=== PATIENT | male | born 1940 | race Caucasian/White ===

== ENCOUNTER → 2023-10-28 14:28 | Outpatient (REF) | payer MEDICARE, BC, SELFPAY | LOC: RAD 14:28 | PROVIDERS: ATTENDING PHYSICIAN Physician Assistant; FAMILY PHYSICIAN Internal Medicine | DX: M79.661 Pain in right lower leg (principal); M79.662 Pain in left lower leg; Z85.46 Personal history of malignant neoplasm of prostate | CPT/HCPCS: 93970 ==

== ENCOUNTER → 2023-12-31 14:40 | Outpatient (REF) | payer MEDICARE, BC, SELFPAY | LOC: RAD 14:40 | PROVIDERS: ATTENDING PHYSICIAN Internal Medicine | DX: I73.9 Peripheral vascular disease, unspecified (principal); I10 Essential (primary) hypertension; M17.0 Bilateral primary osteoarthritis of knee; M71.20 Synovial cyst of popliteal space [Baker], unspecified knee | CPT/HCPCS: 93925 ==

== ENCOUNTER → 2024-02-17 06:26 | Day surgery (SDC) | payer MEDICARE, BC, SELFPAY | LOC: GI 06:26 | PROVIDERS: ATTENDING PHYSICIAN Internal Medicine Gastroenterology; FAMILY PHYSICIAN Internal Medicine | DX: K63.89 Other specified diseases of intestine (principal); K64.0 First degree hemorrhoids; D12.3 Benign neoplasm of transverse colon; D12.0 Benign neoplasm of cecum; K63.5 Polyp of colon | CPT/HCPCS: 45380; 88305; 88313; 88342 ==

== ENCOUNTER → 2024-03-04 13:37 | Outpatient (REF) | payer MEDICARE, BC, SELFPAY | LOC: RCS 13:37 | PROVIDERS: ATTENDING PHYSICIAN Internal Medicine | DX: I10 Essential (primary) hypertension (principal); R01.1 Cardiac murmur, unspecified | CPT/HCPCS: 93306 ==

== ENCOUNTER → 2024-05-28 09:55 | Outpatient (REF) | payer MEDICARE, BC, SELFPAY ==
[2024-05-28 11:07] LABS: % Basophils 0.8 % (0-2); % Eosinophils 3.4 % (0-6); % Immature Granulocytes 0.5 % (0-0.5); % Lymphocytes 25.3 % (20.5-51.1); % Monocytes 12.9 % (1.7-9.3); % Neutrophils 57.1 % (42.2-75.2); Absolute Basophils 0.1 10^3/uL (0-0.2); Absolute Eosinophils 0.2 10^3/uL (0-0.7); Absolute Lymphocytes 1.7 10^3/uL (1.2-3.4); Absolute Monocytes 0.8 10^3/uL (0.1-0.6); Absolute Neutrophils 3.7 10^3/uL (1.4-6.5); Hematocrit 39.5 % (39.0-52.0); Mean Corp Hgb Conc. 32.9 g/dL (33.0-37.0); Mean Corpuscular Hgb 31.3 pg (27.0-31.0); Mean Platelet Volume 11.2 fL (7.4-10.4); Nucleated Red Blood Cells % 0 % (-); Platelet Count 189 10^3/uL (130-400); Red Blood Cell Count 4.16 10^6/uL (4.70-6.10); Red Cell Dist. Width 15.6 % (11.5-14.5); White Blood Cell Count 6.5 10^3/uL (4.8-10.8)
[2024-05-28 11:44] LABS: Blood Urea Nitrogen 27 mg/dl (9-20); Calcium 9.2 mg/dl (8.4-10.2); Carbon Dioxide 29 mmol/L (22-30); Chloride 102 mmol/L (98-107); Glucose 102 mg/dl (70-99); Potassium 4.5 mmol/L (3.5-5.1); Sodium 140 mmol/L (135-145); eGFR > 60.00
== END ==
LOC: RCS 09:55
PROVIDERS: ATTENDING PHYSICIAN Orthopaedic Surgery; FAMILY PHYSICIAN Internal Medicine
DX: Z01.818 Encounter for other preprocedural examination (principal)
CPT/HCPCS: 36415; 80048; 85025; 93005

== ENCOUNTER 2024-06-23 17:00 | Inpatient (IN) | payer MEDICARE, BC, SELFPAY ==
[2024-06-22] VITALS (7 sets, daily range): BP systolic 104–124; BP diastolic 64–92; BMI 27.8
[2024-06-22 18:54] LABS: % Basophils 0.2 % (0-2); % Immature Granulocytes 0.5 % (0-0.5); % Lymphocytes 3.7 % (20.5-51.1); % Monocytes 2.8 % (1.7-9.3); % Neutrophils 92.8 % (42.2-75.2); Absolute Immature Granulocytes 0.1 10^3/uL (0-0.05); Absolute Lymphocytes 0.5 10^3/uL (1.2-3.4); Absolute Monocytes 0.4 10^3/uL (0.1-0.6); Absolute Neutrophils 12.4 10^3/uL (1.4-6.5); Hematocrit 30.6 % (39.0-52.0); Hemoglobin 10.1 g/dL (13.0-18.0); Mean Corpuscular Hgb 30.8 pg (27.0-31.0); Mean Corpuscular Volume 93.3 fL (80.0-94.0); Mean Platelet Volume 11.1 fL (7.4-10.4); Nucleated Red Blood Cells % 0 % (-); Platelet Count 185 10^3/uL (130-400); Red Blood Cell Count 3.28 10^6/uL (4.70-6.10); Red Cell Dist. Width 15.3 % (11.5-14.5); White Blood Cell Count 13.3 10^3/uL (4.8-10.8)
[2024-06-22 19:02] LABS: INR 1.18; PT 14.8 Sec (11.4-14.6)
[2024-06-22 19:03] LABS: APTT 29.8 Sec (23.4-35.0)
[2024-06-22 19:10] LABS: ALT (SGPT) 19 U/L (0-50); AST (SGOT) 25 U/L (17-59); Alkaline Phosphatase 32 U/L (38-126); Blood Urea Nitrogen 17 mg/dl (9-20); Calcium 7.1 mg/dl (8.4-10.2); Carbon Dioxide 17 mmol/L (22-30); Chloride 107 mmol/L (98-107); Estimated Creatinine Clearance 71 ml/min; Glucose 253 mg/dl (70-99); Potassium 3.4 mmol/L (3.5-5.1); Sodium 138 mmol/L (135-145); Total Bilirubin 0.3 mg/dl (0.2-1.3); Total Protein 4.9 g/dl (6.3-8.2); eGFR > 60.00
[2024-06-22 19:20] LABS: Troponin I < 0.012 ng/ml
--- NOTE | 2024-06-22 22:12 | ED.GENMED ---
History of Present Illness
General
Chief Complaint: Fainting/Passed Out
Source: patient, spouse and family
Time Seen by Provider: 06/22/24 21:55
History of Present Illness
History of Present Illness:
84-year-old male brought to the emergency room by ambulance after becoming dizzy, hypoxic at home. Patient had a right knee replacement performed at an outpatient surgical center today by [facility]. Postoperatively the patient
states he had some issues with hypoxia and low blood pressure in the immediate postoperative phase. Evidently his vital signs became more normal and he was discharged to home. Upon returning home a visiting nurse and physical therapist were there
to help him get settled. During their evaluation they noted he was again hypoxic and hypotensive. He was feeling dizzy and they felt he looked pale. The orthopedic group recommended he be brought to the emergency room. Patient became quite
lightheaded and weak while going up to the car to be brought in and had to be lowered to the ground. Ambulance was called to bring him in. While laying in bed and with supplemental oxygen the patient feels better. Patient denies any history of
COPD but he did have COVID in 2020 with a extended hospitalization. He does have regular follow-ups with pulmonology for this
Past History
Past History
ED Past Medical History: Cancer (Prostate), HTN and Hypercholesterolemia
ED Past Surgical History: Other (Hernia repair)
Social History
Tobacco: Non-smoker
Phy Exam
Physical Exam
Physical Exam:
General: Awake, Alert, Oriented X3. No acute distress, pale
Vitals: Hypoxic on room air
Head: Atraumatic
Eyes: Pupils equal, EOMI
Throat: Airway intact, no exudates
Neck: Trachea midline
Lungs: Crackles bilateral bases right greater than left
Heart: Regular rate, no murmurs
Abd: Soft, Nontender, No pulsatile mass
Neuro: Nonfocal
Skin: Warm, dry, no rash
Extremities: pulses equal b/l, no edema. Right knee dressing in place
Course
Orders/Labs/Results
Orders:
Orders
06/22/24 18:45
Electrocardiogram (*1) Urgent
Reason for Study: Syncope
EKG- Treatment ONCE
06/22/24 18:47
CMP [Comprehensive Metabolic Panel] Urgent
Complete Blood Count/With Diff Urgent
PT/INR [Prothrombin Time] Urgent
PTT Urgent
Troponin I Urgent
06/22/24 22:05
CR Chest - 2 Views Urgent
Comment:
Reason For Exam: shortness of breath
06/22/24 23:01
Furosemide [Lasix] 20 mg IV NOW STA
Incentive Spirometry [Rx Incentive Spirometry] [RESP] Urgent
Frequency: q1h while awake
06/22/24 23:02
Potassium Chloride 10% Elixir [KCl Elixir] 40 meq PO NOW STA
06/22/24 23:48
Admit/Transfer Patient As Directed
Co-Sign Provider:
Level of Care: Observation services
Assign to:: Telemetry
Physician / Group: Renato
Diagnosis: Hypoxia
Reason for Telemetry: Other
Other Reason for Telemetry: continuous pulse ox
Date to Stop Telemetry: 06/24/24
Time to Stop Telemetry: 11:00
06/22/24 23:50
Code Status As Directed
Resuscitation Status: Full Code
06/24/24 11:00
DC Protocol for Telemetry ONCE
Abnormal Lab Results
06/22/24
18:47
WBC 13.3 H 10^3/uL
(4.8-10.8)
RBC 3.28 L 10^6/uL
(4.70-6.10)
Hgb 10.1 L g/dL
(13.0-18.0)
Hct 30.6 L %
(39.0-52.0)
RDW 15.3 H %
(11.5-14.5)
MPV 11.1 H fL
(7.4-10.4)
Abs Immat Gran (auto) 0.1 H 10^3/uL
(0-0.05)
Absolute Neuts (auto) 12.4 H 10^3/uL
(1.4-6.5)
Absolute Lymphs (auto) 0.5 L 10^3/uL
(1.2-3.4)
Neutrophils % 92.8 H %
(42.2-75.2)
Lymphocytes % 3.7 L %
(20.5-51.1)
PT 14.8 H Sec
(11.4-14.6)
Potassium 3.4 L mmol/L
(3.5-5.1)
Carbon Dioxide 17 L mmol/L
(22-30)
Glucose 253 H mg/dl
(70-99)
Calcium 7.1 L mg/dl
(8.4-10.2)
Alkaline Phosphatase 32 L U/L
(38-126)
Total Protein 4.9 L g/dl
(6.3-8.2)
Albumin 3.0 L g/dl
(3.5-5.0)
06/22/24 18:47
06/22/24 18:47
Vital Signs
Initial and Last Documented VS:
Initial Vital Signs
Temp Pulse Resp BP Pulse Ox
97.6 F 85 18 111/73 96
06/22/24 18:32 06/22/24 18:32 06/22/24 18:32 06/22/24 18:32 06/22/24 18:32
Last Documented Vital Signs
Temp Pulse Resp BP Pulse Ox
97.6 F 82 16 124/78 97
06/22/24 18:32 06/22/24 23:40 06/22/24 22:30 06/22/24 23:40 06/22/24 22:00
MDM/Problems Addressed
Differential Diagnosis Includes:
Fluid overload, atelectasis, postoperative anemia, anesthetic side effect
MDM/Problems Addressed:
Patient sent to the emergency room from home after discharge from surgery center where he had a knee replacement performed. Patient's labs show a decrease in hemoglobin from preoperative levels but not at a level requiring transfusion. Chemistry
show mild hypokalemia. Chest x-ray shows atelectasis perhaps some cephalization though it is poor respiratory effort. Suspect the patient is having hypoxia from a combination of atelectasis and IV fluid. Will encourage use of incentive
spirometer, give a small dose of Lasix IV.
*Radiology
Radiology exam reviewed: preliminary read by ED provider (Poor inspiratory effort, atelectasis, questionable cephalization)
*Pulse Oximetry
Patient hypoxic: yes
*EKG
Interpreted by ED Provider?: Yes
Heart Rate: 77
Rate: normal
Rhythm: sinus
[place]: left axis deviation
Interval: normal interval
Ischemia: no ischemia
*[employer]ail [employer] Specialist Interpretation
Rate: normal
Interpretation: normal
Rhythm: sinus
*Critical Care Note
Total Time (30-74mins, 75-104mins- exclusive of procedures): Not Applicable
Data Reviewed
Review of Other/Old Records Reveals: Labs
Patient Management
Social determinants of health affecting care: Strong social support
Discussion with other providers: Hospitalist
ED Attending Note
-
Portions of this chart may have been created with voice recognition software.� Occasional wrong word or��sound alike� substitutions may have occurred due to the inherent limitations of voice recognition software.
Discharge Plan
Departure
Patient Disposition: Admit
Date of Disposition: 06/22/24
Time of Disposition: 23:08
Admit to: Med/Surg
Presentation/result/management discussed w/ accepting MD/DO: Hospitalist
Condition: Fair
Discharge Problem:
Postoperative hypoxia, Atelectasis
Interventions
Interventions:
*Risk Screen - Suicide Last Done: 06/22/24 18:32
*General Assessment Last Done: 06/22/24 18:32
*Neglect/Abuse Screening Last Done: 06/22/24 18:32
ED- Fall Risk Assessment Last Done: 06/22/24 19:32
*ED COVID-19 Vaccine History Last Done: 06/22/24 19:00
ED- Cardiac Assessment Last Done: 06/22/24 19:31
ED- Neurological Assessment Last Done: 06/22/24 19:31
[2024-06-22] MEDS: KCL ELIXIR 40 MEQ PO (23:40)
[2024-06-22] MEDS: LASIX 20 MG IV (23:40)
--- NOTE | 2024-06-22 23:53 | HPS.HSE ---
Addendum entered and electronically signed by Chai Gross DO 06/23/24 00:30:
Patient seen and examined independently. Agree with findings and plan as set forth by Arely Tate PA-C.
Patient is an 84y M with PMH significant for hypertension and dyslipidemia who presents to ED for evaluation of lightheadedness, hypotension and hypoxemia. Patient underwent R TKA today at outpatient surgical center. He initially did well with
PT / mobility after the procedure; however, he then developed hypotension, hypoxemia (into the 70s reportedly) and lightheadedness. Patient was brought to the ED via EMS. He is currently resting comfortably while supine. He continues to complain
of dizziness / lightheadedness with sitting upright or standing. He has no chest pain. He has no R knee pain.
Ass:
Hypotension
Hypoxemia
Orthostatic Hypotension / Dizziness
Post-Op Blood Los Anemia
s/p R TKA (06/22/24)
Benign Hypertension
Dyslipidemia
Impaired Glucose Tolerance
Lymphocytic Colitis
Plan:
Observe overnight for further evaluation and treatment.
Continue supplemental O2 as needed.
Hold further diuretic therapy given hypotension / near syncope.
Holding parameters for home BP medications.
Incentive spirometry.
Follow overnight for any new / worsening symptoms.
PT eval in the AM.
Ortho consulted given recent surgery.
Original Note:
Family Physician
-
Family Physician: Tima Olvera
Chief Complaint
-
Dizzy and Hypoxia
History of Present Illness
Patient is an 84 y/o male past medical history of hypertension, hyperlipidemia, lymphocytic colitis who presents with dizziness and hypoxia. Patient underwent right total knee replacement at the outpatient surgical center today. Family notes that
his oxygen level and BP were running low while he was in recovery but it seemed to improve and he was discharged home. While at home the therapist and visiting nurse again found his to be hypoxic. Patient was also complaining of dizziness and his
BP was noted to be low. Family was attempting to bring him to the emergency department but had to EMS due to worsening dizziness. Family reports he appears quite pale. Patient denies chest pains, palpitations or shortness of breath.
I did attempt to wean patient off oxygen during my evaluation, and patient did drop to 86% on RA, but quickly recovered to 95% on 1L.
Medical History
Past Medical History
Past Medical History: Reports Other
Additional Past Medical History:
Essential Hypertension
Hyperlipidemia
Prediabetes
Lymphocytic Colitis
Prostate Cancer s/p Prostatectomy
Gout
Past Surgical History: Reports Other
Additional Past Surgical History:
Hernia Repair
Prostatectomy
Humerus Fracture Repair
Right Total Knee Replacement
Social History
Tobacco: Former Smoker (Quit in 1969)
Alcohol: Occasional
Family History
Family History: Not pertinent
Allergies / Home Medications
Allergies reflects when Allergies were last updated in [facility].
Home Medications with original date entered in [facility]
Allergy/Medication List:
Allergies
Allergy/AdvReac Type Severity Reaction Status Date / Time
levofloxacin Allergy red spots Verified 06/22/24 18:43
over
entire body
lisinopril [From Zestril] Allergy cough Verified 06/22/24 18:43
Home Medications
allopurinol 100 mg tablet 100 mg PO BID Gout 12/15/19
simvastatin 20 mg tablet 20 mg PO HS High cholesterol 12/15/19
acetaminophen 500 mg tablet (Tylenol Extra Strength) 1,000 mg PO Q6H 06/22/24
amlodipine 5 mg tablet 5 mg PO DAILY 06/22/24
aspirin 325 mg tablet 325 mg PO QPM 06/22/24
atenolol 25 mg tablet 25 mg PO DAILY 06/22/24
calcium 500 mg (as carbonate)-vitamin D3 10 mcg (400 unit) tablet (Calcium 500 + D) 1 tab PO TID 06/22/24
celecoxib 100 mg capsule 100 mg PO BID 06/22/24
colestipol 1 gram tablet 2 g PO DAILY 06/22/24
denosumab 60 mg/mL subcutaneous syringe (Prolia) 60 mg SC [id number] 06/22/24
dexamethasone 4 mg tablet 4 mg PO Q12H 06/22/24
leuprolide acetate (6 month) 45 mg intramuscular syringe kit (Lupron Depot) 45 mg IM [id number] 06/22/24
mupirocin 2 % topical ointment 1 applic topical BID nose 06/22/24
ondansetron HCl 4 mg tablet 4 mg PO Q6HPRN PRN nausea 06/22/24
oxycodone 5 mg tablet 5 mg PO Q6HPRN PRN breakthrough pain 06/22/24
psyllium husk 3.4 gram/5.4 gram oral powder (Metamucil) 2 tbsp PO DAILY 06/22/24
Review of Systems
-
A 12 point ROS was completed and negative except as noted: Yes
Constitutional: Denies Fever or Chills
Respiratory: Denies Cough or Trouble Breathing
Cardiac: Denies Chest Pain or Palpitations
Physical Exam
Vital Signs
Vital Signs
Temp Pulse Resp BP Pulse Ox
97.6 F 82 16 124/78 97
06/22/24 18:32 06/22/24 23:40 06/22/24 22:30 06/22/24 23:40 06/22/24 22:00
Physical Exam
General: Comfortable, Conversant and Other (Appears pale)
HEENT: NormoCephalic, Moist mucous membranes and Oxygen (Nasal Cannula)
Respiratory: Clear and Non Labored Respirations
Cardiac: S1/S2 and Regular Rhythm
GI: Soft and Non Tender
Rectal: Deferred by Provider
Musculoskeletal: No Clubbing, No Cyanosis and Other (RLE wrapped in NAI following Right Total Knee Replacement)
Skin: Warm and Dry
Neuro: Awake, Alert, Oriented and Nonfocal/grossly intact
Psych: Calm
Laboratory Results
-
06/22/24 18:47
06/22/24 18:47
Laboratory Results
PT 14.8 Sec (11.4-14.6) H 06/22/24 18:47
INR 1.18 06/22/24 18:47
APTT 29.8 Sec (23.4-35.0) 06/22/24 18:47
Total Bilirubin 0.3 mg/dl (0.2-1.3) 06/22/24 18:47
AST 25 U/L (17-59) 06/22/24 18:47
ALT 19 U/L (0-50) 06/22/24 18:47
Alkaline Phosphatase 32 U/L (38-126) L 06/22/24 18:47
Troponin I < 0.012 ng/ml 06/22/24 18:47
Data Reviewed
-
Lab Data: Labs Reviewed by me
Impression/Plan
-
Acute Hypoxic Respiratory Insufficiency, suspect related to anesthesia
-Continue supplemental oxygen
-Wean as tolerated
-Encourage use of incentive spirometer
-Avoid sedating medications
Dizziness with reports of low BP
-Check orthostatic VS
-Hold blood pressure medications
Post-Op Acute Blood Loss Anemia
-Recheck Hgb in AM
Right Total Knee Replacement in June 22
-Continue full strength aspirin for DVT prophylaxis as per Ortho
-Continue Celebrex and Tylenol for pain
-Consult PT/OT
Hyperglycemia
-Outpatient records indicate prediabetes
-Monitor sugars while on steroids
Lymphocytic Colitis
-Continue Colestid
Hx Prostate CA s/p Prostatectomy
DVT proph: Foot Pumps
Code Status: Full Code
[2024-06-23] VITALS (7 sets, daily range): BP systolic 108–139; BP diastolic 66–86; BMI 27.1
[2024-06-23] MEDS: DECADRON 4 MG PO ×2 (03:36→14:42)
--- NOTE | 2024-06-23 05:20 | PTCARENOTE ---
patient admitted to 430, arrived via stretcher, oriented to room and call ronquillo. O2 at 2L NC, pt AAOX3, inst on not getting OOB and to utilize call ronquillo for assistance. pt placed on tele #[phone], admission assessment completed
--- NOTE | 2024-06-23 07:43 | CON.ORTHO ---
Consultation
-
Date/Time Consultation Requested: 06/22/24
Date/Time Consultation Performed: 06/23/24 @7:15am
Requesting Provider: Arely Ball
Performing Provider: Elisa Castillo PA-C, Emily Guillory MD
Reason for Consultation: s/p right TKA
Consultation - Orthopedics
History
HPI: 84yo male admitted to [facility] last evening for low oxygen saturation and low blood pressure. He underwent right TKA at outpatient surgical center on 06/22/[address] Graves. He reports that he did well in the recovery room
following surgery and was sent home. The home nurse and PT arrived and performed his vital signs where is oxygen saturation was dropping to the 70s. He also was lightheaded and his blood pressure was low. He states that his contacted the office
and was advised to bring him to the ER. He was placed on 2L nasal cannula. He states that overnight, he was weaned to 1L and his oxygen saturation dropped again. He denies shortness of breath, chest pain. He has little pain in the right knee.
PAST MEDICAL HISTORY: prostate cancer, HTN, hyperlipidemia, COVID in 2020 with extended hospitalization, lymphocytic colitis, gout
PAST SURGICAL HISTORY: hernia repair, prostatectomy, humerus fracture repair
SOCIAL HISTORY: Denies tobacco, alcohol. Lives at home with
FAMILY HISTORY: Noncontributory
REVIEW OF SYSTEMS: 12 point review of systems obtained and negative except those mentioned in the HPI
Allergies / Home Medications
Allergy/AdvReac Type Severity Reaction Status Date / Time
levofloxacin Allergy red spots Verified 06/22/24 18:43
over
entire body
lisinopril [From Zestril] Allergy cough Verified 06/22/24 18:43
�Medication �Instructions �Recorded
allopurinol 100 mg tablet 100 mg PO BID Gout 12/15/19
simvastatin 20 mg tablet 20 mg PO HS High cholesterol 12/15/19
acetaminophen 500 mg tablet 1,000 mg PO Q6H 06/22/24
(Tylenol Extra Strength)
amlodipine 5 mg tablet 5 mg PO DAILY 06/22/24
aspirin 325 mg tablet 325 mg PO QPM 06/22/24
atenolol 25 mg tablet 25 mg PO DAILY 06/22/24
calcium 500 mg (as 1 tab PO TID 06/22/24
carbonate)-vitamin D3 10 mcg (400
unit) tablet (Calcium 500 + D)
celecoxib 100 mg capsule 100 mg PO BID 06/22/24
colestipol 1 gram tablet 2 g PO DAILY 06/22/24
denosumab 60 mg/mL subcutaneous 60 mg SC [id number] 06/22/24
syringe (Prolia)
dexamethasone 4 mg tablet 4 mg PO Q12H 06/22/24
leuprolide acetate (6 month) 45 mg 45 mg IM [id number] 06/22/24
intramuscular syringe kit (Lupron
Depot)
mupirocin 2 % topical ointment 1 applic topical BID nose 06/22/24
ondansetron HCl 4 mg tablet 4 mg PO Q6HPRN PRN nausea 06/22/24
oxycodone 5 mg tablet 5 mg PO Q6HPRN PRN breakthrough 06/22/24
pain
psyllium husk 3.4 gram/5.4 gram 2 tbsp PO DAILY 06/22/24
oral powder (Metamucil)
Vital Signs / Lab Results
Temp Pulse Resp BP Pulse Ox
98.0 F 85 18 139/86 92
06/23/24 02:11 06/23/24 02:11 06/23/24 02:11 06/23/24 02:11 06/23/24 02:11
PHYSICAL EXAM:
General: no acute distress
HEENT: NCAT, sclera anicteric, normal hearing
Heart: No JVD
Lungs: normal work of breathing on 2L O2 nasal cannula
MSK: Directed exam of right knee reveals NAI wrap and Aquacel dressing in place. Bandage is clean, dry, and intact. Mild expected edema. Decreased range of motion due to pain. Calf soft and nontender. NVI distally
Assessment / Plan
ASSESSMENT: 84yo male with hypoxia and hypotension s/p right TKA on 06/22/24
PLAN: Mr. Buckley underwent right TKA as an outpatient yesterday with Dr. Graves. Unfortunately, he became hypoxic and hypotensive when he got home. Appreciate the recommendations of medical team. Will try to wean O2 today. Encouraged him to use
incentive spirometer that is at his bedside. Monitor blood pressure. Hemoglobin last night was 10.1. Labs drawn this morning are still pending. He may be weight bearing as tolerated with a walker on the right leg. Dressings to remain in place.
Continue with pain medications as needed. He will be on aspirin 325mg daily for DVT prophylaxis for 4 weeks postop. PT/OT evaluation today. Will continue to follow along.
[2024-06-23 07:56] LABS: Hemoglobin 9.9 g/dL (13.0-18.0); Mean Corp Hgb Conc. 34.1 g/dL (33.0-37.0); Mean Corpuscular Hgb 30.9 pg (27.0-31.0); Mean Corpuscular Volume 90.6 fL (80.0-94.0); Mean Platelet Volume 11.3 fL (7.4-10.4); Platelet Count 189 10^3/uL (130-400); White Blood Cell Count 13.8 10^3/uL (4.8-10.8)
[2024-06-23] MEDS: ZYLOPRIM 100 MG PO ×2 (08:12→19:54)
[2024-06-23] MEDS: CELEBREX 100 MG PO ×2 (08:13→19:55)
[2024-06-23] MEDS: TYLENOL 1000 MG PO ×4 (08:13→21:11)
[2024-06-23 08:17] LABS: Glucose - Point of Care 182 mg/dl (70-99)
[2024-06-23 08:21] LABS: Blood Urea Nitrogen 15 mg/dl (9-20); Calcium 7.3 mg/dl (8.4-10.2); Carbon Dioxide 21 mmol/L (22-30); Chloride 105 mmol/L (98-107); Estimated Creatinine Clearance 71 ml/min; Glucose 170 mg/dl (70-99); Magnesium 1.7 mg/dl (1.6-2.3); Potassium 4.2 mmol/L (3.5-5.1); Sodium 138 mmol/L (135-145); eGFR > 60.00
[2024-06-23] MEDS: MAGNESIUM OXIDE 500 MG PO (10:05)
[2024-06-23] MEDS: NOVOLOG FLEXPEN-LOW RESISTANCE 1 UNITS SC (10:05)
[2024-06-23 10:32] LABS: Glycohemoglobin (HgbA1c) 5.4 % (4.0-5.6)
[2024-06-23 11:35] LABS: Glucose - Point of Care 206 mg/dl (70-99)
[2024-06-23 11:41] LABS: Vitamin D, 25-OH*** 29.4 ng/mL (30-80)
[2024-06-23] MEDS: NOVOLOG FLEXPEN-LOW RESISTANCE 2 UNITS SC (12:29)
--- NOTE | 2024-06-23 12:39 | CM ---
corporate logistics manager reviewed patient's chart and met with patient and patient was admitted under OBS, MYERS letter reviewed, signed and placed on chart. Patient lives in a 1st floor apartment, one step in and 7 steps to main level, patient reports that he
is independent with adl's and ambulation, no dme, patient drives.
PCP: Dr. King
Pharmacy [facility]
Plan; Home when stable, no needs.
--- NOTE | 2024-06-23 14:11 | W.PN.HOSP.TC ---
Addendum entered and electronically signed by Zuri Peterson MD 06/23/24 14:13:
Leukocytosis secondary to steroids
Original Note:
Today's Communication/Plan
-
IS
CT
Assessment / Plan
Assessment / Plan
84-year-old male presented with dizziness and hypoxia. Patient underwent right total knee replacement at surgical center day prior to arrival. Family noted that oxygen and blood pressure were running low. He was also feeling really weak.
Echo 03/04/2024-normal size LV and EF 65 to 70%. Mild concentric LVH. Normal RV. Mild MR. Mild . Mild AI. Trace TR. Pulmonary artery pressure 30 to 35 mmHg.
CVS: S1-S2 normal
Chest: CTA B/L
Abdomen: Soft, NT / Bowel sounds present
Extremities: mild RLE edema , R Knee bandaged., normal pulses
GUARD CHIEF: Non focal exam
# Acute hypoxic respiratory insufficiency
Continue supplemental oxygen
Incentive spirometry
Elevated D Dimer- Check PE study
IS
# Dizziness
Check orthostatic vital signs
Hold Norvasc
# Acute blood loss anemia secondary to surgery
Follow hemoglobin
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
PT OT
Pain control with Celebrex and Tylenol
Also on Decadron 4 mg twice daily total of 6 doses probably completing on the evening of 06/25/2024 per discussion with Ortho
Aspirin for DVT prophylaxis
# Hyperglycemia- due to steroids
Outpatient records indicate prediabetes
# Hypokalemia-resolved
# Hypertension-hold Norvasc, atenolol
# Hyperlipidemia-continue statin
# Gout-continue allopurinol
# Lymphocytic colitis-continue Colestid
# COVID19 infection in 2019 with prolonged hospitalization
# History of prostate cancer status post prostatectomy-on Lupron
# Hearing impairment
# DVT prophylaxis-aspirin
# Full code
Discussed with Ortho
Discussed with nursing at bedside
Discussed with patient's family at bedside
Part of this note was created using voice recognition system. Occasional wrong word or��sound alike� substitutions may have inadvertently occurred due to the inherent limitations of voice recognition software. If noted kindly bring it to my
attention for correction.
time 52 min
Anticipated Discharge: Within 24 hours
Subjective/Interval History
-
Date of Service: June 23, 2024
Objective Data
-
Labs:
Laboratory Results
06/23/24
07:19
WBC 13.8 H
Hgb 9.9 L
Hct 29.0 L
Plt Count 189
Sodium 138
Potassium 4.2
Chloride 105
Carbon Dioxide 21 L
BUN 15
Creatinine 0.7
Glucose 170 H
Calcium 7.3 L
Vital Signs:
Vital Signs
Temp Pulse Resp BP Pulse Ox
98.3 F 75 20 125/72 98
06/23/24 11:47 06/23/24 11:47 06/23/24 11:47 06/23/24 11:47 06/23/24 11:47
I&O
06/22/24 06/23/24 06/24/24
06:59 06:59 06:59
Output Total 750 / 750
Balance -750 / -750
[2024-06-23 16:30] LABS: Glucose - Point of Care 149 mg/dl (70-99)
[2024-06-23] MEDS: NOVOLOG FLEXPEN-LOW RESISTANCE SC (16:33)
--- NOTE | 2024-06-23 16:50 | CON.PUL ---
Consultation
Consultation Request
Date/Time Consultation Requested: 06/23
Date/Time Consultation Performed: 06/23
Reason for Consultation: Acute PE
Medical History
-
History of Present Illness:
History obtained from the patient, multiple family members at the bedside, reviewing inpatient and outpatient records. Patient is a pleasant 84-year-old male with history of interstitial disease, hypertension, severe almost 2020Covid, with
improvement in overall pulmonary process over the past few years. Patient recently underwent right knee replacement at surgical center 06/22. Patient went home that day. Apparently during physical therapy at home, with visiting nurse, patient was
noted to be hypoxic and hypotensive. Systolic pressure in the 90s. According to family at bedside, saturation on pulse oximeter was 70%. Patient was brought to [facility] where upon arrival, afebrile, pulse 85, breathing at 18, blood
pressure 111/73, 96%. Chest x-ray suggested mild atelectasis. Patient was given IV fluids and 1 dose of Lasix. Of note initial EKG without any obvious acute findings. ED records suggest that hypoxia on room air. Further workup included elevated
D-dimer ordered by primary service this morning. CT chest obtained due to persistent dizziness, presyncopal symptoms. Left lower lobe artery clot was noted. We are asked to comment on pulmonary process.
Throughout this, patient denies chest pain, chest tightness, palpitations, cough, hemoptysis. He admits to dizziness/lightheadedness. On further questioning, he admits to right calf pain few weeks prior to admission. This was confirmed with his
family at the bedside. He had similar pain back in October 2023 at which time he had a bilateral Doppler study which was negative for DVT.
.
PMH: Interstitial disease with groundglass changes in 2019, resolved. History of severe COVID infection 2019 requiring ICU stay and oxygen therapy. History of peripheral eosinophilia. Mild restriction with moderate gas exchange defect, DLCO 54%,
mild clubbing with mild basilar crackles chronic, history of asbestos exposure, prostate cancer, osteoporosis, hypertension/hyperlipidemia
Past Medical History
Past Medical History: None (See above)
Past Surgical History: None (See above)
Social History
Tobacco: Former Smoker (Quit many years ago)
Alcohol: None
Drug: None
Personal:
Living: With Family
Employment: Retired (Worked in [employer])
Family History
Family History: Other (Brother from alcoholism age 49, mother age 88. Father from heart attack age 69)
Allergies / Home Medications
Allergies
Allergy/AdvReac Type Severity Reaction Status Date / Time
levofloxacin Allergy red spots Verified 06/22/24 18:43
over
entire body
lisinopril [From Zestril] Allergy cough Verified 06/22/24 18:43
Home Medications
�Medication �Instructions �Recorded �Confirmed �Last Taken �Type
allopurinol 100 mg tablet 100 mg PO BID Gout 12/15/19 06/22/24 12/15/19 History
simvastatin 20 mg tablet 20 mg PO HS High cholesterol 12/15/19 06/22/24 12/14/19 History
acetaminophen 500 mg tablet 1,000 mg PO Q6H Pain 06/22/24 06/22/24 Unknown History
(Tylenol Extra Strength)
amlodipine 5 mg tablet 5 mg PO DAILY Blood Pressure 06/22/24 06/22/24 Unknown History
aspirin 325 mg tablet 325 mg PO QPM Blood Clot 06/22/24 06/22/24 Unknown History
Prevention/Tx
atenolol 25 mg tablet 25 mg PO DAILY Blood Pressure 06/22/24 06/22/24 Unknown History
calcium 500 mg (as 1 tab PO TID Supplement 06/22/24 06/22/24 Unknown History
carbonate)-vitamin D3 10 mcg (400
unit) tablet (Calcium 500 + D)
celecoxib 100 mg capsule 100 mg PO BID Anti-Inflammatory 06/22/24 06/22/24 Unknown History
colestipol 1 gram tablet 2 g PO DAILY High Cholesterol 06/22/24 06/22/24 Unknown History
denosumab 60 mg/mL subcutaneous 60 mg SC [id number] Osteoporosis 06/22/24 06/22/24 Unknown History
syringe (Prolia)
dexamethasone 4 mg tablet 4 mg PO Q12H 06/22/24 06/22/24 Unknown History
leuprolide acetate (6 month) 45 mg 45 mg IM [id number] Cancer 06/22/24 06/22/24 Unknown History
intramuscular syringe kit (Lupron
Depot)
mupirocin 2 % topical ointment 1 applic topical BID nose 06/22/24 06/22/24 Unknown History
ondansetron HCl 4 mg tablet 4 mg PO Q6HPRN PRN nausea 06/22/24 06/22/24 Unknown History
oxycodone 5 mg tablet 5 mg PO Q6HPRN PRN breakthrough 06/22/24 06/22/24 Unknown History
pain
psyllium husk 3.4 gram/5.4 gram 2 tbsp PO DAILY Constipation 06/22/24 06/22/24 Unknown History
oral powder (Metamucil)
Review of Systems
-
All other systems: Negative unless noted
Vitals / Labs / Diagnostic Testing
Vital Signs
Temp Pulse Resp BP Pulse Ox
98.8 F 94 18 133/76 93
06/23/24 15:52 06/23/24 15:52 06/23/24 15:52 06/23/24 15:52 06/23/24 15:52
Lab Data
06/23/24 07:19
06/23/24 07:19
Laboratory Results
06/22/24
18:47
PT 14.8 H
INR 1.18
APTT 29.8
Diagnostic Testing:
Physical Exam
-
HEENT: Normocephalic and Anicteric
Cardiovascular: S1/S2, Regular Rhythm, Murmur (2/6 systolic murmur), Rub (n) and Peripheral Edema (Trace right lower extremity edema. Knee dressing intact right side)
Respiratory: Wheeze (n), Rales (Mild at base), Rhonchi (n) and Non-Labored Respirations
GI: Soft, Non Distended and Non Tender
Neurology: Awake, Alert and No Motor Deficits
Skin: Other (Mild clubbing)
General: Comfortable
Assessment
-
84-year-old male with history of severe COVID infection 2019 complicated by interstitial disease subsequently resolved with chronic crackles, moderate restriction with mild gas exchange defect, presents with presyncopal symptoms, hypoxia. According
to family at bedside, saturation was in the 70s at home, with systolic pressure in the 90s. Patient was admitted, CT chest obtained which confirmed left lower lobe blood clot. There is no evidence of RV strain. We are asked to comment on
pulmonary process
Acute PE, left-sided
No RV strain
Presyncopal symptoms less than 24 hours
Acute hypoxic respiratory insufficiency
Saturation in the 70s preadmission (3 pulse oximeters per pt)
Status post right TKA 06/22
[facility] orthopedics ([facility])
Right calf pain, 3 weeks preadmission
Anemia, hemoglobin 9.9
preadmission 13.0
Conditions present prior to admission
Hypertension/hyperlipidemia
History of severe COVID 2019
Required oxygen therapy, improved
Bilateral basilar interstitial disease, stable
Crackles on exam, chronic
History of prostate cancer
Mild restrictive, moderate gas exchange defect
TLC 4.78/74%, DLCO 11.69/54% (2021)
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
Plan/recommendations
At this time, patient appears to be comfortable
However, he is complaining of intermittent lightheadedness with activity, presented with presyncopal symptoms with physical therapy, visiting nurse
According to multiple family members at bedside, patient was pallorous, dizzy
Saturation at home in the 70s
Per ED records, patient hypoxic on room air, but no confirmation
Reviewed CT chest. Left lung PE noted
There is a filling defect in the second-generation left lower lobe pulmonary artery
Too soon to be attributed to postsurgical risk
On further questioning, patient describes right calf pain few weeks preprocedure
Moving forward
Given documented hypoxemia, presyncopal symptoms, would recommend anticoagulation
Prefer enoxaparin over heparin drip given risk for supratherapeutic levels on heparin drip and recent right knee surgery
Check lower extremity Dopplers
Given presyncopal symptoms, would check echocardiogram
Would prefer Lovenox dosing 1 mg/kg to minimize chance of for supratherapeutic levels, especially given recent right knee replacement
Await discussion with orthopedic surgery
Unfortunately, no definitive correlation with clot burden and clinical presentation given transient nature of embolic disease and lack of correlation with clot burden and RV dysfunction. Also unclear whether there is residual clot subdiaphragmatic
and in the leg that may also still be in transit.
Would recommend full anticoagulation
Hold off on venous foot pumps for now
Once fully anticoagulated and Doppler studies confirmed can resume as able
Based on pt sxs, I suspect clot was present before surgery.
Reviewed at length with the patient, family and primary service. Awaiting confirmation of plan with orthopedic surgery
--- NOTE | 2024-06-23 17:36 | W.PN.UPDATE ---
Update Note
Progress Note Update
CT PE study-with PE noted.
Patient likely had PE prior to surgery as timing is too soon for postop course.
Also has some pulmonary edema-likely noncardiogenic 20 mg of Lasix.
I have reached out to Dr. Graves who recommends half dose of anticoagulation
Consulted pulmonary also
I discussed with patient's and grandson who is a nurse at bedside regarding PE
Patient does not have any symptoms at present.
D/W RN
--- NOTE | 2024-06-23 17:42 | W.PN.UPDATE ---
Update Note
Progress Note Update
Reviewed plan with orthopedic surgery.
Orthopedic surgery was not aware of saturation in the 70s in the field.
They are concerned about bleeding postoperatively in the knee
We will give 1 dose of Lovenox 1 mg/kg
We will reassess the right knee in the morning. If remains stable, continue with 1 mg/kg every 12
Doppler studies have been ordered for today
Echocardiogram has been ordered for tomorrow
If there are any bleeding complications or concerns regarding the knee, we will plan for IVC filter option in the short-term understanding that this will not treat his acute PE but will at least protect against additional showering of emboli
Will follow closely
[2024-06-23] MEDS: ASPIRIN 325 MG PO (17:47)
[2024-06-23] MEDS: LIPITOR 10 MG PO (17:47)
[2024-06-23] MEDS: LASIX 20 MG PO (17:47)
[2024-06-23] MEDS: LOVENOX 70 MG SC (17:56)
[2024-06-23 21:25] LABS: Glucose - Point of Care 188 mg/dl (70-99)
[2024-06-24] MEDS: DECADRON 4 MG PO ×3 (02:57→19:52)
[2024-06-24 03:34] VITALS: BP 153/79
--- NOTE | 2024-06-24 07:12 | W.PN.UPDATE ---
Update Note
Progress Note Update
Mr. Buckley is resting comfortably in bed this morning. He is breathing comfortably at present. He denies any significant pain in his knee at present.
Directed exam of the right lower extremity reveals surgical dressing clean, dry and intact. Expected post-operative effusion about the right knee, and edema about the right lower extremity. Knee is soft and compressible. No significant ecchymosis
throughout the RLE. Calf soft and nontender. Neurovascularly intact distally.
84 yo M POD2 right TKA; pulmonary embolism noted on CT
--Patient's knee appears to be healing as expected on exam today. I do not appreciate any signs concerning for significant bleeding from the wound or hematoma formation. Aquacel dressing to remain in place. Continue treatment per
primary/pulmonology.
--WBAT to RLE with walker. Patient may perform gentle ROM of the knee. May benefit from PT while inpatient once stable per medicine/pulm. Otherwise will attend physical therapy outpatient upon dc.
--Pain control prn. Ice and elevation for pain and edema control.
--- NOTE | 2024-06-24 07:32 | W.PN.UPDATE ---
Update Note
Progress Note Update
No issues overnight. Orthopedic response, wound looks good
Doppler study negative for DVT
Per nursing, patient feels better this morning
Moving forward
Continue Lovenox. 70 mg again this morning, ordered
Continue Lovenox every 12hr, await echocardiogram
Aspirin has been discontinued
Eventual transition to oral agent
Reviewed with nursing
[2024-06-24 07:35] VITALS: BP 154/82
[2024-06-24] MEDS: TYLENOL 1000 MG PO ×4 (07:48→21:55)
[2024-06-24] MEDS: MAGNESIUM OXIDE 500 MG PO (07:48)
[2024-06-24] MEDS: ZYLOPRIM 100 MG PO ×2 (07:48→19:52)
[2024-06-24] MEDS: LOVENOX 70 MG SC (07:48)
[2024-06-24] MEDS: CELEBREX 100 MG PO ×2 (07:48→19:55)
[2024-06-24 07:54] LABS: Glucose - Point of Care 156 mg/dl (70-99)
--- NOTE | 2024-06-24 08:31 | W.PN.PUL3 ---
Today's Communication / Plan
-
Await echocardiogram. Elevated cardiac biomarkers noted
EKG today
Continue Lovenox 70 mg every 12 hours
Consider transition to oral agent 06/25
Continue PT/OT
Okay to use venous foot pumps. Dopplers negative
Assessment
-
84-year-old male with history of severe COVID infection 2019 complicated by interstitial disease subsequently resolved with chronic crackles, moderate restriction with mild gas exchange defect, presents with presyncopal symptoms, hypoxia. According
to family at bedside, saturation was in the 70s at home, with systolic pressure in the 90s. Patient was admitted, CT chest obtained which confirmed left lower lobe blood clot. There is no evidence of RV strain. We are asked to comment on
pulmonary process
Acute PE, left-sided
No RV strain
Presyncopal symptoms less than 24 hours
Acute hypoxic respiratory insufficiency
Saturation in the 70s preadmission (3 pulse oximeters per pt)
Status post right TKA 06/22
[facility] orthopedics ([facility])
Right calf pain, 3 weeks preadmission
Anemia, hemoglobin 9.9
preadmission 13.0
Conditions present prior to admission
Hypertension/hyperlipidemia
History of severe COVID 2019
Required oxygen therapy, improved
Bilateral basilar interstitial disease, stable
Crackles on exam, chronic
History of prostate cancer
Mild restrictive, moderate gas exchange defect
TLC 4.78/74%, DLCO 11.69/54% (2021)
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
Plan/recommendations
At this time, patient appears to be comfortable
Presyncopal symptoms appear to be improved
Saturation at home in the 70s, initial BP systolic pressure 90s
Per ED records, patient hypoxic on room air, but no confirmation
Elevated troponin, proBNP noted
Reviewed CT chest. Left lung PE noted
There is a filling defect in the second-generation left lower lobe pulmonary artery
Too soon to be attributed to postsurgical risk
On further questioning, patient describes right calf pain few weeks preprocedure
Doppler negative for bilateral DVT
Saturation on room air 99%
Moving forward
Continue full dose anticoagulation
Tolerating Lovenox, this will continue every 12 hours 70 mg
Eventual transition to oral agent, prefer starting Eliquis or Xarelto 06/25 in a.m.
Await echocardiogram
Unfortunately, no definitive correlation with clot burden and clinical presentation given transient nature of embolic disease and lack of correlation with clot burden and RV dysfunction.
Also unclear whether there is residual clot subdiaphragmatic and in the leg that may also still be in transit.
Would recommend full anticoagulation for 3 to 6 months
Okay to use venous foot pumps
Ongoing PT/OT per orthopedic protocol
Possible disposition in the next 24 hours
Subjective Data
-
Date of Service:
Date of Service: June 24, 2024
Subjective:
Patient is feeling better today. He denies any further lightheadedness, dizziness. Was up ambulating to the bathroom and going from the chair to the bed without difficulty. Denies chest pain, shortness of breath. Denies cough, hemoptysis. Knee
pain is controlled
Objective Data
Data Reviewed
Vital Signs / I&O / Oxygen:
Vital Signs
Temp Pulse Resp BP Pulse Ox
98.0 F 79 18 154/82 98
06/24/24 07:35 06/24/24 07:35 06/24/24 07:35 06/24/24 07:35 06/24/24 07:35
Intake and Output
06/23/24 06/24/24 06/25/24
06:59 06:59 06:59
Intake Total 1320 / 1320
Output Total 750 / 750 600 / 600
Balance -750 / -750 720 / 720
SaO2 98
Nasal Cannula flow liters per 4
minute
Physical Exam
General: Comfortable
HEENT: Normocephalic and Anicteric
Cardiovascular: S1-S2, Regular Rhythm, Murmur (n), Rub (n) and Peripheral Edema (Trace right leg, knee incision/dressing intact)
Respiratory: Wheeze (n), Crackles (Few bibasilar), Rhonchi (n) and Non-Labored Respirations
GI: Soft, Non Distended and Non Tender
Neurology: Awake, Alert and No Motor Deficits
Skin: Cyanosis, Jaundice (n) and Rash (n)
[2024-06-24] MEDS: NOVOLOG FLEXPEN-LOW RESISTANCE 1 UNITS SC ×3 (08:55→17:00)
[2024-06-24 10:06] LABS: Hematocrit 28.6 % (39.0-52.0); Hemoglobin 9.6 g/dL (13.0-18.0); Mean Corp Hgb Conc. 33.6 g/dL (33.0-37.0); Mean Corpuscular Hgb 30.9 pg (27.0-31.0); Mean Platelet Volume 11.5 fL (7.4-10.4); Platelet Count 195 10^3/uL (130-400); Red Blood Cell Count 3.11 10^6/uL (4.70-6.10); Red Cell Dist. Width 15.6 % (11.5-14.5); White Blood Cell Count 18.6 10^3/uL (4.8-10.8)
[2024-06-24 10:13] LABS: NT-proBNP 2830 pg/ml; Troponin I 0.632 ng/ml
[2024-06-24 11:18] VITALS: BP 119/62
[2024-06-24 11:33] LABS: Blood Urea Nitrogen 25 mg/dl (9-20); Calcium 7.8 mg/dl (8.4-10.2); Carbon Dioxide 20 mmol/L (22-30); Chloride 104 mmol/L (98-107); Estimated Creatinine Clearance 62 ml/min; Glucose 152 mg/dl (70-99); Potassium 4.4 mmol/L (3.5-5.1); Sodium 139 mmol/L (135-145); eGFR > 60.00
[2024-06-24 11:41] LABS: Glucose - Point of Care 169 mg/dl (70-99)
--- NOTE | 2024-06-24 11:52 | CM ---
underwriting support manager continues to follow with patient progress notes and patient has switched to inpatient patient made aware and IMM signed. Plan is to home when stable.
Plan; Home when stable.
[2024-06-24 13:34] LABS: Troponin I 0.571 ng/ml
[2024-06-24 15:21] VITALS: BP 136/66
[2024-06-24 16:42] LABS: Glucose - Point of Care 170 mg/dl (70-99)
--- NOTE | 2024-06-24 16:46 | W.PN.HOSP.TC ---
Today's Communication/Plan
-
Continue to monitor on telemetry
Lovenox weight-based ordered
Assessment / Plan
Assessment / Plan
84-year-old male presented with dizziness and hypoxia. Patient underwent right total knee replacement at surgical center day prior to arrival. Family noted that oxygen and blood pressure were running low. He was also feeling really weak.
Echo 03/04/2024-normal size LV and EF 65 to 70%. Mild concentric LVH. Normal RV. Mild MR. Mild . Mild AI. Trace TR. Pulmonary artery pressure 30 to 35 mmHg.
CVS: S1-S2 normal
Chest: CTA B/L
Abdomen: Soft, NT / Bowel sounds present
Extremities: mild RLE edema , R Knee bandaged., normal pulses
EGG CANDLER: Non focal exam
Seen earlier today. Patient denied any chest pain or shortness of breath at that time. Patient's grandson who is a nurse was at bedside. Late documentation.
# Acute hypoxic respiratory insufficiency
PE
Also had some noncardiogenic pulmonary edema
Continue [id number]
Patient likely had PE prior to surgery
Echo with more pulmonary hypertension than from March
Given 2 doses of Lasix also
Eventually transition to Eliquis. Patient has it covered and family prefers.
# Dizziness-likely from PE
Hold Norvasc
# Elevated troponin-likely secondary to PE. Trending down
With LV. Nonspecific T wave abnormality
No wall motion abnormality on echo
# Leukocytosis secondary to steroids
# Acute blood loss anemia secondary to surgery
Follow hemoglobin
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
PT OT
Pain control with Celebrex and Tylenol
Also on Decadron 4 mg twice daily total of 6 doses probably completing on the evening of 06/25/2024 per discussion with Ortho
Aspirin for DVT prophylaxis
Pain control with tramadol
# Hyperglycemia- due to steroids
Outpatient records indicate prediabetes
# Hypokalemia-resolved
# Hypertension-hold Norvasc, restart atenolol
# Hyperlipidemia-continue statin
# Gout-continue allopurinol
# Lymphocytic colitis-continue Colestid
# COVID19 infection in 2020 with prolonged hospitalization
# History of prostate cancer status post prostatectomy-on Lupron
# Hearing impairment
# DVT prophylaxis-aspirin
# Full code
Discussed with pulmonary
Discussed with nursing
Discussed with grandson at bedside
Part of this note was created using voice recognition system. Occasional wrong word or��sound alike� substitutions may have inadvertently occurred due to the inherent limitations of voice recognition software. If noted kindly bring it to my
attention for correction.
Anticipated Discharge: 24 - 48 hours
Subjective/Interval History
-
Date of Service: June 24, 2024
Objective Data
-
Labs:
Laboratory Results
06/24/24
09:23
WBC 18.6 H
Hgb 9.6 L
Hct 28.6 L
Plt Count 195
Sodium 139
Potassium 4.4
Chloride 104
Carbon Dioxide 20 L
BUN 25 H
Creatinine 0.8
Glucose 152 H
Calcium 7.8 L
Vital Signs:
Vital Signs
Temp Pulse Resp BP Pulse Ox
99.2 F 80 18 136/66 92
06/24/24 15:21 06/24/24 15:21 06/24/24 15:21 06/24/24 15:21 06/24/24 15:21
I&O
06/23/24 06/24/24 06/25/24
06:59 06:59 06:59
Intake Total 1320 / 1320
Output Total 750 / 750 600 / 600
Balance -750 / -750 720 / 720
[2024-06-24] MEDS: LASIX 20 MG PO (16:57)
[2024-06-24] MEDS: ULTRAM 50 MG PO (16:57)
[2024-06-24] MEDS: LIPITOR 10 MG PO (16:57)
[2024-06-24 17:21] LABS: Iron 25 ug/dl (49-181)
[2024-06-24 17:30] LABS: Percent Saturation 10 % (20-50); Total Iron Binding Capacity 234 ug/dl (261-462)
[2024-06-24 18:07] LABS: Ferritin 60.8 ng/ml (17.9-464.0)
[2024-06-24 18:22] LABS: Vitamin B12 315 pg/ml (239-931)
[2024-06-24 19:00] VITALS: BP 155/79
[2024-06-24] MEDS: LOVENOX 75 MG SC (19:53)
[2024-06-24 21:18] LABS: Glucose - Point of Care 177 mg/dl (70-99)
[2024-06-24 22:58] VITALS: BP 146/78
[2024-06-25] VITALS (8 sets, daily range): BP systolic 82–159; BP diastolic 49–90; PULSE 81–137; O2SAT 94–99
[2024-06-25] MEDS: ULTRAM 50 MG PO ×3 (04:46→20:39)
--- NOTE | 2024-06-25 06:57 | W.PN.ORTHO ---
Today's Communication / Plan
-
PT/OT
Weightbearing as tolerated with walker
Ice with elevation to control swelling and pain
Leave Aquacel dressing in place until next Saturday then remove and leave incision open to air if no drainage
Lovenox with transition to Eliquis
Hopefully home today and follow-up with orthopedics 2 weeks postop
Appreciate medical team's efforts
Assessment
.
Distal Motor Intact: Yes
Dressing:
Clean, dry and intact.
Plan
.
Surgery / Date: R TKA 06/22 [facility]
DVT Prophylaxis: Lovenox
Activity:
Out of bed.
PT/OT
Discharge Plan: Home
Subjective
.
.:
Patient resting comfortably.
Vital Signs and Labs
.
Vital Signs and Labs:
Temp Pulse Resp BP Pulse Ox
97.9 F 81 20 150/73 100
06/25/24 03:00 06/25/24 03:00 06/25/24 03:00 06/25/24 03:00 06/25/24 03:00
PT 14.8 Sec (11.4-14.6) H 06/22/24 18:47
INR 1.18 06/22/24 18:47
Bilateral ultrasound lower extremity negative for DVT while CT scan showed small PE
[2024-06-25 07:03] LABS: Hematocrit 25.4 % (39.0-52.0); Hemoglobin 8.7 g/dL (13.0-18.0); Mean Corp Hgb Conc. 34.3 g/dL (33.0-37.0); Mean Corpuscular Hgb 30.6 pg (27.0-31.0); Mean Corpuscular Volume 89.4 fL (80.0-94.0); Mean Platelet Volume 11.7 fL (7.4-10.4); Platelet Count 201 10^3/uL (130-400); Red Blood Cell Count 2.84 10^6/uL (4.70-6.10); Red Cell Dist. Width 15.6 % (11.5-14.5); White Blood Cell Count 17.3 10^3/uL (4.8-10.8)
[2024-06-25 07:34] LABS: Blood Urea Nitrogen 35 mg/dl (9-20); Calcium 7.5 mg/dl (8.4-10.2); Carbon Dioxide 23 mmol/L (22-30); Chloride 107 mmol/L (98-107); Estimated Creatinine Clearance 55 ml/min; Glucose 153 mg/dl (70-99); Potassium 4.6 mmol/L (3.5-5.1); Sodium 138 mmol/L (135-145); eGFR > 60.00
[2024-06-25 07:52] LABS: Glucose - Point of Care 164 mg/dl (70-99)
--- NOTE | 2024-06-25 07:57 | W.PN.UPDATE ---
Update Note
Progress Note Update
pt seen and examined, agree w. note by chuyita today
[2024-06-25] MEDS: TYLENOL 1000 MG PO ×3 (08:07→21:24)
[2024-06-25] MEDS: NOVOLOG FLEXPEN-LOW RESISTANCE 1 UNITS SC ×2 (08:07→16:49)
[2024-06-25] MEDS: CELEBREX 100 MG PO (08:08)
[2024-06-25] MEDS: MAGNESIUM OXIDE 500 MG PO (08:08)
[2024-06-25] MEDS: ZYLOPRIM 100 MG PO ×2 (08:08→21:24)
[2024-06-25] MEDS: TYLENOL PO (08:08)
[2024-06-25] MEDS: DECADRON 4 MG PO ×2 (08:08→21:23)
[2024-06-25] MEDS: OSCAL 500 + D 500 MG PO ×2 (09:14→21:24)
[2024-06-25] MEDS: VITAMIN B-12 1000 MCG PO (09:14)
[2024-06-25] MEDS: FEOSOL 325 MG PO ×2 (09:14→21:24)
[2024-06-25] MEDS: LOVENOX 75 MG SC (09:14)
--- NOTE | 2024-06-25 09:36 | CM ---
Addendum entered by Beth Ortiz 06/25/24 09:41:
Cost of Eliquis is $140.46 per month, patient is aware of cost and patient has the coupon for the first month free.
Original Note:
Patient is for discharge to home no needs when stable.
Plan; Home no needs.
--- NOTE | 2024-06-25 09:58 | PN.CDI ---
Addendum entered and electronically signed by Zuri Peterson MD 06/26/24 17:16:
Did I not make it clear the reason for the troponin in my note?
Original Note:
CDI
- -
CDI:
Physician Documentation Request
Admit Date: 06/23/24 17:00
Dear Doctor Nicholas,
Please review the following and provide your response in the progress notes.
Clinical Indicators:
PN, 06/24
# Elevated troponin-likely secondary to PE. Trending down
#With LV. Nonspecific T wave abnormality
Laboratory Tests
06/22/24 06/24/24 06/24/24
18:47 09:23 12:37
Troponin I < 0.012 0.632 H* 0.571 H*
Based on the above and your clinical assessment, please clarify in the progress notes, the appropriate diagnosis, if significant, that supports the above abnormalities and additional evaluation, monitoring and/or treatment rendered:
Non-ischemic myocardial injury
Abnormal lab value, clinically insignificant
Other(please specify)
Use of terms such as suspected, likely, concern for, or probable (associated with a specific diagnosis that is being evaluated, monitored, or treated as if it exists) are acceptable and can be coded in the inpatient setting, when documented at the
time of discharge.
Thank you,
Elisabeth Alcantar RN BSN CCDS
CDI Specialist
please contact via tiger text
Please use your independent medical judgment in providing your response.
--- NOTE | 2024-06-25 10:02 | PN.CDI ---
CDI
- -
CDI:
Physician Documentation Request
Admit Date: 06/23/24 17:00
Dear Doctor Nicholas,
Please review the following and provide your response in the progress notes.
Clinical Indicators:
PN, 06/24
#Also had some noncardiogenic pulmonary edema
#...Continue [id number]
#Patient likely had PE prior to surgery
#Echo with more pulmonary hypertension than from March
#Given 2 doses of Lasix also
Medications
#Furosemide (Furosemide 20 Mg Tablet) 20 mg PO NOW STA
Stop: 06/24/24 16:46
Last Admin: 06/24/24 16:57 Dose: 20 mg
#Furosemide (Furosemide 20 Mg (10 Mg/Ml) 2 Ml Vial) 20 mg IV NOW STA
Stop: 06/22/24 23:02
Last Admin: 06/22/24 23:40 Dose: 20 mg
#Furosemide (Furosemide 20 Mg Tablet) 20 mg PO NOW STA
Stop: 06/23/24 16:41
Last Admin: 06/23/24 17:47 Dose: 20 mg
Please clarify which of the following accurately represents the acuity and etiology of the noncardiogenic pulmonary edema:
Acute noncardiogenic pulmonary edema due to fluid overload
Acute noncardiogenic pulmonary edema due to other cause(please specify)
Other (please specify)
Use of terms such as suspected, likely, concern for, or probable (associated with a specific diagnosis that is being evaluated, monitored, or treated as if it exists) are acceptable and can be coded in the inpatient setting, when documented at the
time of discharge.
Thank you,
Elisabeth Alcantar RN BSN CCDS
CDI Specialist
please contact via tiger text
Please use your independent medical judgment in providing your response.
[2024-06-25 11:19] LABS: Glucose - Point of Care 208 mg/dl (70-99)
[2024-06-25] MEDS: NOVOLOG FLEXPEN-LOW RESISTANCE 2 UNITS SC (11:20)
[2024-06-25 13:49] LABS: Hematocrit 24.6 % (39.0-52.0); Hemoglobin 8.3 g/dL (13.0-18.0)
--- NOTE | 2024-06-25 13:59 | W.PN.HOSP.TC ---
Today's Communication/Plan
-
Await rpt Hb
Teds
change to eliquis
Assessment / Plan
Assessment / Plan
84-year-old male presented with dizziness and hypoxia. Patient underwent right total knee replacement at surgical center day prior to arrival. Family noted that oxygen and blood pressure were running low. He was also feeling really weak.
Echo 03/04/2024-normal size LV and EF 65 to 70%. Mild concentric LVH. Normal RV. Mild MR. Mild . Mild AI. Trace TR. Pulmonary artery pressure 30 to 35 mmHg.
CVS: S1-S2 normal
Chest: CTA B/L
Abdomen: Soft, NT / Bowel sounds present
Extremities: mild RLE edema , normal pulses
RESIDENT PHYSICIAN: Non focal exam
Seen earlier today. Patient denied any chest pain or shortness of breath at that time. Patient's grandson who is a nurse was at bedside. Late documentation.
# Acute hypoxic respiratory insufficiency
PE
Also had some noncardiogenic pulmonary edema
Zbfeqnp-wihmso-ijhol changed to Eliquis
Patient likely had PE prior to surgery
Echo with more pulmonary hypertension than from March
Given 2 doses of Lasix also
# Dizziness-likely from PE
# Elevated troponin-likely secondary to PE. Trending down
With LV. Nonspecific T wave abnormality
No wall motion abnormality on echo
# Leukocytosis secondary to steroids
# Acute blood loss anemia secondary to surgery
Follow hemoglobin
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
PT OT
Pain control with Celebrex and Tylenol
Also on Decadron 4 mg twice daily total of 6 doses probably completing on the evening of 06/25/2024 per discussion with Ortho
Aspirin for DVT prophylaxis
Pain control with tramadol
# Hyperglycemia- due to steroids
Outpatient records indicate prediabetes
A1C 5.4
SSI for now
# Hypokalemia-resolved
# Hypertension-restart Norvasc and continue atenolol
# Hyperlipidemia-continue statin
# Gout-continue allopurinol
# Lymphocytic colitis-continue Colestid
# COVID19 infection in 2020 with prolonged hospitalization
# History of prostate cancer status post prostatectomy-on Lupron
# Hearing impairment
# DVT prophylaxis-AC
# Full code
Discussed with nursing
Part of this note was created using voice recognition system. Occasional wrong word or��sound alike� substitutions may have inadvertently occurred due to the inherent limitations of voice recognition software. If noted kindly bring it to my
attention for correction.
Anticipated Discharge: Within 24 hours
Subjective/Interval History
-
Date of Service: June 25, 2024
Objective Data
-
Labs:
Laboratory Results
06/25/24 06/25/24
06:32 13:00
WBC 17.3 H
Hgb 8.7 L 8.3 L
Hct 25.4 L 24.6 L
Plt Count 201
Sodium 138
Potassium 4.6
Chloride 107
Carbon Dioxide 23
BUN 35 H
Creatinine 0.9
Glucose 153 H
Calcium 7.5 L
Vital Signs:
Vital Signs
Temp Pulse Resp BP Pulse Ox
98.4 F 88 17 151/85 94
06/25/24 08:11 06/25/24 08:11 06/25/24 08:11 06/25/24 08:11 06/25/24 08:11
I&O
06/24/24 06/25/24 06/26/24
06:59 06:59 06:59
Intake Total 1320 / 1320 1380 / 1380
Output Total 600 / 600
Balance 720 / 720 1380 / 1380
--- NOTE | 2024-06-25 15:05 | W.PN.PUL3 ---
Today's Communication / Plan
-
Continue oral anticoagulation
Follow hemoglobin
Outpatient pulmonary follow-up
Sign off
Assessment
-
84-year-old male with history of severe COVID infection 2019 complicated by interstitial disease subsequently resolved with chronic crackles, moderate restriction with mild gas exchange defect, presents with presyncopal symptoms, hypoxia. According
to family at bedside, saturation was in the 70s at home, with systolic pressure in the 90s. Patient was admitted, CT chest obtained which confirmed left lower lobe blood clot. There is no evidence of RV strain. We are asked to comment on
pulmonary process
Acute PE, left-sided
No RV strain
Presyncopal symptoms less than 24 hours
Acute hypoxic respiratory insufficiency
Saturation in the 70s preadmission (3 pulse oximeters per pt)
Status post right TKA 06/22
[facility] orthopedics ([facility])
Right calf pain, 3 weeks preadmission
Anemia, hemoglobin 9.9
preadmission 13.0
Conditions present prior to admission
Hypertension/hyperlipidemia
History of severe COVID 2019
Required oxygen therapy, improved
Bilateral basilar interstitial disease, stable
Crackles on exam, chronic
History of prostate cancer
Mild restrictive, moderate gas exchange defect
TLC 4.78/74%, DLCO 11.69/54% (2021)
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
Plan/recommendations
Mostly asymptomatic from the pulmonary and cardiac perspective
Hemodynamically stable
No significantly tachycardic
No significant oxygen requirement
-
Continue anticoagulation for left pulmonary embolism. On further questioning, patient describes right calf pain few weeks preprocedure, Suspect predating surgery based on symptoms.
There is a filling defect in the second-generation left lower lobe pulmonary artery
Lower extremity Dopplers without DVT.
Elevated troponin, proBNP noted
CT scan also showed some degree of interstitial pulmonary edema. May have contributed to symptoms. Status post diuretics.
Oxygen supplementation has been discontinued.
Transitioned to oral anticoagulation
Echocardiogram noted:
Normal left ventricular size, wall thickness and systolic function. No regional
wall motion abnormalities are seen. LV ejection fraction is 55-60%.
Mild mitral regurgitation.
Mild aortic stenosis. The peak/mean gradients across the valve are 20/11 mmHg,
JAI is 1.7 cm sq.
Mild to moderate aortic regurgitation.
Mild tricuspid regurgitation. Moderate pulmonary hypertension. Estimated
pulmonary artery pressure of 56 mmHg .
Compared to the previous echo from March 2024, PASP were 30-35 mmHg, no other
significant change.
-
Suggest repeating in the next 2 to 3 months.
-
Unfortunately, no definitive correlation with clot burden and clinical presentation given transient nature of embolic disease and lack of correlation with clot burden and RV dysfunction.
Can be addressed in the outpatient setting depending on follow-up echocardiogram.
Would recommend full anticoagulation for 3 to 6 months
Increase activity as able.
Ongoing PT/OT per orthopedic protocol
-
No additional recommendation from the pulmonary perspective.
Sign off
Subjective Data
-
Date of Service:
Date of Service: June 25, 2024
Chief Complaint: Pulmonary Follow Up (Pulmonary embolism-subsegmental)
Subjective:
Clinically improved
Tolerating anticoagulation
Review of Systems
Cardiopulmonary: Dyspnea (none at rest)
GI: Abdominal Pain (n) and Nausea (n)
Neuro: Headache (n)
Objective Data
Data Reviewed
Vital Signs / I&O / Oxygen:
Vital Signs
Temp Pulse Resp BP Pulse Ox
98.4 F 88 17 151/85 94
06/25/24 08:11 06/25/24 08:11 06/25/24 08:11 06/25/24 08:11 06/25/24 08:11
Intake and Output
06/24/24 06/25/24 06/26/24
06:59 06:59 06:59
Intake Total 1320 / 1320 1380 / 1380
Output Total 600 / 600
Balance 720 / 720 1380 / 1380
SaO2 94
Nasal Cannula flow liters per 2
minute
Physical Exam
General: Comfortable
HEENT: Normocephalic and Anicteric
Cardiovascular: S1-S2, Regular Rhythm, Murmur (n), Rub (n) and Peripheral Edema (Trace right leg, knee incision/dressing intact)
Respiratory: Wheeze (n), Crackles (Few bibasilar), Rhonchi (n) and Non-Labored Respirations
GI: Soft, Non Distended and Non Tender
Neurology: Awake, Alert and No Motor Deficits
Skin: Cyanosis, Jaundice (n) and Rash (n)
Labs/Micro/Reports
Lab Data
06/25/24 13:00
06/25/24 06:32
[2024-06-25 16:45] LABS: Glucose - Point of Care 168 mg/dl (70-99)
[2024-06-25] MEDS: LIPITOR 10 MG PO (16:50)
[2024-06-25] MEDS: ELIQUIS 10 MG PO (21:24)
[2024-06-25 21:52] LABS: Glucose - Point of Care 163 mg/dl (70-99)
[2024-06-26 07:25] LABS: Glucose - Point of Care 158 mg/dl (70-99)
[2024-06-26] MEDS: ELIQUIS 10 MG PO ×2 (07:53→19:57)
[2024-06-26] MEDS: DECADRON 4 MG PO (07:53)
[2024-06-26] MEDS: MAGNESIUM OXIDE 500 MG PO (07:53)
[2024-06-26] MEDS: OSCAL 500 + D 500 MG PO ×2 (07:53→19:57)
[2024-06-26] MEDS: TYLENOL 1000 MG PO ×4 (07:53→22:06)
[2024-06-26] MEDS: ZYLOPRIM 100 MG PO ×2 (07:54→19:56)
[2024-06-26] MEDS: VITAMIN B-12 1000 MCG PO (07:54)
[2024-06-26] MEDS: FEOSOL 325 MG PO ×2 (07:54→19:57)
[2024-06-26] MEDS: NOVOLOG FLEXPEN-LOW RESISTANCE 1 UNITS SC ×3 (07:54→17:11)
[2024-06-26 08:00] VITALS: BP 165/81
[2024-06-26 08:03] LABS: Hemoglobin 7.8 g/dL (13.0-18.0); Mean Corp Hgb Conc. 33.9 g/dL (33.0-37.0); Mean Corpuscular Hgb 30.5 pg (27.0-31.0); Mean Corpuscular Volume 89.8 fL (80.0-94.0); Mean Platelet Volume 11.6 fL (7.4-10.4); Platelet Count 193 10^3/uL (130-400); Red Blood Cell Count 2.56 10^6/uL (4.70-6.10); Red Cell Dist. Width 15.6 % (11.5-14.5); White Blood Cell Count 15.1 10^3/uL (4.8-10.8)
[2024-06-26 09:03] LABS: Blood Urea Nitrogen 45 mg/dl (9-20); Carbon Dioxide 25 mmol/L (22-30); Chloride 105 mmol/L (98-107); Estimated Creatinine Clearance 50 ml/min; Glucose 140 mg/dl (70-99); Potassium 5.1 mmol/L (3.5-5.1); Sodium 137 mmol/L (135-145); eGFR > 60.00
[2024-06-26 11:25] VITALS: BP 145/76; PULSE 95; O2SAT 95
[2024-06-26 11:51] LABS: Glucose - Point of Care 193 mg/dl (70-99)
--- NOTE | 2024-06-26 12:29 | CM ---
Chart reviewed and plan is to home when stable.
Plan; Home no needs.
--- NOTE | 2024-06-26 13:56 | W.PN.HOSP.TC ---
Addendum entered and electronically signed by Zuri Peterson MD 06/26/24 17:16:
clarification for CDI - Acute non cardiogenic pulm edema
Original Note:
Today's Communication/Plan
-
IV iron
Watch HB
Discharge when Hb not dropping any more.
Teds for legs
Ice right knee - encouraged.
Assessment / Plan
Assessment / Plan
84-year-old male presented with dizziness and hypoxia. Patient underwent right total knee replacement at surgical center day prior to arrival. Family noted that oxygen and blood pressure were running low. He was also feeling really weak.
Echo 03/04/2024-normal size LV and EF 65 to 70%. Mild concentric LVH. Normal RV. Mild MR. Mild . Mild AI. Trace TR. Pulmonary artery pressure 30 to 35 mmHg.
CVS: S1-S2 normal
Chest: CTA B/L
Abdomen: Soft, NT / Bowel sounds present
Extremities: RLE edema , normal pulses
WEIGHT GUESSER: Non focal exam
# Acute hypoxic respiratory insufficiency
PE
Also had some noncardiogenic pulmonary edema
Gnqorbc-kniffi-wurvq changed to Eliquis
Patient likely had PE prior to surgery
Echo with more pulmonary hypertension than from March
Given 2 doses of Lasix also
# Dizziness-likely from PE-Resolved
# Elevated troponin-likely secondary to PE. Trending down
With LV. Nonspecific T wave abnormality
No wall motion abnormality on echo
I reached out to [facility] to get him an OP appt. They will see him on 07/20/24.
# Leukocytosis secondary to steroids
# Acute blood loss anemia secondary to surgery and now due to AC
Follow hemoglobin
IV iron
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
PT OT
Pain control with Celebrex and Tylenol
Also on Decadron 4 mg twice daily total of 6 doses probably completing on the evening of 06/25/2024 per discussion with Ortho (Stopped)
Aspirin for DVT prophylaxis
Pain control with tramadol
# Hyperglycemia- due to steroids
Outpatient records indicate prediabetes
A1C 5.4
SSI for now
Stopped steroids
# Hypokalemia-resolved
# Hypertension-restarted Norvasc and continue atenolol
# Hyperlipidemia-continue statin
# Gout-continue allopurinol
# Lymphocytic colitis-continue Colestid
# COVID19 infection in 2020 with prolonged hospitalization
# History of prostate cancer status post prostatectomy-on Lupron
# Hearing impairment
# DVT prophylaxis-Eliquis
# Full code
Discussed with nursing at bed side
Part of this note was created using voice recognition system. Occasional wrong word or��sound alike� substitutions may have inadvertently occurred due to the inherent limitations of voice recognition software. If noted kindly bring it to my
attention for correction.
Anticipated Discharge: Within 24 hours
Subjective/Interval History
-
Date of Service: June 26, 2024
Objective Data
-
Labs:
Laboratory Results
06/26/24
07:20
WBC 15.1 H
Hgb 7.8 L
Hct 23.0 L
Plt Count 193
Sodium 137
Potassium 5.1
Chloride 105
Carbon Dioxide 25
BUN 45 H
Creatinine 1.0
Glucose 140 H
Calcium 8.0 L
Vital Signs:
Vital Signs
Temp Pulse Resp BP Pulse Ox
98.3 F 90 18 165/81 94
06/26/24 08:00 06/26/24 08:00 06/26/24 08:00 06/26/24 08:00 06/26/24 13:30
I&O
06/25/24 06/26/24 06/27/24
06:59 06:59 06:59
Intake Total 1380 / 1380 840 / 840
Output Total 100 / 100
Balance 1380 / 1380 740 / 740
[2024-06-26 14:04] VITALS: BP 125/64
[2024-06-26] MEDS: TENORMIN 25 MG PO (14:30)
[2024-06-26] MEDS: NORVASC 5 MG PO (14:30)
[2024-06-26] MEDS: FERRLECIT 110 MG IV (14:31)
[2024-06-26 15:00] VITALS: BP 105/63; BP 114/62; BP 136/77; PULSE 119; PULSE 71; PULSE 83
[2024-06-26 16:11] LABS: Glucose - Point of Care 160 mg/dl (70-99)
--- NOTE | 2024-06-26 16:30 | W.PN.ORTHO ---
Today's Communication / Plan
-
PT/OT
Weightbearing as tolerated with walker
Ice with elevation to control swelling and pain
Leave Aquacel dressing in place until next Saturday then remove and leave incision open to air if no drainage
Lovenox with transition to Eliquis
Hopefully home today and follow-up with orthopedics 2 weeks postop
Appreciate medical team's efforts
Assessment
.
Distal Motor Intact: Yes
Dressing:
Clean, dry and intact.
Plan
.
Surgery / Date: R TKA 06/22 [facility]
Activity:
Out of bed.
PT/OT
Subjective
.
.:
Patient resting comfortably.
Vital Signs and Labs
.
Vital Signs and Labs:
Lab Results
06/26/24 07:20
06/26/24 07:20
Temp Pulse Resp BP Pulse Ox
97.9 F 71 18 136/77 95
06/26/24 15:00 06/26/24 15:00 06/26/24 15:00 06/26/24 15:00 06/26/24 15:00
PT 14.8 Sec (11.4-14.6) H 06/22/24 18:47
INR 1.18 06/22/24 18:47
[2024-06-26] MEDS: LIPITOR 10 MG PO (17:11)
[2024-06-26] MEDS: ULTRAM 50 MG PO (18:16)
[2024-06-26 20:22] VITALS: BP 110/52; BP 115/53; BP 158/69; PULSE 61; PULSE 70; PULSE 76
[2024-06-26 20:44] LABS: Glucose - Point of Care 151 mg/dl (70-99)
[2024-06-26 23:20] VITALS: BP 135/61
--- NOTE | 2024-06-27 06:26 | W.PN.HOSP.TC ---
Today's Communication/Plan
-
bowel regimen
IV iron infusion
monitor H&H
Assessment / Plan
Assessment / Plan
Physical Exam
General: No acute distress appears comfortable a this time
CVS: S1-S2 normal
Chest: CTA B/L
Abdomen: Soft, NT / Bowel sounds present
Extremities: RLE edema , normal pulses
DIRECTOR DRUG SAFETY: AOx3
84-year-old male presented with dizziness and hypoxia. Patient underwent right total knee replacement at surgical center day prior to arrival. Family noted that oxygen and blood pressure were running low. He was also feeling really weak.
Echo 03/04/2024-normal size LV and EF 65 to 70%. Mild concentric LVH. Normal RV. Mild MR. Mild . Mild AI. Trace TR. Pulmonary artery pressure 30 to 35 mmHg.
# Acute hypoxic respiratory insufficiency
#PE
Also had some noncardiogenic pulmonary edema
Knomzsx-hoyzmr-vlksw changed to Eliquis, cont
Patient likely had PE prior to surgery
Echo with more pulmonary hypertension than from March
Given 2 doses of Lasix also
# Dizziness-likely from PE-Resolved
# Elevated troponin-likely secondary to PE. Trending down
With LV. Nonspecific T wave abnormality
No wall motion abnormality on echo
outpt appt w/ [facility] arranged 07/20/24.
# Leukocytosis secondary to steroids
# Acute blood loss anemia secondary to surgery
#Iron studies appreciated anemia of chronic disease and iron deficiency anemia
Follow hemoglobin
IV iron supplementation
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
PT OT appreciated outpt therapy recommended
Pain control with Celebrex and Tylenol
Also on Decadron 4 mg twice daily total of 6 doses probably completing on the evening of 06/25/2024 per discussion with Ortho (Stopped)
Aspirin for DVT prophylaxis
Pain control with tramadol
# Hyperglycemia- due to steroids
Outpatient records indicate prediabetes
A1C 5.4
SSI for now
Stopped steroids
#Constipation
reports no bowel movement in 5 days
started bowel regimen
# Hypokalemia-resolved
# Hypertension- cont Norvasc and atenolol
# Hyperlipidemia-continue statin
# Gout-continue allopurinol
# Lymphocytic colitis-continue Colestid
# COVID19 infection in 2019 with prolonged hospitalization
# History of prostate cancer status post prostatectomy-on Lupron
# Hearing impairment
# DVT prophylaxis-Eliquis
# Full code
I spent a total of 50 minutes with the patient or on the floor. More than 50% of this time involved counseling and coordination of care.
Anticipated Discharge: 24 - 48 hours
Subjective/Interval History
-
Date of Service: June 27, 2024
no acute distress. reports constipation past 5 days. Denies abd pain nausea. tolerating diet though endorses poor appetite due to constipation. radha Koehler present during evaluation.
Objective Data
-
Labs:
Laboratory Results
06/27/24
06:00
WBC Pending
Hgb Pending
Hct Pending
Plt Count Pending
Sodium Pending
Potassium Pending
Chloride Pending
Carbon Dioxide Pending
BUN Pending
Creatinine Pending
Glucose Pending
Calcium Pending
Vital Signs:
Vital Signs
Temp Pulse Resp BP Pulse Ox
98.5 F 62 18 135/61 90
06/26/24 23:20 06/26/24 23:20 06/26/24 23:20 06/26/24 23:20 06/26/24 23:20
I&O
06/25/24 06/26/24 06/27/24
06:59 06:59 06:59
Intake Total 1380 / 1380 840 / 840
Output Total 100 / 100
Balance 1380 / 1380 740 / 740
[2024-06-27 07:00] VITALS: BP 157/127; BP 179/64; PULSE 59; PULSE 61
[2024-06-27 07:18] LABS: Glucose - Point of Care 140 mg/dl (70-99)
[2024-06-27 07:35] LABS: Hematocrit 23.7 % (39.0-52.0); Mean Corp Hgb Conc. 33.8 g/dL (33.0-37.0); Mean Corpuscular Hgb 32.1 pg (27.0-31.0); Mean Corpuscular Volume 95.2 fL (80.0-94.0); Mean Platelet Volume 11.9 fL (7.4-10.4); Platelet Count 219 10^3/uL (130-400); Red Blood Cell Count 2.49 10^6/uL (4.70-6.10); Red Cell Dist. Width 15.7 % (11.5-14.5); White Blood Cell Count 16.3 10^3/uL (4.8-10.8)
[2024-06-27 07:48] LABS: Blood Urea Nitrogen 65 mg/dl (9-20); Calcium 8.4 mg/dl (8.4-10.2); Carbon Dioxide 28 mmol/L (22-30); Chloride 102 mmol/L (98-107); Estimated Creatinine Clearance 38 ml/min; Glucose 125 mg/dl (70-99); Potassium 5.6 mmol/L (3.5-5.1); Sodium 136 mmol/L (135-145); eGFR 54.17
[2024-06-27] MEDS: MAGNESIUM OXIDE 500 MG PO (08:55)
[2024-06-27] MEDS: ZYLOPRIM 100 MG PO ×2 (08:55→19:33)
[2024-06-27] MEDS: ELIQUIS 10 MG PO ×2 (08:55→19:33)
[2024-06-27] MEDS: TYLENOL 1000 MG PO ×3 (08:55→22:08)
[2024-06-27] MEDS: FEOSOL 325 MG PO (08:55)
[2024-06-27] MEDS: NORVASC 5 MG PO (08:55)
[2024-06-27] MEDS: VITAMIN B-12 1000 MCG PO (08:55)
[2024-06-27] MEDS: TENORMIN 25 MG PO (08:55)
[2024-06-27] MEDS: OSCAL 500 + D 500 MG PO ×2 (08:55→19:34)
[2024-06-27] MEDS: NOVOLOG FLEXPEN-LOW RESISTANCE SC ×2 (08:58→17:18)
[2024-06-27] MEDS: TYLENOL PO (09:01)
--- NOTE | 2024-06-27 10:52 | W.PN.UPDATE ---
Update Note
Progress Note Update
Mr. Buckley is resting comfortably in bed this morning. He reports expected post-operative pain in the knee. He reports increased pain with ambulating.
Directed exam of the right knee reveals slight strikethrough of blood on Aquacel dressing. Expected post-operative edema and ecchymosis throughout the right lower extremity. ROm limited secondary to patient discomfort. Calf soft and nontender.
Neurovascularly intact distally.
Hgb 8.0 this AM.
PT/OT
Weightbearing as tolerated with walker
Ice with elevation to control swelling and pain
Leave Aquacel dressing in place until next Saturday then remove and leave incision open to air if no drainage
Lovenox with transition to Eliquis
Hopefully home today and follow-up with orthopedics 2 weeks postop
Appreciate medical team's efforts
[2024-06-27 11:46] LABS: Glucose - Point of Care 158 mg/dl (70-99)
[2024-06-27] MEDS: NOVOLOG FLEXPEN-LOW RESISTANCE 1 UNITS SC (12:05)
[2024-06-27] MEDS: FERRLECIT 110 MG IV (14:25)
[2024-06-27] MEDS: MIRALAX 17 GRAMS PO (14:44)
[2024-06-27 15:00] VITALS: BP 172/68
--- NOTE | 2024-06-27 15:31 | CM ---
Addendum entered by Hillary Allen 06/27/24 15:36:
Referral previously placed for [facility], plan home with [facility].
Original Note:
CM reviewed chart, met with patient and several family members bedside. CM discussed PT recommendations of outpatient PT. reports they have outpatient therapy already set up. Family inquiring about patient coverage from when patient was
switched from obs to inpatient, TT sent to CM. CM will continue to follow for all discharge planning needs.
Plan; home with family.
[2024-06-27 15:58] VITALS: O2SAT 95
[2024-06-27 16:54] LABS: Glucose - Point of Care 126 mg/dl (70-99)
[2024-06-27] MEDS: LIPITOR 10 MG PO (17:20)
[2024-06-27] MEDS: ULTRAM 50 MG PO (19:31)
[2024-06-27] MEDS: SENOKOT-S 1 TABLET PO (19:33)
[2024-06-27 21:27] LABS: Glucose - Point of Care 140 mg/dl (70-99)
[2024-06-27 23:05] VITALS: BP 111/57; BP 149/67; PULSE 64; PULSE 71
--- NOTE | 2024-06-28 07:13 | W.PN.HOSP.TC ---
Today's Communication/Plan
-
cont bowel regimen, once suppository
1 PRBC transfusion
monitor CBC
Ice elevation right LE when at rest
PT/OT
Ok to discontinue routine Fingersticks
Assessment / Plan
Assessment / Plan
Physical Exam
General: No acute distress appears comfortable a this time
CVS: S1-S2 normal
Chest: CTA B/L
Abdomen: Soft, NT / Bowel sounds present
Extremities: RLE edema , normal pulses
INSTALLATION MANAGER: AOx3
84-year-old male presented with dizziness and hypoxia. Patient underwent right total knee replacement at surgical center day prior to arrival. Family noted that oxygen and blood pressure were running low. He was also feeling really weak.
Echo 03/04/2024-normal size LV and EF 65 to 70%. Mild concentric LVH. Normal RV. Mild MR. Mild . Mild AI. Trace TR. Pulmonary artery pressure 30 to 35 mmHg.
# Acute hypoxic respiratory insufficiency
#PE
Also had some noncardiogenic pulmonary edema
Oxszjec-vuuobp-qcbvc changed to Eliquis, cont
suspected PE prior to surgery
Echo with more pulmonary hypertension than from March
Given 2 doses of Lasix also
Stable respiratory status on room air
# Dizziness-likely from PE-Resolved
# Elevated troponin-likely secondary to PE. Trending down
With LV. Nonspecific T wave abnormality
No wall motion abnormality on echo
outpt appt w/ [facility] arranged 07/20/24.
# Leukocytosis unclear etiology
no obvious source of infection
urinalysis neg for UTI
previously on steroids since discontinued
WBC cont to trend up however
cont monitoring
# Acute blood loss anemia secondary to surgery
#Iron studies appreciated anemia of chronic disease and iron deficiency anemia
Follow hemoglobin
IV iron supplementation
06/28/24 1PRBC transfusion for Hgb 7.1, no obvious source of bleeding, follow up post-transfusion CBC w/ AM labs
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
PT OT appreciated outpt therapy recommended
Pain control with Celebrex and Tylenol
Also on Decadron 4 mg twice daily total of 6 doses probably completed on the evening of 06/25/2024 per discussion with Ortho (Stopped)
Pain control with tramadol
# Hyperglycemia- due to steroids
Outpatient records indicate prediabetes
A1C 5.4 wnl
Stopped steroids as above
sugars consistently at goal with minimal insulin correction required
Ok to discontinue routine fingersticks
#Constipation
reports no bowel movement in 5 days
started bowel regimen
once bisacodyl suppository 06/28
# Hypokalemia-resolved
# Hypertension- cont Norvasc and atenolol
# Hyperlipidemia-continue statin
# Gout-continue allopurinol
# Lymphocytic colitis-continue Colestid
# COVID19 infection in 2019 with prolonged hospitalization
# History of prostate cancer status post prostatectomy-on Lupron
# Hearing impairment
# DVT prophylaxis-Eliquis
# Full code
Discussed with patient and patient's grandson Rodo
I spent a total of 50 minutes with the patient or on the floor. More than 50% of this time involved counseling and coordination of care.
Anticipated Discharge: 24 - 48 hours
Subjective/Interval History
-
Date of Service: June 28, 2024
Constipation persists. Denies abd pain nausea. tolerating diet but poor appetite due to constipation.
Objective Data
-
Labs:
Laboratory Results
06/28/24
06:30
WBC Pending
Hgb Pending
Hct Pending
Plt Count Pending
Sodium Pending
Potassium Pending
Chloride Pending
Carbon Dioxide Pending
BUN Pending
Creatinine Pending
Glucose Pending
Calcium Pending
Vital Signs:
Vital Signs
Temp Pulse Resp BP Pulse Ox
98.0 F 64 18 149/67 95
06/27/24 23:05 06/27/24 23:05 06/27/24 23:05 06/27/24 23:05 06/27/24 23:05
I&O
06/27/24 06/28/24 06/29/24
06:59 06:59 06:59
Intake Total 2340 / 2340
Output Total 1874 / 187
Balance 465 / 465
[2024-06-28 07:21] LABS: Hematocrit 21.2 % (39.0-52.0); Hemoglobin 7.2 g/dL (13.0-18.0); Mean Corpuscular Hgb 32.1 pg (27.0-31.0); Mean Corpuscular Volume 94.6 fL (80.0-94.0); Mean Platelet Volume 11.9 fL (7.4-10.4); Platelet Count 203 10^3/uL (130-400); Red Blood Cell Count 2.24 10^6/uL (4.70-6.10); Red Cell Dist. Width 15.6 % (11.5-14.5); White Blood Cell Count 20.5 10^3/uL (4.8-10.8)
[2024-06-28 07:30] VITALS: BP 158/59
[2024-06-28 07:43] LABS: Blood Urea Nitrogen 63 mg/dl (9-20); Carbon Dioxide 27 mmol/L (22-30); Chloride 100 mmol/L (98-107); Estimated Creatinine Clearance 41 ml/min; Glucose 95 mg/dl (70-99); Phosphorus 3.5 mg/dl (2.5-4.5); Potassium 4.9 mmol/L (3.5-5.1); Sodium 133 mmol/L (135-145); eGFR 59.63
[2024-06-28 07:47] LABS: Glucose - Point of Care 110 mg/dl (70-99)
--- NOTE | 2024-06-28 07:59 | W.PN.UPDATE ---
Update Note
Progress Note Update
Mr. Buckley is resting comfortably in bed this morning. He reports his symptoms have improved since yesterday. He was able to work with PT yesterday, and states it was less painful than the day before.
Directed exam of the right knee reveals slight strikethrough of blood on Aquacel dressing. Expected post-operative edema and ecchymosis throughout the right lower extremity. ROm limited secondary to patient discomfort. Calf soft and nontender.
Neurovascularly intact distally.
Hgb 7.2 this AM.
PT/OT. Encouraged patient to continue working on ROM of his knee while admitted.
Weightbearing as tolerated with walker
Ice with elevation to control swelling and pain
Leave Aquacel dressing in place until next Saturday then remove and leave incision open to air if no drainage
Lovenox with transition to Eliquis
Discharge once medically stable. Follow up outpatient in 2 weeks for repeat evaluation.
Appreciate medical team's efforts
[2024-06-28] MEDS: MAGNESIUM OXIDE 500 MG PO (08:15)
[2024-06-28] MEDS: NORVASC 5 MG PO (08:15)
[2024-06-28] MEDS: SENOKOT-S 1 TABLET PO (08:15)
[2024-06-28] MEDS: OSCAL 500 + D 500 MG PO ×2 (08:15→20:03)
[2024-06-28] MEDS: ELIQUIS 10 MG PO ×2 (08:15→20:02)
[2024-06-28] MEDS: ZYLOPRIM 100 MG PO ×2 (08:15→20:02)
[2024-06-28] MEDS: VITAMIN B-12 1000 MCG PO (08:15)
[2024-06-28] MEDS: TENORMIN 25 MG PO (08:15)
[2024-06-28] MEDS: TYLENOL 1000 MG PO ×4 (08:15→21:44)
--- NOTE | 2024-06-28 08:15 | PTCARENOTE ---
06/28- RLE is increasingly more swollen with now +2 pitting edema down length of limb. Ecchymosis around knee is increased from yesterday. +pedal pulses BL; +sensation BL. Limited flexion of knee but full weight bearing. Physician notified.
[2024-06-28] MEDS: NOVOLOG FLEXPEN-LOW RESISTANCE SC ×3 (08:16→17:04)
[2024-06-28] MEDS: MIRALAX 17 GRAMS PO (08:19)
[2024-06-28 08:59] LABS: Hematocrit 21.1 % (39.0-52.0); Hemoglobin 7.1 g/dL (13.0-18.0)
[2024-06-28 11:53] VITALS: BP 133/63
--- NOTE | 2024-06-28 12:00 | PTCARENOTE ---
Patient's RLE elevated on pillow, ice packs applied per physician order.
[2024-06-28] MEDS: FERRLECIT IV (12:04)
[2024-06-28 12:11] VITALS: BP 135/77
[2024-06-28 12:34] LABS: Glucose - Point of Care 111 mg/dl (70-99)
[2024-06-28 14:55] VITALS: BP 142/64
[2024-06-28 15:30] VITALS: BP 151/63
[2024-06-28] MEDS: LIPITOR 10 MG PO (17:03)
[2024-06-28 17:04] LABS: Glucose - Point of Care 107 mg/dl (70-99)
[2024-06-28] MEDS: DULCOLAX 10 MG RECTAL (17:04)
[2024-06-28 17:29] LABS: Urine Albumin Negative (Neg - Trace); Urine Bilirubin Negative (Negative); Urine Character Clear (Clear); Urine Color Yellow; Urine Glucose Negative (Negative); Urine Ketone Negative (Negative); Urine Leukocyte Negative (Negative); Urine Nitrite Negative (Negative); Urine Occult Blood Negative (Negative); Urine Urobilinogen Negative (Neg - 1+)
[2024-06-28] MEDS: SENOKOT-S PO (19:55)
[2024-06-28 23:59] VITALS: BP 148/74
--- NOTE | 2024-06-29 06:29 | W.PN.HOSP.TC ---
Today's Communication/Plan
-
IVF bolus 250 cc once
repeat H&H
-if Hgb dropping significantly will transfuse 2 PRBC, hold Eliquis, and request GI eval
-if Hgb stable/improving, will continue Eliquis and give additional IVF bolus 250 cc.
start IV protonix 40 mg BID
Assessment / Plan
Assessment / Plan
Physical Exam
General: No acute distress appears comfortable a this time
CVS: S1-S2 normal
Chest: CTA B/L
Abdomen: Soft, NT / Bowel sounds present
Extremities: RLE edema , normal pulses
RESIDENTIAL MORTGAGE MANAGER: AOx3
84-year-old male presented with dizziness and hypoxia. Patient underwent right total knee replacement at surgical center day prior to arrival. Family noted that oxygen and blood pressure were running low. He was also feeling really weak.
Echo 03/04/2024-normal size LV and EF 65 to 70%. Mild concentric LVH. Normal RV. Mild MR. Mild . Mild AI. Trace TR. Pulmonary artery pressure 30 to 35 mmHg.
# Acute hypoxic respiratory insufficiency
#PE
Also had some noncardiogenic pulmonary edema
Upnwpvu-dcikng-jpuhr changed to Eliquis, cont
suspected PE prior to surgery
Echo with more pulmonary hypertension than from March
Given 2 doses of Lasix also
Stable respiratory status on room air
# Elevated troponin-likely secondary to PE. Trending down
With LV. Nonspecific T wave abnormality
No wall motion abnormality on echo
outpt appt w/ [facility] arranged 07/20/24.
# Leukocytosis unclear etiology
no obvious source of infection
urinalysis neg for UTI
previously on steroids since discontinued
WBC cont to trend up however
cont monitoring
# Acute blood loss anemia secondary to surgery
#Iron studies appreciated anemia of chronic disease and iron deficiency anemia
Follow hemoglobin
IV iron supplementation
06/28/24 1PRBC transfusion for Hgb 7.1 with appropriate response noted Hgb 8.5 following AM
#Constipation
reported no bowel movement in 5 days
cont bowel regimen
resolved with once bisacodyl suppository 06/28
Dark stools were noted, though patient was recently on oral iron supplements prior to resolution constipation
06/29/24 Episode Severe Symptomatic Orthostatic Hypotension
systolic dropped from 120s to 80s supine to sitting up, symptomatic lightheadedness, resolved when placed back to supine as per PT
Possible symptomatic hypovolemia with resolution constipation and poor oral intake prior to resolution of constipation
Once IVF NS 250 cc bolus
Checking repeat H&H in case possible GI bleed etiology
-if Hgb dropping significantly will transfuse 2 PRBC, hold Eliquis, and request GI eval
-if Hgb stable/improving, will continue Eliquis and give additional IVF bolus 250 cc.
start Protonix IV 40 mg BID 06/29
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
PT OT appreciated outpt therapy recommended
Pain control with Celebrex and Tylenol
Also on Decadron 4 mg twice daily total of 6 doses probably completed on the evening of 06/25/2024 per discussion with Ortho (Stopped)
Pain control with tramadol
# Hyperglycemia- due to steroids
Outpatient records indicate prediabetes
A1C 5.4 wnl
Stopped steroids as above
sugars consistently at goal with minimal insulin correction required
Ok to discontinue routine fingersticks
# Hypokalemia-resolved
# Hypertension- cont Norvasc and atenolol
# Hyperlipidemia-continue statin
# Gout-continue allopurinol
# Lymphocytic colitis-continue Colestid
# COVID19 infection in 2019 with prolonged hospitalization
# History of prostate cancer status post prostatectomy-on Lupron
# Hearing impairment
# DVT prophylaxis-Eliquis
# Full code
Discussed with patient, patient's grandson Rodo, and RN
I spent a total of 50 minutes with the patient or on the floor. More than 50% of this time involved counseling and coordination of care.
Anticipated Discharge: 24 - 48 hours
Subjective/Interval History
-
Date of Service: June 29, 2024
no acute distress sitting up comfortably in bed. Reports resolution of constipation. Also endorses black stools. Notably patient was recently on oral iron prior to transition to IV before constipation resolved. reports pain well controlled at
rest. Day's event notable for significant orthostatic hypotension symptomatic systolic dropping from 120s to 80s supine to sitting up, as noted by PT, resolved when placed back to supine.
Objective Data
-
Labs:
Laboratory Results
06/29/24
06:00
WBC Pending
Hgb Pending
Hct Pending
Plt Count Pending
Sodium Pending
Potassium Pending
Chloride Pending
Carbon Dioxide Pending
BUN Pending
Creatinine Pending
Glucose Pending
Calcium Pending
Vital Signs:
Vital Signs
Temp Pulse Resp BP Pulse Ox
98.4 F 62 18 148/74 96
06/28/24 23:59 06/28/24 23:59 06/28/24 23:59 06/28/24 23:59 06/28/24 23:59
I&O
06/27/24 06/28/24 06/29/24
06:59 06:59 06:59
Intake Total 2340 / 2340 1210 / 1210
Output Total 1875 / 1875 1850 / 1850
Balance 465 / 465 -640 / -640
[2024-06-29 07:00] VITALS: BP 137/60
[2024-06-29] MEDS: TYLENOL 1000 MG PO ×3 (07:23→22:24)
[2024-06-29] MEDS: TYLENOL PO (07:23)
[2024-06-29] MEDS: OSCAL 500 + D 500 MG PO ×2 (07:24→19:29)
[2024-06-29] MEDS: ZYLOPRIM 100 MG PO ×2 (07:24→19:29)
[2024-06-29] MEDS: SENOKOT-S 1 TABLET PO ×2 (07:24→19:29)
[2024-06-29] MEDS: TENORMIN 25 MG PO (07:24)
[2024-06-29] MEDS: VITAMIN B-12 1000 MCG PO (07:24)
[2024-06-29] MEDS: MIRALAX 17 GRAMS PO (07:25)
[2024-06-29] MEDS: ELIQUIS 10 MG PO ×2 (07:25→19:28)
[2024-06-29] MEDS: NORVASC 5 MG PO (07:25)
[2024-06-29 07:44] LABS: Hematocrit 24.9 % (39.0-52.0); Hemoglobin 8.5 g/dL (13.0-18.0); Mean Corp Hgb Conc. 34.1 g/dL (33.0-37.0); Mean Corpuscular Hgb 31.8 pg (27.0-31.0); Mean Corpuscular Volume 93.3 fL (80.0-94.0); Mean Platelet Volume 11.1 fL (7.4-10.4); Platelet Count 188 10^3/uL (130-400); Red Blood Cell Count 2.67 10^6/uL (4.70-6.10); White Blood Cell Count 18.7 10^3/uL (4.8-10.8)
[2024-06-29 08:38] LABS: Blood Urea Nitrogen 48 mg/dl (9-20); Calcium 9.1 mg/dl (8.4-10.2); Carbon Dioxide 26 mmol/L (22-30); Chloride 97 mmol/L (98-107); Estimated Creatinine Clearance 45 ml/min; Glucose 95 mg/dl (70-99); Magnesium 2.3 mg/dl (1.6-2.3); Phosphorus 4.8 mg/dl (2.5-4.5); Potassium 4.5 mmol/L (3.5-5.1); Sodium 132 mmol/L (135-145); eGFR > 60.00
--- NOTE | 2024-06-29 12:13 | CM ---
Chart reviewed and plan is to home with [facility].
Plan; Home with [facility] when stable.
--- NOTE | 2024-06-29 12:30 | VNURNOTE ---
VN liaison met with patient and his grandson at bedside. Patient had received [facility] and home PT briefly as [facility] joint protocol same day after knee surgery. He would like to continue to [facility] nursing and PT once he is DC home. Referral accepted in
[facility]. Patient stated his outpt PT appt for tomorrow has been cancelled. CLARK Campos updated.
--- NOTE | 2024-06-29 12:33 | W.PN.UPDATE ---
Update Note
Progress Note Update
Patient resting comfortably in bed. No significant pain about the right knee. Aquacel dressing in place and should remain. Continue treatment per the primary team- with bridging to Eliquis for PE. Hgb 8.5 this AM- subjectively not reporting any
symptoms. PT/OT could be beneficial for his right knee if deemed safe by the medical team. Orthopedics to follow peripherally for now with scheduled outpatient follow-up upon D/c
[2024-06-29] MEDS: ULTRAM 50 MG PO (12:43)
[2024-06-29 12:50] VITALS: BP 131/57; PULSE 58; O2SAT 97
[2024-06-29 14:31] VITALS: BP 123/58; BP 129/55; BP 86/50
[2024-06-29] MEDS: FERRLECIT 110 MG IV (14:42)
[2024-06-29 15:00] VITALS: BP 144/60
[2024-06-29] MEDS: LIPITOR 10 MG PO (16:57)
[2024-06-29] MEDS: NSS 250 IV ×2 (16:57→17:57)
[2024-06-29 17:12] LABS: Hematocrit 25.6 % (39.0-52.0); Hemoglobin 8.8 g/dL (13.0-18.0)
[2024-06-29] MEDS: PROTONIX IV 40 MG IV ×2 (17:58→19:29)
[2024-06-29] MEDS: NSS (PRESERVATIVE FREE) 10 ML IV ×2 (17:58→19:29)
[2024-06-29 20:47] VITALS: BP 114/59; BP 117/55; BP 91/50; PULSE 60; PULSE 65; PULSE 82
[2024-06-29 23:00] VITALS: BP 147/61
[2024-06-30 07:21] LABS: Hematocrit 23.2 % (39.0-52.0); Hemoglobin 7.9 g/dL (13.0-18.0); Mean Corp Hgb Conc. 34.1 g/dL (33.0-37.0); Mean Corpuscular Hgb 32.4 pg (27.0-31.0); Mean Corpuscular Volume 95.1 fL (80.0-94.0); Mean Platelet Volume 11.1 fL (7.4-10.4); Platelet Count 162 10^3/uL (130-400); Red Blood Cell Count 2.44 10^6/uL (4.70-6.10); Red Cell Dist. Width 17.7 % (11.5-14.5); White Blood Cell Count 13.6 10^3/uL (4.8-10.8)
[2024-06-30 07:23] VITALS: BP 134/66
[2024-06-30 07:38] LABS: Glucose - Point of Care 125 mg/dl (70-99)
--- NOTE | 2024-06-30 07:45 | W.PN.UPDATE ---
Update Note
Progress Note Update
Patient resting comfortably in bed. No significant pain about the right knee. Aquacel dressing in place and should remain. Continue treatment per the primary team- with bridging to Eliquis for PE. Hgb 7.9 this AM- subjectively not reporting any
symptoms. PT/OT could be beneficial for his right knee if deemed safe by the medical team. Orthopedics to follow peripherally for now with scheduled outpatient follow-up upon D/c
--- NOTE | 2024-06-30 07:46 | W.PN.HOSP.TC ---
Today's Communication/Plan
-
Eliquis switched to Lovenox in preparation EGD
NPO after midnight, hold morning Lovenox for anticipated EGD
monitor H&H
PT/OT
cont protonix
Assessment / Plan
Assessment / Plan
Physical Exam
General: No acute distress appears comfortable a this time
CVS: S1-S2 normal
Chest: CTA B/L
Abdomen: Soft, NT / Bowel sounds present
Extremities: RLE edema , normal pulses
TRIGONOMETRY TUTOR: AOx3
84-year-old male presented with dizziness and hypoxia. Patient underwent right total knee replacement at surgical center day prior to arrival. Family noted that oxygen and blood pressure were running low. He was also feeling really weak.
Echo 03/04/2024-normal size LV and EF 65 to 70%. Mild concentric LVH. Normal RV. Mild MR. Mild . Mild AI. Trace TR. Pulmonary artery pressure 30 to 35 mmHg.
# Acute hypoxic respiratory insufficiency
#PE
Also had some noncardiogenic pulmonary edema received 2 doses Lasix
Otxqyvi-umnaqs-scqst changed to Eliquis converted back to Lovenox d/t possible GIB planned for EGD as below
suspected PE prior to surgery
Echo with more pulmonary hypertension than from March
Stable respiratory status on room air
# Elevated troponin-likely secondary to PE. Trending down
With LV. Nonspecific T wave abnormality
No wall motion abnormality on echo
outpt appt w/ [facility] arranged 07/20/24.
# Leukocytosis unclear etiology
no obvious source of infection
urinalysis neg for UTI
previously on steroids since discontinued
WBC trending down
cont monitoring
# Acute blood loss anemia secondary to surgery
#Iron studies appreciated anemia of chronic disease and iron deficiency anemia
Follow hemoglobin
IV iron supplementation
06/28/24 1PRBC transfusion for Hgb 7.1 with appropriate response noted Hgb 8.5 following AM
#Constipation
reported no bowel movement in 5 days
cont bowel regimen
resolved with once bisacodyl suppository 06/28
Dark stools were noted, though patient was recently on oral iron supplements prior to resolution constipation
06/29/24 Episode Severe Symptomatic Orthostatic Hypotension
systolic dropped from 120s to 80s supine to sitting up, symptomatic lightheadedness, resolved when placed back to supine as per PT
Possible symptomatic hypovolemia with resolution constipation and poor oral intake prior to resolution of constipation
Resolved/Improved following total 500 cc IVF bolus
#Dark stools possible UGIB vs discoloration d/t previous oral iron supplement use
Hgb trending down again 8.8 to 7.9 possibly dilution IVF bolus as above
GI eval requested
Eliquis switched to Lovenox in preparation EGD as per GI, last dose of Eliquis 06/29/24 evening, hold Lovenox morning of procedure 07/01
Transfuse goal Hgb >7.5
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
PT OT appreciated outpt therapy recommended
Pain control with Celebrex and Tylenol
Also on Decadron 4 mg twice daily total of 6 doses probably completed on the evening of 06/25/2024 per discussion with Ortho (Stopped)
Pain control with tramadol
# Hyperglycemia- due to steroids
Outpatient records indicate prediabetes
A1C 5.4 wnl
Stopped steroids as above
sugars consistently at goal with minimal insulin correction required
Ok to discontinue routine fingersticks
# Hypokalemia-resolved
# Hypertension- cont Norvasc and atenolol
# Hyperlipidemia-continue statin
# Gout-continue allopurinol
# Lymphocytic colitis-continue Colestid
# COVID19 infection in 2019 with prolonged hospitalization
# History of prostate cancer status post prostatectomy-on Lupron
# Hearing impairment
# DVT prophylaxis- Lovenox
# Full code
Discussed with patient and patient's grandson Rodo
I spent a total of 50 minutes with the patient or on the floor. More than 50% of this time involved counseling and coordination of care.
Anticipated Discharge: 24 - 48 hours
Subjective/Interval History
-
Date of Service: June 30, 2024
no acute distress resting comfortably in bed. Overall reports feeling well. Improvement in lightheadedness. Pain tolerable with current pain regimen
Objective Data
-
Labs:
Laboratory Results
06/30/24
06:32
WBC 13.6 H
Hgb 7.9 L
Hct 23.2 L
Plt Count 162
Sodium Pending
Potassium Pending
Chloride Pending
Carbon Dioxide Pending
BUN Pending
Creatinine Pending
Glucose Pending
Calcium Pending
Vital Signs:
Vital Signs
Temp Pulse Resp BP Pulse Ox
98.7 F 64 17 134/66 98
06/30/24 07:23 06/30/24 07:23 06/30/24 07:23 06/30/24 07:23 06/30/24 07:23
I&O
06/29/24 06/30/24 07/01/24
06:59 06:59 06:59
Intake Total 1210 / 1450 2640 / 2640
Output Total 1850 / 2650 1900 / 1900
Balance -640 / -1200 740 / 740
[2024-06-30 07:53] LABS: Blood Urea Nitrogen 36 mg/dl (9-20); Calcium 8.6 mg/dl (8.4-10.2); Carbon Dioxide 25 mmol/L (22-30); Chloride 99 mmol/L (98-107); Estimated Creatinine Clearance 45 ml/min; Glucose 103 mg/dl (70-99); Magnesium 2.2 mg/dl (1.6-2.3); Phosphorus 5.1 mg/dl (2.5-4.5); Potassium 4.3 mmol/L (3.5-5.1); Sodium 133 mmol/L (135-145); eGFR > 60.00
[2024-06-30 08:14] VITALS: BP 101/55; BP 134/66; BP 53/46; PULSE 105; PULSE 64; PULSE 92
[2024-06-30] MEDS: TENORMIN 25 MG PO (08:47)
[2024-06-30] MEDS: MIRALAX 17 GRAMS PO (08:47)
[2024-06-30] MEDS: TYLENOL 1000 MG PO ×4 (08:47→22:09)
[2024-06-30] MEDS: OSCAL 500 + D 500 MG PO ×2 (08:48→20:26)
[2024-06-30] MEDS: NORVASC 5 MG PO (08:48)
[2024-06-30] MEDS: VITAMIN B-12 1000 MCG PO (08:48)
[2024-06-30] MEDS: ZYLOPRIM 100 MG PO ×2 (08:48→20:26)
[2024-06-30] MEDS: SENOKOT-S 1 TABLET PO (08:48)
[2024-06-30] MEDS: PROTONIX IV 40 MG IV (08:49)
[2024-06-30] MEDS: NSS (PRESERVATIVE FREE) 10 ML IV (08:50)
--- NOTE | 2024-06-30 10:07 | CON.GI ---
Addendum entered and electronically signed by Carlton Alanis MD 06/30/24 19:05:
I saw and examined the patient.
The NEGOTIATOR's note was reviewed and I agree with the note.
Pt is a 84y with hx prostate CA with prostatectomy, HTN, hyperlipidemia, gout, lymphocytic colitis with TKR on 06/22 as outpatient. Pt was noted with post-op hypotension and hypoxia with concern for PE on admission now on Eliquis. Pt noted with
drop in hbg since admission. Pt initially noted with hbg 06/22 with drop to 7.1 transfused and further drop ot 7.9 today. Pt note with rise in BUN from 17 on admission to 65 on 06/27 then 36 on 06/30 and dark stool. e. hx colon 02/2024 with nodular
ileal mucosa 4 polyps and IH- bx TA- in transverse, inflammatory polyp cecum, , HF HP polyp, other bx with lymphocytic colitis. No prior EGD. Pt denies NSAID prior to surgery but was on ASA, Celebrex and steroids post-op but did not take many meds
as came to hospital day of return home from surgery.
Dark stool -concern for upper GI bleeding. No prior EGD
plan
Last Eliquis . Will wait for washout and plan EGD on 07/01
Continue monitor H&H
Continue PPI
Okay with heparin bridging if indicated medically with recent PE with careful monitoring of Hb /bleeding
Original Note:
Consultation
-
Date/Time Consultation Requested: 06/30/24 0845
Date/Time Consultation Performed: 06/30/24 1000
Requesting Provider: Khalif Rutledge MD
Performing Provider: DANDRE Peraza, Carlton Alanis MD
Reason for Consultation: dark stool, anemia
Medical History
Chief Complaint / HPI
Chief Complaint: dark stool
History of Present Illness:
Pt is a 84y with hx prostate CA with prostatectomy, HTN, hyperlipidemia, gout, lymphocytic colitis with TKR on 06/22 as outpatient. Pt was noted with post-op hypotension and hypoxia with concern for PE on admission now on Eliquis. Pt noted with
drop in hbg since admission. Pt initially noted with hbg 06/22 with drop to 7.1 transfused and further drop ot 7.9 today. Pt note with rise in BUN from 17 on admission to 65 on 06/27 then 36 on 06/30 and dark stool. e. hx colon 02/2024 with nodular
ileal mucosa 4 polyps and IH- bx TA- in transverse, inflammatory polyp cecum, , HF HP polyp, other bx with lymphocytic colitis. No prior EGD. Pt denies NSAID prior to surgery but was on ASA, Celebrex and steroids post-op but did not take many meds
as came to hospital day of return home from surgery.
Pt admits to dizziness and constipation but denies dysphagia, GERD, nausea, vomiting, abdominal pain, diarrhea, or red blood in stool.
Past Medical History
Past Medical History: Cancer (prostate CA with prior prostatectomy), HTN, Hypercholesterolemia and Other (pre DM, lymphocytic colitis, gout)
Past Surgical History: Orthopedic (TKR, humural fx repair), Urological (prostatectomy) and Other (hernia repair)
Social History
Tobacco: Former Smoker
Alcohol: None
Drug: None
Personal:
Living: With Family
Employment: Retired
Family History
Family History: Other (no family hx GI problems, colon CA)
Allergies / Home Medications
Allergy/AdvReac Type Severity Reaction Status Date / Time
levofloxacin Allergy red spots Verified 06/22/24 18:43
over
entire body
lisinopril [From Zestril] Allergy cough Verified 06/22/24 18:43
�Medication �Instructions �Recorded
allopurinol 100 mg tablet 100 mg PO BID Gout 12/15/19
simvastatin 20 mg tablet 20 mg PO HS High cholesterol 12/15/19
acetaminophen 500 mg tablet 1,000 mg PO Q6H Pain 06/22/24
(Tylenol Extra Strength)
amlodipine 5 mg tablet 5 mg PO DAILY Blood Pressure 06/22/24
aspirin 325 mg tablet 325 mg PO QPM Blood Clot 06/22/24
Prevention/Tx
atenolol 25 mg tablet 25 mg PO DAILY Blood Pressure 06/22/24
calcium 500 mg (as 1 tab PO TID Supplement 06/22/24
carbonate)-vitamin D3 10 mcg (400
unit) tablet (Calcium 500 + D)
celecoxib 100 mg capsule 100 mg PO BID Anti-Inflammatory 06/22/24
colestipol 1 gram tablet 2 g PO DAILY High Cholesterol 06/22/24
denosumab 60 mg/mL subcutaneous 60 mg SC [id number] Osteoporosis 06/22/24
syringe (Prolia)
dexamethasone 4 mg tablet 4 mg PO Q12H 06/22/24
leuprolide acetate (6 month) 45 mg 45 mg IM [id number] Cancer 06/22/24
intramuscular syringe kit (Lupron
Depot)
mupirocin 2 % topical ointment 1 applic topical BID nose 06/22/24
ondansetron HCl 4 mg tablet 4 mg PO Q6HPRN PRN nausea 06/22/24
oxycodone 5 mg tablet 5 mg PO Q6HPRN PRN breakthrough 06/22/24
pain
psyllium husk 3.4 gram/5.4 gram 2 tbsp PO DAILY Constipation 06/22/24
oral powder (Metamucil)
Review of Systems
-
History Source: Patient
Constitutional: Reports No Symptoms
EENT: Reports No Symptoms
Respiratory: Reports No Symptoms
Abdomen/GI: Reports Other (dark stool)
: Reports No Symptoms
Musculoskeletal: Reports Other (s/p right TKR with bruising in back on leg )
Neurological: Reports Dizzy and Weakness
Endocrine: Reports No Symptoms
Hematologic/Lymphatic: Reports Bleeding
Vital Signs
Temp Pulse Resp BP Pulse Ox
98.7 F 64 17 134/66 98
06/30/24 07:23 06/30/24 07:23 06/30/24 07:23 06/30/24 07:23 06/30/24 07:23
Physical Exam
Exam
General: Well Developed, Well Nourished and No Apparent Distress
HEENT: Normocephalic and Anicteric
Respiratory: Clear
Cardiac: Regular Rhythm
GI: Soft and Non Distended
Rectal: Other (black green heme + stool)
Musculoskeletal: No Clubbing, No Cyanosis and Other (large bruised area back of leg on right s/p TKR)
Skin: Warm and Dry
Neuro: Awake, Alert and AO x 3
Psych: Calm
Results
WBC 13.6 10^3/uL (4.8-10.8) H 06/30/24 06:32
Hgb 7.9 g/dL (13.0-18.0) L 06/30/24 06:32
Hct 23.2 % (39.0-52.0) L 06/30/24 06:32
MCV 95.1 fL (80.0-94.0) H 06/30/24 06:32
Plt Count 162 10^3/uL (130-400) 06/30/24 06:32
Absolute Neuts (auto) 12.4 10^3/uL (1.4-6.5) H 06/22/24 18:47
PT 14.8 Sec (11.4-14.6) H 06/22/24 18:47
INR 1.18 06/22/24 18:47
APTT 29.8 Sec (23.4-35.0) 06/22/24 18:47
Sodium 133 mmol/L (135-145) L 06/30/24 06:32
Potassium 4.3 mmol/L (3.5-5.1) 06/30/24 06:32
Chloride 99 mmol/L (98-107) 06/30/24 06:32
Carbon Dioxide 25 mmol/L (22-30) 06/30/24 06:32
BUN 36 mg/dl (9-20) H 06/30/24 06:32
Creatinine 1.1 mg/dL (0.7-1.3) 06/30/24 06:32
Calcium 8.6 mg/dl (8.4-10.2) 06/30/24 06:32
Total Bilirubin 0.3 mg/dl (0.2-1.3) 06/22/24 18:47
AST 25 U/L (17-59) 06/22/24 18:47
ALT 19 U/L (0-50) 06/22/24 18:47
Alkaline Phosphatase 32 U/L (38-126) L 06/22/24 18:47
Diagnostic Image Results:
06/23/24 CT chest
1. Pulmonary emboli within the anterior right upper lobe segmental branch and left lower lobar artery as above, overall relatively small burden of thrombus. No CT findings suggestive of right heart strain.
2. Low lung volumes. Interstitial edema superimposed upon emphysematous changes. Moderate bilateral dependent atelectasis.
06/23 doppler US
No evidence of deep venous thrombosis bilaterally.
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
Mild lower extremity subcutaneous edema bilaterally.
Prior GI Procedures:
EGD: none
02/2024- colonoscopy protano - Nodular ileal mucosa. Biopsied.
- Nodular mucosa in the descending colon, in the
transverse colon, in the ascending colon and in the
cecum. Biopsied.
- Four 1 to 3 mm polyps in the transverse colon, at
the hepatic flexure and in the cecum, removed with a
cold biopsy forceps. Resected and retrieved.
- Internal hemorrhoids.
bx TA- in transverse, inflammatory polyp cecum, , HF HP polyp, other bx with lymphocytic colitis.
Assessment / Plan
-
Pt is a 84y with hx prostate CA with prostatectomy, HTN, hyperlipidemia, gout, lymphocytic colitis with TKR on 06/22 as outpatient. Pt was noted with post-op hypotension and hypoxia with concern for PE on admission now on Eliquis. Pt noted with
drop in hbg since admission. Pt initially noted with hbg 06/22 with drop to 7.1 transfused and further drop ot 7.9 today. Pt note with rise in BUN from 17 on admission to 65 on 06/27 then 36 on 06/30 and dark stool. e. hx colon 02/2024 with nodular
ileal mucosa 4 polyps and IH- bx TA- in transverse, inflammatory polyp cecum, , HF HP polyp, other bx with lymphocytic colitis. No prior EGD. Pt denies NSAID prior to surgery but was on ASA, Celebrex and steroids post-op but did not take many meds
as came to hospital day of return home from surgery.
-s/p TKR 06/22 with bruising
-admit with hypotension/hypoxia with + PE (suspected prior to surgery)- with Eliquis use
-anemia with drop in hbg requiring transfusion
-black heme + stool on exam
-elevated BUN
-constipation
-orthostasis
-elevated troponin with PE
-leukocytosis
other med problems:
-prostatectomy
-HTN
-hyperlipidemia
-gout
-lymphocytic colitis
PLAN:
Etiology of dark stool with drop hbg may be multifactorial with bruising s/p TKR, recent oral iron but cannot exclude UGI bleeding with significant rise in BUN (PUD, ectasia vs other) vs other source
pt recently completed colonoscopy in January
may be exacerbated with addition of Eliquis with PE
pt denies NSAID use prior to surgery
cont PPI daily
will review for EGD with Dr. Alanis and timing
last Eliquis 06/29 PM -- review with Dr. Sen for Lovenox bridge if needed with close follow of hbg as recent + PE
ok to continue diet for now as not gross bleeding and actually noted with hard stool on rectal exam
add dulcolax now -- enema in needed
change regiment to Miralax BID and senna at [facility]
NSAID avoidance
-
-
-
Thank you for consultation and allowing me to participate in the patient's care. Please call the swine extension field specialist GI physician during the after hours with any questions or concerns.
[2024-06-30] MEDS: DULCOLAX 10 MG RECTAL (11:07)
--- NOTE | 2024-06-30 11:26 | CM ---
wind field service manager spoke with physical therapy yesterday and plan is to follow with patient progress for rehab stay v's home, patient has been at [facility] in the past and depending on how patient progresses will physical therapy recommendations.
Plan To follow with patient progress with physical therapy.
[2024-06-30 12:12] LABS: Hematocrit 23.9 % (39.0-52.0); Hemoglobin 8.1 g/dL (13.0-18.0)
[2024-06-30] MEDS: LOVENOX 80 MG SC ×2 (12:37→22:08)
[2024-06-30] MEDS: FERRLECIT 110 MG IV (12:38)
[2024-06-30 14:47] VITALS: BP 112/71; BP 94/51; BP 94/67; PULSE 63; PULSE 70; O2SAT 97
[2024-06-30 14:57] VITALS: BP 112/71; BP 94/51; BP 94/67; PULSE 70
[2024-06-30 15:19] VITALS: BP 94/67
[2024-06-30] MEDS: LIPITOR 10 MG PO (17:24)
[2024-06-30] MEDS: MIRALAX PO (20:26)
[2024-06-30] MEDS: ULTRAM 50 MG PO (22:07)
[2024-06-30] MEDS: SENOKOT PO (22:14)
[2024-06-30 23:00] VITALS: BP 100/50; BP 145/63; BP 71/43; PULSE 63; PULSE 96
[2024-07-01 07:00] VITALS: BP 144/70
[2024-07-01 08:11] LABS: Hematocrit 23.6 % (39.0-52.0); Hemoglobin 7.9 g/dL (13.0-18.0); Mean Corp Hgb Conc. 33.5 g/dL (33.0-37.0); Mean Corpuscular Hgb 32.1 pg (27.0-31.0); Mean Corpuscular Volume 95.9 fL (80.0-94.0); Mean Platelet Volume 11.5 fL (7.4-10.4); Platelet Count 198 10^3/uL (130-400); Red Blood Cell Count 2.46 10^6/uL (4.70-6.10); Red Cell Dist. Width 18.3 % (11.5-14.5); White Blood Cell Count 16.9 10^3/uL (4.8-10.8)
[2024-07-01 08:29] LABS: Blood Urea Nitrogen 30 mg/dl (9-20); Calcium 8.4 mg/dl (8.4-10.2); Carbon Dioxide 25 mmol/L (22-30); Chloride 97 mmol/L (98-107); Estimated Creatinine Clearance 45 ml/min; Glucose 109 mg/dl (70-99); Magnesium 2.2 mg/dl (1.6-2.3); Potassium 4.3 mmol/L (3.5-5.1); Sodium 130 mmol/L (135-145); eGFR > 60.00
[2024-07-01] MEDS: NSS 1000 IV ×2 (08:39→18:00)
[2024-07-01] MEDS: OSCAL 500 + D 500 MG PO ×2 (08:49→20:53)
[2024-07-01] MEDS: MIRALAX PO ×2 (08:49→20:53)
[2024-07-01] MEDS: FEOSOL 325 MG PO ×2 (08:50→21:07)
[2024-07-01] MEDS: TYLENOL 1000 MG PO ×2 (08:50→16:35)
[2024-07-01] MEDS: NORVASC 5 MG PO (08:51)
[2024-07-01] MEDS: ZYLOPRIM 100 MG PO ×2 (08:51→20:54)
[2024-07-01] MEDS: VITAMIN B-12 1000 MCG PO (08:51)
[2024-07-01] MEDS: PROTONIX IV 40 MG IV (08:52)
[2024-07-01] MEDS: NSS (PRESERVATIVE FREE) 10 ML IV (08:52)
[2024-07-01] MEDS: TENORMIN 25 MG PO (08:52)
--- NOTE | 2024-07-01 09:20 | W.PN.HOSP.TC ---
Today's Communication/Plan
-
NPO after midnight for EGD, hold Lovenox in Morning
start empiric abx Ceftriaxone Doxycycline
check Chext x-ray
PMR eval requested
pain control
IVF support
monitor H&H
cont protonix
Assessment / Plan
Assessment / Plan
Physical Exam
General: No acute distress appears comfortable a this time
CVS: S1-S2 normal
Chest: CTA B/L
Abdomen: Soft, NT / Bowel sounds present
Extremities: RLE edema , normal pulses
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
84-year-old male presented with dizziness and hypoxia. Patient underwent right total knee replacement at surgical center day prior to arrival. Family noted that oxygen and blood pressure were running low. He was also feeling really weak.
Echo 03/04/2024-normal size LV and EF 65 to 70%. Mild concentric LVH. Normal RV. Mild MR. Mild . Mild AI. Trace TR. Pulmonary artery pressure 30 to 35 mmHg.
# Acute hypoxic respiratory insufficiency
#PE
Also had some noncardiogenic pulmonary edema received 2 doses Lasix
Mrcjmtm-oqaico-iyapc changed to Eliquis converted back to Lovenox d/t possible GIB planned for EGD as below
suspected PE prior to surgery
Echo with more pulmonary hypertension than from March
07/01/24 patient noted with chills low grade fever and desaturating to low 90s on room air as per nurse
-check CR chest
-empiric ceftriaxone doxycycline started for possible pna
# Leukocytosis unclear etiology
no obvious source of infection
urinalysis neg for UTI
previously on steroids since discontinued
Leukocytosis however persisted
abx started as above
# Elevated troponin-likely secondary to PE. Trending down
With LV. Nonspecific T wave abnormality
No wall motion abnormality on echo
outpt appt w/ [facility] arranged 07/20/24.
# Acute blood loss anemia secondary to surgery
#Iron studies appreciated anemia of chronic disease and iron deficiency anemia
Follow hemoglobin
IV iron supplementation
06/28/24 1PRBC transfusion for Hgb 7.1 with appropriate response noted Hgb 8.5 following AM
#Constipation
reported no bowel movement in 5 days
resolved with once bisacodyl suppository 06/28
Dark stools were noted, though patient was recently on oral iron supplements prior to resolution constipation
cont bowel regimen as per GI
Episodic Severe Symptomatic Orthostatic Hypotension
Intermittent severe orthostatic hypotension noted starting 06/29/24
treated with IVF
monitor
#Dark stools possible UGIB vs discoloration d/t previous oral iron supplement use
Hgb trending down again 8.8 to 7.9 possibly dilution IVF bolus as above
GI eval appreciated
Eliquis switched to Lovenox in preparation EGD as per GI, last dose of Eliquis 06/29/24 evening, hold Lovenox morning of procedure
Transfuse goal Hgb >7.5
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
PT OT appreciated outpt therapy recommended
Pain control with Celebrex and Tylenol
Also on Decadron 4 mg twice daily total of 6 doses probably completed on the evening of 06/25/2024 per discussion with Ortho (Stopped)
Pain control with tramadol
# Hyperglycemia- due to steroids
Outpatient records indicate prediabetes
A1C 5.4 wnl
Stopped steroids as above
sugars consistently at goal with minimal insulin correction required
Ok to discontinue routine fingersticks
#Some delirium confusion
likely sleep deprivation hospital associated delirium
07/01 bedtime low dose seroquel started
# Hypokalemia-resolved
# Hypertension- cont Norvasc and atenolol
# Hyperlipidemia-continue statin
# Gout-continue allopurinol
# Lymphocytic colitis-continue Colestid
# COVID19 infection in 2019 with prolonged hospitalization
# History of prostate cancer status post prostatectomy-on Lupron
# Hearing impairment
# DVT prophylaxis- Lovenox
# Full code
PT/OT appreciated Acute Rehab
PMR eval requested
Discussed with patient and patient's grandson Rodo
I spent a total of 50 minutes with the patient or on the floor. More than 50% of this time involved counseling and coordination of care.
Anticipated Discharge: 24 - 48 hours
Subjective/Interval History
-
Date of Service: July 01, 2024
No acute distress resting comfortably in bed. Reports right knee pain. Significant orthostatic hypotension noted in morning. Patient NPO awaiting EGD.
Objective Data
-
Labs:
Laboratory Results
07/01/24
07:23
WBC 16.9 H
Hgb 7.9 L
Hct 23.6 L
Plt Count 198 D
Sodium 130 L
Potassium 4.3
Chloride 97 L
Carbon Dioxide 25
BUN 30 H
Creatinine 1.1
Glucose 109 H
Calcium 8.4
Vital Signs:
Vital Signs
Temp Pulse Resp BP Pulse Ox
98.6 F 71 18 144/70 99
07/01/24 07:00 07/01/24 07:00 07/01/24 07:00 07/01/24 07:00 07/01/24 07:00
I&O
06/30/24 07/01/24 07/02/24
06:59 06:59 06:59
Intake Total 2640 / 2640 450 / 450
Output Total 1900 / 1900 725 / 725
Balance 740 / 740 -275 / -275
[2024-07-01 10:00] VITALS: BP 154/62; BP 69/45; BP 99/58; PULSE 62; PULSE 78; PULSE 84
[2024-07-01] MEDS: NSS 500 IV (11:25)
[2024-07-01] MEDS: MORPHINE SULFATE 1 MG IV (12:23)
[2024-07-01] MEDS: TYLENOL PO ×2 (13:30→22:52)
[2024-07-01 15:00] VITALS: BP 166/74
--- NOTE | 2024-07-01 16:15 | CM ---
Chart reviewed and physical therapy are recommending acute rehab, referral sent to [place] acute rehab at [facility], waiting on physiatry evaluation and recommendation.
Plan; Referral sent to [place] acute rehab at [facility], waiting on a determination.
--- NOTE | 2024-07-01 16:45 | PTCARENOTE ---
Running low grade temp 99.3 with c/o chills- I gave him tylenol . Pulse ox 94 room air- put o2 on 2 LPM for comfort.
--- NOTE | 2024-07-01 17:16 | CON.MD ---
Consultation - Medical
-
Referring Provider:�Dr. Rigoberto Rutledge
Chief Complaint:�Right knee replacement with Pulmonary embolism
�
History of Present Illness:�84-year-old right-handed male with PMH (as below) presented to [facility] on 06/22/2024 with lightheadedness, hypotension, and hypoxia. Had an outpatient right total knee arthroplasty at an outpatient surgical
center by Dr. Graves earlier in the day before symptoms started. Noted to have O2 saturation in the 70s. CT of the chest for PE protocol noting a left lower lobe pulmonary embolism with no RV strain. Developed anemia and required 1 unit of
packed red blood cell transfusion. Had further drop in hemoglobin and required 2 units of PRBCs. Eliquis held and evaluated. Started on Protonix 40 mg IV twice daily.
Past Medical History: prostate cancer, hypertension, hyperlipidemia, gout, COVID-2019, lymphocytic colitis, orthostasis, asbestos exposure
Procedure History: Hernia repair �3, right wrist plates and screws, right humerus lucia, 06/22/2024 right TKA
Family History: Father with coronary artery disease and diabetes. Mother with coronary artery disease and leukemia. Brother of alcoholism at age 49
�
�
Social History:�
Functional Level Premorbidly:�Independent with all activities�
Functional Level Currently:�Min assist for bed mobility, transfers, ambulating 20 feet x 1 with rolling walker. Min assist of 2 for basic ADLs. Given prolonged hospitalization, current functional level, medical concerns, therapy suggests acute
inpatient rehabilitation
�
Tobacco:�Former, quit many years ago
Alcohol:�Denies�
Drug use:�Denies�
�
Lives with: Apartment with spouse
24-hour assistance available: Yes
Number of floors: 1
# steps to enter: 1+4 and 3 sets of 7
Driving: Yes
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
�
�
Allergies:�
Allergy/AdvReac Type Severity Reaction Status Date / Time
levofloxacin Allergy red spots Verified 06/22/24 18:43
over
entire body
lisinopril [From Zestril] Allergy cough Verified 06/22/24 18:43
�
Review of Systems:�
Constitutional: (x) abNormal _fatigue
Eye: (x) Normal _
Ear/Nose/Throat: (x) Normal _
Respiratory: (x) abNormal _chronic pulmonary issues with acute pulmonary embolism and dizziness
Cardiovascular: (x) Normal _
Gastrointestinal: (x) abNormal _bleeding requiring transfusions, endoscopy planned
Genitourinary: (x) Normal _
Musculoskeletal: (x) Normal _
Integumentary: (x) Normal _
Neurologic: (x) Normal _
Psychiatric: (x) Normal _
Endocrine: (x) Normal _
Hematologic/Lymphatic: (x) Normal _
Allergic/Immunologic: (x) Normal _
�
Medications:�
Active Current Visit Medication List
Category Date Time Status
0.9% Sodium Chloride [Nss (Preservative Free)] Med 06/30/24 08:00 Active
10 ml IV DAILY
Acetaminophen [Tylenol] Med 06/23/24 08:00 Active
1,000 mg PO QID
Allopurinol [Zyloprim] Med 06/23/24 08:00 Active
100 mg PO BID
Amlodipine [Norvasc] Med 06/26/24 14:00 Active
5 mg PO DAILY
Apixaban [Eliquis] Med 06/25/24 20:00 Hold
10 mg PO BID
Atenolol [Tenormin] Med 06/26/24 14:00 Active
25 mg PO DAILY
Atorvastatin [Lipitor] Med 06/23/24 18:00 Active
10 mg PO QPM
Calcium Carbonate/Vitamin D3 [Oscal 500 + D] Med 06/25/24 09:00 Active
500 mg PO BID
Cyanocobalamin [Vitamin B-12] Med 06/25/24 09:00 Active
1,000 mcg PO DAILY
Dextrose 50%-Water [Dextrose 50% Syringe] Med 06/23/24 02:06 Active
12.5 grams IV [id number] PRN
Enoxaparin Sodium [Lovenox] Med 06/30/24 11:00 Hold
80 mg SC Q12H
Ferrous Sulfate [Feosol] Med 06/25/24 09:00 Active
325 mg PO BID
Flush (0.9% Sodium Chloride) [Flush (Nss)] Med 06/25/24 10:00 Active
See Dose Instructions IV PER PROTOCOL
Glucagon [GlucaGen] Med 06/23/24 02:06 Active
1 mg IM PRN PRN
Magnesium Oxide Med 06/23/24 10:00 Hold
500 mg PO DAILY
Mineral Oil Enema [Fleet Mineral Oil Enema] Med 06/30/24 10:37 Active
133 ml RECTAL DAILYPRN PRN
Pantoprazole [Protonix IV] Med 06/30/24 08:00 Active
40 mg IV DAILY
Polyethylene Glycol Powder [Miralax] Med 06/30/24 20:00 Active
17 grams PO BID
Sennosides [Senokot] Med 06/30/24 22:00 Active
17.2 mg PO HS
Tramadol HCl [Ultram] Med 06/24/24 16:45 Active
50 mg PO Q6HPRN PRN
colestipol Med 06/23/24 08:00 Pending
2 grams PO DAILY
�
Vitals:�
Temp Pulse Resp BP Pulse Ox
97.9 F 63 18 166/74 98
07/01/24 15:00 07/01/24 15:00 07/01/24 15:00 07/01/24 15:00 07/01/24 15:00
Height 5 ft 6 in
Actual Weight 76.005 kg
Body Mass Index (BMI) 27.1
�
Physical Exam:�
General Appearance/Observation: Well-developed, well-nourished male in no apparent distress.�
Pain/Comfort Assessment: Moderate to severe right knee pain
Mood/Affect: Appropriate�
�
Integumentary/Operative Site:�Right knee Aquacel with scant drainage
�
Eyes: Conjunctiva/Lids: normal���� Pupils: pupils equal round and reactive to light and Accommodation�
Ears/Nose/Throat: oral mucosa moist,� throat clear.������������ Lips/Teeth/Gums: normal�
Neck: No muscle spasm or tenderness�
Cardiovascular: Heart: regular, no murmur�
Pulses: dorsalis pedis 2+ bilaterally�
Respiratory: Respiratory Effort/Chest Expansion: normal������� Auscultation: Clear to auscultation bilaterally�
Gastrointestinal: abdomen not tender, no distension, normal abdominal bowel sounds
Genitourinary: No Burk�
Rectal Exam: Deferred�
Extremities:�Edema: None�Cyanosis: None�Trophic�changes: None
�
Neurology Exam:
Orientation: Alert, Oriented to self, Time, Place�
Memory: Impaired, does not know the holiday upcoming. Has some hearing issue but also a little confused at times.
Repetition: Intact
Comprehension: Intact
Two step command: Intact
Cranial Nerves:
�� CNII:�Pupillary light reflex: Intact����
�� CN III, IV, : Extraocular muscles: Intact�
�� CN VII:�Facial movement: Symmetric
�� CN VIII:�Hearing: Normal
�� CN IX/X:�Speech & swallow: Normal,�Position of Uvula: Midline
�� CN XI:�Shoulder shrug: Symmetric
�� CN XII:�Tongue protrusion: Midline
Sensory:
�� Light touch: Intact in bilateral upper and lower extremities
Reflexes:
�� Biceps: 2+ bilaterally
�� Brachioradialis: 2+ bilaterally
�� Triceps: 2+ bilaterally
�� Patellar: 2+ Left, right NT
�� Achilles: 2+ bilaterally
�� Babinski: Down going bilaterally
�� Clonus: None
�� Edvin: Negative bilaterally�
Cerebellar: Dysmetria/Ataxia: None�
Musculoskeletal: Motor: (Manual muscle scale 0-5)�
Muscle SA EF WE EE FF FA HF KE DF EHL PF
Right� 5 5 5 5 5 5 2 2 5 5 5
Left 5 5 5 5 5 5 4 5 5 5 5
�
Tone: Normal in all extremities�
Range of Motion: Passively within normal limits in all extremities�
�
Lab Results
Laboratory Data
07/01/24 07:23
07/01/24 07:23
PT 14.8 Sec (11.4-14.6) H 06/22/24 18:47
INR 1.18 06/22/24 18:47
APTT 29.8 Sec (23.4-35.0) 06/22/24 18:47
Total Bilirubin 0.3 mg/dl (0.2-1.3) 06/22/24 18:47
AST 25 U/L (17-59) 06/22/24 18:47
ALT 19 U/L (0-50) 06/22/24 18:47
Alkaline Phosphatase 32 U/L (38-126) L 06/22/24 18:47
Total Protein 4.9 g/dl (6.3-8.2) L 06/22/24 18:47
Albumin 3.0 g/dl (3.5-5.0) L 06/22/24 18:47
�
Diagnostic Results:�as per HPI�
�
Assessment
84-year-old M [facility] (prostate cancer, hypertension, hyperlipidemia, gout, COVID-2019, lymphocytic colitis, orthostasis, asbestos exposure) status post right total knee replacement complicated by pulmonary embolism started on anticoagulation with
anemia requiring transfusion and concern for upper GI bleed pending endoscopy with fatigue and ADL/ambulatory dysfunction.
Plan�
PM&R�PT/OT to increase independence with ADLs, improve balance, coordination, endurance, strength, mobility, community reintegration, decreased burden of care on others and family education.�
�
Pulmonary embolism: Anticoagulation held with concern for GI bleeding requiring multiple transfusions. Resume anticoagulation as able currently pending endoscopy.
Right total knee arthroplasty by Dr. Graves 06/22/2024: Weightbearing as tolerated, ice as necessary, monitor incision.
HTN: Amlodipine 5 mg, atenolol 25 mg daily, monitor closely�
HLD: Statin�
Gout: allopurinol
Anemia: postoperative with concern for upper GI bleed. Pending endoscopy.� On iron. Continue to monitor.�
ID: on ceftriaxone and doxycycline
�
Psych: Psychology consult.� Monitor mood, adjust Seroquel 25 mg HS as needed.�
Skin: monitor for pressure sores/rashes/lesions.�
Pain: acetaminophen or tramadol as needed.�
Bowel: Colace and Senna, PRN bisacodyl.�
Bladder: Time void, PVRs, PRN straight cath.�
GI Bleed concern: Pantoprazole, endoscopy planned.
DVT Prophylaxis: Mechanical, chemoprophylaxis held with GI bleeding concern.
Pulmonary: Incentive spirometry��
Safety: Continue to reinforce assistance with all transfers.�
Code Status:� Full code
Dispo�(date/plan/equipment needs): Home with family care.� Social history reviewed.�
Functional and Medical Goals:�Modified Independent with ADL�s, ambulation, transfers�
Discharge Destination:��Acute inpatient rehab with PE, GI bleed and anemia concerns requiring close medical monitoring and management.
�
Summary of recommendations:
-�Discharge Destination:�Acute inpatient rehab with PE, GI bleed and anemia concerns requiring close medical monitoring and management.
Pulmonary embolism: Anticoagulation held with concern for GI bleeding requiring multiple transfusions. Resume anticoagulation as able currently pending endoscopy.
Right total knee arthroplasty by Dr. Graves 06/22/2024: Weightbearing as tolerated, ice as necessary, monitor incision.
HTN: Amlodipine 5 mg, atenolol 25 mg daily, monitor closely�
Anemia: postoperative with concern for upper GI bleed. Pending endoscopy.� On iron. Continue to monitor.�
ID: on ceftriaxone and doxycycline
�
Thank you for allowing me to care for your patient. Please contact me with any questions or concerns.
[2024-07-01] MEDS: LIPITOR PO (17:23)
[2024-07-01] MEDS: ROCEPHIN 1000 MG IV ×2 (18:00→18:01)
[2024-07-01] MEDS: STERILE WATER FOR INJECTION 10 ML IV (18:01)
--- NOTE | 2024-07-01 20:29 | W.PN.GI.CBS2 ---
Today's Communication / Plan
-
EGD tomorrow
Assessment / Plan
-
Pt is a 84y with hx prostate CA with prostatectomy, HTN, hyperlipidemia, gout, lymphocytic colitis with TKR on 06/22 as outpatient. Pt was noted with post-op hypotension and hypoxia with concern for PE on admission now on Eliquis. Pt noted with
drop in hbg since admission. Pt initially noted with hbg 06/22 with drop to 7.1 transfused and further drop ot 7.9 today. Pt note with rise in BUN from 17 on admission to 65 on 06/27 then 36 on 06/30 and dark stool. e. hx colon 02/2024 with nodular
ileal mucosa 4 polyps and IH- bx TA- in transverse, inflammatory polyp cecum, , HF HP polyp, other bx with lymphocytic colitis. No prior EGD. Pt denies NSAID prior to surgery but was on ASA, Celebrex and steroids post-op but did not take many meds
as came to hospital day of return home from surgery.
-s/p TKR 06/22 with bruising
-admit with hypotension/hypoxia with + PE (suspected prior to surgery)- with Eliquis use
-anemia with drop in hbg requiring transfusion
-black heme + stool on exam
-elevated BUN
-constipation
-orthostasis
-elevated troponin with PE
-leukocytosis
other med problems:
-prostatectomy
-HTN
-hyperlipidemia
-gout
-lymphocytic colitis
PLAN:
no further bleeding. Hb relatively stable .
EGD 07/03
NPO after MN
Hold am lovenox
-
Total Time Spent with Patient (in minutes): 35
Subjective
Subjective
Date of Service: July 01, 2024
no further bleeding. stool heme negative
Objective
Data Reviewed
Laboratory Data:
Laboratory Results
07/01/24 07:23
07/01/24 07:23
Laboratory Results
PT 14.8 Sec (11.4-14.6) H 06/22/24 18:47
INR 1.18 06/22/24 18:47
APTT 29.8 Sec (23.4-35.0) 06/22/24 18:47
Phosphorus 4.0 mg/dl (2.5-4.5) 07/01/24 07:23
Magnesium 2.2 mg/dl (1.6-2.3) 07/01/24 07:23
Total Bilirubin 0.3 mg/dl (0.2-1.3) 06/22/24 18:47
AST 25 U/L (17-59) 06/22/24 18:47
ALT 19 U/L (0-50) 06/22/24 18:47
Alkaline Phosphatase 32 U/L (38-126) L 06/22/24 18:47
Vital Signs and I&O:
Vital Signs
Temp Pulse Resp BP Pulse Ox
99.3 F 63 18 166/74 98
07/01/24 17:00 07/01/24 15:00 07/01/24 15:00 07/01/24 15:00 07/01/24 15:00
I&O
06/30/24 07/01/24 07/02/24
06:59 06:59 06:59
Intake Total 2640 / 2640 450 / 450 1440 / 1440
Output Total 1900 / 1900 725 / 725
Balance 740 / 740 -275 / -275 1440 / 1440
Physical Exam
Physical Exam
GI: Soft, Non Distended and Non Tender
[2024-07-01] MEDS: VIBRAMYCIN 100 MG PO (20:53)
[2024-07-01] MEDS: SENOKOT PO (21:00)
[2024-07-01] MEDS: SEROQUEL PO (22:52)
[2024-07-01] MEDS: LOVENOX 80 MG SC (22:53)
[2024-07-01 23:07] VITALS: BP 124/63
[2024-07-02] VITALS (13 sets, daily range): BP systolic 92–146; BP diastolic 48–81
--- NOTE | 2024-07-02 07:24 | W.PN.HOSP.TC ---
Today's Communication/Plan
-
checking lactic acid and procalcitonin
possible Fever may be related to PE instead of infection
Checking BNP
empiric IV lasix 40 mg once
anemia also worsening will transfuse 1PRBC
requesting ID eval
transfer to IMU for closer monitoring
repeat COVID
Assessment / Plan
Assessment / Plan
Physical Exam
General: No acute distress appears comfortable a this time
CVS: S1-S2 normal
Chest: Bibasilar crackles noted
Abdomen: Soft, NT / Bowel sounds present
Extremities: RLE edema , normal pulses
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
84-year-old male presented with dizziness and hypoxia. Patient underwent right total knee replacement at surgical center day prior to arrival. Family noted that oxygen and blood pressure were running low. He was also feeling really weak.
Echo 03/04/2024-normal size LV and EF 65 to 70%. Mild concentric LVH. Normal RV. Mild MR. Mild . Mild AI. Trace TR. Pulmonary artery pressure 30 to 35 mmHg.
# Acute hypoxic respiratory insufficiency
#PE
Also had some noncardiogenic pulmonary edema received 2 doses Lasix
Fpdxoqe-mnjtyq-fcvdb changed to Eliquis converted back to Lovenox d/t possible GIB planned for EGD as below
suspected PE prior to surgery
Echo with more pulmonary hypertension than from March otherwise no significant change noted
07/01/24 patient noted with chills low grade fever and desaturating to low 90s on room air as per nurse
07/02/24 fever spike 102.3 with associate white count concerning for possible sepsis. Crackles also noted on auscultation concerning for Fluid overload
-CR chest no acute abn's noted 07/01/24
-empiric ceftriaxone doxycycline started for possible pna
-checking lactic acid and procalcitonin
-possible Fever may be related to PE instead of infection
-Checking BNP
-empiric IV lasix 40 mg once
-anemia also worsening will transfuse 1PRBC
-requesting ID eval
-transfer to IMU for closer monitoring
-repeat COVID
# Leukocytosis unclear etiology
no obvious source of infection
urinalysis neg for UTI
previously on steroids since discontinued
Leukocytosis however persisted
abx started as above
# Elevated troponin-likely secondary to PE. Trended down
With LV. Nonspecific T wave abnormality
No wall motion abnormality on echo
outpt appt w/ [facility] arranged 07/20/24.
# Acute blood loss anemia secondary to surgery
#Iron studies appreciated anemia of chronic disease and iron deficiency anemia
Follow hemoglobin
IV iron supplementation
06/28/24 1PRBC transfusion for Hgb 7.1 with appropriate response noted Hgb 8.5 following AM
#Constipation
reported no bowel movement in 5 days
resolved with once bisacodyl suppository 06/28
Dark stools were noted, though patient was recently on oral iron supplements prior to resolution constipation
cont bowel regimen as per GI
Episodic Severe Symptomatic Orthostatic Hypotension
Intermittent severe orthostatic hypotension noted starting 06/29/24
treated with IVF
monitor
Amlodipine placed on hold
#Dark stools possible UGIB vs discoloration d/t previous oral iron supplement use
Hgb trending down again 8.8 to 7.9 possibly dilution IVF bolus as above
GI eval appreciated
Eliquis switched to Lovenox in preparation EGD as per GI, last dose of Eliquis 06/29/24 evening, held Lovenox morning for procedure resumed d/t cancelation 2/2 high fever as above
Transfusion goal Hgb >7.5
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
PT OT appreciated outpt therapy recommended
Pain control with Celebrex and Tylenol
Also on Decadron 4 mg twice daily total of 6 doses probably completed on the evening of 06/25/2024 per discussion with Ortho (Stopped)
Pain control with tramadol
# Hyperglycemia- due to steroids
Outpatient records indicate prediabetes
A1C 5.4 wnl
Stopped steroids as above
sugars consistently at goal with minimal insulin correction required
Ok to discontinue routine fingersticks
#Some delirium confusion
likely sleep deprivation hospital associated delirium
07/01 bedtime low dose seroquel started
# Hypokalemia-monitor and replete as necessary
# Hypertension- cont atenolol, Norvasc placed a on hold
# Hyperlipidemia-continue statin
# Gout-continue allopurinol
# Lymphocytic colitis-continue Colestid patient's own med
# COVID19 infection in 2019 with prolonged hospitalization
# History of prostate cancer status post prostatectomy-on Lupron
# Hearing impairment
# DVT prophylaxis- Lovenox
# Full code
PT/OT appreciated Acute Rehab
PMR eval requested
Discussed with patient and patient's grandson Rodo
I spent a total of 55 minutes with the patient or on the floor. More than 50% of this time involved counseling and coordination of care.
Anticipated Discharge: > 48 hours
Subjective/Interval History
-
Date of Service: July 02, 2024
fever in morning 102.3 patient also appears dyspneic though saturating well on 2L. Crackles on auscultation. Otherwise no acute distress.
Objective Data
-
Labs:
Laboratory Results
07/02/24
06:00
WBC Pending
Hgb Pending
Hct Pending
Plt Count Pending
Sodium Pending
Potassium Pending
Chloride Pending
Carbon Dioxide Pending
BUN Pending
Creatinine Pending
Glucose Pending
Calcium Pending
Vital Signs:
Vital Signs
Temp Pulse Resp BP Pulse Ox
99.0 F 80 18 124/63 98
07/02/24 05:01 07/01/24 23:07 07/01/24 23:07 07/01/24 23:07 07/01/24 23:07
I&O
07/01/24 07/02/24 07/03/24
06:59 06:59 06:59
Intake Total 450 / 450 1440 / 1440
Output Total 725 / 725
Balance -275 / -275 1440 / 1440
[2024-07-02 08:10] LABS: Hematocrit 21.4 % (39.0-52.0); Hemoglobin 7.2 g/dL (13.0-18.0); Mean Corp Hgb Conc. 33.6 g/dL (33.0-37.0); Mean Corpuscular Hgb 32.6 pg (27.0-31.0); Mean Corpuscular Volume 96.8 fL (80.0-94.0); Mean Platelet Volume 10.9 fL (7.4-10.4); Platelet Count 197 10^3/uL (130-400); Red Blood Cell Count 2.21 10^6/uL (4.70-6.10)
[2024-07-02] MEDS: TYLENOL 1000 MG PO ×4 (08:45→22:58)
[2024-07-02 08:47] LABS: Blood Urea Nitrogen 26 mg/dl (9-20); Carbon Dioxide 22 mmol/L (22-30); Chloride 100 mmol/L (98-107); Estimated Creatinine Clearance 50 ml/min; Glucose 93 mg/dl (70-99); Phosphorus 3.3 mg/dl (2.5-4.5); Sodium 131 mmol/L (135-145); eGFR > 60.00
[2024-07-02 09:02] LABS: Calcium 7.8 mg/dl (8.4-10.2); Magnesium 2.1 mg/dl (1.6-2.3); Potassium 3.8 mmol/L (3.5-5.1)
[2024-07-02] MEDS: NORVASC PO (09:07)
[2024-07-02] MEDS: VIBRAMYCIN 100 MG PO (09:12)
[2024-07-02] MEDS: MIRALAX PO (09:58)
[2024-07-02 10:00] LABS: COVID-19 Antigen Negative (Negative)
[2024-07-02] MEDS: PROTONIX IV 40 MG IV (10:04)
[2024-07-02] MEDS: NSS (PRESERVATIVE FREE) 10 ML IV (10:04)
[2024-07-02] MEDS: VITAMIN B-12 1000 MCG PO (10:04)
[2024-07-02] MEDS: TENORMIN 25 MG PO (10:04)
[2024-07-02] MEDS: NSS IV (10:05)
[2024-07-02] MEDS: LASIX 40 MG IV (10:05)
[2024-07-02] MEDS: FEOSOL 325 MG PO ×2 (10:05→20:05)
--- NOTE | 2024-07-02 10:31 | CM ---
insurance agency sales manager reviewed patient's chart and per notes patient to transfer to Intermediate care Unit today.
Plan; Patient to transfer to IMU today, plan remains for [facility] when stable.
[2024-07-02 10:46] LABS: Lactic Acid 1.2 mmol/L (0.7-2.0)
[2024-07-02 10:51] LABS: NT-proBNP 1500 pg/ml
[2024-07-02 11:15] LABS: Procalcitonin 1.56 ng/ml (0.0-0.25)
[2024-07-02] MEDS: ZYLOPRIM 100 MG PO ×2 (11:53→20:05)
[2024-07-02] MEDS: QUESTRAN 4 GRAM PO (11:53)
[2024-07-02] MEDS: OSCAL 500 + D 500 MG PO ×2 (11:54→20:04)
[2024-07-02] MEDS: LOVENOX 80 MG SC ×2 (11:55→22:50)
--- NOTE | 2024-07-02 12:30 | PTCARENOTE ---
0845 Pt alert and awake, pt temp 102.3, 1000 mg tylenol po (standing order) given as orderd. Noted at rest pt short of breath, pt denies discomfort. On room air pulse ox 96%. Place pt on O2 2 L via n/c (pulse ox 99%) HGB 7.2. DR. Rutledge notified and
here to see pt at bedside.
10:30 am pt to be transfer to IMU (pt aware) awaiting bed available. Pt brother here to see pt and aware. Place on telemetry (normal Sinus Rhythm)
1200 Pt transfer via bed to room 3353. Report given to IMU nurse. Notified pt's grandson (robbie) by phone, pt transfer to IMU.
--- NOTE | 2024-07-02 13:18 | PTCARENOTE ---
Rec'd pt from [facility]. BP soft, 1 unit PRBC ordered, request for blood sent. educated pt and family. oriented to unit. call ronquillo in reach.
--- NOTE | 2024-07-02 15:58 | W.PN.UPDATE ---
Update Note
Progress Note Update
Patient is scheduled to have EGD today. Had a fever spike 102 this a.m. with shortness of breath. Transferred to IMU.
EGD was canceled. continue with anticoagulation for PE with monitoring of hemoglobin/signs of bleeding
EGD timing will be determined next week.
--- NOTE | 2024-07-02 16:22 | CON.ID ---
Consultation
-
Date/Time Consultation Requested: 07/02/24 9:33
Date/Time Consultation Performed: 07/02/24 16:23
Requesting Provider: Dr Rutledge
Performing Provider: Dr Vazquez
Reason for Consultation: Fever Leukocytosis Sepsis anemia PE fluid overload
Chief Complaint / Past History
Chief Complaint
lightheadedness, hypotension and hypoxemia
History of Present Illness
Mr Buckley is an 84 year old male with history of lymphocytic colitis, prostate cancer s/p prostatectomy on lupron, gout who underwent elective TKA 06/22 then developed lightheadedness, hypotension and hypoxemia and was brought to the ER via EMS.
Complaining of dizziness with standing on arrival - no dizziness while supine. He was son decadron 4 mg BID perioperatively. Since arrival he has been found to have elevated D-dimer to 6.4 and PE on CTA inthe left lower lobe, on further
questioning patient reported R calf pain a few weeks before the procedure, he was started on AC. Course also notable for constipation and likely UGI bleeding with hgb declining to 7.1 and BUN increasing from 17 to 65 and dark stool. Was initially
planned for EGD today however developed a fever to 102.3 overnight - single episode, also shaking chills reported by RN. Today reporting no headaches, sinus tenderness, sore throat, cough, nausea, vomiting, diarrhea, constipation, dysuria, new
rashes or new joint pains. 'I dont know what the fever was about.' No gout flares x20 years. Has had bleeding at the site of a skin tear. Denies coughing/choaking with eating. WBC since arrive in the high teens to 20s, hgb initially 7.8 today
7.2 plt 197, differential has not been repeated, na 131, k 3.8, cr 1.0, lactic acid 1.2, a1c 5.4. LFTs have not been checked since arrival. On arrival over a week ago t bili 0.3, ast 25, alt 19, alk phos 32, ua 06/28 no pyuria, covid pcr today
negative, 07/01 (yesterday) CXR: no acute CP process, blood cultures x2 sent today, procal 1.5 today. Medicals notable for ongoing allopurinol. Patient was stared on ceftriaxone and doxycycline. ID is consulted for assistance with management.
Past History
Additional Past Medical History:
Essential Hypertension
Hyperlipidemia
Prediabetes
Lymphocytic Colitis
Prostate Cancer s/p Prostatectomy
Gout
Additional Past Surgical History:
Hernia Repair
Prostatectomy
Humerus Fracture Repair
Right Total Knee Replacement
Allergy History:
levofloxacin Allergy (Verified 06/22/24 18:43)
red spots over entire body
lisinopril [From Zestril] Allergy (Verified 06/22/24 18:43)
cough
Medications Reviewed: Yes
Social History
Tobacco: Former Smoker
Alcohol: Occasional
Drug: None
Family History
Family History: Not Pertinent
Review of Systems
Review of Systems
General: Fever and Chills
All systems: All other systems were reviewed and were negative
Vital Signs
Temp Pulse Resp BP Pulse Ox
98.5 F 57 16 97/51 100
07/02/24 15:14 07/02/24 14:00 07/02/24 14:00 07/02/24 14:00 07/02/24 14:00
Physical Exam
Physical Exam
Constitutional: No Acute Distress
Cardiovascular: Regular Rate and S1/S2; Negative Murmur or Rub
Pulmonary: Clear and Symmetric; Negative Wheezes, Rales or Rhonchi
Gastrointestinal: Soft, Non Tender, Non Distended and Normal Bowel Sounds
Musculoskeletal: Negative Joint Swelling
Skin: Warm and Dry; Negative Rash or Jaundice
Wound: Other (surgical site with minimal strikethrough, mild bruising around the knee; no tender PIVs)
Lab / Diagnostic Study Results
07/02/24 07:42
07/02/24 07:42
Abs Immat Gran (auto) 0.1 10^3/uL (0-0.05) H 06/22/24 18:47
Absolute Neuts (auto) 12.4 10^3/uL (1.4-6.5) H 06/22/24 18:47
Absolute Lymphs (auto) 0.5 10^3/uL (1.2-3.4) L 06/22/24 18:47
Absolute Monos (auto) 0.4 10^3/uL (0.1-0.6) 06/22/24 18:47
Absolute Basos (auto) 0.0 10^3/uL (0-0.2) 06/22/24 18:47
Immature Gran % 0.5 % (0-0.5) 06/22/24 18:47
Neutrophils % 92.8 % (42.2-75.2) H 06/22/24 18:47
Lymphocytes % 3.7 % (20.5-51.1) L 06/22/24 18:47
Monocytes % 2.8 % (1.7-9.3) 06/22/24 18:47
Eosinophils % 0.0 % (0-6) 06/22/24 18:47
Basophils % 0.2 % (0-2) 06/22/24 18:47
PT 14.8 Sec (11.4-14.6) H 06/22/24 18:47
INR 1.18 06/22/24 18:47
Lactic Acid 1.2 mmol/L (0.7-2.0) 07/02/24 10:20
Procalcitonin 1.56 ng/ml (0.0-0.25) H 07/02/24 10:20
Microbiology Results
Micro:
07/02/24 10:20 Blood Culture - Pending
Blood/Venous
07/02/24 09:34 Blood Culture - Pending
Blood/Venous
Assessment / Plan
Fever
Possible Aspiration pneumonitis/pneumonia vs Hospital acquired pneumonia
H/o gout
- cbc with diff in am
- lfts in the am
- recheck CXR in the AM - if an infiltrate check sputum
- blood cultures x2 in progress
- covid pcr negative
- influenza ag
- ua recently negative
- note elevated procal
- denies any joint pains to suggest a gout flare, reports its been 20 years since his last episode
- continue ceftriaxone for now, stop doxycycline
- follow clinically
[2024-07-02] MEDS: STERILE WATER FOR INJECTION IV (16:49)
[2024-07-02] MEDS: LIPITOR 10 MG PO (18:34)
--- NOTE | 2024-07-02 20:00 | PTCARENOTE ---
Pt received from previous RN. Pt AAOx3. tired. NSR on monitor. sat 98% on 2L. Foot pumps in use. inc of urine at times. Assessment as documented. call light in reach.
[2024-07-02] MEDS: MIRALAX 17 GRAMS PO (20:05)
[2024-07-02] MEDS: ROCEPHIN 1000 MG IV (20:06)
[2024-07-02] MEDS: STERILE WATER FOR INJECTION 10 ML IV (20:06)
--- NOTE | 2024-07-02 21:39 | PTCARENOTE ---
V/S saved from 1600-now, cannot verify the accuracy of the v/s taken from before 18:45.
[2024-07-02] MEDS: SEROQUEL 25 MG PO (22:50)
[2024-07-02] MEDS: SENOKOT 17.2 MG PO (22:50)
[2024-07-03] VITALS (30 sets, daily range): BP systolic 87–133; BP diastolic 40–98; PULSE 72–75; O2SAT 94–95; BMI 25.7
[2024-07-03 04:43] LABS: % Basophils 0.1 % (0-2); % Eosinophils 0.8 % (0-6); % Immature Granulocytes 1.7 % (0-0.5); % Lymphocytes 4.8 % (20.5-51.1); % Monocytes 1.7 % (1.7-9.3); % Neutrophils 90.9 % (42.2-75.2); Absolute Eosinophils 0.1 10^3/uL (0-0.7); Absolute Immature Granulocytes 0.3 10^3/uL (0-0.05); Absolute Lymphocytes 0.7 10^3/uL (1.2-3.4); Absolute Monocytes 0.3 10^3/uL (0.1-0.6); Absolute Neutrophils 13.8 10^3/uL (1.4-6.5); Hematocrit 22.2 % (39.0-52.0); Hemoglobin 7.6 g/dL (13.0-18.0); Mean Corp Hgb Conc. 34.2 g/dL (33.0-37.0); Mean Corpuscular Volume 90.6 fL (80.0-94.0); Mean Platelet Volume 10.5 fL (7.4-10.4); Nucleated Red Blood Cells % 0 % (-); Platelet Count 182 10^3/uL (130-400); Red Blood Cell Count 2.45 10^6/uL (4.70-6.10); Red Cell Dist. Width 18.9 % (11.5-14.5); White Blood Cell Count 15.2 10^3/uL (4.8-10.8)
[2024-07-03 05:16] LABS: ALT (SGPT) 15 U/L (0-50); AST (SGOT) 29 U/L (17-59); Albumin 2.2 g/dl (3.5-5.0); Alkaline Phosphatase 62 U/L (38-126); Blood Urea Nitrogen 34 mg/dl (9-20); Calcium 7.4 mg/dl (8.4-10.2); Carbon Dioxide 21 mmol/L (22-30); Chloride 104 mmol/L (98-107); Direct Bilirubin 0.3 mg/dl (0.0-0.4); Estimated Creatinine Clearance 45 ml/min; Glucose 118 mg/dl (70-99); Magnesium 2.2 mg/dl (1.6-2.3); Phosphorus 3.4 mg/dl (2.5-4.5); Potassium 3.9 mmol/L (3.5-5.1); Sodium 135 mmol/L (135-145); Total Bilirubin 0.8 mg/dl (0.2-1.3); Total Protein 4.2 g/dl (6.3-8.2); eGFR > 60.00
--- NOTE | 2024-07-03 07:22 | W.PN.HOSP.TC ---
Today's Communication/Plan
-
albumin bolus
1PRBC w/ Lasix 20 mg IV
Monitor respiratory status, weaned off to room air
PT/OT
cont therapeutic Lovenox
cont abx as per ID
Assessment / Plan
Assessment / Plan
Physical Exam
General: No acute distress appears comfortable a this time
CVS: S1-S2 normal
Chest: Bibasilar crackles noted improved from yesterday but not resolved
Abdomen: Soft, NT / Bowel sounds present
Extremities: RLE edema , normal pulses
INSPECTOR PLATING: AOx3
84-year-old male presented with dizziness and hypoxia. Patient underwent right total knee replacement at surgical center day prior to arrival. Family noted that oxygen and blood pressure were running low. He was also feeling really weak.
Echo 03/04/2024-normal size LV and EF 65 to 70%. Mild concentric LVH. Normal RV. Mild MR. Mild . Mild AI. Trace TR. Pulmonary artery pressure 30 to 35 mmHg.
# Acute hypoxic respiratory insufficiency
#PE
Also had some noncardiogenic pulmonary edema received 2 doses Lasix
Kzxxepb-bbmcuj-sldyz changed to Eliquis converted back to Lovenox d/t possible GIB planned for EGD as below
suspected PE prior to surgery
Echo with more pulmonary hypertension than from March otherwise no significant change noted
07/01/24 patient noted with chills low grade fever and desaturating to low 90s on room air as per nurse
07/02/24 fever spike 102.3 with associate white count concerning for possible sepsis. Crackles also noted on auscultation concerning for Fluid overload
-CR chest no acute abn's noted 07/01/24
-lactic acid wnl, procalcitonin elevated
-possible Fever may be related to PE instead of infection
-BNP 1500 noted improved from prior value 2830 approx 1 wk ago
-empiric IV lasix 40 mg once 07/02
-Receiving 3rd transfusion for anemia goal hgb >7.5 (once Lasix 20 mg IV in conjunction w/ 3rd transfusion)
-ID eval appreciated, empiric doxycycline discontinued, continuing Ceftriaxone
-transferred to IMU for closer monitoring
-COVID neg
# Leukocytosis unclear etiology
no obvious source of infection
urinalysis neg for UTI
previously on steroids since discontinued
Leukocytosis however persisted
abx started as above
# Elevated troponin-likely secondary to PE. Trended down
With LV. Nonspecific T wave abnormality
No wall motion abnormality on echo
outpt appt w/ [facility] arranged 07/20/24.
# Acute blood loss anemia secondary to surgery
#Iron studies appreciated anemia of chronic disease and iron deficiency anemia
Follow hemoglobin
IV iron supplementation
received 3 PRBC so far intermittently this hospitalization for goal hgb >7.5
#Constipation
reported no bowel movement in 5 days
resolved with once bisacodyl suppository 06/28
Dark stools were noted, though patient was recently on oral iron supplements prior to resolution constipation
cont bowel regimen as per GI
Episodic Severe Symptomatic Orthostatic Hypotension
Intermittent severe orthostatic hypotension noted starting 06/29/24
treated with IVF
monitor
Amlodipine placed on hold
albumin bolus given 07/03
#Dark stools possible UGIB vs discoloration d/t previous oral iron supplement use
Hgb trending down again 8.8 to 7.9 possibly dilution IVF bolus as above
GI eval appreciated
Eliquis switched to Lovenox in preparation EGD as per GI, last dose of Eliquis 06/29/24 evening, held Lovenox morning for procedure resumed d/t cancelation 2/2 high fever as above
Transfusion goal Hgb >7.5
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
PT OT appreciated outpt therapy recommended
Pain control with Celebrex and Tylenol
Also on Decadron 4 mg twice daily total of 6 doses probably completed on the evening of 06/25/2024 per discussion with Ortho (Stopped)
Pain control with tramadol
# Hyperglycemia- due to steroids
Outpatient records indicate prediabetes
A1C 5.4 wnl
Stopped steroids as above
sugars consistently at goal with minimal insulin correction required
Ok to discontinue routine fingersticks
#Some delirium confusion
likely sleep deprivation hospital associated delirium
bedtime low dose seroquel started switched to prn with improvement mental status noted
# Hypokalemia-monitor and replete as necessary
# Hypertension- cont atenolol, Norvasc placed a on hold
# Hyperlipidemia-continue statin
# Gout-continue allopurinol
# Lymphocytic colitis-continue Colestid patient's own med
# COVID19 infection in 2019 with prolonged hospitalization
# History of prostate cancer status post prostatectomy-on Lupron
# Hearing impairment
# DVT prophylaxis- Lovenox
# Full code
PT/OT appreciated Acute Rehab
PMR eval requested
Discussed with patient and patient's grandson Rodo
I spent a total of 50 minutes with the patient or on the floor. More than 50% of this time involved counseling and coordination of care.
Anticipated Discharge: > 48 hours
Subjective/Interval History
-
Date of Service: July 03, 2024
No acute distress. Sitting up comfortably in bed. Respiration improved, no longer appears dyspneic compared to yesterday morning.
Objective Data
-
Labs:
Laboratory Results
07/03/24
04:26
WBC 15.2 H
Hgb 7.6 L
Hct 22.2 L
Plt Count 182
Sodium 135
Potassium 3.9
Chloride 104
Carbon Dioxide 21 L
BUN 34 H
Creatinine 1.1
Glucose 118 H
Calcium 7.4 L
Total Bilirubin 0.8
AST 29
ALT 15
Alkaline Phosphatase 62
Vital Signs:
Vital Signs
Temp Pulse Resp BP Pulse Ox
98.2 F 53 12 97/51 99
07/03/24 03:16 07/03/24 06:00 07/03/24 06:00 07/03/24 06:00 07/03/24 06:00
I&O
07/02/24 07/03/24 07/04/24
06:59 06:59 06:59
Intake Total 1440 / 1440 400 / 400
Output Total 950 / 950
Balance 1440 / 1440 -550 / -550
--- NOTE | 2024-07-03 07:53 | W.PN.UPDATE ---
Update Note
Progress Note Update
Patient resting comfortably in bed. No significant pain about the right knee. Aquacel dressing in place and should remain. Continue treatment per primary team. Was planned for EGD yesterday which was canceled due to fever of 102. Plan for EGD
next week. Workup for fever in process. Hgb 7.6 this AM- subjectively not reporting any symptoms. PT/OT could be beneficial for his right knee if deemed safe by the medical team. Orthopedics to follow peripherally for now with scheduled outpatient
follow-up upon D/c
[2024-07-03] MEDS: MIRALAX 17 GRAMS PO ×2 (08:58→20:40)
[2024-07-03] MEDS: TENORMIN 25 MG PO (08:59)
[2024-07-03] MEDS: TYLENOL 1000 MG PO ×3 (08:59→23:09)
[2024-07-03] MEDS: ZYLOPRIM 100 MG PO ×2 (08:59→20:40)
[2024-07-03] MEDS: VITAMIN B-12 1000 MCG PO (08:59)
[2024-07-03] MEDS: FEOSOL 325 MG PO ×2 (08:59→20:40)
[2024-07-03] MEDS: OSCAL 500 + D 500 MG PO ×2 (08:59→20:40)
[2024-07-03] MEDS: PROTONIX IV 40 MG IV (09:00)
[2024-07-03] MEDS: NSS (PRESERVATIVE FREE) 10 ML IV (09:00)
--- NOTE | 2024-07-03 09:51 | W.PN.ID1 ---
Date of Service
Date of Service: July 03, 2024
Today's Communication
await cxr
continue ctx for today may consider broadening if symptoms persist
Assessment / Plan
Fever
Possible Aspiration pneumonitis/pneumonia vs Hospital acquired pneumonia
Recent PE
R TKR 06/22
H/o gout
- cbc with diff - L shift noted
- lfts normal
- await CXR in the AM
- sputum culture if able to obtain
- blood cultures x2 in progress
- covid pcr negative
- influenza ag neg
- ua recently negative 06/28, repeat
- note elevated procal
- denies any joint pains to suggest a gout flare, reports its been 20 years since his last episode
- continue ceftriaxone for today - we're just over 24 hours of rx, if ongoing fevers may consider broadening for HAP
- follow clinically
Chief Complaint
-: Fever and Leukocytosis
Subjective / Review of Systems
continued fever to 102.4
bp intermittent mild hypotension
remains without complaints, no cough
Vital Signs / Physical Exam
Vital Signs
Vital Signs
Temp Pulse Resp BP Pulse Ox
98.1 F 53 12 97/51 99
07/03/24 07:44 07/03/24 06:00 07/03/24 06:00 07/03/24 06:00 07/03/24 06:00
Physical Exam
Constitutional: No Acute Distress
Cardiovascular: Regular Rate and S1/S2; Negative Murmur or Rub
Pulmonary: Clear and Symmetric; Negative Wheezes or Rales
Gastrointestinal: Soft, Non Tender, Non Distended and Normal Bowel Sounds
Skin: Warm and Dry; Negative Rash or Jaundice
Objective Data
Lab Data
Lab Results
07/03/24 04:26
07/03/24 04:26
PT 14.8 Sec (11.4-14.6) H 06/22/24 18:47
INR 1.18 06/22/24 18:47
APTT 29.8 Sec (23.4-35.0) 06/22/24 18:47
Estimated Creat Clear 45 ml/min 07/03/24 04:26
Lactic Acid 1.2 mmol/L (0.7-2.0) 07/02/24 10:20
Total Bilirubin 0.8 mg/dl (0.2-1.3) 07/03/24 04:26
AST 29 U/L (17-59) 07/03/24 04:26
ALT 15 U/L (0-50) 07/03/24 04:26
Alkaline Phosphatase 62 U/L (38-126) 07/03/24 04:26
Most recent labs reviewed.
Micro Results:
07/02/24 09:34 Blood Culture - Preliminary
Blood/Venous No Growth in 24 hours- Final report to follow
07/02/24 16:54 Influenza Types A & B ([facility]) - Final
Nasal Swab Negative for Influenza A & B, NAAT
Negative results must be combined with clinical observations
and patient history.
Nucleic Acid Amplification test (NAAT)performed on the
[employer] platform.
07/02/24 10:20 Blood Culture - Pending
Blood/Venous
[2024-07-03] MEDS: FLEXBUMIN 100 IV (11:37)
[2024-07-03] MEDS: QUESTRAN 4 GRAM PO (11:40)
--- NOTE | 2024-07-03 11:40 | W.PN.UPDATE ---
Update Note
Progress Note Update
Came to see pt at 8a but he was sound asleep and I let him sleep. I did inspect his knee and the aquacell was looking good. I can be removed at any time. I rec physical therapy for the knee if possible medically.
[2024-07-03] MEDS: TYLENOL PO (12:38)
[2024-07-03] MEDS: LOVENOX 80 MG SC ×2 (13:13→23:09)
[2024-07-03] MEDS: LASIX 20 MG IV (15:08)
--- NOTE | 2024-07-03 15:21 | W.PN.GI.CBS2 ---
Today's Communication / Plan
-
No further signs of overt GI bleeding. EGD still deferred given fevers and concern for PNA. Trend Hgb closely while continuing IV PPI. Treatment of PNA as per ID. Rest of care as below.
Assessment / Plan
-
Pt is a 84y with hx prostate CA with prostatectomy, HTN, hyperlipidemia, gout, lymphocytic colitis with TKR on 06/22 as outpatient. Pt was noted with post-op hypotension and hypoxia with concern for PE on admission now on Eliquis. Pt noted with
drop in hbg since admission. Pt initially noted with hbg 06/22 with drop to 7.1 transfused and further drop ot 7.9 today. Pt note with rise in BUN from 17 on admission to 65 on 06/27 then 36 on 06/30 and dark stool. e. hx colon 02/2024 with nodular
ileal mucosa 4 polyps and IH- bx TA- in transverse, inflammatory polyp cecum, , HF HP polyp, other bx with lymphocytic colitis. No prior EGD. Pt denies NSAID prior to surgery but was on ASA, Celebrex and steroids post-op but did not take many meds
as came to hospital day of return home from surgery.
-s/p TKR 06/22 with bruising
-admit with hypotension/hypoxia with + PE (suspected prior to surgery)- with Eliquis use
-anemia with drop in hbg requiring transfusion
-black heme + stool on exam
-elevated BUN
-constipation
-orthostasis
-elevated troponin with PE
-leukocytosis
other med problems:
-prostatectomy
-HTN
-hyperlipidemia
-gout
-lymphocytic colitis
Course complicated by aspiration versus HAP with fever and SOB, transferred to IMU on 07/02. Otherwise, no further signs of recurrent GI bleeding.
Plan:
- Diet as tolerated
- Continue IV abx as per ID
- EGD deferred given concern for respiratory status and fevers
- Continue to trend Hgb with serial CBC
- If a/c needs to be restarted given recent PE, would consider IV heparin gtt rather than long-acting DOAC
- Timing of EGD to be determined, likely early next week once patient has been optimized and without any further fevers
- Notify GI if any further recurrent bleeding over weekend
- Rest of care per primary team
GI team will continue to follow.
-
Subjective
Subjective
Date of Service: July 03, 2024
- Febrile to 102 with leukocytosis and hypoxia, concerning for aspiration PNA versus HAP
- EGD cancelled given these new findings, Hgb remains stable
Resting comfortable in bed. Denies any abdominal pain or nausea/vomiting. Denies any further dark black stools or overtly blood stools. Last BM two days ago.
Objective
Data Reviewed
Laboratory Data:
Laboratory Results
07/03/24 04:26
07/03/24 04:26
Laboratory Results
PT 14.8 Sec (11.4-14.6) H 06/22/24 18:47
INR 1.18 06/22/24 18:47
APTT 29.8 Sec (23.4-35.0) 06/22/24 18:47
Phosphorus 3.4 mg/dl (2.5-4.5) 07/03/24 04:26
Magnesium 2.2 mg/dl (1.6-2.3) 07/03/24 04:26
Total Bilirubin 0.8 mg/dl (0.2-1.3) 07/03/24 04:26
AST 29 U/L (17-59) 07/03/24 04:26
ALT 15 U/L (0-50) 07/03/24 04:26
Alkaline Phosphatase 62 U/L (38-126) 07/03/24 04:26
Vital Signs and I&O:
Vital Signs
Temp Pulse Resp BP Pulse Ox
99.5 F 73 22 121/54 99
07/03/24 15:13 07/03/24 15:13 07/03/24 15:13 07/03/24 15:13 07/03/24 06:00
I&O
07/02/24 07/03/24 07/04/24
06:59 06:59 06:59
Intake Total 1440 / 1440 400 / 400 0 / 0
Output Total 950 / 950
Balance 1440 / 1440 -550 / -550 0 / 0
Physical Exam
Physical Exam
HEENT: Anicteric and Moist mucous membranes
Cardiology: Normal Sinus Rhythm
Pulmonary: Other (Normal WOB )
GI: Soft, Non Distended and Non Tender
Extremities: No Edema
Neuro: Non Focal
--- NOTE | 2024-07-03 16:37 | CM ---
Patient with recent right TKA with Dx Possible pneumonia, anemia, possible UGI bleed. Room air. Receiving iV Abx. PT/OT recommend [facility]. Physiatry recommends acute rehab.
CM continuing to follow.
Plan follow up with [facility] for acceptance when closer to d/c.
[2024-07-03] MEDS: LIPITOR 10 MG PO (17:52)
[2024-07-03] MEDS: STERILE WATER FOR INJECTION 10 ML IV ×2 (20:42)
[2024-07-03] MEDS: ROCEPHIN 1000 MG IV (20:42)
[2024-07-03 20:57] LABS: Urine Albumin Negative (Neg - Trace); Urine Bilirubin Negative (Negative); Urine Character Clear (Clear); Urine Color Yellow; Urine Glucose Negative (Negative); Urine Ketone Negative (Negative); Urine Leukocyte Negative (Negative); Urine Nitrite Negative (Negative); Urine Occult Blood Negative (Negative); Urine Specific Gravity 1.015 (<1.030); Urine Urobilinogen Negative (Neg - 1+)
--- NOTE | 2024-07-03 22:00 | PTCARENOTE ---
Pt received from previous RN. Pt TIA, fidel, agreeable to care. pt NSR on monitor. sat 95% on RA. took pills whole with water. using urinal. UA sent. Assessment as documented. Call light in reach.
[2024-07-03] MEDS: SENOKOT 17.2 MG PO (23:09)
[2024-07-04] VITALS (16 sets, daily range): BP systolic 106–158; BP diastolic 56–129; PULSE 74; O2SAT 96
[2024-07-04 03:52] LABS: % Basophils 0.1 % (0-2); % Eosinophils 2.1 % (0-6); % Immature Granulocytes 0.7 % (0-0.5); % Lymphocytes 5.7 % (20.5-51.1); % Monocytes 1.2 % (1.7-9.3); % Neutrophils 90.2 % (42.2-75.2); Absolute Eosinophils 0.3 10^3/uL (0-0.7); Absolute Immature Granulocytes 0.1 10^3/uL (0-0.05); Absolute Lymphocytes 0.7 10^3/uL (1.2-3.4); Absolute Monocytes 0.2 10^3/uL (0.1-0.6); Hematocrit 26.9 % (39.0-52.0); Mean Corp Hgb Conc. 33.5 g/dL (33.0-37.0); Mean Corpuscular Hgb 30.4 pg (27.0-31.0); Mean Corpuscular Volume 90.9 fL (80.0-94.0); Mean Platelet Volume 10.4 fL (7.4-10.4); Nucleated Red Blood Cells % 0 % (-); Platelet Count 182 10^3/uL (130-400); Red Blood Cell Count 2.96 10^6/uL (4.70-6.10); Red Cell Dist. Width 20.3 % (11.5-14.5); White Blood Cell Count 12.2 10^3/uL (4.8-10.8)
[2024-07-04 05:10] LABS: Blood Urea Nitrogen 38 mg/dl (9-20); Calcium 7.6 mg/dl (8.4-10.2); Carbon Dioxide 24 mmol/L (22-30); Chloride 104 mmol/L (98-107); Estimated Creatinine Clearance 50 ml/min; Glucose 104 mg/dl (70-99); Magnesium 2.4 mg/dl (1.6-2.3); Phosphorus 2.6 mg/dl (2.5-4.5); Potassium 3.9 mmol/L (3.5-5.1); Sodium 136 mmol/L (135-145); eGFR > 60.00
--- NOTE | 2024-07-04 07:41 | W.PN.HOSP.TC ---
Today's Communication/Plan
-
Monitor H&H
wound care
PT/OT
pain control
dc abx as per ID
once suppository
hold Lovenox for EGD tomorrow Saturday
npo after midnight
Assessment / Plan
Assessment / Plan
Physical Exam
General: No acute distress appears comfortable a this time
CVS: S1-S2 normal
Chest: Bibasilar crackles improving
Abdomen: Soft, NT / Bowel sounds present
Extremities: RLE edema , normal pulses
BLOGS MANAGER: AOx3
84-year-old male presented with dizziness and hypoxia. Patient underwent right total knee replacement at surgical center day prior to arrival. Family noted that oxygen and blood pressure were running low. He was also feeling really weak.
Echo 03/04/2024-normal size LV and EF 65 to 70%. Mild concentric LVH. Normal RV. Mild MR. Mild . Mild AI. Trace TR. Pulmonary artery pressure 30 to 35 mmHg.
# Acute hypoxic respiratory insufficiency
#PE
Also had some noncardiogenic pulmonary edema intermittently received lasix over the course or hospitalization
[id number] changed to Eliquis converted back to Lovenox d/t possible GIB planned for EGD as below
suspected PE prior to surgery
Echo with more pulmonary hypertension than from March otherwise no significant change noted
07/01/24 patient noted with chills low grade fever and desaturating to low 90s on room air as per nurse
07/02/24 fever spike 102.3 with associate white count concerning for possible sepsis. Crackles also noted on auscultation concerning for Fluid overload
-CR chest no acute abn's noted 07/01/24
-lactic acid wnl, procalcitonin elevated
-possible Fever may be related to PE instead of infection
-BNP 1500 noted improved from prior value 2830 approx 1 wk ago
-empiric IV lasix 40 mg once 07/02
-Receiving 3rd transfusion for anemia goal hgb >7.5 (once Lasix 20 mg IV in conjunction w/ 3rd transfusion)
-ID eval appreciated, empiric doxycycline discontinued, continued Ceftriaxone, eventually all abx discontinued as infectious work up remained largely negative.
-transferred to IMU for closer monitoring
-COVID neg
# Leukocytosis unclear etiology
no obvious source of infection
urinalysis neg for UTI
previously on steroids since discontinued
Leukocytosis however persisted
abx started and completed as above
wbc trending down
# Elevated troponin-likely secondary to PE. Trended down
With LV. Nonspecific T wave abnormality
No wall motion abnormality on echo
outpt appt w/ [facility] arranged 07/20/24.
# Acute blood loss anemia secondary to surgery
#Iron studies appreciated anemia of chronic disease and iron deficiency anemia
Follow hemoglobin
IV iron supplementation
received 3 PRBC so far intermittently this hospitalization for goal hgb >7.5
#Constipation
reported no bowel movement in 5 days
resolved with once bisacodyl suppository 06/28
Dark stools were noted, though patient was recently on oral iron supplements prior to resolution constipation
cont bowel regimen as per GI
once bisacodyl suppository 07/04
Episodic Severe Symptomatic Orthostatic Hypotension
Intermittent severe orthostatic hypotension noted starting 06/29/24
treated with IVF
monitor
Amlodipine placed on hold
albumin bolus given 07/03
Daily Ensure Supplement
#Dark stools possible UGIB vs discoloration d/t previous oral iron supplement use
Hgb trending down again 8.8 to 7.9 possibly dilution IVF bolus as above
GI eval appreciated
Eliquis switched to Lovenox in preparation EGD as per GI, last dose of Eliquis 06/29/24 evening, held Lovenox morning for procedure resumed d/t cancelation 2/2 high fever as above
Lovenox now on hold again for EGD tomorrow Saturday npo after midnight
Transfusion goal Hgb >7.5
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
PT OT appreciated outpt therapy recommended
Pain control with Celebrex and Tylenol
Also on Decadron 4 mg twice daily total of 6 doses probably completed on the evening of 06/25/2024 per discussion with Ortho (Stopped)
Pain control with tramadol
# Hyperglycemia- due to steroids
Outpatient records indicate prediabetes
A1C 5.4 wnl
Stopped steroids as above
sugars consistently at goal with minimal insulin correction required
Ok to discontinue routine fingersticks
#Some delirium confusion appears to be resolved at this time.
likely sleep deprivation hospital associated delirium
bedtime low dose seroquel started switched to prn with improvement mental status noted
# Hypokalemia-monitor and replete as necessary
# Hypertension- cont atenolol, Norvasc placed a on hold
# Hyperlipidemia-continue statin
# Gout-continue allopurinol
# Lymphocytic colitis- Colestid on hold, Questran as per GI
# COVID19 infection in 2019 with prolonged hospitalization
# History of prostate cancer status post prostatectomy-on Lupron
# Hearing impairment
# DVT prophylaxis- Lovenox
# Full code
PT/OT PMR eval appreciated Acute Rehab
Discussed with patient, patient's grandson Rodo, pt's Janeen, GI, and nurse
I spent a total of 50 minutes with the patient or on the floor. More than 50% of this time involved counseling and coordination of care.
Anticipated Discharge: > 48 hours
Subjective/Interval History
-
Date of Service: July 04, 2024
Seen and examined at bedside in no acute distress resting comfortably in bed. Reports overall feeling well. Pain well controlled at this time. Stable respiratory status on room air. Endorses constipation but denies abd pain or nausea.
Tolerating diet.
Objective Data
-
Labs:
Laboratory Results
07/04/24
03:43
WBC 12.2 H
Hgb 9.0 L
Hct 26.9 L
Plt Count 182
Sodium 136
Potassium 3.9
Chloride 104
Carbon Dioxide 24
BUN 38 H
Creatinine 1.0
Glucose 104 H
Calcium 7.6 L
Vital Signs:
Vital Signs
Temp Pulse Resp BP Pulse Ox
98.3 F 70 18 150/129 95
07/04/24 03:46 07/04/24 06:00 07/04/24 06:00 07/04/24 06:00 07/04/24 06:00
I&O
07/03/24 07/04/24 07/05/24
06:59 06:59 05:59
Intake Total 400 / 400 970 / 970
Output Total 950 / 950 900 / 900
Balance -550 / -550 70 / 70
[2024-07-04] MEDS: OSCAL 500 + D 500 MG PO ×2 (08:23→19:52)
[2024-07-04] MEDS: MIRALAX 17 GRAMS PO ×2 (08:23→19:52)
[2024-07-04] MEDS: TYLENOL 1000 MG PO ×4 (08:23→22:11)
[2024-07-04] MEDS: FEOSOL 325 MG PO ×2 (08:23→19:52)
[2024-07-04] MEDS: PROTONIX 40 MG PO (08:23)
[2024-07-04] MEDS: ZYLOPRIM 100 MG PO ×2 (08:24→19:52)
[2024-07-04] MEDS: VITAMIN B-12 1000 MCG PO (08:24)
[2024-07-04] MEDS: TENORMIN 25 MG PO (08:24)
[2024-07-04] MEDS: QUESTRAN 4 GRAM PO (08:24)
--- NOTE | 2024-07-04 09:33 | W.PN.ID1 ---
Date of Service
Date of Service: July 04, 2024
Today's Communication
DC abx and observe.
Assessment / Plan
Fever -resolved
Leukocytosis trending down
Recent PE
R TKR 06/22
H/o gout
- CXR no consolidation
- blood cultures x2 neg to date
- covid pcr negative
- influenza ag neg
- ua recently negative 06/28, repeat UA negative on 07/03
- note elevated procal - not specific test
- denies any joint pains to suggest a gout flare, reports its been 20 years since his last episode
- DC ceftriaxone as no infectious etiology identified to date.
- follow clinically
Chief Complaint
-: Fever and Leukocytosis
Subjective / Review of Systems
Feels OK. No SOB. No urinary sxs.
Vital Signs / Physical Exam
Vital Signs
Vital Signs
Temp Pulse Resp BP Pulse Ox
98.3 F 70 18 150/129 95
07/04/24 03:46 07/04/24 06:00 07/04/24 06:00 07/04/24 06:00 07/04/24 06:00
Physical Exam
Constitutional: No Acute Distress
Cardiovascular: Regular Rate and S1/S2
Pulmonary: Clear
Gastrointestinal: Soft, Non Tender and Non Distended
Genito-Urinary: Negative CVA Tenderness
Extremities: Negative Edema
Neurological: AO x 3
Objective Data
Lab Data
Lab Results
07/04/24 03:43
07/04/24 03:43
PT 14.8 Sec (11.4-14.6) H 06/22/24 18:47
INR 1.18 06/22/24 18:47
APTT 29.8 Sec (23.4-35.0) 06/22/24 18:47
Estimated Creat Clear 50 ml/min 07/04/24 03:43
Lactic Acid 1.2 mmol/L (0.7-2.0) 07/02/24 10:20
Total Bilirubin 0.8 mg/dl (0.2-1.3) 07/03/24 04:26
AST 29 U/L (17-59) 07/03/24 04:26
ALT 15 U/L (0-50) 07/03/24 04:26
Alkaline Phosphatase 62 U/L (38-126) 07/03/24 04:26
Most recent labs reviewed.
Micro Results:
07/03/24 13:09 MRSA Screen - Pending
Nose
07/02/24 10:20 Blood Culture - Preliminary
Blood/Venous No Growth in 24 hours- Final report to follow
07/02/24 09:34 Blood Culture - Preliminary
Blood/Venous No Growth in 24 hours- Final report to follow
07/02/24 16:54 Influenza Types A & B ([facility]) - Final
Nasal Swab Negative for Influenza A & B, NAAT
Negative results must be combined with clinical observations
and patient history.
Nucleic Acid Amplification test (NAAT)performed on the
[employer] platform.
07/03/24 CXR: Hypoaerated lungs without consolidation.
[2024-07-04] MEDS: DULCOLAX 10 MG RECTAL (11:07)
--- NOTE | 2024-07-04 11:42 | W.PN.GI.CBS2 ---
Today's Communication / Plan
-
Plan for EGD tomorrow, 07/05/24, for further evaluation of melena and suspected UGIB. Keep NPO at ND
Assessment / Plan
-
Pt is a 84y with hx prostate CA with prostatectomy, HTN, hyperlipidemia, gout, lymphocytic colitis with TKR on 06/22 as outpatient. Pt was noted with post-op hypotension and hypoxia with concern for PE on admission now on Eliquis. Pt noted with
drop in hbg since admission. Pt initially noted with hbg 06/22 with drop to 7.1 transfused and further drop ot 7.9 today. Pt note with rise in BUN from 17 on admission to 65 on 06/27 then 36 on 06/30 and dark stool. e. hx colon 02/2024 with nodular
ileal mucosa 4 polyps and IH- bx TA- in transverse, inflammatory polyp cecum, , HF HP polyp, other bx with lymphocytic colitis. No prior EGD. Pt denies NSAID prior to surgery but was on ASA, Celebrex and steroids post-op but did not take many meds
as came to hospital day of return home from surgery.
-s/p TKR 06/22 with bruising
-admit with hypotension/hypoxia with + PE (suspected prior to surgery)- with Eliquis use
-anemia with drop in hbg requiring transfusion
-black heme + stool on exam
-elevated BUN
-constipation
-orthostasis
-elevated troponin with PE
-leukocytosis
other med problems:
-prostatectomy
-HTN
-hyperlipidemia
-gout
-lymphocytic colitis
Course complicated by aspiration versus HAP with fever and SOB, transferred to IMU on 07/02. No improving from a respiratory standpoint and remains off oxygen. Completed short course of empiric IV abx. Hgb stable, but with rising BUN 26 -> 38 with
still concern for UGIB. S/p 3 uPRBC on 07/03 with repeat Hgb 7.5 -> 9s.
Recommendations:
- Okay for diet as tolerated, keep NPO at MN
- Continue to trend Hgb with serial CBC, transfuse for goal Hgb > 7.0
- Hold lovenox (last dose evening of 07/03- ) if able to given PE
- Plan for EGD tomorrow, 07/05/2024, for further evaluation of melena
- No plans for colonoscopy at this time as low concern for LGIB and recent colon 02/2024
- Rest of care per primary team
Discussed with primary internal medicine team this AM.
-
Subjective
Subjective
Date of Service: July 04, 2024
- Remains afebrile, with down-trending leukocytosis now off IV abx
- S/p 3 uPRBC for Hgb 7.6 -> 9.0 this AM
- Otherwise, no acute events overnight
No longer on oxygen this AM. Denies any nausea/vomiting or abdominal pain. One episode of darker stool this AM without any overt bright red blood or clots.
Objective
Data Reviewed
Laboratory Data:
Laboratory Results
07/04/24 03:43
07/04/24 03:43
Laboratory Results
PT 14.8 Sec (11.4-14.6) H 06/22/24 18:47
INR 1.18 06/22/24 18:47
APTT 29.8 Sec (23.4-35.0) 06/22/24 18:47
Phosphorus 2.6 mg/dl (2.5-4.5) 07/04/24 03:43
Magnesium 2.4 mg/dl (1.6-2.3) H 07/04/24 03:43
Total Bilirubin 0.8 mg/dl (0.2-1.3) 07/03/24 04:26
AST 29 U/L (17-59) 07/03/24 04:26
ALT 15 U/L (0-50) 07/03/24 04:26
Alkaline Phosphatase 62 U/L (38-126) 07/03/24 04:26
Vital Signs and I&O:
Vital Signs
Temp Pulse Resp BP Pulse Ox
99.2 F 73 16 142/74 95
07/04/24 07:05 07/04/24 10:00 07/04/24 10:00 07/04/24 08:00 07/04/24 10:00
I&O
07/03/24 07/04/24 07/05/24
06:59 06:59 05:59
Intake Total 400 / 400 970 / 970
Output Total 950 / 950 900 / 900 250 / 250
Balance -550 / -550 70 / 70 -250 / -250
Physical Exam
Physical Exam
HEENT: Anicteric and Moist mucous membranes
Cardiology: Normal Sinus Rhythm
Pulmonary: Clear
GI: Soft, Non Distended and Non Tender
Extremities: No Edema
Neuro: Non Focal
--- NOTE | 2024-07-04 12:24 | PTCARENOTE ---
Assumed care of patient at beginning of this shift from previous RN. Patient with skin tear to L f/a that he states was from him removing a bandaid prior to hospitalization. Mod amount of bloody drainage noted through foam dressing. Dressing
changed, area cleansed; see wound care documentation. Patient to be NPO after MN for EGD in the am; lovenox on hold.
When working with PT, patient stood at bedside and became very lightheaded, per therapist. Assisted back to bed. Per PT, bp 116/62 when sitting on the side of the bed and 132/84 when he returned to bed; unable to do standing BP. Dr Rutledge updated.
R knee dressing d&i; original from surgery. Large amount of purple ecchymosis noted to R outer thigh extending down to just below knee; area is also warm. Dr Rutledge and Dr Kay made aware via tiger text. mohit Merida PA also made aware
via tiger text, as per request of Dr Kay. Pictures also sent to him. He responded that he will forward pictures to Dr Graves.
[2024-07-04 13:28] LABS: Hematocrit 25.9 % (39.0-52.0)
[2024-07-04] MEDS: LIPITOR 10 MG PO (17:53)
[2024-07-04] MEDS: SENOKOT 17.2 MG PO (22:11)
--- NOTE | 2024-07-04 23:00 | PTCARENOTE ---
Assume care from AM RN. AAOX3, MASHPEE and forgetful at times, NSR w/ prolong QT in the monitor. Lung sounds are diminished , tachypneic at times and has a nonproductive cough. saO2 94-96% RA. pt continues to c/o constipation. Hypoactive bowel sounds.
Abd round. Pt appears comfortable in bed and call ronquillo within reach.
[2024-07-05] VITALS (19 sets, daily range): BP systolic 16–149; BP diastolic 53–88; PULSE 80–99; O2SAT 97
[2024-07-05 04:56] LABS: Hematocrit 28.1 % (39.0-52.0); Hemoglobin 9.3 g/dL (13.0-18.0); Mean Corp Hgb Conc. 33.1 g/dL (33.0-37.0); Mean Corpuscular Hgb 30.2 pg (27.0-31.0); Mean Corpuscular Volume 91.2 fL (80.0-94.0); Mean Platelet Volume 10.4 fL (7.4-10.4); Platelet Count 191 10^3/uL (130-400); Red Blood Cell Count 3.08 10^6/uL (4.70-6.10); Red Cell Dist. Width 19.5 % (11.5-14.5); White Blood Cell Count 9.5 10^3/uL (4.8-10.8)
[2024-07-05 05:15] LABS: Blood Urea Nitrogen 29 mg/dl (9-20); Calcium 7.8 mg/dl (8.4-10.2); Carbon Dioxide 23 mmol/L (22-30); Chloride 105 mmol/L (98-107); Estimated Creatinine Clearance 55 ml/min; Glucose 108 mg/dl (70-99); Magnesium 2.4 mg/dl (1.6-2.3); Phosphorus 2.3 mg/dl (2.5-4.5); Sodium 137 mmol/L (135-145); eGFR > 60.00
--- NOTE | 2024-07-05 06:41 | W.PN.HOSP.TC ---
Today's Communication/Plan
-
Eliquis to resume tomorrow Mon as per GI
cont bowel regimen
Protonix BID
albumin infusion
start midodrine low dose w/ holding parameters SBP>120
PT/OT
discharge planning Acute rehab
Assessment / Plan
Assessment / Plan
Physical Exam
General: No acute distress appears comfortable a this time
CVS: S1-S2 normal
Chest: Bibasilar crackles improving
Abdomen: Soft, NT / Bowel sounds present
Extremities: RLE edema , normal pulses, ecchymosis posterior RLE noted
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
84-year-old male presented with dizziness and hypoxia. Patient underwent right total knee replacement at surgical center day prior to arrival. Family noted that oxygen and blood pressure were running low. He was also feeling really weak.
Echo 03/04/2024-normal size LV and EF 65 to 70%. Mild concentric LVH. Normal RV. Mild MR. Mild . Mild AI. Trace TR. Pulmonary artery pressure 30 to 35 mmHg.
# Acute hypoxic respiratory insufficiency
#PE
Also had some noncardiogenic pulmonary edema intermittently received lasix over the course or hospitalization
suspected PE prior to surgery
Echo with more pulmonary hypertension than from March otherwise no significant change noted
Vfcljuh-[id number]-lpbdo changed to Eliquis converted back to Lovenox d/t possible GIB planned for EGD as below
EGD since completed patient cleared to resume therapeutic anticoagulation Friday 07/06 as per GI
resuming Eliquis at 5 mg BID Friday 07/06
07/01/24 patient noted with chills low grade fever and desaturating to low 90s on room air as per nurse
07/02/24 fever spike 102.3 with associate white count concerning for possible sepsis. Crackles also noted on auscultation concerning for Fluid overload
-CR chest no acute abn's noted 07/01/24
-lactic acid wnl, procalcitonin elevated
-possible Fever may be related to PE instead of infection
-BNP 1500 noted improved from prior value 2830 approx 1 wk ago
-empiric IV lasix 40 mg once 07/02
-Receiving 3rd transfusion for anemia goal hgb >7.5 (once Lasix 20 mg IV in conjunction w/ 3rd transfusion)
-ID eval appreciated, empiric doxycycline discontinued, continued Ceftriaxone, eventually all abx discontinued as infectious work up remained largely negative.
-transferred to IMU for closer monitoring
-COVID neg
# Leukocytosis unclear etiology
no obvious source of infection
urinalysis neg for UTI
previously on steroids since discontinued
Leukocytosis however persisted
abx started and completed as above
Leukocytosis since resolved 07/05
# Elevated troponin-likely secondary to PE. Trended down
With LV. Nonspecific T wave abnormality
No wall motion abnormality on echo
outpt appt w/ [facility] arranged 07/20/24.
# Acute blood loss anemia secondary to surgery
#Iron studies appreciated anemia of chronic disease and iron deficiency anemia
Follow hemoglobin
IV iron supplementation
received 3 PRBC so far intermittently this hospitalization for goal hgb >7.5
#Constipation
reported no bowel movement in 5 days
initially resolved with once bisacodyl suppository 06/28
Dark stools were noted, though patient was recently on oral iron supplements prior to resolution constipation
cont bowel regimen as per GI
once bisacodyl suppository 07/04
Consider enema if constipation persists
#Episodic Severe Symptomatic Orthostatic Hypotension (noted repeatedly while working with PT)
Hypoalbuminemia likely contributing
treated with IVF since discontinued/restricted d/t iatrogenic fluid overload as above
Amlodipine placed on hold
albumin bolus given intermittently
Daily Ensure Supplement
midodrine 2.5 mg TID w/ holding parameters SBP>120 started 07/05
#Dark stools possible UGIB vs discoloration d/t previous oral iron supplement use
#Peptic Ulcer Disease
GI eval appreciated
Eliquis switched to Lovenox in preparation EGD as per GI, last dose of Eliquis 06/29/24 evening, held Lovenox morning for procedure resumed d/t cancelation 10/04 high fever as above
Lovenox held for EGD Saturday07/05/24 completed with results as follows:
-multiple superficial well-healed non-bleeding duodenal ulcers noted
-biopsies were obtained larger ulcer and from stomach for r/o H. pylori
-cleared to resume diet
-Protonix 40 mg BID 8 weeks then daily indefinitely
-strict NSAID avoidance recommended
-cleared to restart anticoagulation tomorrow 07/06 (restarting with Eliquis 5 mg BID as above)
-Repeat EGD 8-12 wks to follow up progress healing ulcers
-GI since signed off
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
PT OT appreciated outpt therapy recommended
Pain control with Celebrex and Tylenol
Also on Decadron 4 mg twice daily total of 6 doses probably completed on the evening of 06/25/2024 per discussion with Ortho (Stopped)
Pain control with tramadol
# Hyperglycemia- due to steroids
Outpatient records indicate prediabetes
A1C 5.4 wnl
Stopped steroids as above
sugars consistently at goal with minimal insulin correction required
Ok to discontinue routine fingersticks
#Some delirium confusion appears to be resolved at this time.
likely sleep deprivation hospital associated delirium
bedtime low dose seroquel started switched to prn with improvement mental status noted
# Hypokalemia-monitor and replete as necessary
# Hypertension- cont atenolol, Norvasc placed on hold as above
# Hyperlipidemia-continue statin
# Gout-continue allopurinol
# Lymphocytic colitis- Colestid on hold, Questran as per GI
# COVID19 infection in 2019 with prolonged hospitalization
# History of prostate cancer status post prostatectomy-on Lupron
# Hearing impairment
# DVT prophylaxis- Eliquis to resume tomorrow Mon 07/06 as per GI
# Full code
PT/OT PMR cherri appreciated Acute Rehab
Discussed with patient and patient's grandson Rodo also RN
I spent a total of 50 minutes with the patient or on the floor. More than 50% of this time involved counseling and coordination of care.
Anticipated Discharge: 24 - 48 hours
Subjective/Interval History
-
Date of Service: July 05, 2024
Seen and examined at bedside in no acute distress resting comfortably in bed. Overall reports feeling well. Saturating well on room air stable respiratory status. Denies significant pain at rest.
Objective Data
-
Labs:
Laboratory Results
07/05/24
04:42
WBC 9.5
Hgb 9.3 L
Hct 28.1 L
Plt Count 191
Sodium 137
Potassium 4.0
Chloride 105
Carbon Dioxide 23
BUN 29 H
Creatinine 0.9
Glucose 108 H
Calcium 7.8 L
Vital Signs:
Vital Signs
Temp Pulse Resp BP Pulse Ox
98.3 F 68 20 134/64 93
07/05/24 03:38 07/05/24 02:00 07/05/24 02:00 07/05/24 02:00 07/05/24 02:00
I&O
07/03/24 07/04/24 07/05/24
06:59 06:59 05:59
Intake Total 400 / 400 970 / 970 840 / 840
Output Total 950 / 950 900 / 900 600 / 600
Balance -550 / -550 70 / 70 240 / 240
--- NOTE | 2024-07-05 07:40 | W.PN.UPDATE ---
Update Note
Progress Note Update
Status post right total knee arthroplasty June 22, [address] Graves. Yesterday it was noted that he had some more bruising and swelling around the thigh and knee. Lovenox has been held in anticipation of EGD today. This morning his thigh
and knee swelling look much improved. Right thigh has moderate swelling with ecchymosis. Aquacel dressing in place with minimal bleeding noted. Range of motion 0-80 degrees with minimal discomfort and no instability. Calf is soft and nontender.
Distal neurovascular was intact. Fortunately he is afebrile this morning and WBC have normalized. His hemoglobin is 9.3 up from 9.0 yesterday. He should continue with formal physical therapy as soon as medically possible. Obviously need to keep
an eye on the right lower leg for swelling as he goes back on the anticoagulants. Orthopedics will continue to follow.
[2024-07-05] MEDS: SODIUM PHOSPHATE 255 MEQ IV (08:10)
[2024-07-05] MEDS: FEOSOL PO (09:01)
[2024-07-05] MEDS: OSCAL 500 + D PO (09:01)
[2024-07-05] MEDS: PROTONIX PO (09:01)
[2024-07-05] MEDS: TENORMIN PO (09:01)
[2024-07-05] MEDS: MIRALAX PO (09:01)
[2024-07-05] MEDS: QUESTRAN PO (09:01)
[2024-07-05] MEDS: TYLENOL PO (09:01)
[2024-07-05] MEDS: ZYLOPRIM PO (09:02)
[2024-07-05] MEDS: VITAMIN B-12 PO (09:02)
--- NOTE | 2024-07-05 09:38 | W.PN.ID1 ---
Date of Service
Date of Service: July 05, 2024
Today's Communication
Observe off abx.
Assessment / Plan
Fever -resolved
Leukocytosis resolved
Recent PE
R TKR 06/22
H/o gout
- CXR no consolidation
- blood cultures x2 neg to date
- covid pcr negative
- influenza ag neg
- ua recently negative 06/28, repeat UA negative on 07/03
- note elevated procal - not specific test
- denies any joint pains to suggest a gout flare, reports its been 20 years since his last episode
- Observe off abx.
Chief Complaint
-: Fever and Leukocytosis
Subjective / Review of Systems
No specific complaints.
Vital Signs / Physical Exam
Vital Signs
Vital Signs
Temp Pulse Resp BP Pulse Ox
99.1 F 72 17 138/76 95
07/05/24 08:35 07/05/24 08:00 07/05/24 08:00 07/05/24 08:06 07/05/24 08:00
Physical Exam
Constitutional: No Acute Distress and Comfortable
Cardiovascular: Regular Rate and S1/S2
Pulmonary: Clear
Gastrointestinal: Soft, Non Tender, Non Distended and Normal Bowel Sounds
Musculoskeletal: Other (right knee incision dressing with dried blood, + ecchymosis)
Neurological: AO x 3
Objective Data
Lab Data
Lab Results
07/05/24 04:42
07/05/24 04:42
PT 14.8 Sec (11.4-14.6) H 06/22/24 18:47
INR 1.18 06/22/24 18:47
APTT 29.8 Sec (23.4-35.0) 06/22/24 18:47
Estimated Creat Clear 55 ml/min 07/05/24 04:42
Lactic Acid 1.2 mmol/L (0.7-2.0) 07/02/24 10:20
Total Bilirubin 0.8 mg/dl (0.2-1.3) 07/03/24 04:26
AST 29 U/L (17-59) 07/03/24 04:26
ALT 15 U/L (0-50) 07/03/24 04:26
Alkaline Phosphatase 62 U/L (38-126) 07/03/24 04:26
Most recent labs reviewed.
Micro Results:
07/03/24 13:09 MRSA Screen - Final
Nose No Methicillin Resistant Staphylococcus aureus isolated.
07/02/24 10:20 Blood Culture - Preliminary
Blood/Venous No Growth in 48 hours- Final report to follow
07/02/24 09:34 Blood Culture - Preliminary
Blood/Venous No Growth in 48 hours- Final report to follow
07/02/24 16:54 Influenza Types A & B ([facility]) - Final
Nasal Swab Negative for Influenza A & B, NAAT
Negative results must be combined with clinical observations
and patient history.
Nucleic Acid Amplification test (NAAT)performed on the
[employer] platform.
07/03/24 CXR: Hypoaerated lungs without consolidation.
--- NOTE | 2024-07-05 11:04 | PTCARENOTE ---
pt being transported to GI lab for EGD. pt aaox3, on monitor with stable vitals.
[2024-07-05] MEDS: TYLENOL 1000 MG PO ×3 (13:39→21:35)
[2024-07-05] MEDS: FLEXBUMIN 100 IV (16:09)
[2024-07-05] MEDS: LIPITOR 10 MG PO (17:21)
[2024-07-05] MEDS: ProAmatine PO (17:23)
[2024-07-05] MEDS: OSCAL 500 + D 500 MG PO (19:50)
[2024-07-05] MEDS: FEOSOL 325 MG PO (19:50)
[2024-07-05] MEDS: MIRALAX 17 GRAMS PO (19:50)
[2024-07-05] MEDS: ZYLOPRIM 100 MG PO (19:51)
[2024-07-05] MEDS: PROTONIX 40 MG PO (19:51)
[2024-07-05] MEDS: SENOKOT 17.2 MG PO (21:36)
--- NOTE | 2024-07-05 22:00 | PTCARENOTE ---
Received pt resting in bed, AAOx3. Pt. without complaints. VELAZCO but weak, especially RLE. SR on tele. Vitals stable. TEDs and foot pumps maintained. Was on RA but desatting to 88% while sleeping so placed on 2L NC. Lungs with crackles bibasilar. Deep
breathing encouraged. Hypoactive bowel sounds. LBM 4-5 days ago. Voiding catherine urine in urinal. R knee dsg intact with old drainage shadowing. Ecchymosis present RLE - unchanged from prior assessment. Monitoring
[2024-07-06] VITALS (28 sets, daily range): BP systolic 90–167; BP diastolic 52–105; PULSE 68–105; O2SAT 96–97; BMI 25.5; BMI 26.0
[2024-07-06 04:52] LABS: Hematocrit 23.3 % (39.0-52.0); Mean Corp Hgb Conc. 34.3 g/dL (33.0-37.0); Mean Corpuscular Volume 87.3 fL (80.0-94.0); Mean Platelet Volume 10.7 fL (7.4-10.4); Platelet Count 200 10^3/uL (130-400); Red Blood Cell Count 2.67 10^6/uL (4.70-6.10); White Blood Cell Count 8.5 10^3/uL (4.8-10.8)
[2024-07-06 05:29] LABS: ALT (SGPT) 18 U/L (0-50); AST (SGOT) 39 U/L (17-59); Albumin 2.5 g/dl (3.5-5.0); Alkaline Phosphatase 87 U/L (38-126); Blood Urea Nitrogen 29 mg/dl (9-20); Calcium 7.6 mg/dl (8.4-10.2); Carbon Dioxide 23 mmol/L (22-30); Chloride 106 mmol/L (98-107); Direct Bilirubin 0.5 mg/dl (0.0-0.4); Estimated Creatinine Clearance 55 ml/min; Glucose 111 mg/dl (70-99); Magnesium 2.5 mg/dl (1.6-2.3); Phosphorus 2.9 mg/dl (2.5-4.5); Potassium 3.8 mmol/L (3.5-5.1); Sodium 136 mmol/L (135-145); Total Bilirubin 1.3 mg/dl (0.2-1.3); Total Protein 4.5 g/dl (6.3-8.2); eGFR > 60.00
--- NOTE | 2024-07-06 08:00 | W.PN.UPDATE ---
Update Note
Progress Note Update
Status post right total knee arthroplasty June 22, [address] Graves. He reports that his bruising and swelling have improved. He has no pain. Aquacel dressing in place with minimal bleeding noted. Range of motion 0-80 degrees with minimal
discomfort and no instability. Calf is soft and nontender. Distal neurovascular was intact. He underwent EGD yesterday. His hemoglobin is 8.0 today. He should continue with formal physical therapy as soon as medically possible. Continue to
monitor right leg swelling and bruising as anticoagulants are resumed. Orthopedics will continue to follow.
[2024-07-06] MEDS: QUESTRAN 4 GRAM PO (09:24)
[2024-07-06] MEDS: MIRALAX 17 GRAMS PO ×2 (09:24→20:30)
[2024-07-06] MEDS: PROTONIX 40 MG PO ×2 (09:24→09:28)
[2024-07-06] MEDS: OSCAL 500 + D 500 MG PO ×2 (09:25→20:29)
[2024-07-06] MEDS: ProAmatine PO ×3 (09:25→17:45)
[2024-07-06] MEDS: TYLENOL 1000 MG PO ×4 (09:25→22:38)
[2024-07-06] MEDS: FEOSOL 325 MG PO ×2 (09:25→20:29)
[2024-07-06] MEDS: VITAMIN B-12 1000 MCG PO (09:26)
[2024-07-06] MEDS: TENORMIN 25 MG PO (09:26)
[2024-07-06] MEDS: ZYLOPRIM 100 MG PO ×2 (09:26→20:29)
--- NOTE | 2024-07-06 09:36 | W.PN.ID1 ---
Date of Service
Date of Service: July 06, 2024
Today's Communication
- remains well off of antibiotics
- ID service will no longer actively follow this patient please recall for further questions
Assessment / Plan
Fever -resolved
Leukocytosis resolved
Recent PE
R TKR 06/22
H/o gout
- remains well off of antibiotics
- ID service will no longer actively follow this patient please recall for further questions
Chief Complaint
-: Fever and Leukocytosis
Subjective / Review of Systems
remains afebrile
bp stable
no events overnight
remains well off of antibiotics
no complaints
Vital Signs / Physical Exam
Vital Signs
Vital Signs
Temp Pulse Resp BP Pulse Ox
97.9 F 76 14 167/73 96
07/06/24 07:05 07/06/24 09:26 07/06/24 06:00 07/06/24 09:26 07/06/24 06:00
Physical Exam
Constitutional: No Acute Distress
Cardiovascular: Regular Rate and S1/S2; Negative Murmur or Rub
Pulmonary: Clear and Symmetric; Negative Wheezes or Rales
Gastrointestinal: Soft, Non Tender, Non Distended and Normal Bowel Sounds
Skin: Warm and Dry; Negative Rash or Jaundice
Objective Data
Lab Data
Lab Results
07/06/24 04:15
07/06/24 04:15
PT 14.8 Sec (11.4-14.6) H 06/22/24 18:47
INR 1.18 06/22/24 18:47
APTT 29.8 Sec (23.4-35.0) 06/22/24 18:47
Estimated Creat Clear 55 ml/min 07/06/24 04:15
Lactic Acid 1.2 mmol/L (0.7-2.0) 07/02/24 10:20
Total Bilirubin 1.3 mg/dl (0.2-1.3) 07/06/24 04:15
AST 39 U/L (17-59) 07/06/24 04:15
ALT 18 U/L (0-50) 07/06/24 04:15
Alkaline Phosphatase 87 U/L (38-126) 07/06/24 04:15
Most recent labs reviewed.
Micro Results:
07/02/24 10:20 Blood Culture - Preliminary
Blood/Venous No Growth in 72 hours- Final report to follow
07/02/24 09:34 Blood Culture - Preliminary
Blood/Venous No Growth in 72 hours- Final report to follow
07/03/24 13:09 MRSA Screen - Final
Nose No Methicillin Resistant Staphylococcus aureus isolated.
07/02/24 16:54 Influenza Types A & B ([facility]) - Final
Nasal Swab Negative for Influenza A & B, NAAT
Negative results must be combined with clinical observations
and patient history.
Nucleic Acid Amplification test (NAAT)performed on the
[employer] platform.
07/03/24 CXR: Hypoaerated lungs without consolidation.
[2024-07-06] MEDS: ELIQUIS 5 MG PO ×2 (09:46→20:30)
[2024-07-06] MEDS: ProAmatine 2.5 MG PO (09:47)
--- NOTE | 2024-07-06 10:55 | PTCARENOTE ---
assessments per work list. patient assisted out of bed with assist of 2 and rolling walker. see orthostatic blood pressures. patient denies dizziness or discomfort. monitor nsr, sinus tach. call ronquillo in reach
--- NOTE | 2024-07-06 15:58 | W.PN.HOSP.TC ---
Today's Communication/Plan
-
If Hb is stable will discharge to [place] tomorrow
Assessment / Plan
Assessment / Plan
CVS: S1-S2 normal, ssm at aa
Chest: CTA B/L
Abdomen: Soft, NT / Bowel sounds present
Extremities: right knee edema
TELEX OPERATOR: Non focal exam
Seen in the morning, Late documentation.
84-year-old male presented with dizziness and hypoxia. Patient underwent right total knee replacement at surgical center day prior to arrival. Family noted that oxygen and blood pressure were running low. He was also feeling really weak.
Echo 03/04/2024-normal size LV and EF 65 to 70%. Mild concentric LVH. Normal RV. Mild MR. Mild . Mild AI. Trace TR. Pulmonary artery pressure 30 to 35 mmHg.
# Acute hypoxic respiratory insufficiency
#PE
Also had some noncardiogenic pulmonary edema intermittently received lasix over the course or hospitalization
suspected PE prior to surgery
Echo with more pulmonary hypertension than from March otherwise no significant change noted
Njhmqwi-nfvfyv-hpwgv changed to Eliquis converted back to Lovenox for EGD
EGD since completed patient cleared to resume therapeutic anticoagulation Friday 07/06 as per GI
resuming Eliquis at 5 mg BID Friday 07/06
07/01/24 patient noted with chills low grade fever and desaturating to low 90s on room air as per nurse
07/02/24 fever spike 102.3 with associate white count concerning for possible sepsis. Crackles also noted on auscultation concerning for Fluid overload
-CR chest no acute abn's noted 07/01/24
-lactic acid wnl, procalcitonin elevated
-possible Fever may be related to PE instead of infection
-BNP 1500 noted improved from prior value 2830 approx 1 wk ago
-empiric IV Lasix 40 mg once 07/02
-Received 3 transfusions for anemia
-ID eval appreciated, empiric doxycycline discontinued, continued Ceftriaxone, eventually all abx discontinued as infectious work up remained largely negative.
-COVID neg
# Leukocytosis unclear etiology
no obvious source of infection
urinalysis neg for UTI
previously on steroids since discontinued
Leukocytosis however persisted
abx started and completed as above
Leukocytosis since resolved 07/05
# Elevated troponin-likely secondary to PE. Trended down
With LV. Nonspecific T wave abnormality
No wall motion abnormality on echo
outpt appt w/ [facility] arranged 07/20/24.
# Acute blood loss anemia secondary to surgery
#Iron studies appreciated anemia of chronic disease and iron deficiency anemia
Follow hemoglobin
IV iron supplementation
received 3 PRBC so far intermittently this hospitalization for goal hgb >7.5
Rpt Hb today and in am
#Constipation
Resolved with once bisacodyl suppository 06/28
Dark stools were noted, though patient was recently on oral iron supplements prior to resolution constipation
cont bowel regimen as per GI
Consider enema if constipation persists
#Episodic Severe Symptomatic Orthostatic Hypotension (noted repeatedly while working with PT)
Hypoalbuminemia likely contributing
treated with IVF since discontinued/restricted d/t iatrogenic fluid overload as above
Amlodipine placed on hold
albumin bolus given intermittently
Daily Ensure Supplement
midodrine 2.5 mg TID w/ holding parameters SBP>120 started 07/05
#Dark stools possible UGIB vs discoloration d/t previous oral iron supplement use
#Peptic Ulcer Disease
GI eval appreciated
Eliquis switched to Lovenox in preparation EGD as per GI, last dose of Eliquis 06/29/24 evening, held Lovenox morning for procedure resumed d/t cancelation 2/2 high fever as above
Lovenox held for EGD Saturday07/05/24 completed with results as follows:
-multiple superficial well-healed non-bleeding duodenal ulcers noted
-biopsies were obtained larger ulcer and from stomach for r/o H. pylori
-cleared to resume diet
-Protonix 40 mg BID 8 weeks then daily indefinitely
-strict NSAID avoidance recommended
-cleared to restart anticoagulation tomorrow 07/06 (restarting with Eliquis 5 mg BID as above)
-Repeat EGD 8-12 wks to follow up progress healing ulcers
-GI since signed off
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
PT OT appreciated outpt therapy recommended
Pain control with Tylenol
Stopped Celebrex and Decadron
Pain control with tramadol
# Hyperglycemia- due to steroids
Outpatient records indicate prediabetes
A1C 5.4 wnl
Stopped steroids as above
sugars consistently at goal with minimal insulin correction required
#Some delirium and confusion appears to be resolved at this time.
likely sleep deprivation hospital associated delirium
bedtime low dose Seroquel started stopped
# Hypokalemia-monitor and replete as necessary
# Hypertension- cont atenolol, Norvasc placed on hold as above
# Hyperlipidemia-continue statin
# Gout-continue allopurinol
# Lymphocytic colitis- Colestid on hold, Questran as per GI
# COVID19 infection in 2019 with prolonged hospitalization
# History of prostate cancer status post prostatectomy-on Lupron
# Hearing impairment
# DVT prophylaxis- Eliquis
# Full code
PT/OT PMR eval appreciated Acute Rehab
D/W PT OT at bed side
Called and updated Grandson
Anticipated Discharge: Within 24 hours
Subjective/Interval History
-
Date of Service: July 06, 2024
Objective Data
-
Labs:
Laboratory Results
07/06/24
04:15
WBC 8.5
Hgb 8.0 L
Hct 23.3 L
Plt Count 200
Sodium 136
Potassium 3.8
Chloride 106
Carbon Dioxide 23
BUN 29 H
Creatinine 0.9
Glucose 111 H
Calcium 7.6 L
Total Bilirubin 1.3
AST 39
ALT 18
Alkaline Phosphatase 87
Vital Signs:
Vital Signs
Temp Pulse Resp BP Pulse Ox
98.3 F 75 16 138/68 98
07/06/24 11:05 07/06/24 13:00 07/06/24 13:00 07/06/24 13:09 07/06/24 13:00
I&O
07/05/24 07/06/24 07/07/24
06:59 06:59 06:59
Intake Total 855 / 855 480 / 480
Output Total 625 / 625 500 / 500
Balance 230 / 230 -20 / -20
[2024-07-06 16:37] LABS: Hematocrit 25.7 % (39.0-52.0); Hemoglobin 8.6 g/dL (13.0-18.0)
[2024-07-06] MEDS: LIPITOR 10 MG PO (17:40)
--- NOTE | 2024-07-06 17:48 | PTCARENOTE ---
Addendum entered by Trina Solano RN 07/06/24 17:59:
SPD sent a rib belt for a substitution, applied around abdomen.
Original Note:
repeat Hgb 8.6. hospitalist updated. patient downgrade to Tele level of care. asymptomatic when orthostatics checked. incontinent moderate amount dark brown stool. abdominal binder ordered(size small-medium). too snug for patient comfort. central
supply contacted for larger size, they informed this scenario writer that the larger size was not in stock
--- NOTE | 2024-07-06 21:00 | PTCARENOTE ---
Pt received from [facility] to [facility]. Pt oriented to room and call ronquillo.
--- NOTE | 2024-07-06 21:11 | PTCARENOTE ---
Report given to Tim MORALES and pt transported to [facility] via w/c with belongings.
[2024-07-06] MEDS: SENOKOT 17.2 MG PO (22:38)
[2024-07-07] VITALS (10 sets, daily range): BP systolic 94–145; BP diastolic 53–67; PULSE 60–98
--- NOTE | 2024-07-07 04:48 | W.PN.UPDATE ---
Update Note
Progress Note Update
Patient with fever this am, will recheck covid, ua, chest x-ray, lactic acid, and blood culture.
[2024-07-07 05:21] LABS: COVID-19 Antigen Negative (Negative)
[2024-07-07 05:22] LABS: Hemoglobin 8.7 g/dL (13.0-18.0); Mean Corp Hgb Conc. 33.5 g/dL (33.0-37.0); Mean Corpuscular Hgb 29.5 pg (27.0-31.0); Mean Corpuscular Volume 88.1 fL (80.0-94.0); Mean Platelet Volume 10.5 fL (7.4-10.4); Platelet Count 223 10^3/uL (130-400); Red Blood Cell Count 2.95 10^6/uL (4.70-6.10); Red Cell Dist. Width 18.8 % (11.5-14.5); White Blood Cell Count 7.8 10^3/uL (4.8-10.8)
[2024-07-07 05:24] LABS: Blood Urea Nitrogen 32 mg/dl (9-20); Calcium 7.9 mg/dl (8.4-10.2); Carbon Dioxide 22 mmol/L (22-30); Chloride 106 mmol/L (98-107); Estimated Creatinine Clearance 55 ml/min; Glucose 126 mg/dl (70-99); Lactic Acid 1.6 mmol/L (0.7-2.0); Potassium 4.2 mmol/L (3.5-5.1); Sodium 138 mmol/L (135-145); eGFR > 60.00
--- NOTE | 2024-07-07 06:37 | W.PN.UPDATE ---
Update Note
Progress Note Update
Status post right total knee arthroplasty June 22, [address] Graves ([id number]). Overall, he reports that the bruising and swelling have improved. He denies any significant pain. Aquacel dressing intact with minimal bleeding noted. Range of motion
0-80 degrees with some discomfort, no instability. Calf is soft and nontender. NVI distally. His hemoglobin is 8.7 today. He does have temperature this AM of 100.6. Subjectively, he reports that he does not feel sick or feverish. Appreciate work-up
from primary team. He should continue with formal physical therapy as soon as medically possible. Continue to monitor right leg swelling and bruising as anticoagulants are resumed. Orthopedics will continue to follow.
[2024-07-07] MEDS: PROTONIX 40 MG PO ×2 (07:48→19:29)
[2024-07-07] MEDS: MIRALAX 17 GRAMS PO (07:48)
[2024-07-07] MEDS: ELIQUIS 5 MG PO ×2 (07:48→19:29)
[2024-07-07] MEDS: ZYLOPRIM 100 MG PO ×2 (07:49→19:29)
[2024-07-07] MEDS: VITAMIN B-12 1000 MCG PO (07:49)
[2024-07-07] MEDS: OSCAL 500 + D 500 MG PO ×2 (07:49→19:29)
[2024-07-07] MEDS: FEOSOL 325 MG PO ×2 (07:49→19:29)
[2024-07-07] MEDS: ProAmatine 2.5 MG PO ×3 (07:49→17:04)
[2024-07-07] MEDS: TENORMIN 25 MG PO (07:50)
[2024-07-07] MEDS: QUESTRAN 4 GRAM PO (07:50)
[2024-07-07] MEDS: TYLENOL 1000 MG PO ×4 (08:42→22:46)
[2024-07-07 09:39] LABS: Urine Albumin Trace (Neg - Trace); Urine Bilirubin 1+ (Negative); Urine Character Clear (Clear); Urine Color Yellow; Urine Glucose Negative (Negative); Urine Ketone Negative (Negative); Urine Leukocyte Trace (Negative); Urine Nitrite Negative (Negative); Urine Occult Blood Negative (Negative); Urine Specific Gravity 1.015 (<1.030); Urine Urobilinogen Negative (Neg - 1+)
[2024-07-07 10:17] LABS: Urine Bacteria Few (Negative); Urine Mucus Few; Urine Red Blood Cell 0-2 /HPF (0-2); Urine Squamous Cell 0-2 /LPF (Few); Urine White Cell 0-2 /HPF (0-5)
--- NOTE | 2024-07-07 10:44 | W.PN.HOSP.TC ---
Today's Communication/Plan
-
fever eval
Assessment / Plan
Assessment / Plan
CVS: S1-S2 normal, ssm at aa
Chest: CTA B/L
Abdomen: Soft, NT / Bowel sounds present
Extremities: right knee edema, Aquacel with mild shadowing. no redness or tenderness
EXTRUSION BENDER: Non focal exam
Had a temp last night
84-year-old male presented with dizziness and hypoxia. Patient underwent right total knee replacement at surgical center day prior to arrival. Family noted that oxygen and blood pressure were running low. He was also feeling really weak.
Echo 03/04/2024-normal size LV and EF 65 to 70%. Mild concentric LVH. Normal RV. Mild MR. Mild . Mild AI. Trace TR. Pulmonary artery pressure 30 to 35 mmHg.
# Acute hypoxic respiratory insufficiency
#PE
Also had some noncardiogenic pulmonary edema intermittently received lasix over the course or hospitalization
suspected PE prior to surgery
Echo with more pulmonary hypertension than from March otherwise no significant change noted
Avamzea-bbveir-yiqkx changed to Eliquis converted back to Lovenox for EGD
EGD since completed patient cleared to resume therapeutic anticoagulation Friday 07/06 as per GI
resuming Eliquis at 5 mg BID Friday 07/06
07/01/24 patient noted with chills low grade fever and desaturating to low 90s on room air as per nurse
07/02/24 fever spike 102.3 with associate white count concerning for possible sepsis. Crackles also noted on auscultation concerning for Fluid overload
-CR chest no acute abn's noted 07/01/24
-lactic acid wnl, procalcitonin elevated
-possible Fever may be related to PE instead of infection
-BNP 1500 noted improved from prior value 2830 approx 1 wk ago
-empiric IV Lasix 40 mg once 07/02
-Received 3 transfusions for anemia
-ID eval appreciated, empiric doxycycline discontinued, continued Ceftriaxone, eventually all abx discontinued as infectious work up remained largely negative.
-COVID neg
-Had temps last night 100.7
-Relayed to ID
# Leukocytosis unclear etiology
no obvious source of infection
urinalysis neg for UTI
previously on steroids since discontinued
Leukocytosis however persisted
abx started and completed as above
Leukocytosis since resolved 07/05
# Elevated troponin-likely secondary to PE. Trended down
With LV. Nonspecific T wave abnormality
No wall motion abnormality on echo
outpt appt w/ [facility] arranged 07/20/24.
# Acute blood loss anemia secondary to surgery
#Iron studies appreciated anemia of chronic disease and iron deficiency anemia
Follow hemoglobin
IV iron supplementation completed, now on PO
received 3 PRBC so far intermittently this hospitalization for goal hgb >7.5
#Constipation
Resolved with once bisacodyl suppository 06/28
Dark stools were noted, though patient was recently on oral iron supplements prior to resolution constipation
cont bowel regimen as per GI
Consider enema if constipation persists
#Episodic Severe Symptomatic Orthostatic Hypotension (noted repeatedly while working with PT)
Hypoalbuminemia likely contributing
treated with IVF since discontinued/restricted d/t iatrogenic fluid overload as above
Amlodipine placed on hold
albumin bolus given intermittently
Daily Ensure Supplement
midodrine 2.5 mg TID w/ holding parameters SBP>120 started 07/05
#Dark stools possible UGIB vs discoloration d/t previous oral iron supplement use
#Peptic Ulcer Disease
EGD Saturday07/05/24 completed with results as follows:
-multiple superficial well-healed non-bleeding duodenal ulcers noted
-biopsies were obtained larger ulcer and from stomach for r/o H. pylori
-Protonix 40 mg BID 8 weeks then daily indefinitely
-strict NSAID avoidance recommended
-cleared to restart anticoagulation 07/06
-Repeat EGD 8-12 wks to follow up progress healing ulcers
-GI since signed off
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
PT OT appreciated outpt therapy recommended
Pain control with Tylenol and Tramodol
Stopped Celebrex and Decadron
# Hyperglycemia- due to steroids
Outpatient records indicate prediabetes
A1C 5.4 wnl
Stopped steroids as above
sugars consistently at goal with minimal insulin correction required
#Some delirium and confusion appears to be resolved at this time.
likely sleep deprivation hospital associated delirium
bedtime low dose Seroquel started stopped
# Hypokalemia-monitor and replete as necessary
# Hypertension- cont atenolol, Norvasc placed on hold as above
# Hyperlipidemia-continue statin
# Gout-continue allopurinol
# Lymphocytic colitis- Colestid on hold, Questran as per GI
# COVID19 infection in 2019 with prolonged hospitalization
# History of prostate cancer status post prostatectomy-on Lupron
# Hearing impairment
# DVT prophylaxis- Eliquis
# Full code
PT/OT PMR eval appreciated Acute Rehab
D/W ID
07/06/24-Called and updated Grandson
Anticipated Discharge: 24 - 48 hours
Subjective/Interval History
-
Date of Service: July 07, 2024
Objective Data
-
Labs:
Laboratory Results
07/07/24
04:54
WBC 7.8
Hgb 8.7 L
Hct 26.0 L
Plt Count 223
Sodium 138
Potassium 4.2
Chloride 106
Carbon Dioxide 22
BUN 32 H
Creatinine 0.9
Glucose 126 H
Calcium 7.9 L
Vital Signs:
Vital Signs
Temp Pulse Resp BP Pulse Ox
99.3 F 84 18 100/67 95
07/07/24 07:43 07/07/24 07:43 07/07/24 07:43 07/07/24 07:49 07/07/24 07:43
I&O
07/06/24 07/07/24 07/08/24
06:59 06:59 06:59
Intake Total 855 / 855 1320 / 1320
Output Total 625 / 625 725 / 725
Balance 230 / 230 595 / 595
--- NOTE | 2024-07-07 11:32 | W.PN.ID1 ---
Date of Service
Date of Service: July 07, 2024
Today's Communication
- suspect intermittent fevers due to PEs
- would not start further antibiotics at this time
Assessment / Plan
Fever - intermittent
Leukocytosis resolved
Recent PE
R TKR 06/22
H/o gout
H/o lymphocytic colitis - now on questran
had an episdoe of incontinence for stool this afternoon - dark is on iron and has cathartics scheduled
otherwise no: headache, sinus tenderness, cough, sore throat, nausea, vomiting, dysuria, rashes, tender pivs, swollen limbs, new rashes
- UA no pyuria
- CXR bibasilar atelectasis
- rescreen for covid negative, do not feel that we need another influenza screen - transmission in [place] last week described as minimal by CDC
- two sets of blood cultures - I added second set; note that a single set is only 70% sensitive for ruling out bacteremia, two sets about 90% sensitive
- suspect intermittent fevers due to PEs
- would not start further antibiotics at this time
Chief Complaint
-: Fever
Subjective / Review of Systems
relapse of fever after 6 days - 4 days off of antibiotics
bp stable
UA today no pyuria
CXR today bibasilar atelectasis
having BMs
started on midodrine 07/05 for orthostasis while working with pt
had an episdoe of incontinence for stool this afternoon - dark is on iron and has cathartics scheduled
otherwise no: headache, sinus tenderness, cough, sore throat, nausea, vomiting, dysuria, rashes, tender pivs, swollen limbs, new rashes
Vital Signs / Physical Exam
Vital Signs
Vital Signs
Temp Pulse Resp BP Pulse Ox
98.7 F 70 17 113/59 95
07/07/24 11:26 07/07/24 11:26 07/07/24 11:26 07/07/24 11:26 07/07/24 11:26
Physical Exam
Constitutional: No Acute Distress
Cardiovascular: Regular Rate and S1/S2; Negative Murmur or Rub
Pulmonary: Clear and Symmetric; Negative Wheezes or Rales
Gastrointestinal: Soft, Non Tender, Non Distended and Normal Bowel Sounds
Skin: Warm and Dry; Negative Rash or Jaundice
Objective Data
Lab Data
Lab Results
07/07/24 04:54
07/07/24 04:54
PT 14.8 Sec (11.4-14.6) H 06/22/24 18:47
INR 1.18 06/22/24 18:47
APTT 29.8 Sec (23.4-35.0) 06/22/24 18:47
Estimated Creat Clear 55 ml/min 07/07/24 04:54
Lactic Acid 1.6 mmol/L (0.7-2.0) 07/07/24 04:54
Total Bilirubin 1.3 mg/dl (0.2-1.3) 07/06/24 04:15
AST 39 U/L (17-59) 07/06/24 04:15
ALT 18 U/L (0-50) 07/06/24 04:15
Alkaline Phosphatase 87 U/L (38-126) 07/06/24 04:15
Most recent labs reviewed.
Micro Results:
07/02/24 10:20 Blood Culture - Final
Blood/Venous No Growth - Final Report
07/02/24 09:34 Blood Culture - Final
Blood/Venous No Growth - Final Report
07/07/24 05:41 Blood Culture - Pending
Blood/Venous
07/03/24 13:09 MRSA Screen - Final
Nose No Methicillin Resistant Staphylococcus aureus isolated.
07/02/24 16:54 Influenza Types A & B ([facility]) - Final
Nasal Swab Negative for Influenza A & B, NAAT
Negative results must be combined with clinical observations
and patient history.
Nucleic Acid Amplification test (NAAT)performed on the
[employer] platform.
07/03/24 CXR: Hypoaerated lungs without consolidation.
Care Review
Plan reviewed with: Physician (Dr Peterson - fady)
--- NOTE | 2024-07-07 13:20 | CM ---
Eval for fever per hospitalist
Spoke w/ Keila/[facility] who was updated on pt having fever this morning
Hgb improved, cont. to monitor
PT/OT cont. to rec. acute rehab at d/c
[facility]
Report: [phone]

Plan: [facility] when medically stable
[2024-07-07] MEDS: LIPITOR 10 MG PO (17:03)
[2024-07-07] MEDS: MIRALAX PO (19:29)
[2024-07-07] MEDS: SENOKOT PO (19:29)
[2024-07-08] VITALS (8 sets, daily range): BP systolic 81–167; BP diastolic 43–74; PULSE 63–87
[2024-07-08 06:52] LABS: Hematocrit 26.7 % (39.0-52.0); Hemoglobin 8.7 g/dL (13.0-18.0); Mean Corp Hgb Conc. 32.6 g/dL (33.0-37.0); Mean Corpuscular Hgb 29.3 pg (27.0-31.0); Mean Corpuscular Volume 89.9 fL (80.0-94.0); Mean Platelet Volume 10.8 fL (7.4-10.4); Platelet Count 242 10^3/uL (130-400); Red Blood Cell Count 2.97 10^6/uL (4.70-6.10); Red Cell Dist. Width 18.4 % (11.5-14.5); White Blood Cell Count 6.3 10^3/uL (4.8-10.8)
[2024-07-08 07:19] LABS: Blood Urea Nitrogen 33 mg/dl (9-20); Calcium 7.9 mg/dl (8.4-10.2); Carbon Dioxide 24 mmol/L (22-30); Chloride 104 mmol/L (98-107); Estimated Creatinine Clearance 55 ml/min; Glucose 109 mg/dl (70-99); Potassium 4.8 mmol/L (3.5-5.1); Sodium 137 mmol/L (135-145); eGFR > 60.00
[2024-07-08] MEDS: MIRALAX PO (07:29)
[2024-07-08] MEDS: PROTONIX 40 MG PO ×2 (07:40→19:43)
[2024-07-08] MEDS: FEOSOL 325 MG PO ×2 (07:40→19:43)
[2024-07-08] MEDS: OSCAL 500 + D 500 MG PO ×2 (07:40→19:42)
[2024-07-08] MEDS: ELIQUIS 5 MG PO ×2 (07:40→19:43)
[2024-07-08] MEDS: TENORMIN 25 MG PO (07:41)
[2024-07-08] MEDS: ZYLOPRIM 100 MG PO ×2 (07:41→19:42)
[2024-07-08] MEDS: ProAmatine PO ×2 (07:41→16:51)
[2024-07-08] MEDS: VITAMIN B-12 1000 MCG PO (07:42)
[2024-07-08] MEDS: QUESTRAN 4 GRAM PO (07:42)
[2024-07-08] MEDS: TYLENOL 1000 MG PO ×3 (08:24→23:45)
--- NOTE | 2024-07-08 09:37 | W.PN.UPDATE ---
Update Note
Progress Note Update
Pt seen and examined, also conferred w. Dr. Peterson. Pt doing well, reports minimal to no knee pain. Looking forward to d/c to rehab today. I removed his bandage and wound was intact. Has large RLE hematoma likely due to anticoagulation.
Hopefully this will resolve w. time.
--- NOTE | 2024-07-08 09:42 | W.PN.HOSP.TC ---
Today's Communication/Plan
-
Reviewed white count,patient has soft stools 3 yesterday reviewed with him.
No further fevers.
If okay with infectious disease also we will transition him to [facility].
Assessment / Plan
Assessment / Plan
CVS: S1-S2 normal, ssm at aa
Chest: CTA B/L
Abdomen: Soft, NT / Bowel sounds present
Extremities: right knee edema, Aquacel with mild shadowing. no redness or tenderness
GOLF CART MECHANIC: Non focal exam
No temps last night
84-year-old male presented with dizziness and hypoxia. Patient underwent right total knee replacement at surgical center day prior to arrival. Family noted that oxygen and blood pressure were running low. He was also feeling really weak.
Echo 03/04/2024-normal size LV and EF 65 to 70%. Mild concentric LVH. Normal RV. Mild MR. Mild . Mild AI. Trace TR. Pulmonary artery pressure 30 to 35 mmHg.
# Fever- ID eval appreciated. Likely from PE. No source of infection
# Acute hypoxic respiratory insufficiency
#PE
Also had some noncardiogenic pulmonary edema intermittently received lasix over the course or hospitalization
suspected PE prior to surgery
Echo with more pulmonary hypertension than from March otherwise no significant change noted
Cnjxknw-[id number]-fmqrc changed to Eliquis converted back to Lovenox for EGD
EGD since completed patient cleared to resume therapeutic anticoagulation Friday 07/06 as per GI
resumed Eliquis at 5 mg BID Friday 07/06
07/01/24 patient noted with chills low grade fever and desaturating to low 90s on room air as per nurse
07/02/24 fever spike 102.3 with associate white count concerning for possible sepsis. Crackles also noted on auscultation concerning for Fluid overload
-CR chest no acute abn's noted 07/01/24
-lactic acid wnl, procalcitonin elevated
-possible Fever may be related to PE instead of infection
-BNP 1500 noted improved from prior value 2830 approx 1 wk ago
-empiric IV Lasix 40 mg once 07/02
-Received 3 transfusions for anemia
-ID eval appreciated, empiric doxycycline discontinued, continued Ceftriaxone, eventually all abx discontinued as infectious work up remained largely negative.
-COVID neg
# Leukocytosis unclear etiology
no obvious source of infection
previously on steroids since discontinued
abx started and completed as above
Leukocytosis since resolved 07/05
# Elevated troponin-likely secondary to PE. Trended down
With LV. Nonspecific T wave abnormality
No wall motion abnormality on echo
outpt appt w/ [facility] arranged 07/20/24.
# Acute blood loss anemia secondary to surgery
#Iron studies appreciated anemia of chronic disease and iron deficiency anemia
Follow hemoglobin
IV iron supplementation completed, now on PO
received 3 PRBC so far intermittently this hospitalization for goal hgb >7.5
#Constipation
Resolved with once bisacodyl suppository 06/28
Dark stools were noted, though patient was recently on oral iron supplements prior to resolution constipation
Patient has soft stools therefore we will stop Senokot and cut back MiraLAX to daily
#Episodic Severe Symptomatic Orthostatic Hypotension (noted repeatedly while working with PT)
Hypoalbuminemia likely contributing
treated with IVF since discontinued/restricted d/t iatrogenic fluid overload as above
Amlodipine placed on hold
albumin bolus given intermittently
Daily Ensure Supplement
midodrine 2.5 mg TID w/ holding parameters SBP>120 started 07/05
#Dark stools possible UGIB vs discoloration d/t previous oral iron supplement use
#Peptic Ulcer Disease
EGD Saturday07/05/24 completed with results as follows:
-multiple superficial well-healed non-bleeding duodenal ulcers noted
-biopsies were obtained larger ulcer and from stomach for r/o H. pylori
-Protonix 40 mg BID 8 weeks then daily indefinitely
-strict NSAID avoidance recommended
-cleared to restart anticoagulation 07/06
-Repeat EGD 8-12 wks to follow up progress healing ulcers
-GI since signed off
-Soft stools 3 yesterday
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
PT OT appreciated outpt therapy recommended
Pain control with Tylenol and Tramadol
Stopped Celebrex and Decadron
# Hyperglycemia- due to steroids
Outpatient records indicate prediabetes
A1C 5.4 wnl
Stopped steroids as above
sugars consistently at goal with minimal insulin correction required
#Some delirium and confusion appears to be resolved at this time.
likely sleep deprivation hospital associated delirium
bedtime low dose Seroquel started stopped
# Hypokalemia-monitor and replete as necessary
# Hypertension- cont atenolol, Norvasc placed on hold as above
# Hyperlipidemia-continue statin
# Gout-continue allopurinol
# Lymphocytic colitis- Colestid on hold, Questran as per GI
# COVID19 infection in 2020 with prolonged hospitalization
# History of prostate cancer status post prostatectomy-on Lupron
# Hearing impairment
# DVT prophylaxis- Eliquis
# Full code
PT/OT PMR eval appreciated Acute Rehab
Called grandson yesterday could not get through
D/W at bed side
Discussed with patient's grandson in detail today. Reviewed white count,patient has soft stools 3 yesterday reviewed with him.
No further fevers.
If okay with infectious disease also we will transition him to [facility]. I did review with grandson that he had a lot of medical problems which was active in the past 2 weeks.
Anticipated Discharge: Within 24 hours
Subjective/Interval History
-
Date of Service: July 08, 2024
Objective Data
-
Labs:
Laboratory Results
07/08/24
06:17
WBC 6.3
Hgb 8.7 L
Hct 26.7 L
Plt Count 242
Sodium 137
Potassium 4.8
Chloride 104
Carbon Dioxide 24
BUN 33 H
Creatinine 0.9
Glucose 109 H
Calcium 7.9 L
Vital Signs:
Vital Signs
Temp Pulse Resp BP Pulse Ox
98.5 F 78 20 144/74 96
07/08/24 07:26 07/08/24 07:26 07/08/24 07:26 07/08/24 07:41 07/08/24 07:26
I&O
07/07/24 07/08/24 07/09/24
06:59 06:59 06:59
Intake Total 1320 / 1320 720 / 720
Output Total 725 / 725 550 / 550
Balance 595 / 595 170 / 170
[2024-07-08] MEDS: ProAmatine 2.5 MG PO (12:50)
--- NOTE | 2024-07-08 14:18 | W.PN.ID1 ---
Date of Service
Date of Service: July 08, 2024
Today's Communication
- would not start further antibiotics at this time
- agree with transfer to [place]
Assessment / Plan
Fever - intermittent
Leukocytosis resolved
Recent PE
R TKR 06/22
H/o gout
H/o lymphocytic colitis - now on Questran
had an episode of incontinence for stool this afternoon - dark is on iron and has cathartics scheduled
otherwise no: headache, sinus tenderness, cough, sore throat, nausea, vomiting, dysuria, rashes, tender pivs, swollen limbs, new rashes
- UA no pyuria
- CXR bibasilar atelectasis
- rescreen for covid negative
- two sets of blood cultures no growth to date
- suspect intermittent fevers due to PEs
- would not start further antibiotics at this time
- agree with transfer to [place]
Chief Complaint
-: Fever
Subjective / Review of Systems
no further fevers
bp stable
no leukocytosis, repeat ua few bacteria and no pyuria
blood cultures x2 no growth to date
3 soft stools - no tricia diarrhea
no complaints
Vital Signs / Physical Exam
Vital Signs
Vital Signs
Temp Pulse Resp BP Pulse Ox
99.3 F 63 16 113/56 97
07/08/24 11:00 07/08/24 11:00 07/08/24 11:00 07/08/24 12:50 07/08/24 11:00
Physical Exam
Constitutional: No Acute Distress and Chronically Ill
Cardiovascular: Regular Rate and S1/S2; Negative Murmur or Rub
Pulmonary: Clear and Symmetric; Negative Wheezes or Rales
Gastrointestinal: Soft, Non Tender, Non Distended and Normal Bowel Sounds
Skin: Warm and Dry; Negative Rash or Jaundice
Objective Data
Lab Data
Lab Results
07/08/24 06:17
07/08/24 06:17
PT 14.8 Sec (11.4-14.6) H 06/22/24 18:47
INR 1.18 06/22/24 18:47
APTT 29.8 Sec (23.4-35.0) 06/22/24 18:47
Estimated Creat Clear 55 ml/min 07/08/24 06:17
Lactic Acid 1.6 mmol/L (0.7-2.0) 07/07/24 04:54
Total Bilirubin 1.3 mg/dl (0.2-1.3) 07/06/24 04:15
AST 39 U/L (17-59) 07/06/24 04:15
ALT 18 U/L (0-50) 07/06/24 04:15
Alkaline Phosphatase 87 U/L (38-126) 07/06/24 04:15
Most recent labs reviewed.
Micro Results:
07/07/24 12:00 Blood Culture - Preliminary
Blood/Venous No Growth in 24 hours- Final report to follow
07/07/24 05:41 Blood Culture - Preliminary
Blood/Venous No Growth in 24 hours- Final report to follow
07/02/24 10:20 Blood Culture - Final
Blood/Venous No Growth - Final Report
07/02/24 09:34 Blood Culture - Final
Blood/Venous No Growth - Final Report
07/03/24 13:09 MRSA Screen - Final
Nose No Methicillin Resistant Staphylococcus aureus isolated.
07/02/24 16:54 Influenza Types A & B ([facility]) - Final
Nasal Swab Negative for Influenza A & B, NAAT
Negative results must be combined with clinical observations
and patient history.
Nucleic Acid Amplification test (NAAT)performed on the
[employer] platform.
07/03/24 CXR: Hypoaerated lungs without consolidation.
Care Review
Plan reviewed with: Physician (Dr Nicholas butcher for transfer)
--- NOTE | 2024-07-08 15:36 | CM ---
Per [facility], unable to get in contact w/ Dr. Almonte or [facility] to see if pt can transfer today.
Per Keila, pt is cont. round the clock Tylenol and had previous fever. Can accept tomorrow for admission if stable
CM made hospitalist aware. Per hospitalist, will discontinue Tylenol
Plan: [facility] when medically stable
[2024-07-08] MEDS: LIPITOR 10 MG PO (17:00)
[2024-07-09 03:43] VITALS: BP 131/68
[2024-07-09 07:18] VITALS: BP 156/62
[2024-07-09] MEDS: ELIQUIS 5 MG PO (08:08)
[2024-07-09] MEDS: FEOSOL 325 MG PO (08:08)
[2024-07-09] MEDS: OSCAL 500 + D 500 MG PO (08:09)
[2024-07-09] MEDS: ZYLOPRIM 100 MG PO (08:09)
[2024-07-09] MEDS: PROTONIX 40 MG PO (08:09)
[2024-07-09] MEDS: TENORMIN PO (08:10)
[2024-07-09] MEDS: VITAMIN B-12 1000 MCG PO (08:10)
[2024-07-09] MEDS: QUESTRAN 4 GRAM PO (08:10)
[2024-07-09 08:13] LABS: Hematocrit 25.1 % (39.0-52.0); Hemoglobin 8.3 g/dL (13.0-18.0); Mean Corp Hgb Conc. 33.1 g/dL (33.0-37.0); Mean Corpuscular Volume 87.8 fL (80.0-94.0); Mean Platelet Volume 10.4 fL (7.4-10.4); Platelet Count 272 10^3/uL (130-400); Red Blood Cell Count 2.86 10^6/uL (4.70-6.10); Red Cell Dist. Width 18.1 % (11.5-14.5); White Blood Cell Count 5.4 10^3/uL (4.8-10.8)
[2024-07-09] MEDS: ProAmatine PO (08:17)
[2024-07-09 08:41] LABS: Blood Urea Nitrogen 32 mg/dl (9-20); Calcium 7.6 mg/dl (8.4-10.2); Carbon Dioxide 24 mmol/L (22-30); Chloride 101 mmol/L (98-107); Estimated Creatinine Clearance 55 ml/min; Glucose 98 mg/dl (70-99); Potassium 4.5 mmol/L (3.5-5.1); Sodium 133 mmol/L (135-145); eGFR > 60.00
[2024-07-09 10:41] VITALS: BP 143/68; BP 144/69; PULSE 69; O2SAT 98
[2024-07-09 11:16] VITALS: BP 115/63
--- NOTE | 2024-07-09 11:52 | W.PN.HOSP.TC ---
Addendum entered and electronically signed by Zuri Peterson MD 07/09/24 13:47:
[facility] can accept
More than 30 minutes spent in discharge including
Final examination of the patient
Summarizing hospital stay
Instructions for continuing care to all relevant caregivers including ID today
Preparation of discharge records, prescriptions, and referral forms
Total time spent (in minutes): 37 min
Original Note:
Today's Communication/Plan
-
Discharge planning.
Assessment / Plan
Assessment / Plan
CVS: S1-S2 normal, ssm at aa
Chest: CTA B/L
Abdomen: Soft, NT / Bowel sounds present
Extremities: right knee edema, Aquacel off, no discharge, ecchymosis stable
STATISTICAL ANALYST: Non focal exam
Feels great
84-year-old male presented with dizziness and hypoxia. Patient underwent right total knee replacement at surgical center day prior to arrival. Family noted that oxygen and blood pressure were running low. He was also feeling really weak.
Echo 03/04/2024-normal size LV and EF 65 to 70%. Mild concentric LVH. Normal RV. Mild MR. Mild . Mild AI. Trace TR. Pulmonary artery pressure 30 to 35 mmHg.
# Fever- ID eval appreciated. Likely from PE. No source of infection
# Acute hypoxic respiratory insufficiency
#PE
Also had some noncardiogenic pulmonary edema intermittently received lasix over the course or hospitalization
suspected PE prior to surgery
Echo with more pulmonary hypertension than from March otherwise no significant change noted
Rjkkvcw-[id number]-fygml changed to Eliquis converted back to Lovenox for EGD
EGD since completed patient cleared to resume therapeutic anticoagulation Friday 07/06 as per GI
resumed Eliquis at 5 mg BID Friday 07/06
07/01/24 patient noted with chills low grade fever and desaturating to low 90s on room air as per nurse
07/02/24 fever spike 102.3 with associate white count concerning for possible sepsis. Crackles also noted on auscultation concerning for Fluid overload
-CR chest no acute abn's noted 07/01/24
-lactic acid wnl, procalcitonin elevated
-possible Fever may be related to PE instead of infection
-BNP 1500 noted improved from prior value 2830 approx 1 wk ago
-empiric IV Lasix 40 mg once 07/02
-Received 3 transfusions for anemia
-ID eval appreciated, empiric doxycycline discontinued, continued Ceftriaxone, eventually all abx discontinued as infectious work up remained largely negative.
-COVID neg
# Leukocytosis unclear etiology
no obvious source of infection
previously on steroids since discontinued
abx started and completed as above
Leukocytosis since resolved 07/05
# Elevated troponin-likely secondary to PE. Trended down
With LV. Nonspecific T wave abnormality
No wall motion abnormality on echo
outpt appt w/ [facility] arranged 07/20/24.
# Acute blood loss anemia secondary to surgery
#Iron studies appreciated anemia of chronic disease and iron deficiency anemia
Follow hemoglobin
IV iron supplementation completed, now on PO
received 3 PRBC so far intermittently this hospitalization for goal hgb >7.5
#Constipation
Resolved with once bisacodyl suppository 06/28
Dark stools were noted, though patient was recently on oral iron supplements prior to resolution constipation
Patient has soft stools therefore we will stop Senokot and cut back MiraLAX to daily
#Episodic Severe Symptomatic Orthostatic Hypotension (noted repeatedly while working with PT)
Hypoalbuminemia likely contributing
treated with IVF since discontinued/restricted d/t iatrogenic fluid overload as above
Amlodipine placed on hold
albumin bolus given intermittently
Daily Ensure Supplement
midodrine 2.5 mg TID w/ holding parameters SBP>120 started 07/05
#Dark stools possible UGIB vs discoloration d/t previous oral iron supplement use
#Peptic Ulcer Disease
EGD Saturday07/05/24 completed with results as follows:
-multiple superficial well-healed non-bleeding duodenal ulcers noted
-biopsies were obtained larger ulcer and from stomach for r/o H. pylori
-Protonix 40 mg BID 8 weeks then daily indefinitely
-strict NSAID avoidance recommended
-cleared to restart anticoagulation 07/06
-Repeat EGD 8-12 wks to follow up progress healing ulcers
-GI since signed off
-Soft stools 3 yesterday
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
PT OT appreciated outpt therapy recommended
Pain control with Tylenol and Tramadol
Stopped Celebrex and Decadron
# Hyperglycemia- due to steroids
Outpatient records indicate prediabetes
A1C 5.4 wnl
Stopped steroids as above
sugars consistently at goal with minimal insulin correction required
#Some delirium and confusion appears to be resolved at this time.
likely sleep deprivation hospital associated delirium
bedtime low dose Seroquel started stopped
# Hypokalemia-monitor and replete as necessary
# Hypertension- cont atenolol, Norvasc placed on hold as above
# Hyperlipidemia-continue statin
# Gout-continue allopurinol
# Lymphocytic colitis- Colestid on hold, Questran as per GI
# COVID19 infection in 2019 with prolonged hospitalization
# History of prostate cancer status post prostatectomy-on Lupron
# Hearing impairment
# DVT prophylaxis- Eliquis
# Full code
PT/OT PMR eval appreciated Acute Rehab
D/W Grandson yesterday
D/W case management.
Awaiting Way decision re transfer.
Anticipated Discharge: Today
Subjective/Interval History
-
Date of Service: July 09, 2024
Objective Data
-
Labs:
Laboratory Results
07/09/24
07:31
WBC 5.4
Hgb 8.3 L
Hct 25.1 L
Plt Count 272
Sodium 133 L
Potassium 4.5
Chloride 101
Carbon Dioxide 24
BUN 32 H
Creatinine 0.9
Glucose 98
Calcium 7.6 L
Vital Signs:
Vital Signs
Temp Pulse Resp BP Pulse Ox
98.3 F 78 18 115/63 98
07/09/24 11:16 07/09/24 11:16 07/09/24 11:16 07/09/24 11:16 07/09/24 11:16
I&O
07/08/24 07/09/24 07/10/24
06:59 06:59 06:59
Intake Total 720 / 720 720 / 720
Output Total 550 / 550 850 / 850
Balance 170 / 170 -130 / -130
--- NOTE | 2024-07-09 11:59 | W.DS.TRANS ---
Addendum entered and electronically signed by Zuri Peterson MD 07/09/24 14:05:
Dictation- [id number]
Original Note:
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
-
Discharge Instructions:
Discharge Diagnosis/Procedures PE
Acute hypoxic respiratory insufficiency
Fever
Iron deficiency anemia
Acute blood loss anemia
Orthostatic hypotension
Constipation
Peptic ulcer disease
Right total knee replacement June 22, 2024
Delirium
Hypokalemia
Hypertension
Hyperlipidemia
Gout
History of prostate cancer status post
prostatectomy
Diet As tolerated
Driving Restrictions No driving
Blood Work CBC, BMP 3 to 4 days
Other Services PT,OT
Instructions:
Stand-Alone Forms:
Changes to Home Medications: Yes
Discharge Medications:
DC Medications w/original date entered in [employer]
allopurinol 100 mg tablet 100 mg PO BID Gout 12/15/19
simvastatin 20 mg tablet 20 mg PO HS High cholesterol 12/15/19
atenolol 25 mg tablet 25 mg PO DAILY Blood Pressure 06/22/24
denosumab 60 mg/mL subcutaneous syringe (Prolia) 60 mg SC [id number] Osteoporosis 06/22/24
leuprolide acetate (6 month) 45 mg intramuscular syringe kit (Lupron Depot) 45 mg IM [id number] Cancer 06/22/24
acetaminophen 500 mg tablet (Tylenol Extra Strength) 1,000 mg (2 x 500 mg) PO Q6H PRN Pain #0 tabs 07/09/24
apixaban 5 mg tablet (Eliquis) 5 mg PO BID Blood clot prevention/tx #0 tabs 07/09/24
calcium 500 mg (as carbonate)-vitamin D3 5 mcg (200 unit) tablet (Oyster Shell Calcium-Vitamin D3) 1 tab PO BID Supplement #0 tabs 07/09/24
cholestyramine (with sugar) 4 gram powder for susp in a packet 1 ea PO DAILY Gastrointestinal issue #0 ea 07/09/24
cyanocobalamin (vitamin B-12) 1,000 mcg tablet 1,000 mcg PO DAILY low normal #0 tabs 07/09/24
ferrous sulfate 325 mg (65 mg iron) tablet (FeroSul) 325 mg PO BID anemia #0 tabs 07/09/24
midodrine 2.5 mg tablet 2.5 mg PO TID@0800,1300,1800 Blood pressure #0 tabs 07/09/24
pantoprazole 40 mg tablet,delayed release 40 mg PO BID Gastrointestinal issue #0 tabs 07/09/24
polyethylene glycol 3350 17 gram oral powder packet (HealthyLax) 17 g PO BID Constipation #0 ea 07/09/24
tramadol 50 mg tablet 50 mg PO Q6HPRN PRN moderate pain #0 tabs 07/09/24
Home Medication Changes
Oxycodone, colestipol, Celebrex, aspirin, Decadron, Zofran stopped
Eliquis, tramadol, MiraLAX, Protonix, midodrine, iron, B12, Questran, are new
Pending Results: No
[2024-07-09] MEDS: ProAmatine 2.5 MG PO (13:27)
--- NOTE | 2024-07-09 13:42 | CM ---
Spoke w/ [facility]. [facility] able to accept pt today
Hospitalist and nurse made aware
Pt seen bedside w/ spouse, informed of transfer to [facility] today
IMM reviewed, pt given copy. Copy placed into chart
[facility]
Report: [phone]

[facility]
[2024-07-09 15:28] VITALS: BP 149/74
[2024-07-09] MEDS: ULTRAM 50 MG PO (15:32)
== END 2024-07-09 16:49 | DRG 175 ==
LOC: 4 WEST ACU 17:00
PROVIDERS: Emergency Medicine; Internal Medicine; Nurse Practitioner Family; Physician Assistant Medical; Student in an Organized Health Care Education/Training Program; ADMITTING PHYSICIAN Hospitalist; ATTENDING PHYSICIAN Hospitalist; CONSULT PHYSICIAN Internal Medicine Critical Care Medicine; CONSULT PHYSICIAN Internal Medicine Gastroenterology; CONSULT PHYSICIAN Physical Medicine & Rehabilitation; CONSULT PHYSICIAN Specialist; CONSULT PHYSICIAN Student in an Organized Health Care Education/Training Program; EMERGENCY PHYSICIAN Emergency Medicine; FAMILY PHYSICIAN Internal Medicine
PROC: 30233N1 Transfusion of Nonautologous Red Blood Cells into Peripheral Vein, Percutaneous Approach (ICD-10-PCS; 2024-06-28)
PROC: 0DB98ZX Excision of Duodenum, Via Natural or Artificial Opening Endoscopic, Diagnostic (ICD-10-PCS; 2024-07-05)
PROC: 0DB68ZX Excision of Stomach, Via Natural or Artificial Opening Endoscopic, Diagnostic (ICD-10-PCS; 2024-07-05)
DX: I26.99 Other pulmonary embolism without acute cor pulmonale (principal); A41.9 Sepsis, unspecified organism; K25.4 Chronic or unspecified gastric ulcer with hemorrhage; K26.4 Chronic or unspecified duodenal ulcer with hemorrhage; J69.0 Pneumonitis due to inhalation of food and vomit; D62 Acute posthemorrhagic anemia; J98.11 Atelectasis; R09.02 Hypoxemia; R06.89 Other abnormalities of breathing; Z96.651 Presence of right artificial knee joint; E87.6 Hypokalemia; I10 Essential (primary) hypertension; E78.00 Pure hypercholesterolemia, unspecified; M10.9 Gout, unspecified; K52.832 Lymphocytic colitis; Z86.16 Personal history of COVID-19; K31.89 Other diseases of stomach and duodenum; Z86.711 Personal history of pulmonary embolism; Z85.46 Personal history of malignant neoplasm of prostate; Z90.79 Acquired absence of other genital organ(s); K59.00 Constipation, unspecified; D50.9 Iron deficiency anemia, unspecified
CPT/HCPCS: 88305; 93308; 71045; 71046; 71275; 80048; 80053; 81003; 81015; 82248; 82306; 82607; 82728; 82962; 83036; 83540; 83550; 83605; 83735; 83880; 84100; 84145; 84484; 85014; 85018; 85025; 85027; 85379; 85610; 85730; 86850; 86900; 86901; 86920; 87040; 87070; 87502; 87811; 88342; 93005; 93321; 93325; 93970; 96374; 97110; 97116; 97163; 97167; 97530; 97535; 99285; J2916; P9016; P9047; Q9967

== ENCOUNTER 2024-07-14 01:33 | Inpatient (IN) | payer MEDICARE, BC, SELFPAY ==
[2024-07-13 23:14] VITALS: BP 142/61
[2024-07-13 23:15] VITALS: BP 142/61
[2024-07-13 23:30] VITALS: BP 127/57
[2024-07-13 23:38] LABS: Urine Albumin Negative (Neg - Trace); Urine Bilirubin 1+ (Negative); Urine Character Clear (Clear); Urine Color Yellow; Urine Glucose Negative (Negative); Urine Ketone Negative (Negative); Urine Leukocyte Trace (Negative); Urine Nitrite Negative (Negative); Urine Occult Blood Negative (Negative); Urine Urobilinogen Negative (Neg - 1+)
[2024-07-13 23:46] LABS: Urine Mucus Few
[2024-07-13 23:47] LABS: Urine Bacteria Moderate (Negative); Urine Red Blood Cell 0-2 /HPF (0-2); Urine White Cell 0-2 /HPF (0-5)
--- NOTE | 2024-07-13 23:48 | ED.GENMED ---
History of Present Illness
General
Chief Complaint: Fever
Time Seen by Provider: 07/13/24 23:28
History of Present Illness
History of Present Illness:
Patient is a 84-year-old man with history of hypertension, hyperlipidemia, prostate cancer status post prostatectomy recent admission for PE on Eliquis presenting to the emergency department with a fever. Per chart review patient was discharged on
July 09. He was admitted for PE that he was initiated on Eliquis for. He was also found to have GI bleeding and was found to have ulcers and anticoagulation was resumed. He also had a total knee replacement prior to the admission. Per chart
review he was also found to have a fever of unknown origin and did have negative cultures. Patient has been at [facility] for the past 4 days found to be febrile up to 103 today. Patient does admit to a cough. However denies any chest pain
difficulty breathing nausea vomiting diarrhea or abdominal pain. Per medics the rehab facility was stating that he was ' sluggish' otherwise he was acting per his baseline
Past History
Past History
ED Past Medical History: Cancer (Prostate), HTN and Hypercholesterolemia
ED Past Surgical History: Other (Hernia repair)
Social History
Tobacco: Non-smoker
Phy Exam
Physical Exam
Physical Exam:
GENERAL: in no acute distress
HEENT: normocephalic, extraocular movements intact, moist oral mucosa
NECK: normal inspection
RESPIRATORY: no respiratory distress, rhonchorous breath sounds at the bases
CARDIOVASCULAR: regular rate and rhythm
ABDOMEN/: soft, non-distended, non-tender to palpation, no rebound or guarding
EXTREMITIES: Right lower extremity is more swollen compared to the left and warm however no erythema
NEUROLOGIC: awake and alert but slower to respond, moves all extremities
SKIN: warm
Sepsis
Sepsis Screening
Sepsis Assessment: Sepsis Ruled Out
Sepsis Screen
Sepsis Screen: Sepsis Ruled Out
Date: 07/14/24
Time: 01:46
Course
Orders/Labs/Results
Orders:
Orders
07/13/24 23:23
Cardiac Monitoring- Treatment ONCE
IV Insert/Care/Rem.- Treatment PRN
Straight cath- Treatment ONCE
07/13/24 23:26
Complete Blood Count/With Diff Urgent
Comprehensive Metabolic Panel Urgent
Lactic Acid Q4H
Comment: ON ICE, CANCEL 2ND ORDER IF FIRST LACTIC ACID LEVEL <2
Osmolality, Random Urine Urgent
Date Specimen was Collected: 07/14/24
Time Specimen was Collected: 23:23
Comment: ADD ON
Urinalysis Reflex To Culture Urgent
Date Specimen was Collected: 07/14/24
Time Specimen was Collected: 23:23
Urine Microscopic Reflex Cult Urgent
Urine Sodium Urgent
Date Specimen was Collected: 07/14/24
Time Specimen was Collected: 23:23
Comment: ADD ON
Influenza A+B Rapid Molecular Urgent
FRED Source: Nasal Swab
Specimen Description:
Urine Culture Urgent
FRED Source: U
Specimen Description:
Date Specimen was Collected: 07/14/24
Time Specimen was Collected: 23:23
07/13/24 23:27
COVID-19 Antigen Urgent
Source: Nasal Swab
07/13/24 23:29
CR Chest - 2 Views Urgent
Comment:
Reason For Exam: fever
07/13/24 23:54
Blood Culture Q30M
FRED Source: Blood/Venous
Specimen Description:
Cefepime HCl [Maxipime] 2,000 mg IV NOW STA
07/14/24 00:04
Add On- LAB Urgent
Tests Added?: urine osm, urine na
07/14/24 00:35
Blood Culture Q30M
FRED Source: Blood/Venous
Specimen Description:
07/14/24 00:49
0.9% Sodium Chloride 250 ml [Nss] 250 ml IV BOLUS
Midodrine [ProAmatine] 5 mg PO NOW STA
Vancomycin [Vancocin] 2,000 mg 0.9% Sodium Chloride 500 ml [Nss] 500 ml IV NOW
07/14/24 00:53
0.9% Sodium Chloride 250 ml [Nss] 250 ml IV BOLUS
07/14/24 01:04
Admit/Transfer Patient As Directed
Co-Sign Provider:
Level of Care: Inpatient admission
Assign to:: Telemetry
Physician / Group: hospitalist
Diagnosis: Fever of unknown source
Reason for Telemetry: Other
Other Reason for Telemetry: sepsis
Date to Stop Telemetry: 07/16/24
Time to Stop Telemetry: 11:00
Reason for Hospitalization: sepsis
Expected length of stay greater than two midnights?: Yes
ELOS- Estimated Length of Stay in days: 2
I certify the patient meets the requirements for IP care: Yes
PRN Pain Medication Management As Directed
May give lesser potent ordered pain med per pt: Yes
preference::
Protocol:: Medication orders for pain may be administered in a
manner that supports deferring to patient preference
when the pt is:
- Requesting an ordered lesser potent pain medication.
Least to most potent pain medications are defined
as: acetaminophen < NSAID < tramadol < opioids
(morphine, oxycodone, hydromorphone).
- Requesting a lesser dose of the same medication IF
ORDERED.
- Requesting a less intrusive route of administration
if both routes are prescribed by the provider (PO <
IV).
07/14/24 01:07
Code Status As Directed
Resuscitation Status: Full Code
07/14/24 01:14
Add On- LAB Stat
Tests Added?: procalcitonin - sepsis
07/14/24 01:16
CT Chest W/o Iv Contrast Urgent
Comment:
Reason For Exam: fever of unknown source, eval consolidation
07/14/24 01:17
Procalcitonin Urgent
Comment: COLLECT.
07/16/24 11:00
DC Protocol for Telemetry ONCE
Abnormal Lab Results
07/13/24
23:26
WBC 10.9 H 10^3/uL
(4.8-10.8)
RBC 2.72 L 10^6/uL
(4.70-6.10)
Hgb 8.0 L g/dL
(13.0-18.0)
Hct 23.9 L %
(39.0-52.0)
RDW 18.3 H %
(11.5-14.5)
Plt Count 497 H 10^3/uL
(130-400)
Abs Immat Gran (auto) 0.4 H 10^3/uL
(0-0.05)
Absolute Neuts (auto) 7.5 H 10^3/uL
(1.4-6.5)
Absolute Monos (auto) 1.2 H 10^3/uL
(0.1-0.6)
Immature Gran % 3.6 H %
(0-0.5)
Lymphocytes % 13.9 L %
(20.5-51.1)
Monocytes % 11.2 H %
(1.7-9.3)
Sodium 125 L mmol/L
(135-145)
Chloride 97 L mmol/L
(98-107)
Carbon Dioxide 18 L mmol/L
(22-30)
BUN 29 H mg/dl
(9-20)
Glucose 109 H mg/dl
(70-99)
Calcium 7.8 L mg/dl
(8.4-10.2)
Total Bilirubin 1.4 H mg/dl
(0.2-1.3)
Total Protein 5.6 L g/dl
(6.3-8.2)
Albumin 2.8 L g/dl
(3.5-5.0)
Urine Bilirubin 1+ A
(Negative)
Leukocyte Esterase Rfl Trace A
(Negative)
Urine Bacteria (Reflex) Moderate A
(Negative)
07/13/24 23:26
07/13/24 23:26
Vital Signs
Initial and Last Documented VS:
Initial Vital Signs
Pulse Resp Pulse Ox
63 18 94
07/13/24 23:12 07/13/24 23:12 07/13/24 23:12
Last Documented Vital Signs
Temp Pulse Resp BP Pulse Ox
103.7 F H 56 16 141/54 96
07/13/24 23:15 07/14/24 01:30 07/14/24 01:30 07/14/24 01:30 07/14/24 01:30
MDM/Problems Addressed
Differential Diagnosis Includes:
Patient is a 84-year-old male with recent admission after a total knee replacement, PE on Eliquis, GI bleed presenting to the emergency department with a fever. Vitals here notable being febrile as well as oxygen saturation of 92 to 93%. Exam does
show rhonchorous breath sounds as well as right lower extremity that is slightly swollen compared to the left. Given the cough and fever likely pneumonia. The right lower extremity is warm compared to the left however no obvious erythema. The
swelling is likely consistent with the postoperative of his knee and he is compliant with his Eliquis so less likely to be DVT. Will obtain blood work cultures and urine chest x-ray and respiratory swab. He did receive Tylenol prior to arrival
*Critical Care Note
Total Time (30-74mins, 75-104mins- exclusive of procedures): Not Applicable
Update Note
Update Note:
Blood work is notable for leukocytosis of 10.9 with a white count of 7.9 just earlier this morning. He does have a left shift with 3.6% immature cells. Urine does have moderate bacteria but trace leukocyte Estrace and nitrate. COVID and flu are
negative. Chest x-ray per my interpretation with retrocardiac opacity. Will treat with antibiotics. Patient will need admission. I discussed with hospitalist who accepted patient to their service. CMP is pending at this time. I did review his
CMP from this morning and did show a sodium of 126. I did add on urine osm's and urine sodium.
Nursing called me as patient blood pressure is now systolic in the 100s. Will give small fluid bolus of 250 given patient's hyponatremia.
ED Attending Note
-
Portions of this chart may have been created with voice recognition software.� Occasional wrong word or��sound alike� substitutions may have occurred due to the inherent limitations of voice recognition software.
Discharge Plan
Interventions
Interventions:
*Risk Screen - Suicide Last Done: 07/13/24 23:15
*General Assessment Last Done: 07/13/24 23:15
*Neglect/Abuse Screening Last Done: 07/13/24 23:15
ED- Fall Risk Assessment Last Done: 07/13/24 23:15
*ED COVID-19 Vaccine History Last Done: 07/13/24 23:15
ED- Neurological Assessment Last Done: 07/13/24 23:15
ED-Skin Assessment Last Done: 07/13/24 23:15
[2024-07-13 23:49] LABS: COVID-19 Antigen Negative (Negative)
[2024-07-13 23:49] LABS: % Basophils 0.4 % (0-2); % Eosinophils 2.5 % (0-6); % Immature Granulocytes 3.6 % (0-0.5); % Lymphocytes 13.9 % (20.5-51.1); % Monocytes 11.2 % (1.7-9.3); % Neutrophils 68.4 % (42.2-75.2); Absolute Eosinophils 0.3 10^3/uL (0-0.7); Absolute Immature Granulocytes 0.4 10^3/uL (0-0.05); Absolute Lymphocytes 1.5 10^3/uL (1.2-3.4); Absolute Monocytes 1.2 10^3/uL (0.1-0.6); Absolute Neutrophils 7.5 10^3/uL (1.4-6.5); Hematocrit 23.9 % (39.0-52.0); Mean Corp Hgb Conc. 33.5 g/dL (33.0-37.0); Mean Corpuscular Hgb 29.4 pg (27.0-31.0); Mean Corpuscular Volume 87.9 fL (80.0-94.0); Nucleated Red Blood Cells % 0.2 % (-); Platelet Count 497 10^3/uL (130-400); Red Blood Cell Count 2.72 10^6/uL (4.70-6.10); Red Cell Dist. Width 18.3 % (11.5-14.5); White Blood Cell Count 10.9 10^3/uL (4.8-10.8)
[2024-07-14] VITALS (12 sets, daily range): BP systolic 100–180; BP diastolic 53–78; PULSE 76; O2SAT 97; BMI 26.0
[2024-07-14 00:01] LABS: Lactic Acid 1.1 mmol/L (0.7-2.0)
[2024-07-14 00:17] LABS: ALT (SGPT) 35 U/L (0-50); AST (SGOT) 47 U/L (17-59); Albumin 2.8 g/dl (3.5-5.0); Alkaline Phosphatase 65 U/L (38-126); Blood Urea Nitrogen 29 mg/dl (9-20); Calcium 7.8 mg/dl (8.4-10.2); Carbon Dioxide 18 mmol/L (22-30); Chloride 97 mmol/L (98-107); Glucose 109 mg/dl (70-99); Potassium 4.8 mmol/L (3.5-5.1); Sodium 125 mmol/L (135-145); Total Bilirubin 1.4 mg/dl (0.2-1.3); Total Protein 5.6 g/dl (6.3-8.2); eGFR > 60.00
[2024-07-14 00:27] LABS: Osmolality Urine 574 mOsm/kg (300-900)
[2024-07-14 00:34] LABS: Urine Sodium 52 mmol/L (30-90)
[2024-07-14] MEDS: MAXIPIME 2000 MG IV (00:35)
[2024-07-14] MEDS: NSS 250 IV ×2 (00:40→00:52)
--- NOTE | 2024-07-14 00:41 | HPS.HSE ---
Family Physician
-
Family Physician: INTERVIEWE UNKNOWN - PT NOT
Chief Complaint
-
Fever
History of Present Illness
Patient with history of hypertension, hyperlipidemia, gout, lymphocytic colitis with a recent right total knee arthroplasty complicated by multiple issues recurrent fevers who presents from the rehab facility where he has been for 4 days with a
fever of 103 �F.
Patient himself is unable to provide much history or given the positive symptoms. Specifically denies headache neck stiffness or neck pain. He denies cough. He denies shortness of breath. He denies any sore throat, postnasal drip sinus
congestion or dysphagia. He denies any chest pain. He denies nausea or vomiting. He denies any abdominal pain. He denies any diarrhea. Patient denies any dysuria or hematuria. He denies any worsening incontinence or needing for catheter. He
denies any new rash. He has no pain specific to his right knee. He seems more sluggish than compared to his baseline.
He was recently admitted for over the right total knee arthroplasty. Postop day 0 the patient developed shortness of breath and chest pain and was found to have PE. He was started on anticoagulation which resulted in a drop in his hemoglobin and
found to have GI bleed. Endoscopy showed nonbleeding duodenal ulcer patient was placed on PPI and had stable hemoglobin and no further bleeding since. He was restarted on the anticoagulation. Throughout his hospital course he had intermittent
fever. He had workup which did not show a source of infection. Blood cultures were negative viral panel was negative. Imaging showed atelectasis. Blood count was stable and was hemodynamically stable. Patient was on a short course of
antibiotics which was discontinued and patient was told to have fever due to the pulmonary embolus.
In ED she had a fever of 103.4. Blood pressure was initially 120s over 60 and now 100/60 with a pulse of 62. Oxygen saturation ranged from 93 to 96% on room air. Chest x-ray does not provide any clear opacity but possibly a left retrocardiac
opacity. White count is 10.9 hemoglobin is relatively stable at 8 and with a white count that is normal. He does have 3.6 bands on the differential. His sodium is 126, BUN and creatinine fairly stable at 24 at 9.1. Repeat COVID test is negative.
Influenza is negative.
Medical History
Past Medical History
Past Medical History: Reports Cancer (Prostate cancer status post prostatectomy), GERD (Duodenal ulcer status post GI bleed in setting of anticoagulation), HTN and Hypercholesterolemia
Additional Past Medical History:
Lymphocytic colitis
Pulmonary embolism (provoked post op for total knee arthroplasty)
Past Surgical History: Reports Orthopedic (Right total knee arthroplasty) and Urological (Prostatectomy)
Social History
Tobacco: Non-smoker
Alcohol: None
Drug: None
Personal:
Living: With Family
Employment: Retired
Family History
Family History: Not pertinent
Allergies / Home Medications
Allergies reflects when Allergies were last updated in [employer].
Home Medications with original date entered in [employer]
Allergy/Medication List:
Allergies
Allergy/AdvReac Type Severity Reaction Status Date / Time
levofloxacin Allergy red spots Verified 07/08/24 16:16
over
entire body
lisinopril [From Zestril] Allergy cough Verified 06/22/24 18:43
Home Medications
allopurinol 100 mg tablet 100 mg PO BID Gout 12/15/19
atenolol 25 mg tablet 25 mg PO DAILY Blood Pressure 06/22/24
denosumab 60 mg/mL subcutaneous syringe (Prolia) 60 mg SC [id number] Osteoporosis 06/22/24
leuprolide acetate (6 month) 45 mg intramuscular syringe kit (Lupron Depot) 45 mg IM [id number] Cancer 06/22/24
apixaban 5 mg tablet (Eliquis) 5 mg PO BID Blood clot prevention/tx #0 tabs 07/09/24
cyanocobalamin (vitamin B-12) 1,000 mcg tablet 1,000 mcg PO DAILY low normal #0 tabs 07/09/24
pantoprazole 40 mg tablet,delayed release 40 mg PO BID Gastrointestinal issue #0 tabs 07/09/24
tramadol 50 mg tablet 50 mg PO Q6HPRN PRN moderate pain #0 tabs 07/09/24
acetaminophen 325 mg tablet 650 mg PO Q4HPRN PRN mild pain 07/13/24
atorvastatin 10 mg tablet 10 mg PO HS 07/13/24
bisacodyl 10 mg rectal suppository (Dulcolax (bisacodyl)) 10 mg ND DAILYPRN PRN constipation 07/13/24
bisacodyl 5 mg tablet,delayed release (Dulcolax (bisacodyl)) 10 mg PO DAILYPRN PRN constipation 07/13/24
cholecalciferol (vitamin D3) 50 mcg (2,000 unit) tablet 50 mcg PO DAILY 07/13/24
cholestyramine (with sugar) 4 gram powder for susp in a packet 1 ea PO DAILY@0600 Gastrointestinal issue 07/13/24
docusate sodium 100 mg capsule 100 mg PO BID 07/13/24
ferrous sulfate 325 mg (65 mg iron) tablet (FeroSul) 325 mg PO DAILY anemia 07/13/24
midodrine 2.5 mg tablet 5 mg PO TID@0800,1300,1800 Blood pressure 07/13/24
polyethylene glycol 3350 17 gram oral powder packet (HealthyLax) 17 g PO DAILY Constipation 07/13/24
Review of Systems
-
History Source: Patient
Constitutional: Reports Fever
EENT: Reports No Symptoms
Respiratory: Reports No Symptoms
Cardiac: Reports No Symptoms
Abdomen/GI: Reports No Symptoms
: Reports No Symptoms
Musculoskeletal: Reports No Symptoms
Skin: Reports No Symptoms
Neurological: Reports No Symptoms
Endocrine: Reports No Symptoms
Hematologic/Lymphatic: Reports No Symptoms
Psych: Reports No Symptoms
Physical Exam
Vital Signs
Vital Signs
Temp Pulse Resp BP Pulse Ox
103.7 F H 58 12 100/62 96
07/13/24 23:15 07/14/24 00:22 07/14/24 00:22 07/14/24 00:20 07/14/24 00:22
Physical Exam
General: Appears in Distress, Poor Appetite and Appears Chronically Ill
HEENT: NormoCephalic, Anicteric, Moist mucous membranes, Atraumatic, PERRLA, No Ptosis and Neck Nontender
Respiratory: Clear
Cardiac: S1/S2 and Regular Rhythm
Breast: Deferred by me
GI: Soft, Non Tender, Non Distended and Normal Bowel Sounds
Rectal: Deferred by Provider
Genito-urinary: No costovertebral tender
Musculoskeletal: No Clubbing, No Cyanosis and Edema, Right Lower Extremity (1 + edema)
Skin: Warm
Neuro: Alert, Oriented (to person, place and year. ), No Motor Deficits, Cranial Nerves Intact and No Sensory Deficits
Hematologic/Lymphatic: No Lymphadenopathy
Psych: Calm
Laboratory Results
-
07/13/24 23:26
07/13/24 23:26
Laboratory Results
Lactic Acid 1.1 mmol/L (0.7-2.0) 07/13/24 23:26
Total Bilirubin 1.4 mg/dl (0.2-1.3) H 07/13/24 23:26
AST 47 U/L (17-59) 07/13/24 23:26
ALT 35 U/L (0-50) 07/13/24 23:26
Alkaline Phosphatase 65 U/L (38-126) 07/13/24 23:26
Data Reviewed
-
Diagnostic Radiology: Image Personally Visualized and interpreted
Lab Data: Labs Reviewed by me
Old Records: Reviewed
Impression/Plan
-
IMPRESSION:
84 M with fever. Recent hospitalization for R TKA complicated by new PE, GI bleed, fevers,
PLAN:
Fever of unknown source - Recurrent fevers on prior admission without obvious source. ABX provided for a short course. Now with high fevers again. Initial examination including skin and joints and lungs are non-revealing. Viral testing negative.
U/A is unremarkable. No obvious consolidation but possible retrocardiac opacity/aspiration, Patient appears quite fatigued and slightly toxic. Hemodynamics are stable. WBC with bands. Has been anticoagulated for the PE.
- admit to telemetry for sepsis w/o shock
- check procal, lactate, blood culture, urine culture
- CT chest w/o contrast to eval pneumonia
- Vancomycin/cefepime for now
- LFTs normal and no tenderness to palpation of abdomen
- R knee has some edema but does not appear acutely infected, monitor for now
- no diarrhea per patient but occult CDiff may be considered
- ID consultation
Hyponatremia - Hyponatremia appeared to have started on partially on 07/09 and progressive since. Na 125 today. Followed by nephrology. Urine Osm is high. Mary 63. Needs midodrine for bp support. Salt wasting, adrenal insufficiency versus SIADH.
No diuretics.
- will give 1000 ml NS bolus and re-evaluate
- salt tabs tid
- repeat labs iin 6 hours.
- has tsh, cortisol and stim test pending, would hold of acute steroids
- nephrology consult
PE
- continue apixaban
Prostate Ca
- lupron
PUD and TRE - h/o duodenal ulcer, non-bleeding on recent EGD
- continue ppi bid
- h/h in am with type and screen
- continue iron supplementation, may benefit from IV iron once ifnectious etiology ruled out
DVT PPx - on apixaban
Code status - full code
[2024-07-14] MEDS: VANCOCIN 540 MG IV (01:24)
[2024-07-14] MEDS: ProAmatine 5 MG PO (01:27)
[2024-07-14 02:55] LABS: Procalcitonin 0.18 ng/ml (0.0-0.25)
[2024-07-14] MEDS: SODIUM CHLORIDE 2 GRAM PO (03:46)
[2024-07-14 08:03] LABS: Hematocrit 26.2 % (39.0-52.0); Hemoglobin 8.5 g/dL (13.0-18.0); Mean Corp Hgb Conc. 32.4 g/dL (33.0-37.0); Mean Corpuscular Hgb 30.7 pg (27.0-31.0); Mean Corpuscular Volume 94.6 fL (80.0-94.0); Mean Platelet Volume 10.3 fL (7.4-10.4); Platelet Count 490 10^3/uL (130-400); Red Blood Cell Count 2.77 10^6/uL (4.70-6.10); Red Cell Dist. Width 18.3 % (11.5-14.5); White Blood Cell Count 9.8 10^3/uL (4.8-10.8)
[2024-07-14 08:32] LABS: Procalcitonin 0.18 ng/ml (0.0-0.25)
[2024-07-14] MEDS: MIRALAX 17 GRAMS PO (08:34)
[2024-07-14] MEDS: PROTONIX 40 MG PO ×2 (08:35→20:21)
[2024-07-14] MEDS: SODIUM CHLORIDE 1 GRAM PO ×2 (08:35→20:21)
[2024-07-14] MEDS: VITAMIN B-12 1000 MCG PO (08:35)
[2024-07-14] MEDS: ELIQUIS 5 MG PO ×2 (08:35→20:21)
[2024-07-14] MEDS: COLACE 100 MG PO ×2 (08:35→20:21)
[2024-07-14 08:36] LABS: Magnesium 2.3 mg/dl (1.6-2.3)
[2024-07-14] MEDS: QUESTRAN 4 GRAM PO (08:36)
[2024-07-14] MEDS: ZYLOPRIM 100 MG PO ×2 (08:36→20:21)
[2024-07-14] MEDS: FEOSOL 325 MG PO (08:36)
--- NOTE | 2024-07-14 08:47 | W.PN.HOSP.TC ---
Today's Communication/Plan
-
Hold further antibiotics
PT/OT
Orthopedics consult
Follow-up labs
Assessment / Plan
Assessment / Plan
Gen-awake, alert, confused, NAD
HEENT-NC, AT, anicteric, clear oral mm
Neck-supple
CV-reg, no M, +S1/S2
Lungs-clear B/L
Abd-soft, NT, ND
Ext-diffuse right lower extremity edema, bruising over the right knee, limited range of motion due to pain
Musculoskeletal-no cyanosis, clubbing
Skin-warm and dry
Neuro-grossly non-focal
Psych-calm, cooperative
Acute TME -wide differential diagnosis including hyponatremia, fever, etc. Suspect he may have underlying cognitive impairment and now has superimposed delirium.
FUO -has had intermittent fevers over the past few weeks without clear source. Last seen by infectious disease 1 week ago and differential diagnosis of fever included possible pulmonary embolism. Right lower extremity bruising and postoperative
hematoma can certainly contribute to fever. Cultures. Hold further antibiotics for now. Procalcitonin normal x 2.
No evidence of pneumonia on CT chest. COVID and influenza negative. Urinalysis negative.
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 Fluid restriction ordered. Admission sodium 125, labs pending for today. Nephrology consulted.
Recent right TKA -06/22/2024. Right lower extremity with significant edema and bruising about the knee, warmth. Limited range of motion. Consult orthopedics to evaluate as possible source of fever.
Recent postoperative pulmonary embolism -no deep vein thrombosis noted on last ultrasound. Continue Eliquis.
Recent GI bleed -EGD done 07/05 confirmed multiple and superficial well-healed and nonbleeding duodenal ulcers with a clean base. Continue pantoprazole twice daily.
Subacute normocytic anemia -hemoglobin 8.5 and at baseline. Monitor for now. Previous iron panel not entirely consistent with iron deficiency. Low normal vitamin B12 level, 315. Continue oral repletion. Check folic acid level
History of prostate cancer -s/p prostatectomy.
Essential hypertension -uncontrolled. On midodrine 5 mg 3 times daily for orthostatic hypotension. Check orthostatic vitals when able. Hold midodrine for now given elevated pressures. Midodrine dose reduced to 2.5 mg 3 times daily.
Hyperlipidemia -continue atorvastatin.
Gout -continue allopurinol.
Full code
PT/OT -he was transferred back to the hospital from [facility] 07/13 evening for fever.
Anticipated Discharge: 24 - 48 hours
Subjective/Interval History
-
Date of Service: July 14, 2024
Patient seen and examined. Appears confused but no complaints.
Objective Data
-
Labs:
Laboratory Results
07/13/24 07/14/24
23:26 07:50
WBC 10.9 H 9.8
Hgb 8.0 L 8.5 L
Hct 23.9 L 26.2 L
Plt Count 497 H 490 H
Sodium 125 L
Potassium 4.8
Chloride 97 L
Carbon Dioxide 18 L
BUN 29 H
Creatinine 1.1
Glucose 109 H
Calcium 7.8 L
Total Bilirubin 1.4 H
AST 47
ALT 35
Alkaline Phosphatase 65
Vital Signs:
Vital Signs
Temp Pulse Resp BP Pulse Ox
98.3 F 73 18 161/73 94
07/14/24 07:30 07/14/24 07:30 07/14/24 07:30 07/14/24 07:30 07/14/24 07:30
I&O
07/13/24 07/14/24 07/15/24
06:59 06:59 06:59
Intake Total 120 / 120
Output Total 400 / 400
Balance -280 / -280
Review of Systems
-
Unable to obtain full review of systems at this time due to: Acuity
History Source: Patient
All other systems: Reviewed and negative
[2024-07-14 09:03] LABS: Blood Urea Nitrogen 25 mg/dl (9-20); Calcium 8.1 mg/dl (8.4-10.2); Carbon Dioxide 21 mmol/L (22-30); Chloride 99 mmol/L (98-107); Estimated Creatinine Clearance 45 ml/min; Glucose 102 mg/dl (70-99); Potassium 4.5 mmol/L (3.5-5.1); Sodium 128 mmol/L (135-145); eGFR > 60.00
[2024-07-14 09:07] LABS: Cortisol, Random 26.1 ug/dl; TSH 1.41 uIU/ml (0.47-4.68)
--- NOTE | 2024-07-14 10:09 | CM ---
Patient seen at bedside, sleeping. Patient sister in law and brother at bedside. CM will call to patient grandson and reach out to [facility] to determine if patient is able to return when medically appropriate. CM will continue to follow for discharge
planning needs.
Plan; return to [place] pending pt/ot assessment
[2024-07-14] MEDS: TYLENOL 650 MG PO ×2 (10:54→20:20)
--- NOTE | 2024-07-14 10:59 | W.CON.NEPH ---
Consultation
-
Date/Time Consultation Requested: 07/14/24 0900
Date/Time Consultation Performed: 07/14/24 1000
Requesting Provider: Dr. Harry
Performing Provider: Dr Gallardo
Reason for Consultation: hyponatremia
Medical History
-
Chief Complaint: hypotension
History of Present Illness:
84-year-old right-handed male with prostate cancer treated with Lupron therapy, hypertension controlled on a multidrug regimen, hyperlipidemia controlled with statin therapy, gout with allopurinol, lymphocytic colitis presented to [facility] on 06/22/2024 with lightheadedness, hypotension, and hypoxia. Had an outpatient right total knee arthroplasty at an outpatient surgical center by Dr. Graves 06/22/2024. Later he was noted to have O2 saturation in the 70s. He came to the
emergency room. CT of the chest for PE protocol noting a left lower lobe pulmonary embolism with no RV strain. He developed anemia and required 1 unit of packed red blood cell transfusion. Had further drop in hemoglobin and required 2 units of
PRBCs. Fabiola du had an endoscopy on 07/05/2024 that showed superficial, well-healed, nonbleeding duodenal ulcers. Biopsies were taken from the large stomach ulcer. His course was also complicated by development of hypotension early on his
hospitalization. P was discontinued and midodrine was started. This has become dependent on midodrine.
He had some mild bleeding from the knee. He developed fever and was treated with a short course of antibiotics for fever of unclear etiology with no source of infection. Blood cultures x 2 - negative, U/A- no pyuria. No further course of
antibiotics was recommended
He is ultimately sent to [facility] for therapy
Here he was noted to have hyponatremia down to 126
His family is with him and reports that he likely is depressed. He had 2 siblings in the last month. He was very close to them. He also has been refusing to wear his new hearing aids and so has not been able to hear very well in rehab. He
refuses to bring them as he is worried that he will lose them. His appetite is also been poor and he has not been eating or drinking very much at all. By the grandson's report he likely drinks less than 24 ounces per day and eats less than 50% of
his meals.
Last night he developed a temperature of 103 and was sent to the emergency room and admitted. His sodium level remains low at 128
Past Medical History
prostate cancer, hypertension, hyperlipidemia, gout, COVID-2019, lymphocytic colitis, orthostasis, asbestos exposure
Hernia repair �3, right wrist plates and screws, right humerus lucia, 06/22/2024 right TKA
Social History
asbestos exposure
Tobacco: Former Smoker
Alcohol: Occasional
Family History
Family History: Not Pertinent
Allergies / Home Medications
Allergy/AdvReac Type Severity Reaction Status Date / Time
levofloxacin Allergy red spots Verified 07/08/24 16:16
over
entire body
lisinopril [From Zestril] Allergy cough Verified 06/22/24 18:43
�Medication �Instructions �Recorded �Confirmed �Type
allopurinol 100 mg tablet 100 mg PO BID Gout 12/15/19 07/13/24 History
atenolol 25 mg tablet 25 mg PO DAILY Blood Pressure 06/22/24 07/13/24 History
denosumab 60 mg/mL subcutaneous 60 mg SC [id number] Osteoporosis 06/22/24 07/13/24 History
syringe (Prolia)
leuprolide acetate (6 month) 45 mg 45 mg IM [id number] Cancer 06/22/24 07/13/24 History
intramuscular syringe kit (Lupron
Depot)
apixaban 5 mg tablet (Eliquis) 5 mg PO BID Blood clot 07/09/24 07/13/24 Rx
prevention/tx #0 tabs
cyanocobalamin (vitamin B-12) 1,000 mcg PO DAILY low normal #0 07/09/24 07/13/24 Rx
1,000 mcg tablet tabs
pantoprazole 40 mg tablet,delayed 40 mg PO BID Gastrointestinal 07/09/24 07/13/24 Rx
release issue #0 tabs
tramadol 50 mg tablet 50 mg PO Q6HPRN PRN moderate pain 07/09/24 07/13/24 Rx
#0 tabs
acetaminophen 325 mg tablet 650 mg PO Q4HPRN PRN mild pain 07/13/24 07/13/24 History
atorvastatin 10 mg tablet 10 mg PO HS 07/13/24 07/13/24 History
bisacodyl 10 mg rectal suppository 10 mg [place] DAILYPRN PRN constipation 07/13/24 07/13/24 History
(Dulcolax (bisacodyl))
bisacodyl 5 mg tablet,delayed 10 mg PO DAILYPRN PRN constipation 07/13/24 07/13/24 History
release (Dulcolax (bisacodyl))
cholecalciferol (vitamin D3) 50 50 mcg PO DAILY 07/13/24 07/13/24 History
mcg (2,000 unit) tablet
cholestyramine (with sugar) 4 gram 1 ea PO DAILY@0600 07/13/24 07/13/24 History
powder for susp in a packet Gastrointestinal issue
docusate sodium 100 mg capsule 100 mg PO BID 07/13/24 07/13/24 History
ferrous sulfate 325 mg (65 mg 325 mg PO DAILY anemia 07/13/24 07/13/24 History
iron) tablet (FeroSul)
midodrine 2.5 mg tablet 5 mg PO TID@0800,1300,1800 Blood 07/13/24 07/13/24 History
pressure
polyethylene glycol 3350 17 gram 17 g PO DAILY Constipation 07/13/24 07/13/24 History
oral powder packet (HealthyLax)
Review of Systems
-
No chest pain or shortness of breath. Remains confused
All other systems: Negative unless noted
Physical Exam
Vital Signs
Vital Signs
Temp Pulse Resp BP Pulse Ox
98.3 F 73 18 161/73 98
11/12/24 07:30 07/14/24 07:30 07/14/24 07:30 07/14/24 07:30 07/14/24 10:05
Lab Results
WBC 9.8 10^3/uL (4.8-10.8) 07/14/24 07:50
RBC 2.77 10^6/uL (4.70-6.10) L 07/14/24 07:50
Hgb 8.5 g/dL (13.0-18.0) L 07/14/24 07:50
Hct 26.2 % (39.0-52.0) L 07/14/24 07:50
Plt Count 490 10^3/uL (130-400) H 07/14/24 07:50
Sodium 128 mmol/L (135-145) L 07/14/24 07:50
Potassium 4.5 mmol/L (3.5-5.1) 07/14/24 07:50
Chloride 99 mmol/L (98-107) 07/14/24 07:50
Carbon Dioxide 21 mmol/L (22-30) L 07/14/24 07:50
BUN 25 mg/dl (9-20) H 07/14/24 07:50
Creatinine 1.1 mg/dL (0.7-1.3) 07/14/24 07:50
eGFR > 60.00 07/14/24 07:50
Glucose 102 mg/dl (70-99) H 07/14/24 07:50
Calcium 8.1 mg/dl (8.4-10.2) L 07/14/24 07:50
Albumin 2.8 g/dl (3.5-5.0) L 07/13/24 23:26
Laboratory Tests
07/13/24 07/13/24 07/14/24
07:27 23:26 07:50
Sodium 126 L 125 L
TSH 1.41
Random Cortisol 26.1
CT chest on 07/14/2024
IMPRESSION:
1. No evidence of lobar pneumonia or pleural effusion.
2. Reticular interstitial thickening, traction bronchiectasis, and early honeycombing, most pronounced at the lung bases, suggestive of mild to moderate interstitial fibrosis.
3. Severe coronary arterial calcification. Please correlate with symptoms of and risk factors for coronary artery disease, with further workup as clinically appropriate.
Physical Exam
Patient is awake alert oriented and in no distress. Mood and affect were pleasant, insight and judgment were good. Pupils are equal round and reactive to light, extraocular movements are intact, sclera were anicteric. Hearing was normal, ears and
nose are intact. Oropharynx was clear. Neck was supple with trachea midline and no thyromegaly. Heart was regular rate and rhythm without rubs. Lower extremities with 2+ right leg edema. Lungs were clear to auscultation bilaterally and with normal
excursion. Abdomen was soft, nontender, with normal active bowel sounds, and no hepatosplenomegaly. Skin was without rash and with normal turgor.
Data Reviewed
-
Radiology: Image Personally Visualized and interpreted (Chest x-ray on 07/13/2024 by my reading shows no acute disease, interstitial fibrosis)
CT Scan: Report Reviewed by me
Labs: Labs Reviewed by me
Old Records: Reviewed
Assessment/Plan
-
Assessment
Hypotension new
Hyponatremia new
Hyperlipidemia
Right knee replacement
Left lung PE
Prostate cancer
Gout
Anemia
Lymphocytic colitis
Plan
Urine studies would suggest excess ADH state
Blood pressure does appear improved and so we will hold midodrine at this time
Time 0 cortisol level was normal
Hypertonic saline today, may benefit from salt tablets later
I would offer no dietary restriction's at this point as he is not even close to overcoming them
He does not appear to enjoy Ensure Enlive and we will try Ensure clear
Atenolol held
Cultures pending, empiric antibiotics
Serial BMP
[2024-07-14 11:21] LABS: Folate 13.3 ng/ml (2.76-20)
[2024-07-14] MEDS: SODIUM CHLORIDE 3% 250 IV (11:29)
--- NOTE | 2024-07-14 11:46 | CON.ORTHO ---
Consultation
-
Date/Time Consultation Requested: Jul 26
Date/Time Consultation Performed: Jul 26
Requesting Provider: Howard
Performing Provider: Raleihg for
Reason for Consultation: Fever, r/o right knee as source (3 weeks from TKA)
Consultation - Orthopedics
History
Dictation#[id number]
Requested in consult to Mr. Buckley by Dr. Lawrence. He is known to us for Right TKA (Jun 25- ) 3 weeks ago. He carries a PMH of HTN, hyperlipis, gout, history of prostate CA s/p prostatectomy. Unfortunately his post-op course was
complicated by PE. He is currently on Eliquis. He was managed here medically and transferred to [facility] late last week. Last PM he was transferred back to with a fever of 103.7. Work-up ongoing. Currently with temp of 101. Dr. Lawrence
requested us to determine the potential for his right TKA as the source of his fever. He is currently resting comfortably and answers questions appropriately. Reports some pain the knee, but nothing significant. Does feel as though he is a bit stiff
given he has not received post-op PT as he would have given his post-op complications
Allergies / Home Medications
Allergy/AdvReac Type Severity Reaction Status Date / Time
levofloxacin Allergy red spots Verified 07/08/24 16:16
over
entire body
lisinopril [From Zestril] Allergy cough Verified 06/22/24 18:43
�Medication �Instructions �Recorded
allopurinol 100 mg tablet 100 mg PO BID Gout 12/15/19
atenolol 25 mg tablet 25 mg PO DAILY Blood Pressure 06/22/24
denosumab 60 mg/mL subcutaneous 60 mg SC [id number] Osteoporosis 06/22/24
syringe (Prolia)
leuprolide acetate (6 month) 45 mg 45 mg IM [id number] Cancer 06/22/24
intramuscular syringe kit (Lupron
Depot)
apixaban 5 mg tablet (Eliquis) 5 mg PO BID Blood clot 07/09/24
prevention/tx #0 tabs
cyanocobalamin (vitamin B-12) 1,000 mcg PO DAILY low normal #0 07/09/24
1,000 mcg tablet tabs
pantoprazole 40 mg tablet,delayed 40 mg PO BID Gastrointestinal 07/09/24
release issue #0 tabs
tramadol 50 mg tablet 50 mg PO Q6HPRN PRN moderate pain 07/09/24
#0 tabs
acetaminophen 325 mg tablet 650 mg PO Q4HPRN PRN mild pain 07/13/24
atorvastatin 10 mg tablet 10 mg PO HS 07/13/24
bisacodyl 10 mg rectal suppository 10 mg [place] DAILYPRN PRN constipation 07/13/24
(Dulcolax (bisacodyl))
bisacodyl 5 mg tablet,delayed 10 mg PO DAILYPRN PRN constipation 07/13/24
release (Dulcolax (bisacodyl))
cholecalciferol (vitamin D3) 50 50 mcg PO DAILY 07/13/24
mcg (2,000 unit) tablet
cholestyramine (with sugar) 4 gram 1 ea PO DAILY@0600 07/13/24
powder for susp in a packet Gastrointestinal issue
docusate sodium 100 mg capsule 100 mg PO BID 07/13/24
ferrous sulfate 325 mg (65 mg 325 mg PO DAILY anemia 07/13/24
iron) tablet (FeroSul)
midodrine 2.5 mg tablet 5 mg PO TID@0800,1300,1800 Blood 07/13/24
pressure
polyethylene glycol 3350 17 gram 17 g PO DAILY Constipation 07/13/24
oral powder packet (HealthyLax)
Vital Signs / Lab Results
Temp Pulse Resp BP Pulse Ox
101.8 F H 74 18 163/76 97
07/14/24 11:23 07/14/24 11:23 07/14/24 11:23 07/14/24 11:23 07/14/24 11:23
07/14/24 07:50
Assessment / Plan
PE: Tmax 103.7. Currently 101.8. Right knee with well healing incision. No surrounding erythema and no drainaged. Expected post-op ecchymotic changes. There is some genealized swelling at the knee with maybe a small effusion at best (but may just be
surrounding subc swelling). ROM 0-85 passively, with mild pain, but nothing significant. Calf soft, nontender. DNVI RLE
Xrays: No recent radiographs. Will order for completeness
Impression: Fever. 3 weeks post-op TKA (Jun 25). Preliminary not concerned for right TKA as the source of fever
Plan: Discussed at length with the patient and family. Also discussed with Dr. Lawrence. At 3 weeks post-op TKA I note nothing out of the ordinary. I discussed my reservations with an aspiration at this time, with the risk of introducing potential
infection that may not be present currently. However, I am not completely against this if acute reactant inflammatory markers are significantly elevated. We will first start with some routine xrays and CRP/ESR. Based on those results we will
re-consider an aspiration. At this point in time I would consider another source for his fevers. Will be on the look-out for requested labwork and make further decisions regarding his care moving forward. Appreciate Dr. Lawrence including us in his
care
[2024-07-14 12:37] LABS: Lactic Acid 0.9 mmol/L (0.7-2.0)
[2024-07-14 13:03] LABS: Erythrocyte Sed Rate > 145 mm/hour (0-20)
[2024-07-14 13:18] LABS: Blood Urea Nitrogen 23 mg/dl (9-20); Calcium 7.9 mg/dl (8.4-10.2); Carbon Dioxide 18 mmol/L (22-30); Chloride 100 mmol/L (98-107); Estimated Creatinine Clearance 50 ml/min; Glucose 112 mg/dl (70-99); Potassium 4.1 mmol/L (3.5-5.1); Sodium 126 mmol/L (135-145); eGFR > 60.00
--- NOTE | 2024-07-14 14:52 | W.PN.UPDATE ---
Update Note
Progress Note Update
Pt seen by kobe. No evidence on physical exam to support knee infection as cause of fever but to help with clarity one way or the other I rec'd we aspirate it after getting inflam labs.
He aspirated 5cc of TRICIA BLOOD from the knee.
Of note pt's original symptoms were mild dizziness after TKA (I do not believe he had syncope) and chest CT showed 'overall relatively small burden of thrombus. No CT findings suggestive of right heart strain.' I rec'd against high dose
anticoagulants but Dr. Howe and I discussed and he said it was imperative he receive them. Since being started on high dose anticoagulants pt has had requirement for multiple transfusions, massive ecchymosis and swelling in the leg and even 3
weeks after surgery continues to have tricia blood in the TKA. His incision is healed but this situation would be a high risk for hematogenously seeded infection which could easily be fatal for a man his age. Are the high dose anticoagulants in
his best interest given the totality of these findings?
The following study provides interesting perspective that might be pertinent to Mr Buckley's care: https://pmc.ncbi.nlm.nih.gov/articles/OPX5212925/
--- NOTE | 2024-07-14 15:12 | W.PN.UPDATE ---
Update Note
Progress Note Update
Patient currently Afeb at 98.8 with normal WBC at 9.8. ESR resulted at >145, CRP 15.7. We tend to lean a bit heavier on the CRP, which at 3 weeks postop from TKA, has me a bit less concerned that the source is his knee. however, with ongoing
fevers, there is still obvious concern here, and it needs to be considered. With ESR at >145, and after discussion with Dr. Lawrence, I believe an aspiration is definitely warranted. After obtaining verbal consent from the patient and his ,
and under Betadine and alcohol sterility I made 2 separate attempts with a yield of about 7 cc tricia blood. The needle hubs became clogged both times, with no additional yield. I explained to the family that tricia blood was definitely reassuring,
but not confirmatory. With his newly added Eliquis I believe he probably has a hemarthrosis. However fluid was sent for urgent cell count after confirming proper tubing by the lab. I also placed an order for GS and C&S (if possible). Ely
aware. Will follow
--- NOTE | 2024-07-14 15:14 | CON.ID ---
Consultation
-
Date/Time Consultation Requested: July 14, 2024 0241
Date/Time Consultation Performed: July 14, 2024 1515
Requesting Provider: Dr. Kayden Lawrence
Performing Provider: Dr. Denia Cedeno
Reason for Consultation: Fever
Chief Complaint / Past History
Chief Complaint
Fever and lethargy
History of Present Illness
History obtained from review of medical records as well as from his at bedside. Mr Buckley is an 84 year old male with history of lymphocytic colitis, prostate cancer s/p prostatectomy on lupron, gout on allopurinol, who underwent elective TKA
06/22 then developed lightheadedness, hypotension and hypoxemia. admitted to hospital. He was found to have PE on CTA , and started on AC. Hospital course GI bleeding with hgb declining to 7.1 and BUN increasing from 17 to 65 and dark stool; EGD
multiple superficial, well-healed nonbleeding duodenal ulcers. He then developed fevers during the hospital stay with negative infectious etiology. He received a course of ceftriaxone which was discontinued. On July 09, he was discharged to
[facility]. However, last night he developed fever 102.5 and therefore sent to the ER. He received vancomycin and cefepime. Per he was lethargic yesterday. Today he is a little bit more alert. He feels cold. He feels weak. He denies
headache, cough or shortness of breath. No chest pain. No abdominal pain. No diarrhea. No urinary symptoms. The right knee postop pain is stable. Ortho tapped the knee today with only 5 cc of bloody output.
Past History
Additional Past Medical History:
Essential Hypertension
Hyperlipidemia
Prediabetes
Lymphocytic Colitis
Prostate Cancer s/p Prostatectomy
Gout (knees) on allopurinol
Additional Past Surgical History:
Hernia Repair
Prostatectomy
Humerus Fracture Repair
Right Total Knee Replacement
Allergy History:
levofloxacin Allergy (Verified 07/08/24 16:16)
red spots over entire body
lisinopril [From Zestril] Allergy (Verified 06/22/24 18:43)
cough
Medications Reviewed: Yes
Social History
Tobacco: Former Smoker
Alcohol: Occasional
Drug: None
Family History
Family History: Not Pertinent
Review of Systems
Review of Systems
General: Fever and Change in Appetite
HEENT: Negative Sinus Problems, Headache or Pharyngitis
Cardiovascular: Negative Chest Pain or Dyspnea
Respiratory: Negative Dyspnea or Cough
Gasteroenterology: Negative Nausea, Vomiting or Diarrhea
Genital / Urological: Negative Dysuria or Flank Pain
Endocrine: Weakness and Fatigue
Skin / Hair / Nails: Negative Rash
All systems: All other systems were reviewed and were negative
Vital Signs
Temp Pulse Resp BP Pulse Ox
98.8 F 74 18 163/76 97
07/14/24 13:21 07/14/24 11:23 07/14/24 11:23 07/14/24 11:23 07/14/24 11:23
Physical Exam
Physical Exam
Constitutional: Comfortable
Head: Other (No frontal or max or sinus tenderness)
Eyes: No Conjunctival Hemorrhage and Sclera Anicteric
Cardiovascular: Regular Rate and S1/S2
Pulmonary: Clear
Gastrointestinal: Soft, Non Tender, Non Distended and Normal Bowel Sounds
Genito-Urinary: Burk and Clear Urine; Negative CVA Tenderness
Extremities: Edema (RLE 1+)
Musculoskeletal: Other (Right knee: incision closed, mod induration, dark erythema)
Neurological: Negative Meningeal Signs
Lab / Diagnostic Study Results
07/14/24 07:50
07/14/24 12:05
Abs Immat Gran (auto) 0.4 10^3/uL (0-0.05) H 07/13/24 23:26
Absolute Neuts (auto) 7.5 10^3/uL (1.4-6.5) H 07/13/24 23:26
Absolute Lymphs (auto) 1.5 10^3/uL (1.2-3.4) 07/13/24 23:26
Absolute Monos (auto) 1.2 10^3/uL (0.1-0.6) H 07/13/24 23:26
Absolute Basos (auto) 0.0 10^3/uL (0-0.2) 07/13/24 23:26
Immature Gran % 3.6 % (0-0.5) H 07/13/24 23:26
Neutrophils % 68.4 % (42.2-75.2) 07/13/24 23:26
Lymphocytes % 13.9 % (20.5-51.1) L 07/13/24 23:26
Monocytes % 11.2 % (1.7-9.3) H 07/13/24 23:26
Eosinophils % 2.5 % (0-6) 07/13/24 23:26
Basophils % 0.4 % (0-2) 07/13/24 23:26
ESR > 145 mm/hour (0-20) H 07/14/24 12:05
Lactic Acid 0.9 mmol/L (0.7-2.0) 07/14/24 12:05
C-Reactive Protein 15.70 mg/L (0.0-10.00) H 07/14/24 12:05
Procalcitonin 0.18 ng/ml (0.0-0.25) 07/14/24 07:50
Microbiology Results
Micro:
07/14/24 08:32 Nasal Screen MRSA (PCR) - Final
Nose MRSA not detected - performed by PCR methodology.
07/14/24 08:36 Blood Culture - Pending
Blood/Venous
07/14/24 07:50 Blood Culture - Pending
Blood/Venous
07/14/24 00:35 Blood Culture - Pending
Blood/Venous
07/14/24 00:25 Blood Culture - Pending
Blood/Venous
07/13/24 23:26 Influenza Types A & B (SANDOR) - Final
Nasal Swab Negative for Influenza A & B, NAAT
Negative results must be combined with clinical observations
and patient history.
Nucleic Acid Amplification test (NAAT)performed on the
[employer] platform.
07/13/24 23:26 Urine Culture - Pending
Urine
07/14/24 CT chest without contrast: No evidence of lobar pneumonia or pleural effusion. Reticular interstitial thickening, traction bronchiectasis, and early honeycombing, most pronounced at the lung bases, suggestive of mild to moderate
interstitial fibrosis.
07/14/24 Right knee xray: There has been a right knee replacement. Alignment appears normal. No acute fractures nor dislocations are noted. There is suggestion of a moderate suprapatellar joint effusion. There is moderate suprapatellar soft tissue
swelling. There are vascular calcifications.
Assessment / Plan
# Recurrence of fevers
# Recent R TKA 06/22/24
# PE dx post-op (06/22/24) on AC
- Previous work up of fever neg infectious etiology
- 07/[address] no PNA;
- Knee Xray moderate supra-patellar effusion.
07/14 Ortho aspirated knee 5 cc tricia blood, studies pending.
-UA not pyuria
- Recent TTE neg vege
-Unlikly gout flare while on Allopurinol, but will check uric acid level.
- fever possibly from hemarthrosis
- Await blood cx's.
- Consider CT a/p for FUO work-up
[2024-07-14 16:06] LABS: Body Fluid Granulocytes 89 %; Body Fluid Lymphocytes 5 %; Body Fluid Macrophages 6 %
[2024-07-14 16:10] LABS: Body Fluid Second Tech FB
[2024-07-14 17:22] LABS: Uric Acid 4.2 mg/dl (3.5-8.5)
[2024-07-14] MEDS: LIPITOR 10 MG PO (20:21)
[2024-07-14 21:12] LABS: Blood Urea Nitrogen 21 mg/dl (9-20); Calcium 7.7 mg/dl (8.4-10.2); Carbon Dioxide 20 mmol/L (22-30); Chloride 102 mmol/L (98-107); Estimated Creatinine Clearance 55 ml/min; Glucose 104 mg/dl (70-99); Potassium 4.1 mmol/L (3.5-5.1); Sodium 130 mmol/L (135-145); eGFR > 60.00
[2024-07-15] VITALS (8 sets, daily range): BP systolic 101–163; BP diastolic 55–75; PULSE 76–113; O2SAT 97
--- NOTE | 2024-07-15 05:46 | PTCARENOTE ---
Pt aaox3 able to make his needs known,periods of confusion at times only.Denies pain. SUPERVISOR LOOPING online advertising director made aware of pt repeat labs, temp 103F,prn tylenol given.SOCIAL WELFARE RESEARCH WORKER was made aware of pt had a BM with white mucus consistency once.Pt asymptomatic.SOCIAL WELFARE RESEARCH WORKER
ordered stool culture for pt.Plan of care continued on pt.
[2024-07-15 07:39] LABS: Hematocrit 25.7 % (39.0-52.0); Hemoglobin 8.1 g/dL (13.0-18.0); Mean Corp Hgb Conc. 31.5 g/dL (33.0-37.0); Mean Corpuscular Hgb 29.7 pg (27.0-31.0); Mean Corpuscular Volume 94.1 fL (80.0-94.0); Mean Platelet Volume 9.9 fL (7.4-10.4); Platelet Count 460 10^3/uL (130-400); Red Blood Cell Count 2.73 10^6/uL (4.70-6.10); Red Cell Dist. Width 18.5 % (11.5-14.5); White Blood Cell Count 10.8 10^3/uL (4.8-10.8)
--- NOTE | 2024-07-15 07:51 | W.PN.UPDATE ---
Update Note
Progress Note Update
There is low suspicion for PJI based on knee x-ray and inflammatory labs yesterday. Will continue to follow repeat blood cultures. Orthopedics will follow peripherally, but please reengage with any additional questions or concerns. Would recommend
patient continue with physical therapy to tolerance. Spoke with Dr. Graves and he is in agreement.
[2024-07-15 08:41] LABS: Blood Urea Nitrogen 19 mg/dl (9-20); Calcium 7.6 mg/dl (8.4-10.2); Carbon Dioxide 21 mmol/L (22-30); Chloride 102 mmol/L (98-107); Estimated Creatinine Clearance 55 ml/min; Glucose 89 mg/dl (70-99); Potassium 4.2 mmol/L (3.5-5.1); Sodium 131 mmol/L (135-145); eGFR > 60.00
[2024-07-15] MEDS: ELIQUIS 5 MG PO ×2 (08:51→20:44)
[2024-07-15] MEDS: PROTONIX 40 MG PO ×2 (08:51→20:43)
[2024-07-15] MEDS: COLACE PO ×2 (08:51→20:43)
[2024-07-15] MEDS: ZYLOPRIM 100 MG PO ×2 (08:52→20:44)
[2024-07-15] MEDS: SODIUM CHLORIDE 1 GRAM PO ×2 (08:52→20:44)
[2024-07-15] MEDS: VITAMIN B-12 1000 MCG PO (08:52)
[2024-07-15] MEDS: FEOSOL 325 MG PO (08:52)
--- NOTE | 2024-07-15 08:57 | PHA.VAN.IN ---
Assessment
- Assessment
Renal Function: Appears similar to baseline
Maximum Temperature: 103 F - 07/14 19:49 - ORAL
AUC Dosing Plan
- Dosing Variables
Dosing Weight (kg): 73
Dosing CrCl (ml/min): 55
Vd coefficient (L/kg): 0.7
- Empiric Dosing
Initial / Loading Dose: 2000mg - 07/14 01:24
Maintenance Regimen: Vanc 1250mg Q24H - first dose now then 07/16 0600
Estimated AUC (mcg*h/mL): 507
Estimated Peak (mcg*h/mL): 35
Estimated Trough (mcg/ml): 11.3
Estimated Half Life (H): 13.8
- Monitoring
No levels ordered at this time: consider levels in next few days
Pharmacokinetics Vancomycin I
- -
Patient Age: 84
Patient Sex: Male
Vancomycin Day #: 2 (received initial dose 07/14)
Indication: Bacteremia
Requesting Provider: Dr. Cedeno
Pertinent Antimicrobial Allergies:
levofloxacin - red spots over entire body
Height / Weight:
Height 5 ft 6 in
Actual Weight 73.028 kg
Pertinent Past Medical History: TKA (06/22)
- Vital Signs / Lab Results
Temp Pulse Resp BP Pulse Ox
101 F H 79 20 163/75 96
07/15/24 07:16 07/15/24 07:16 07/15/24 07:16 07/15/24 07:16 07/15/24 08:50
Lab Results - Hematology
07/13/24 07/14/24 07/15/24
23:26 07:50 07:18
WBC 10.9 H 9.8 10.8
Lab Results - Chemistry
07/13/24 07/14/24 07/14/24
23:26 07:50 12:05
BUN 29 H 25 H 23 H
Creatinine 1.1 1.1 1.0
Estimated Creat Clear 45 50
Albumin 2.8 L
07/14/24 07/14/24 07/15/24
17:01 20:52 07:19
BUN Cancelled 21 H 19
Creatinine Cancelled 0.9 0.9
Estimated Creat Clear Cancelled 55 55
Albumin
07/13/24 07/14/24 07/14/24
23:26 02:41 03:30
Lactic Acid 1.1 Cancelled Cancelled
07/14/24 07/14/24 07/14/24
07:50 10:41 12:05
Lactic Acid 1.0 Cancelled 0.9
Lab Results - Urine
07/13/24
23:26
Urine Nitrite (Reflex) Negative
Leukocyte Esterase Rfl Trace A
Urine WBC (Reflex) 0-2
Urine Bacteria (Reflex) Moderate A
Microbiology Results
07/14/24 08:36 Blood Culture - Preliminary
Blood/Venous No Growth in 24 hours- Final report to follow
07/14/24 00:35 Blood Culture - Preliminary
Blood/Venous Positive culture in progress
Gram Stain - Preliminary
07/14/24 07:50 Blood Culture - Preliminary
Blood/Venous No Growth in 24 hours- Final report to follow
07/14/24 00:25 Blood Culture - Preliminary
Blood/Venous No Growth in 24 hours- Final report to follow
07/14/24 08:32 Nasal Screen MRSA (PCR) - Final
Nose MRSA not detected - performed by PCR methodology.
07/13/24 23:26 Influenza Types A & B (SANDOR) - Final
Nasal Swab Negative for Influenza A & B, NAAT
Negative results must be combined with clinical observations
and patient history.
Nucleic Acid Amplification test (NAAT)performed on the
[employer] platform.
[2024-07-15] MEDS: MIRALAX PO (09:07)
[2024-07-15] MEDS: QUESTRAN 4 GRAM PO (10:01)
[2024-07-15] MEDS: FLUSH (NSS) 1 FLUSH IV (10:01)
[2024-07-15] MEDS: VANCOCIN 275 MG IV (10:01)
--- NOTE | 2024-07-15 10:29 | W.PN.HOSP.TC ---
Addendum entered and electronically signed by Kayden Lawrence DO 07/15/24 16:13:
Patient's grandson Rodo updated on the phone. He is a nurse.
Original Note:
Today's Communication/Plan
-
CT abdomen/pelvis
Assessment / Plan
Assessment / Plan
Gen-awake, alert, NAD
HEENT-NC, AT, anicteric, clear oral mm
Neck-supple
CV-reg, no M, +S1/S2
Lungs-clear B/L
Abd-soft, NT, ND
Ext-diffuse right lower extremity edema, bruising over the right knee, limited range of motion due to pain
Musculoskeletal-no cyanosis, clubbing
Skin-warm and dry
Neuro-grossly non-focal
Psych-calm, cooperative
Acute TME -wide differential diagnosis including hyponatremia, fever, etc. Suspect he may have underlying cognitive impairment and now has superimposed delirium. Confusion overall is improving compared to yesterday.
FUO -has had intermittent fevers over the past few weeks without clear source. Last seen by infectious disease 1 week ago and differential diagnosis of fever included possible pulmonary embolism. Right lower extremity bruising and postoperative
hematoma can certainly contribute to fever. 1 blood culture bottle positive for gram-positive cocci in clusters, likely contamination, await final culture. Hold further antibiotics for now. Procalcitonin normal x 2.
No evidence of pneumonia on CT chest. COVID and influenza negative. Urinalysis negative.
Check CT abdomen/pelvis, discussed with ID.
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 Hyponatremia improving on fluid restriction.
Recent right TKA -06/22/2024. Right lower extremity with significant edema and bruising about the knee, warmth. Limited range of motion. Orthopedics input noted, minimal fluid that was bloody was aspirated from the right knee 07/14.
Unfortunately fluid was not sent for culture. Re-aspiration of the right knee performed today 07/15 and fluid to be sent for culture. Discussed with Dr. Graves.
Recent postoperative pulmonary embolism -no deep vein thrombosis noted on last ultrasound. Continue Eliquis.
Recent GI bleed -EGD done 07/05 confirmed multiple and superficial well-healed and nonbleeding duodenal ulcers with a clean base. Continue pantoprazole twice daily.
Subacute normocytic anemia -hemoglobin at baseline. Monitor for now. Previous iron panel not entirely consistent with iron deficiency. Low normal vitamin B12 level, 315. Continue oral repletion. Folic acid level normal.
History of prostate cancer -s/p prostatectomy.
Essential hypertension -uncontrolled. On midodrine 5 mg 3 times daily for orthostatic hypotension. Check orthostatic vitals when able. Hold midodrine for now given elevated pressures. Midodrine dose reduced to 2.5 mg 3 times daily.
Hyperlipidemia -continue atorvastatin.
Gout -continue allopurinol.
Full code
Dispo -back to [facility] when medically stable.
Anticipated Discharge: > 48 hours
Subjective/Interval History
-
Date of Service: July 15, 2024
Patient seen and examined. No complaints.
Objective Data
-
Labs:
Laboratory Results
07/14/24 07/15/24 07/15/24
17:01 07:18 07:19
WBC 10.8
Hgb 8.1 L
Hct 25.7 L
Plt Count 460 H
Sodium Cancelled 131 L
Potassium Cancelled 4.2
Chloride Cancelled 102
Carbon Dioxide Cancelled 21 L
BUN Cancelled 19
Creatinine Cancelled 0.9
Glucose Cancelled 89
Calcium Cancelled 7.6 L
Vital Signs:
Vital Signs
Temp Pulse Resp BP Pulse Ox
99.4 F 79 20 163/75 96
07/15/24 10:09 07/15/24 07:16 07/15/24 07:16 07/15/24 07:16 07/15/24 08:50
I&O
1107/15/24 07/16/24
06:59 06:59 06:59
Intake Total 120 / 120 360 / 360
Output Total 400 / 400 975 / 975
Balance -280 / -280 -615 / -615
Review of Systems
-
History Source: Patient
All other systems: Reviewed and negative
--- NOTE | 2024-07-15 10:38 | CM ---
Patient seen at bedside. CM spoke with physician and referral sent to [facility], await response. CM will continue to follow for discharge planning needs.
Plan; return to [facility] when medically appropriate
--- NOTE | 2024-07-15 10:50 | W.PN.ID1 ---
Date of Service
Date of Service: July 15, 2024
Today's Communication
Follow blood cx's.
CT a/p.
Assessment / Plan
# Recurrence of fevers (FUO), persist
# Recent R TKA 06/22/24
# PE dx post-op (06/22/24) on AC
- Previous work up of fever neg infectious etiology
- 07/[address] no PNA;
- Knee Xray moderate supra-patellar effusion.
07/14 Ortho aspirated knee 5 cc tricia blood, specimen clotted
-UA no pyuria
- Recent TTE neg vege
-Bcx 1 of 3 sets, GPC clusters ?contaminant
Repeat 2 sets of blood cx's then start Vancomycin pending identification of organism.
- For CT a/p for FUO work-up
- Check FLACA
-Follow temps.
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
Essential Hypertension
Hyperlipidemia
Prediabetes
Lymphocytic Colitis
Prostate Cancer s/p Prostatectomy
Gout (knees) on allopurinol
Hernia Repair
Prostatectomy
Humerus Fracture Repair
Right Total Knee Replacement
Chief Complaint
-: Fever
Subjective / Review of Systems
Feels improved today. Laron alert.
No specific complaints. Wants to order lunch.
Review of Systems: No Cough, No Abdominal Pain, Nausea and No Diarrhea
Vital Signs / Physical Exam
Vital Signs
Vital Signs
Temp Pulse Resp BP Pulse Ox
99.4 F 79 20 163/75 96
07/15/24 10:09 07/15/24 07:16 07/15/24 07:16 07/15/24 07:16 07/15/24 08:50
Selected Entries
07/14/24
19:49 07/15/24
07:16
Temp 103 F H 101 F H
Physical Exam
Constitutional: No Acute Distress and Comfortable
Eyes: Sclera Anicteric
Cardiovascular: Regular Rate and S1/S2
Pulmonary: Clear
Gastrointestinal: Soft, Non Tender, Non Distended and Normal Bowel Sounds
Genito-Urinary: Negative CVA Tenderness
Extremities: Edema (RLE)
Musculoskeletal: Other (Right knee+ effusion/warmth, dark erythema)
Neurological: AO x 3
Objective Data
Lab Data
Lab Results
07/15/24 07:18
07/15/24 07:19
ESR > 145 mm/hour (0-20) H 07/14/24 12:05
Estimated Creat Clear 55 ml/min 07/15/24 07:19
Lactic Acid 0.9 mmol/L (0.7-2.0) 07/14/24 12:05
Total Bilirubin 1.4 mg/dl (0.2-1.3) H 07/13/24 23:26
AST 47 U/L (17-59) 07/13/24 23:26
ALT 35 U/L (0-50) 07/13/24 23:26
Alkaline Phosphatase 65 U/L (38-126) 07/13/24 23:26
C-Reactive Protein 15.70 mg/L (0.0-10.00) H 07/14/24 12:05
Most recent labs reviewed.
Micro Results:
07/15/24 09:26 Blood Culture - Pending
Blood/Venous
07/15/24 09:01 Blood Culture - Pending
Blood/Venous
07/13/24 23:26 Urine Culture - Final
Urine NO GROWTH
07/14/24 08:36 Blood Culture - Preliminary
Blood/Venous No Growth in 24 hours- Final report to follow
07/14/24 00:35 Blood Culture - Preliminary
Blood/Venous Positive culture in progress
Gram Stain - Preliminary
07/14/24 07:50 Blood Culture - Preliminary
Blood/Venous No Growth in 24 hours- Final report to follow
07/14/24 00:25 Blood Culture - Preliminary
Blood/Venous No Growth in 24 hours- Final report to follow
07/14/24 08:32 Nasal Screen MRSA (PCR) - Final
Nose MRSA not detected - performed by PCR methodology.
07/13/24 23:26 Influenza Types A & B ([facility]) - Final
Nasal Swab Negative for Influenza A & B, NAAT
Negative results must be combined with clinical observations
and patient history.
Nucleic Acid Amplification test (NAAT)performed on the
[employer] platform.
07/14/24 CT chest without contrast: No evidence of lobar pneumonia or pleural effusion. Reticular interstitial thickening, traction bronchiectasis, and early honeycombing, most pronounced at the lung bases, suggestive of mild to moderate
interstitial fibrosis.
07/14/24 Right knee xray: There has been a right knee replacement. Alignment appears normal. No acute fractures nor dislocations are noted. There is suggestion of a moderate suprapatellar joint effusion. There is moderate suprapatellar soft tissue
swelling. There are vascular calcifications.
Care Review
Plan reviewed with: Physician (Dr. Lawrence)
[2024-07-15] MEDS: OMNIPAQUE 50 ML PO (11:13)
--- NOTE | 2024-07-15 11:29 | W.PN.UPDATE ---
Update Note
Progress Note Update
Pt seen and examined, knee wound looks quite good. There's eccymosis but no drainage and it's nontender to palp. The culture from yesterday was not processed by the lab because it was in a tube so with pt consent I reaspirated the kne eagain. I
made a lot of effort, and obtained only a few drops of coagulated blood. I personally walked the syringe down to the lab but they refused to process it because it has a needle on it. I explained the needle itself had a good portion of the blood I
needed to culture so they let me personally plate it in the fume garcia which I did with sterile technique. Will follow this second culture... Pt can certaintly do physical therapy while here.
--- NOTE | 2024-07-15 12:21 | W.PN.NEPH.PH ---
Today's Communication / Plan
-
Maintain salt tablet
follow bmp
Assessment/Plan
-
Assessment
Hypotension new
Hyponatremia new
Hyperlipidemia
Right knee replacement
Left lung PE
Prostate cancer
Gout
Anemia
Lymphocytic colitis
Plan
Urine studies would suggest excess ADH state
Sodium up to 131 following hypertonic saline infusion
Blood pressure does appear improved and so we will hold midodrine at this time
Time 0 cortisol level was normal
I would offer no dietary restriction's at this point as he is not even close to overcoming them
He does not appear to enjoy Ensure Enlive and we will try Ensure clear
Atenolol held
Cultures pending, empiric antibiotics
Serial BMP
-
-
Date of Service: July 15, 2024
CC / HPI / ROS
-
Chief Complaint:
Hyponatremia
History of Present Illness:
Sodium up to 131 following hypertonic saline infusion
Hemodynamically stable off midodrine
Review of Systems:
Febrile
Nonoliguric
Labs
-
Labs:
WBC 10.8 10^3/uL (4.8-10.8) 07/15/24 07:18
RBC 2.73 10^6/uL (4.70-6.10) L 07/15/24 07:18
Hgb 8.1 g/dL (13.0-18.0) L 07/15/24 07:18
Hct 25.7 % (39.0-52.0) L 07/15/24 07:18
Plt Count 460 10^3/uL (130-400) H 07/15/24 07:18
Sodium 131 mmol/L (135-145) L 07/15/24 07:19
Potassium 4.2 mmol/L (3.5-5.1) 07/15/24 07:19
Chloride 102 mmol/L (98-107) 07/15/24 07:19
Carbon Dioxide 21 mmol/L (22-30) L 07/15/24 07:19
BUN 19 mg/dl (9-20) 07/15/24 07:19
Creatinine 0.9 mg/dL (0.7-1.3) 07/15/24 07:19
eGFR > 60.00 07/15/24 07:19
Glucose 89 mg/dl (70-99) 07/15/24 07:19
Calcium 7.6 mg/dl (8.4-10.2) L 07/15/24 07:19
Albumin 2.8 g/dl (3.5-5.0) L 07/13/24 23:26
Physical Exam
-
Vital Signs:
Vital Signs
Temp Pulse Resp BP Pulse Ox
98.8 F 71 18 125/57 94
07/15/24 11:20 07/15/24 11:20 07/15/24 11:20 07/15/24 11:20 07/15/24 11:20
Cardiovascular:: Regular rate and rhythm
Respiratory:: Bilateral: CTA
Extremity Edema:: +2: Right:
Burk Catheter: No
--- NOTE | 2024-07-15 16:08 | PTCARENOTE ---
Pt AAO x3, sl forgetful at times; sl HO-CHUNK. VELAZCO; OOB to chair with assist x1/walker, lisa well. Pt denies Rt knee discomfort with OOB activity. VSS. Telemetry:NSR. On room air- pulse ox 99%, no SOB noted. Abd soft, rounded, lisa PO well. No BM so
far this shift. Incont urine/spills urinal. Pale , currently afebrile, warm and dry. Rt knee dsg D/I. Resting comfortably at present; at bedside. Will continue to monitor.
[2024-07-15] MEDS: TYLENOL 650 MG PO (20:38)
[2024-07-15] MEDS: LIPITOR 10 MG PO (22:10)
[2024-07-16] VITALS (7 sets, daily range): BP systolic 104–157; BP diastolic 59–82; O2SAT 97
[2024-07-16] MEDS: TYLENOL 650 MG PO ×2 (05:04→18:09)
[2024-07-16] MEDS: VANCOCIN 275 MG IV (05:18)
[2024-07-16 08:36] LABS: Hematocrit 23.7 % (39.0-52.0); Hemoglobin 7.7 g/dL (13.0-18.0); Mean Corp Hgb Conc. 32.5 g/dL (33.0-37.0); Mean Corpuscular Hgb 30.7 pg (27.0-31.0); Mean Corpuscular Volume 94.4 fL (80.0-94.0); Mean Platelet Volume 10.3 fL (7.4-10.4); Platelet Count 450 10^3/uL (130-400); Red Blood Cell Count 2.51 10^6/uL (4.70-6.10); Red Cell Dist. Width 18.5 % (11.5-14.5); White Blood Cell Count 10.8 10^3/uL (4.8-10.8)
--- NOTE | 2024-07-16 08:47 | W.PN.HOSP.TC ---
Today's Communication/Plan
-
Physiatry to see
Stop vancomycin
Assessment / Plan
Assessment / Plan
Gen-awake, alert, NAD
HEENT-NC, AT, anicteric, clear oral mm
Neck-supple
CV-reg, no M, +S1/S2
Lungs-clear B/L
Abd-soft, NT, ND
Ext-diffuse right lower extremity edema, bruising over the right knee, limited range of motion due to pain
Musculoskeletal-no cyanosis, clubbing
Skin-warm and dry
Neuro-severe right hip flexor and knee flexor weakness. Nonfocal upper extremities.
Psych-calm, cooperative
Acute TME -wide differential diagnosis including hyponatremia, fever, etc. Suspect he may have underlying cognitive impairment and now has superimposed delirium. Confusion overall is improving. Needs formal cognitive assessment after discharge.
FUO -has had intermittent fevers over the past few weeks without clear source. Last seen by infectious disease 1 week ago and differential diagnosis of fever included possible pulmonary embolism. Right lower extremity bruising and postoperative
hematoma can certainly contribute to fever. Procalcitonin normal x 2.
No evidence of pneumonia on CT chest, no evidence of intra-abdominal infection on CT abdomen/pelvis. Bilateral lower extremity Doppler ultrasound negative for DVT. COVID and influenza negative. Urinalysis negative.
1 blood culture bottle positive for micrococcus, suspect contamination. Stop vancomycin, discussed with ID.
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 Hyponatremia improving on fluid restriction. Labs pending for today.
Recent right TKA -06/22/2024. Right lower extremity with significant edema and bruising about the knee, warmth. Limited range of motion. Orthopedics input noted, minimal fluid that was bloody was aspirated from the right knee 07/14.
Unfortunately fluid was not sent for culture. Re-aspiration of the right knee performed today 07/15 and fluid to be sent for culture. Discussed with Dr. Graves.
Severe right lower extremity weakness involving hip flexors and knee flexors noted. Unclear if this is normal postoperative course after knee replacement with baseline deconditioning versus other etiology. I asked Dr. Cheung why to assess today.
Recent postoperative pulmonary embolism -no deep vein thrombosis noted on last ultrasound. Continue Eliquis.
Recent GI bleed -EGD done 07/05 confirmed multiple and superficial well-healed and nonbleeding duodenal ulcers with a clean base. Continue pantoprazole twice daily.
Subacute normocytic anemia -hemoglobin 7.7 today. Monitor for now. Previous iron panel not entirely consistent with iron deficiency. Low normal vitamin B12 level, 315. Continue oral repletion. Folic acid level normal.
History of prostate cancer -s/p prostatectomy.
Essential hypertension -uncontrolled. On midodrine 5 mg 3 times daily for orthostatic hypotension. Check orthostatic vitals when able. Hold midodrine for now given elevated pressures. Midodrine dose reduced to 2.5 mg 3 times daily.
Hyperlipidemia -continue atorvastatin.
Gout -continue allopurinol.
Full code
Dispo -back to [facility] when medically stable.
Anticipated Discharge: 24 - 48 hours
Subjective/Interval History
-
Date of Service: July 16, 2024
Patient seen and examined. No new complaints.
Objective Data
-
Labs:
Laboratory Results
07/16/24
07:26
WBC 10.8
Hgb 7.7 L
Hct 23.7 L
Plt Count 450 H
Sodium Pending
Potassium Pending
Chloride Pending
Carbon Dioxide Pending
BUN Pending
Creatinine Pending
Glucose Pending
Calcium Pending
Vital Signs:
Vital Signs
Temp Pulse Resp BP Pulse Ox
100.1 F 83 18 120/59 94
07/16/24 07:17 07/16/24 07:17 07/16/24 07:17 07/16/24 07:17 07/16/24 07:17
I&O
07/15/24 07/16/24 07/17/24
06:59 06:59 06:59
Intake Total 360 / 360 2074
Output Total 975 / 975 330 / 330
Balance -615 / -615 1744 / 1744
Review of Systems
-
History Source: Patient
All other systems: Reviewed and negative
[2024-07-16 08:56] LABS: Blood Urea Nitrogen 15 mg/dl (9-20); Calcium 7.3 mg/dl (8.4-10.2); Carbon Dioxide 21 mmol/L (22-30); Chloride 102 mmol/L (98-107); Estimated Creatinine Clearance 62 ml/min; Glucose 95 mg/dl (70-99); Potassium 3.7 mmol/L (3.5-5.1); Sodium 130 mmol/L (135-145); eGFR > 60.00
--- NOTE | 2024-07-16 09:13 | CON.MD ---
Consultation - Medical
-
Chief Complaint:�Right knee replacement with Pulmonary embolism
�
History of Present Illness:�84-year-old right-handed male with PMH of (prostate cancer, hypertension, hyperlipidemia, gout, COVID-19 2019, lymphocytic colitis, orthostasis, asbestos exposure) presented to [facility] on 06/22/2024 with
lightheadedness, hypotension, and hypoxia. Had an outpatient right total knee arthroplasty at an outpatient surgical center by Dr. Graves earlier in the day before symptoms started. Noted to have O2 saturation in the 70s. CT of the chest for PE
protocol noting a left lower lobe pulmonary embolism with no RV strain. Developed anemia and required 1 unit of packed red blood cell transfusion. Had further drop in hemoglobin and required 2 units of PRBCs. Eliquis held and evaluated. He was
thought to have a GI bleed and GI was consulted. He had an endoscopy on 07/05/2024 that showed superficial, well-healed, nonbleeding duodenal ulcers. Biopsies were taken from the large stomach ulcer. Protonix 40mg IV bid was started and
anticoagulation was restarted on 07/06/2024.
He had some mild bleeding from the knee. His Aquacel was removed by Dr. Graves on 07/08/24. He developed fever and ID was consulted. He was treated with a short course of antibiotics for fever of unclear etiology with no source of infection. blood
cultures x 2 - negative, U/A- no pyuria. No further course of antibiotics was recommended by ID as they feel that it is likely secondary to PE.
He also had elevated troponin, likely secondary to PE, that has trended down. [facility] has arranged for a followup with him for 07/20/2024.
He has a history of lymphocytic colitis and takes colestipol for symptomatic treatment at home. He was placed on Questran while in the hospital since his medication is not on formulary here..
He was also constipated and that seems to have been resolved. He was taken off ASA as DVT prophylaxis since he was started on Eliquis.
Patient was admitted to [facility]. He denies any sob, chest pain, nausea, vomiting, fever, chills, abdominal pain, dysuria. He reports to have not had a bowel movement for 3 days in the hospital and was placed on bowel regimen. He received his Meds
here at [facility] and reports to have had an explosive bowel movement and is feeling good. He slept ok for the most part and was up a couple of times looking at the clock. He is refusing any medication to help with sleep. He denies any pain in the knee
or leg or calf. He had therapy this morning and tolerated it well.
Past Medical History: prostate cancer, hypertension, hyperlipidemia, gout, COVID-19 2019, lymphocytic colitis, orthostasis, asbestos exposure
Procedure History: Hernia repair �3, right wrist plates and screws, right humerus lucia, 06/22/2024 right TKA
Family History: Father with coronary artery disease and diabetes. Mother with coronary artery disease and leukemia. Brother of alcoholism at age 49
�
�
Social History:�
Functional Level Premorbidly:�Independent with all activities�
Functional Level Currently:�Supervision- bed mobility, transfers-min assist, ambulating 20 feet x 1 with rolling walker then 35 feet.-min assist toileting-mod assist, LE ADL- Max assist, UE ADL- set-up/Clean up
�
Tobacco:�Former, quit many years ago
Alcohol:�Denies�
Drug use:�Denies�
�
Lives with: Apartment with spouse
24-hour assistance available: Yes
Number of floors: 1
# steps to enter: 1+4 and 3 sets of 7
Driving: Yes
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
�
�
Allergies:�
Allergy/AdvReac Type Severity Reaction Status Date / Time
levofloxacin Allergy red spots Verified 06/22/24 18:43
over
entire body
lisinopril [From Zestril] Allergy cough Verified 06/22/24 18:43
Review of Systems:�
Constitutional: (x) abNormal _fatigue, fevers
Eye: (x) Normal _
Ear/Nose/Throat: (x) Normal _
Respiratory: (x) abNormal _chronic pulmonary issues with recent pulmonary embolism
Cardiovascular: (x) Normal _
Gastrointestinal: (x) abNormal _bleeding requiring transfusions,
Genitourinary: (x) Normal _
Musculoskeletal: (x)s/p right knee replacement
Integumentary: (x) Normal _
Neurologic: (x) Normal _
Psychiatric: (x) Normal _
Endocrine: (x) Normal _
Hematologic/Lymphatic: (x) anemia, iron deficiency
Allergic/Immunologic: (x) Normal _
Medications:�
Active Current Visit Medication List
Category Date Time Status
Acetaminophen [Tylenol/Feverall] Med 07/14/24 02:41 Active
650 mg RECTAL Q4HPRN PRN
Acetaminophen [Tylenol] Med 07/14/24 02:41 Active
650 mg PO Q4HPRN PRN
Allopurinol [Zyloprim] Med 07/14/24 08:00 Active
100 mg PO BID
Atorvastatin [Lipitor] Med 07/14/24 22:00 Active
10 mg PO HS
Bisacodyl [Dulcolax] Med 07/14/24 02:41 Active
10 mg RECTAL DAILYPRN PRN
Cholestyramine [Questran] Med 07/14/24 09:00 Active
4 gram PO DAILY@0900
Cyanocobalamin [Vitamin B-12] Med 07/14/24 08:00 Active
1,000 mcg PO DAILY
Docusate Sodium [Colace] Med 07/14/24 08:00 Active
100 mg PO BID
Enoxaparin Sodium [Lovenox] Med 07/16/24 09:00 Active
80 mg SC Q12H
Ferrous Sulfate [Feosol] Med 07/14/24 08:00 Active
325 mg PO DAILY
Flush (0.9% Sodium Chloride) [Flush (Nss)] Med 07/14/24 03:00 Active
See Dose Instructions IV PER PROTOCOL
Pantoprazole [Protonix] Med 07/14/24 08:00 Active
40 mg PO BID
Polyethylene Glycol Powder [Miralax] Med 07/14/24 08:00 Active
17 grams PO DAILY
Sodium Chloride Med 07/14/24 08:00 Active
1 gram PO BID
Tramadol HCl [Ultram] Med 07/14/24 02:41 Active
50 mg PO Q6HPRN PRN
Vitals:�
Temp Pulse Resp BP Pulse Ox
100.1 F 83 18 120/59 94
07/16/24 07:17 07/16/24 07:17 07/16/24 07:17 07/16/24 07:17 07/16/24 07:17
Height 5 ft 6 in
Actual Weight 73.028 kg
Body Mass Index (BMI) 26.0
�
Physical Exam:�
General Appearance/Observation: Well-developed, well-nourished male in no apparent distress.�
Pain/Comfort Assessment: denies pain
Mood/Affect: Appropriate�
�
Integumentary/Operative Site:�Right knee incision well healed with scabs. No drainage. Ecchymosis diffusely right leg
�
Eyes: Conjunctiva/Lids: normal���� Pupils: pupils equal round and reactive to light and Accommodation�
Ears/Nose/Throat: oral mucosa moist,� throat clear.������������ Lips/Teeth/Gums: normal�
Cardiovascular: Heart: regular, no murmur�
Pulses: dorsalis pedis 2+ bilaterally�
Respiratory: Respiratory Effort/Chest Expansion: normal������� Auscultation: Diminished BS to auscultation bilaterally�
Gastrointestinal: abdomen not tender, no distension, normal abdominal bowel sounds
Genitourinary: No Burk�
Extremities:�Edema: right knee and leg with some swelling, hematoma, No calf tenderness or pain�Cyanosis: None�Trophic�changes: None
�
Neurology Exam:
Orientation: Alert, Oriented to self, Time, Place�
Memory: intact
Comprehension: Intact
Two step command: Intact
Cranial Nerves:
�� CNII:�Pupillary light reflex: Intact����
�� CN III, IV, : Extraocular muscles: Intact�
�� CN VII:�Facial movement: Symmetric
�� CN VIII:�Hearing: Normal
�� CN IX/X:�Speech & swallow: Normal,�Position of Uvula: Midline
�� CN XI:�Shoulder shrug: Symmetric
�� CN XII:�Tongue protrusion: Midline
Sensory:
�� Light touch: Intact in bilateral upper and lower extremities
Reflexes:
�� Biceps: 2+ bilaterally
�� Brachioradialis: 2+ bilaterally
�� Triceps: 2+ bilaterally
�� Patellar: 2+ Left, right NT
�� Achilles:0 bilaterally
�� Babinski: Down going bilaterally
�� Edvin: Negative bilaterally�
Cerebellar: Dysmetria/Ataxia: None�
Musculoskeletal: Motor: (Manual muscle scale 0-5)�
Muscle SA EF WE EE FF FA HF KE DF EHL PF
Right� 5 5 5 5 5 5 2 2+ 4 4 4
Left 5 5 5 5 5 5 4 5 5 5 5
Tone: right knee is stiff but can get better ROM with stretching.
Range of Motion: Passively within normal limits in all extremities
�
Lab Results
Laboratory Data
07/16/24 07:26
07/16/24 07:26
Total Bilirubin 1.4 mg/dl (0.2-1.3) H 07/13/24 23:26
AST 47 U/L (17-59) 07/13/24 23:26
ALT 35 U/L (0-50) 07/13/24 23:26
Alkaline Phosphatase 65 U/L (38-126) 07/13/24 23:26
Total Protein 5.6 g/dl (6.3-8.2) L 07/13/24 23:26
Albumin 2.8 g/dl (3.5-5.0) L 07/13/24 23:26
�
Diagnostic Results:�as per HPI�
�
Assessment
84-year-old M H (prostate cancer, hypertension, hyperlipidemia, gout, COVID-19 2019, lymphocytic colitis, orthostasis, asbestos exposure) status post right total knee replacement complicated by pulmonary embolism, upper GI bleed, fever of unknown
origin with fatigue and ADL/ambulatory dysfunction.
Plan�
PM&R�PT/OT to increase independence with ADLs, improve balance, coordination, endurance, strength, mobility, community reintegration, decreased burden of care on others and family education.�
�
Debility: S/p right TKA complicated by PE and anemia
Pulmonary embolism: Eliquis 5 mg bid changed to enoxaparin 80 mg subcu every 12 hours to see if there is a fever relation to apixaban, no DVT
Fever of unknown origin: intermittent- per ID suspicious due to PE's. Had CTA of chest abdomen and pelvis without localizing concerns. Fluid from right knee sent from culture after tap from orthopedics. Placed on empiric vancomycin by ID but
still spiking temperatures, vancomycin being held by hospitalist.
-Wonder if could be viral or tickborne, autoimmune.
-Trend ESR and CRP
Right total knee arthroplasty by Dr. Graves 06/22/2024: Weightbearing as tolerated, ice as necessary, monitor incision.
-Consider CPM for the right knee
HTN: Amlodipine and atenolol held.
Orthostatic Hypotension: check orthostatic vitals, was on midodrine 5mg tid, held with elevated blood pressure. May need to continue once upright and doing more out of bed activities despite higher blood pressure. May need to resume hypertensive
medications for supine hypertension.
HLD: Atorvastatin 10mg HS
Gout: allopurinol 100 mg twice daily chronically
Hyponatremia: Sodium to 131 after hypertonic saline infusion, thought to have excess ADH state. Also on salt tabs. Nephrology managing.
Anemia: ferrous sulfate. Has healed duodenal ulcers, avoiding NSAIDs. 7.7 from 8.1, monitor.
Psych: Psychology consult when available, consider psychiatry eval. Does not want any med for sleep. Patient's notes that he recently lost his brother and his sister and that has been hard for him to adjust since it happened just before his
hospitalization. Would avoid medications that can further cause hyponatremia.
FEN: Hydration improved.
Diet: Regular diet
Skin: monitor for pressure sores/rashes/lesions.�
Pain: acetaminophen or tramadol as needed.�
H/O lymphocytic colitis: Questran. Was on colestipol at home
Bowel: On Questran, MiraLAX daily
Bladder/h/o prostate cancer: on lupron inj q 6 months. Time void, PVRs, PRN straight cath.�
GI prophylaxis/Healed duodenal ulcers Pantoprazole 40mg bid x 8 weeks then daily once daily indefinitely -Avoid strictly no NSAIDS-per GI. Consider repeat upper endoscopy in 8 - 12 weeks to
check healing given appearance of duodenal ulcers
Pulmonary: Incentive spirometry��
Safety: Continue to reinforce assistance with all transfers.�
Code Status:� Full code
Dispo�(date/plan/equipment needs): Home with family care.� Social history reviewed.�
Functional and Medical Goals:�Modified Independent with ADL�s, ambulation, transfers�
Discharge Destination:�Acute inpatient rehabilitation
�
Summary of recommendations:
-�Discharge Destination:�Acute inpatient rehabilitation�
Fever of unknown origin: intermittent- per ID suspicious due to PE's. Had CTA of chest abdomen and pelvis without localizing concerns. Fluid from right knee sent from culture after tap from orthopedics. Placed on empiric vancomycin by ID but
still spiking temperatures, vancomycin being held by hospitalist.
-Wonder if could be viral in origin or tickborne, autoimmune.
-Trend ESR and CRP.
Right total knee arthroplasty by Dr. Graves 06/22/2024: Weightbearing as tolerated, ice as necessary, monitor incision.
-Consider CPM for the right knee
Hyponatremia: Sodium to 131 after hypertonic saline infusion, thought to have excess ADH state. Also on salt tabs. Nephrology managing.
Anemia: ferrous sulfate. Has healed duodenal ulcers, avoiding NSAIDs. 7.7 from 8.1, monitor.
Psych: consider psychiatry eval
Thank you for allowing me to care for your patient. Please contact me with any questions or concerns.
[2024-07-16] MEDS: COLACE PO ×2 (09:56→20:31)
[2024-07-16] MEDS: FEOSOL 325 MG PO (09:57)
[2024-07-16] MEDS: MIRALAX PO (09:57)
[2024-07-16] MEDS: ZYLOPRIM 100 MG PO ×2 (09:57→20:31)
[2024-07-16] MEDS: VITAMIN B-12 1000 MCG PO (09:57)
[2024-07-16] MEDS: PROTONIX 40 MG PO ×2 (09:57→20:31)
[2024-07-16] MEDS: SODIUM CHLORIDE 1 GRAM PO ×2 (09:57→20:31)
[2024-07-16] MEDS: QUESTRAN 4 GRAM PO (09:58)
[2024-07-16] MEDS: ELIQUIS PO (09:59)
[2024-07-16] MEDS: LOVENOX 80 MG SC ×2 (10:03→20:31)
--- NOTE | 2024-07-16 10:16 | W.PN.ID1 ---
Date of Service
Date of Service: July 16, 2024
Today's Communication
DC Vanco.
Hold Eliquis.
Assessment / Plan
# Recurrence of fevers (FUO), persist
# Recent R TKA 06/22/24
# PE dx post-op (06/22/24) on AC
- 07/[address] no PNA;
- Knee Xray moderate supra-patellar effusion.
07/14 Ortho aspirated knee 5 cc tricia blood, specimen clotted
07/15 Ortho aspirated 1 drop of bloody fluid, cx pending
-UA no pyuria
- Recent TTE neg vege
-Bcx 1 of 3 sets, microccoccus = contaminant
Repeat bcx's x2 before Vanco, neg to date
DC Vancomycin
- CT a/p no acute process
- BLE DVT ruled out
- FLACA pending
- Repeat COVID10 test
- Check influenza
- Eliquis ( for PE) is new medicine.
Trial of dc Eliquis and see if fever resolves.
Can replace with Lovenox in the interim.
-Follow temps.
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
Essential Hypertension
Hyperlipidemia
Prediabetes
Lymphocytic Colitis
Prostate Cancer s/p Prostatectomy
Gout (knees) on allopurinol
Hernia Repair
Prostatectomy
Humerus Fracture Repair
Right Total Knee Replacement
Chief Complaint
-: Fever
Subjective / Review of Systems
Appetite poor. No other complaints.
Vital Signs / Physical Exam
Vital Signs
Vital Signs
Temp Pulse Resp BP Pulse Ox
100.1 F 83 18 120/59 94
07/16/24 07:17 07/16/24 07:17 07/16/24 07:17 07/16/24 07:17 07/16/24 07:17
Physical Exam
Constitutional: No Acute Distress and Comfortable
Cardiovascular: Regular Rate and S1/S2
Pulmonary: Clear
Gastrointestinal: Non Tender, Non Distended and Normal Bowel Sounds
Genito-Urinary: Negative CVA Tenderness
Extremities: Edema (RLE)
Musculoskeletal: Other (Right knee ecchymotic)
Neurological: AO x 3
Objective Data
Lab Data
Lab Results
07/16/24 07:26
07/16/24 07:26
ESR > 145 mm/hour (0-20) H 07/14/24 12:05
Estimated Creat Clear 62 ml/min 07/16/24 07:26
Lactic Acid 0.9 mmol/L (0.7-2.0) 07/14/24 12:05
Total Bilirubin 1.4 mg/dl (0.2-1.3) H 07/13/24 23:26
AST 47 U/L (17-59) 07/13/24 23:26
ALT 35 U/L (0-50) 07/13/24 23:26
Alkaline Phosphatase 65 U/L (38-126) 07/13/24 23:26
C-Reactive Protein 15.70 mg/L (0.0-10.00) H 07/14/24 12:05
Most recent labs reviewed.
Micro Results:
07/16/24 10:09 Influenza Types A & B ([facility]) - Pending
Nasal Swab
07/15/24 09:26 Blood Culture - Preliminary
Blood/Venous No Growth in 24 hours- Final report to follow
07/15/24 09:01 Blood Culture - Preliminary
Blood/Venous No Growth in 24 hours- Final report to follow
07/14/24 00:35 Blood Culture - Preliminary
Blood/Venous Micrococcus species
Gram Stain - Preliminary
07/14/24 08:36 Blood Culture - Preliminary
Blood/Venous No Growth in 48 hours- Final report to follow
07/14/24 07:50 Blood Culture - Preliminary
Blood/Venous No Growth in 48 hours- Final report to follow
07/14/24 00:25 Blood Culture - Preliminary
Blood/Venous No Growth in 48 hours- Final report to follow
07/15/24 10:15 Body Fluid Culture - Pending
Joint Fluid Gram Stain - Final
07/13/24 23:26 Urine Culture - Final
Urine NO GROWTH
07/14/24 08:32 Nasal Screen MRSA (PCR) - Final
Nose MRSA not detected - performed by PCR methodology.
07/13/24 23:26 Influenza Types A & B ([facility]) - Final
Nasal Swab Negative for Influenza A & B, NAAT
Negative results must be combined with clinical observations
and patient history.
Nucleic Acid Amplification test (NAAT)performed on the
[employer] platform.
07/14/24 CT chest without contrast: No evidence of lobar pneumonia or pleural effusion. Reticular interstitial thickening, traction bronchiectasis, and early honeycombing, most pronounced at the lung bases, suggestive of mild to moderate
interstitial fibrosis.
07/14/24 Right knee xray: There has been a right knee replacement. Alignment appears normal. No acute fractures nor dislocations are noted. There is suggestion of a moderate suprapatellar joint effusion. There is moderate suprapatellar soft tissue
swelling. There are vascular calcifications.
Care Review
Plan reviewed with: Physician (Dr. Lawrence)
[2024-07-16 10:39] LABS: COVID-19 Antigen Negative (Negative)
--- NOTE | 2024-07-16 13:55 | CM ---
Patient seen at bedside per physician pending PM&R assessment. CM will continue to follow for discharge planning needs.
Plan; Seamus
--- NOTE | 2024-07-16 14:03 | W.PN.NEPH.PH ---
Today's Communication / Plan
-
Follow-up BMP
maintain FR
Assessment/Plan
-
Assessment
Hypotension new
Hyponatremia new
Hyperlipidemia
Right knee replacement
Left lung PE
Prostate cancer
Gout
Anemia
Lymphocytic colitis
Plan
Urine studies would suggest excess ADH state
Sodium up to 130 following hypertonic saline infusion, remains low but stable today
Blood pressure improved and so we will hold midodrine at this time
Time 0 cortisol level was normal
I would offer no dietary restriction's at this point as he is not even close to overcoming them
He does not appear to enjoy Ensure Enlive and we will try Ensure clear
Atenolol held
Cultures negative empiric antibiotics
Serial BMP
-
-
Date of Service: July 16, 2024
CC / HPI / ROS
-
Chief Complaint:
Hyponatremia
History of Present Illness:
Sodium up to 130 following hypertonic saline infusion
Hemodynamically stable off midodrine
Review of Systems:
Febrile
Nonoliguric
Labs
-
Labs:
WBC 10.8 10^3/uL (4.8-10.8) 07/16/24 07:26
RBC 2.51 10^6/uL (4.70-6.10) L 07/16/24 07:26
Hgb 7.7 g/dL (13.0-18.0) L 07/16/24 07:26
Hct 23.7 % (39.0-52.0) L 07/16/24 07:26
Plt Count 450 10^3/uL (130-400) H 07/16/24 07:26
Sodium 130 mmol/L (135-145) L 07/16/24 07:26
Potassium 3.7 mmol/L (3.5-5.1) 07/16/24 07:26
Chloride 102 mmol/L (98-107) 07/16/24 07:26
Carbon Dioxide 21 mmol/L (22-30) L 07/16/24 07:26
BUN 15 mg/dl (9-20) 07/16/24 07:26
Creatinine 0.8 mg/dL (0.7-1.3) 07/16/24 07:26
eGFR > 60.00 07/16/24 07:26
Glucose 95 mg/dl (70-99) 07/16/24 07:26
Calcium 7.3 mg/dl (8.4-10.2) L 07/16/24 07:26
Albumin 2.8 g/dl (3.5-5.0) L 07/13/24 23:26
Physical Exam
-
Vital Signs:
Vital Signs
Temp Pulse Resp BP Pulse Ox
99.2 F 83 18 124/70 97
07/16/24 11:40 07/16/24 11:40 07/16/24 11:40 07/16/24 11:40 07/16/24 12:03
Cardiovascular:: Regular rate and rhythm
Respiratory:: Bilateral: CTA
Extremity Edema:: +2: Right:
Burk Catheter: No
[2024-07-16] MEDS: LIPITOR 10 MG PO (21:47)
[2024-07-17] MEDS: TYLENOL 650 MG PO ×2 (03:43→16:37)
[2024-07-17] MEDS: OCEAN, SALINE MIST 1 SPRAYS NASAL (06:41)
[2024-07-17 08:08] LABS: Blood Urea Nitrogen 14 mg/dl (9-20); Calcium 7.3 mg/dl (8.4-10.2); Carbon Dioxide 24 mmol/L (22-30); Chloride 101 mmol/L (98-107); Estimated Creatinine Clearance 62 ml/min; Glucose 96 mg/dl (70-99); Potassium 3.7 mmol/L (3.5-5.1); Sodium 130 mmol/L (135-145); eGFR > 60.00
[2024-07-17 08:14] VITALS: BP 123/68
[2024-07-17 08:17] LABS: % Basophils 0.5 % (0-2); % Eosinophils 2.1 % (0-6); % Immature Granulocytes 2.2 % (0-0.5); % Lymphocytes 8.3 % (20.5-51.1); % Monocytes 9.5 % (1.7-9.3); % Neutrophils 77.4 % (42.2-75.2); Absolute Basophils 0.1 10^3/uL (0-0.2); Absolute Eosinophils 0.2 10^3/uL (0-0.7); Absolute Immature Granulocytes 0.3 10^3/uL (0-0.05); Absolute Monocytes 1.1 10^3/uL (0.1-0.6); Hematocrit 23.9 % (39.0-52.0); Hemoglobin 7.6 g/dL (13.0-18.0); Mean Corp Hgb Conc. 31.8 g/dL (33.0-37.0); Mean Corpuscular Hgb 30.4 pg (27.0-31.0); Mean Corpuscular Volume 95.6 fL (80.0-94.0); Mean Platelet Volume 10.9 fL (7.4-10.4); Nucleated Red Blood Cells % 0 % (-); Platelet Count 454 10^3/uL (130-400); Red Cell Dist. Width 18.5 % (11.5-14.5); White Blood Cell Count 11.6 10^3/uL (4.8-10.8)
[2024-07-17] MEDS: MIRALAX 17 GRAMS PO (08:22)
[2024-07-17] MEDS: FEOSOL 325 MG PO (08:22)
[2024-07-17] MEDS: COLACE 100 MG PO (08:22)
[2024-07-17] MEDS: VITAMIN B-12 1000 MCG PO (08:22)
[2024-07-17] MEDS: QUESTRAN 4 GRAM PO (08:22)
[2024-07-17] MEDS: LOVENOX 80 MG SC ×2 (08:22→21:52)
[2024-07-17] MEDS: PROTONIX 40 MG PO ×2 (08:22→21:52)
[2024-07-17] MEDS: ZYLOPRIM 100 MG PO ×2 (08:22→21:52)
[2024-07-17] MEDS: SODIUM CHLORIDE 1 GRAM PO ×2 (08:22→21:52)
--- NOTE | 2024-07-17 08:22 | W.PN.UPDATE ---
Update Note
Progress Note Update
84-year-old male pending right knee aspiration results; no growth to date. Examination of right knee unchanged from yesterday
Orthopedic surgery will continue to follow
--- NOTE | 2024-07-17 09:59 | W.PN.HOSP.TC ---
Today's Communication/Plan
-
Continue current care
Assessment / Plan
Assessment / Plan
Gen-awake, alert, NAD
HEENT-NC, AT, anicteric, clear oral mm
Neck-supple
CV-reg, no M, +S1/S2
Lungs-clear B/L
Abd-soft, NT, ND
Ext-diffuse right lower extremity edema, bruising over the right knee, limited range of motion due to pain
Musculoskeletal-no cyanosis, clubbing
Skin-warm and dry
Neuro-severe right hip flexor and knee flexor weakness. Nonfocal upper extremities.
Psych-calm, cooperative
Acute TME -wide differential diagnosis including hyponatremia, fever, etc. Suspect he may have underlying cognitive impairment and now has superimposed delirium. Confusion overall is improving. Needs formal cognitive assessment after discharge.
FUO -has had intermittent fevers over the past few weeks without clear source. Last seen by infectious disease 1 week ago and differential diagnosis of fever included possible pulmonary embolism. Right lower extremity bruising and postoperative
hematoma can certainly contribute to fever. Procalcitonin normal x 2. WBC count 11.6 today.
No evidence of pneumonia on CT chest, no evidence of intra-abdominal infection on CT abdomen/pelvis. Bilateral lower extremity Doppler ultrasound negative for DVT. COVID and influenza negative. Urinalysis negative. Repeat COVID-negative.
1 blood culture bottle positive for micrococcus, suspect contamination. Off antibiotics now.
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 Hyponatremia improving on fluid restriction. Labs pending for today.
Recent right TKA -06/22/2024. Right lower extremity with significant edema and bruising about the knee, warmth. Limited range of motion. Orthopedics input noted, minimal fluid that was bloody was aspirated from the right knee 07/14.
Unfortunately fluid was not sent for culture. Re-aspiration of the right knee performed today 07/15 and fluid to be sent for culture. Discussed with Dr. Graves.
Severe right lower extremity weakness involving hip flexors and knee flexors noted. Seen by physiatry 07/16. Recommend [facility] on discharge.
Recent postoperative pulmonary embolism -no deep vein thrombosis noted on last ultrasound. Continue Eliquis.
Recent GI bleed -EGD done 07/05 confirmed multiple and superficial well-healed and nonbleeding duodenal ulcers with a clean base. Continue pantoprazole twice daily.
Subacute normocytic anemia -hemoglobin 7.6 today, slowly trending down. Stools have been brown. No evidence of bleeding clinically. Monitor for now. Previous iron panel not entirely consistent with iron deficiency. Low normal vitamin B12 level,
315. Continue oral repletion. Folic acid level normal.
History of prostate cancer -s/p prostatectomy.
Essential hypertension -uncontrolled. On midodrine 5 mg 3 times daily for orthostatic hypotension. Check orthostatic vitals when able. Hold midodrine for now given elevated pressures. Midodrine dose reduced to 2.5 mg 3 times daily.
Hyperlipidemia -continue atorvastatin.
Gout -continue allopurinol.
Full code
Dispo -back to [facility] when medically stable.
Anticipated Discharge: > 48 hours
Subjective/Interval History
-
Date of Service: July 17, 2024
Patient seen and examined. No complaints.
Objective Data
-
Labs:
Laboratory Results
07/17/24
07:26
WBC 11.6 H
Hgb 7.6 L
Hct 23.9 L
Plt Count 454 H
Sodium 130 L
Potassium 3.7
Chloride 101
Carbon Dioxide 24
BUN 14
Creatinine 0.8
Glucose 96
Calcium 7.3 L
Vital Signs:
Vital Signs
Temp Pulse Resp BP Pulse Ox
98.4 F 73 18 123/68 98
07/17/24 08:14 07/17/24 08:14 07/17/24 08:14 07/17/24 08:14 07/17/24 08:14
I&O
1107/17/24 07/18/24
06:59 06:59 06:59
Intake Total 2074 360 / 360
Output Total 330 / 330 550 / 550
Balance 174 / 1744 -190 / -190
Review of Systems
-
History Source: Patient
All other systems: Reviewed and negative
--- NOTE | 2024-07-17 11:13 | W.PN.NEPH.PH ---
Today's Communication / Plan
-
lasix
Assessment/Plan
-
Assessment
Hypotension new
Hyponatremia new
Hyperlipidemia
Right knee replacement
Left lung PE
Prostate cancer
Gout
Anemia
Lymphocytic colitis
Plan
follow BMP
continue salt
add low dose lasix
follow fever curve
-
-
Date of Service: July 17, 2024
CC / HPI / ROS
-
Chief Complaint:
Hyponatremia
History of Present Illness:
Sodium up to 130 and stable
Hemodynamically stable off midodrine
still with fevers, off abx
Review of Systems:
Febrile
Nonoliguric
Labs
-
Labs:
WBC 11.6 10^3/uL (4.8-10.8) H 07/17/24 07:26
RBC 2.50 10^6/uL (4.70-6.10) L 07/17/24 07:26
Hgb 7.6 g/dL (13.0-18.0) L 07/17/24 07:26
Hct 23.9 % (39.0-52.0) L 07/17/24 07:26
Plt Count 454 10^3/uL (130-400) H 07/17/24 07:26
Sodium 130 mmol/L (135-145) L 07/17/24 07:26
Potassium 3.7 mmol/L (3.5-5.1) 07/17/24 07:26
Chloride 101 mmol/L (98-107) 07/17/24 07:26
Carbon Dioxide 24 mmol/L (22-30) 07/17/24 07:26
BUN 14 mg/dl (9-20) 07/17/24 07:26
Creatinine 0.8 mg/dL (0.7-1.3) 07/17/24 07:26
eGFR > 60.00 07/17/24 07:26
Glucose 96 mg/dl (70-99) 07/17/24 07:26
Calcium 7.3 mg/dl (8.4-10.2) L 07/17/24 07:26
Albumin 2.8 g/dl (3.5-5.0) L 07/13/24 23:26
Physical Exam
-
Vital Signs:
Vital Signs
Temp Pulse Resp BP Pulse Ox
98.4 F 73 18 123/68 98
07/17/24 08:14 07/17/24 08:14 07/17/24 08:14 07/17/24 08:14 07/17/24 08:14
Cardiovascular:: Regular rate and rhythm
Respiratory:: Bilateral: Coarse
Lung Excursion:: Normal
Abdomen:: Nontender and Soft
Bowel Sounds:: Normal
Extremity Edema:: None: Bilateral:
--- NOTE | 2024-07-17 11:25 | CM ---
Addendum entered by Rosa Curtis 07/17/24 14:48:
[facility] accept patient saturday. physician updated.
Addendum entered by Rosa Curtis 07/17/24 13:41:
CM spoke with liaison and they are reviewing patient for referral.
Original Note:
Patient seen at bedside with brother present. IMM reviewed and signed copy placed on chart. Patient states that he does want to return to [facility]. Physician aware. CM sent tt to liaison and await response. CM will continue to follow for discharge
planning needs.
Plan; [facility]
[2024-07-17 12:10] VITALS: BP 104/60; BP 154/78
--- NOTE | 2024-07-17 12:30 | W.PN.ID1 ---
Date of Service
Date of Service: July 17, 2024
Today's Communication
Observe off abx.
Assessment / Plan
# Recurrence of fevers (FUO), persist
# Recent R TKA 06/22/24
# PE dx post-op (06/22/24) on AC
- 07/[address] no PNA;
- Knee Xray moderate supra-patellar effusion.
07/14 Ortho aspirated knee 5 cc tricia blood, specimen clotted
07/15 Ortho aspirated 1 drop of bloody fluid, cx neg
-UA no pyuria
- TTE neg vege
-Bcx 1 of 3 sets, microccoccus = contaminant
Repeat bcx's x2 before Vanco, neg to date
- CT a/p no acute process
- BLE DVT ruled out
-repeat COVID, Flu neg.
- FLACA pending
- Eliquis ( for PE) is new medicine.
Trial of dc Eliquis and see if fever resolves.
last dose of Eliquis (07/16 am)
-Follow temps.
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
Essential Hypertension
Hyperlipidemia
Prediabetes
Lymphocytic Colitis
Prostate Cancer s/p Prostatectomy
Gout (knees) on allopurinol
Hernia Repair
Prostatectomy
Humerus Fracture Repair
Right Total Knee Replacement
Chief Complaint
-: Fever
Subjective / Review of Systems
Appetite remains poor.
Nieces at bedside.
Review of Systems: No Headache, No Pharyngitis, No Stiff Neck, No Cough, No Sputum Production, No Chest Pain, No Abdominal Pain, No Nausea, No Vomiting, No Diarrhea and No Dysuria
Vital Signs / Physical Exam
Vital Signs
Vital Signs
Temp Pulse Resp BP Pulse Ox
98.4 F 73 18 123/68 98
07/17/24 08:14 07/17/24 08:14 07/17/24 08:14 07/17/24 08:14 07/17/24 08:14
Selected Entries
07/17/24
03:30
Temp 102.4 F H
Physical Exam
Constitutional: No Acute Distress and Comfortable
Head: Other (no frontal or maxillary sinus tenderness)
Eyes: No Conjunctival Hemorrhage and Sclera Anicteric
Oropharyngeal: Benign
Cardiovascular: Regular Rate and S1/S2
Pulmonary: Clear
Gastrointestinal: Soft, Non Distended and Normal Bowel Sounds
Genito-Urinary: Negative CVA Tenderness
Extremities: Edema (RLE decreasing)
Musculoskeletal: Other (right knee- decreasing ecchymosis)
Neurological: AO x 3
Objective Data
Lab Data
Lab Results
07/17/24 07:26
07/17/24 07:26
ESR > 145 mm/hour (0-20) H 07/14/24 12:05
Estimated Creat Clear 62 ml/min 07/17/24 07:26
Lactic Acid 0.9 mmol/L (0.7-2.0) 07/14/24 12:05
Total Bilirubin 1.4 mg/dl (0.2-1.3) H 07/13/24 23:26
AST 47 U/L (17-59) 07/13/24 23:26
ALT 35 U/L (0-50) 07/13/24 23:26
Alkaline Phosphatase 65 U/L (38-126) 07/13/24 23:26
C-Reactive Protein 15.70 mg/L (0.0-10.00) H 07/14/24 12:05
Most recent labs reviewed.
Micro Results:
07/15/24 09:26 Blood Culture - Preliminary
Blood/Venous No Growth in 48 hours- Final report to follow
07/15/24 09:01 Blood Culture - Preliminary
Blood/Venous No Growth in 48 hours- Final report to follow
07/15/24 10:15 Body Fluid Culture - Preliminary
Joint Fluid No Growth After 18-24 Hours
Gram Stain - Final
07/14/24 08:36 Blood Culture - Preliminary
Blood/Venous No Growth in 72 hours- Final report to follow
07/14/24 07:50 Blood Culture - Preliminary
Blood/Venous No Growth in 72 hours- Final report to follow
07/14/24 00:25 Blood Culture - Preliminary
Blood/Venous No Growth in 72 hours- Final report to follow
07/16/24 10:09 Influenza Types A & B (SANDOR) - Final
Nasal Swab Negative for Influenza A & B, NAAT
Negative results must be combined with clinical observations
and patient history.
Nucleic Acid Amplification test (NAAT)performed on the
[employer] platform.
07/14/24 00:35 Blood Culture - Preliminary
Blood/Venous Micrococcus species
Gram Stain - Preliminary
07/13/24 23:26 Urine Culture - Final
Urine NO GROWTH
07/14/24 08:32 Nasal Screen MRSA (PCR) - Final
Nose MRSA not detected - performed by PCR methodology.
07/13/24 23:26 Influenza Types A & B (SANDOR) - Final
Nasal Swab Negative for Influenza A & B, NAAT
Negative results must be combined with clinical observations
and patient history.
Nucleic Acid Amplification test (NAAT)performed on the
[employer] NOW platform.
07/14/24 CT chest without contrast: No evidence of lobar pneumonia or pleural effusion. Reticular interstitial thickening, traction bronchiectasis, and early honeycombing, most pronounced at the lung bases, suggestive of mild to moderate
interstitial fibrosis.
07/14/24 Right knee xray: There has been a right knee replacement. Alignment appears normal. No acute fractures nor dislocations are noted. There is suggestion of a moderate suprapatellar joint effusion. There is moderate suprapatellar soft tissue
swelling. There are vascular calcifications.
Care Review
Plan reviewed with: Physician (Dr. Monique)
[2024-07-17] MEDS: LASIX 10 MG PO (12:34)
[2024-07-17 13:20] VITALS: BP 104/60; BP 110/64; BP 121/76; BP 157/76; PULSE 109; PULSE 94
[2024-07-17 16:02] VITALS: BP 149/79
[2024-07-17] MEDS: COLACE PO (21:51)
[2024-07-17] MEDS: LIPITOR 10 MG PO (21:52)
[2024-07-17 23:00] VITALS: BP 150/75
[2024-07-18 01:56] LABS: ANA, IgG Reflex to HEp-2 None Detected (None Detected)
[2024-07-18] MEDS: TYLENOL 650 MG PO (05:54)
[2024-07-18 06:40] LABS: % Basophils 0.5 % (0-2); % Eosinophils 2.6 % (0-6); % Immature Granulocytes 0.7 % (0-0.5); % Neutrophils 80.2 % (42.2-75.2); Absolute Basophils 0.1 10^3/uL (0-0.2); Absolute Eosinophils 0.3 10^3/uL (0-0.7); Absolute Immature Granulocytes 0.1 10^3/uL (0-0.05); Absolute Neutrophils 10.2 10^3/uL (1.4-6.5); Hematocrit 24.4 % (39.0-52.0); Hemoglobin 7.9 g/dL (13.0-18.0); Mean Corp Hgb Conc. 32.4 g/dL (33.0-37.0); Mean Corpuscular Hgb 30.7 pg (27.0-31.0); Mean Corpuscular Volume 94.9 fL (80.0-94.0); Mean Platelet Volume 10.7 fL (7.4-10.4); Nucleated Red Blood Cells % 0 % (-); Platelet Count 457 10^3/uL (130-400); Red Blood Cell Count 2.57 10^6/uL (4.70-6.10); Red Cell Dist. Width 18.6 % (11.5-14.5); White Blood Cell Count 12.7 10^3/uL (4.8-10.8)
[2024-07-18 07:04] LABS: Blood Urea Nitrogen 12 mg/dl (9-20); Calcium 7.3 mg/dl (8.4-10.2); Carbon Dioxide 21 mmol/L (22-30); Chloride 101 mmol/L (98-107); Estimated Creatinine Clearance 71 ml/min; Glucose 81 mg/dl (70-99); Potassium 3.6 mmol/L (3.5-5.1); Sodium 131 mmol/L (135-145); eGFR > 60.00
[2024-07-18 07:35] VITALS: BP 126/63
[2024-07-18] MEDS: MIRALAX 17 GRAMS PO (09:24)
[2024-07-18] MEDS: SODIUM CHLORIDE 1 GRAM PO ×2 (09:24→21:14)
[2024-07-18] MEDS: ZYLOPRIM 100 MG PO ×2 (09:24→21:14)
[2024-07-18] MEDS: LASIX 10 MG PO (09:25)
[2024-07-18] MEDS: PROTONIX 40 MG PO ×2 (09:25→21:14)
[2024-07-18] MEDS: COLACE 100 MG PO (09:25)
[2024-07-18] MEDS: VITAMIN B-12 1000 MCG PO (09:25)
[2024-07-18] MEDS: FEOSOL 325 MG PO (09:25)
[2024-07-18] MEDS: LOVENOX 80 MG SC ×2 (09:59→21:14)
--- NOTE | 2024-07-18 10:15 | W.PN.HOSP.TC ---
Today's Communication/Plan
-
Add Ensure 3 times daily
Continue current care
Assessment / Plan
Assessment / Plan
Gen-awake, alert, NAD
HEENT-NC, AT, anicteric, clear oral mm
Neck-supple
CV-reg, no M, +S1/S2
Lungs-clear B/L
Abd-soft, NT, ND
Ext-improving right lower extremity edema and bruising
Musculoskeletal-no cyanosis, clubbing
Skin-warm and dry
Neuro-severe right hip flexor and knee flexor weakness. Nonfocal upper extremities.
Psych-calm, cooperative
Acute TME -wide differential diagnosis including hyponatremia, fever, etc. Suspect he may have underlying cognitive impairment and now has superimposed delirium. Confusion overall is improving. Needs formal cognitive assessment after discharge.
FUO -so far no infectious source found. Mild leukocytosis noted. Possibility of drug fever, possibly due to apixaban. Last dose of apixaban was 07/15. Has been on Lovenox since. Last fever recorded was under cutter 07/17. Monitor off apixaban
for the next few days. There are case reports of apixaban inducing vasculitis. ESR noted to be greater than 145, CRP 15 a few days ago. Repeat inflammatory markers tomorrow.
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 Hyponatremia improving on fluid restriction. Sodium stable.
Recent right TKA -06/22/2024. Right lower extremity with significant edema and bruising about the knee, warmth. Limited range of motion. Orthopedics input noted, minimal fluid that was bloody was aspirated from the right knee 07/14.
Unfortunately fluid was not sent for culture. Re-aspiration of the right knee performed today 07/15 and fluid to be sent for culture. Discussed with Dr. Graves.
Severe right lower extremity weakness involving hip flexors and knee flexors noted. Seen by physiatry 07/16. Recommend [facility] on discharge.
Recent postoperative pulmonary embolism -no deep vein thrombosis noted on last ultrasound. Continue anticoagulation.
Recent GI bleed -EGD done 07/05 confirmed multiple and superficial well-healed and nonbleeding duodenal ulcers with a clean base. Continue pantoprazole twice daily.
Subacute normocytic anemia -hemoglobin stable, 7.9. Stools have been brown. No evidence of bleeding clinically. Monitor for now. Previous iron panel not entirely consistent with iron deficiency. Low normal vitamin B12 level, 315. Continue oral
repletion. Folic acid level normal.
History of prostate cancer -s/p prostatectomy.
Essential hypertension -stable. Midodrine discontinued.
Hyperlipidemia -continue atorvastatin.
Gout -continue allopurinol.
Full code
Dispo -back to [facility] when medically stable, Possibly Saturday.
Anticipated Discharge: > 48 hours
Subjective/Interval History
-
Date of Service: July 18, 2024
Patient seen and examined. Complaining of poor appetite. Denies pain.
Objective Data
-
Labs:
Laboratory Results
07/18/24
05:48
WBC 12.7 H
Hgb 7.9 L
Hct 24.4 L
Plt Count 457 H
Sodium 131 L
Potassium 3.6
Chloride 101
Carbon Dioxide 21 L
BUN 12
Creatinine 0.7
Glucose 81
Calcium 7.3 L
Vital Signs:
Vital Signs
Temp Pulse Resp BP Pulse Ox
98.2 F 77 16 126/63 93
07/18/24 07:35 07/18/24 07:35 07/18/24 07:35 07/18/24 07:35 07/18/24 07:35
I&O
07/17/24 07/18/24 07/19/24
06:59 06:59 06:59
Intake Total 360 / 360 390 / 390
Output Total 550 / 550
Balance -190 / -190 390 / 390
Review of Systems
-
History Source: Patient
All other systems: Reviewed and negative
--- NOTE | 2024-07-18 10:49 | W.PN.NEPH.PH ---
Today's Communication / Plan
-
follow BMP
Assessment/Plan
-
Assessment
Hypotension new
Hyponatremia new
Hyperlipidemia
Right knee replacement
Left lung PE
Prostate cancer
Gout
Anemia
Lymphocytic colitis
Plan
follow BMP
continue salt
continue low dose lasix
follow fever curve
off abx per ID
-
-
Date of Service: July 18, 2024
CC / HPI / ROS
-
Chief Complaint:
Hyponatremia
History of Present Illness:
Sodium up to 131
Hemodynamically stable off midodrine still
fever frequency less
Review of Systems:
no CP/SOB
Nonoliguric
Labs
-
Labs:
WBC 12.7 10^3/uL (4.8-10.8) H 07/18/24 05:48
RBC 2.57 10^6/uL (4.70-6.10) L 07/18/24 05:48
Hgb 7.9 g/dL (13.0-18.0) L 07/18/24 05:48
Hct 24.4 % (39.0-52.0) L 07/18/24 05:48
Plt Count 457 10^3/uL (130-400) H 07/18/24 05:48
Sodium 131 mmol/L (135-145) L 07/18/24 05:48
Potassium 3.6 mmol/L (3.5-5.1) 07/18/24 05:48
Chloride 101 mmol/L (98-107) 07/18/24 05:48
Carbon Dioxide 21 mmol/L (22-30) L 07/18/24 05:48
BUN 12 mg/dl (9-20) 07/18/24 05:48
Creatinine 0.7 mg/dL (0.7-1.3) 07/18/24 05:48
eGFR > 60.00 07/18/24 05:48
Glucose 81 mg/dl (70-99) 07/18/24 05:48
Calcium 7.3 mg/dl (8.4-10.2) L 07/18/24 05:48
Albumin 2.8 g/dl (3.5-5.0) L 07/13/24 23:26
Physical Exam
-
Vital Signs:
Vital Signs
Temp Pulse Resp BP Pulse Ox
98.2 F 77 16 126/63 93
07/18/24 07:35 07/18/24 07:35 07/18/24 07:35 07/18/24 07:35 07/18/24 07:35
Cardiovascular:: Regular rate and rhythm
Respiratory:: Bilateral: CTA
Lung Excursion:: Normal
Abdomen:: Nontender and Soft
Bowel Sounds:: Normal
Extremity Edema:: None: Bilateral:
--- NOTE | 2024-07-18 10:56 | W.PN.ID1 ---
Date of Service
Date of Service: July 18, 2024
Today's Communication
Observing off abx.
Assessment / Plan
# Recurrence of fevers (FUO), appears to be defervescing off Eliquis
# Recent R TKA 06/22/24
# PE dx post-op (06/22/24) on AC
- 07/[address] no PNA;
- Knee Xray moderate supra-patellar effusion.
07/14 Ortho aspirated knee 5 cc tricia blood, specimen clotted
07/15 Ortho aspirated 1 drop of bloody fluid, cx neg
-UA no pyuria
- TTE neg vege
-Bcx 1 of 3 sets, microccoccus = contaminant
Repeat bcx's x2 before Vanco, neg to date
- CT a/p no acute process
- BLE DVT ruled out
-repeat COVID, Flu neg.
- FLACA negative
- Eliquis ( for PE) is new medicine on hold (last dose of Eliquis 1114 am
Afebrile >24hrs.
-Follow temps and leukocytosis.
- Observing off abx.
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
Essential Hypertension
Hyperlipidemia
Prediabetes
Lymphocytic Colitis
Prostate Cancer s/p Prostatectomy
Gout (knees) on allopurinol
Hernia Repair
Prostatectomy
Humerus Fracture Repair
Right Total Knee Replacement
Chief Complaint
-: Fever
Subjective / Review of Systems
no complaints today.
Vital Signs / Physical Exam
Vital Signs
Vital Signs
Temp Pulse Resp BP Pulse Ox
98.2 F 77 16 126/63 93
07/18/24 07:35 07/18/24 07:35 07/18/24 07:35 07/18/24 07:35 07/18/24 07:35
Physical Exam
Constitutional: No Acute Distress
Cardiovascular: Regular Rate and S1/S2
Pulmonary: Clear
Gastrointestinal: Soft, Non Tender and Non Distended
Musculoskeletal: Other (Right knee ecchymosis decreasing)
Neurological: AO x 3
Objective Data
Lab Data
Lab Results
07/18/24 05:48
07/18/24 05:48
ESR > 145 mm/hour (0-20) H 07/14/24 12:05
Estimated Creat Clear 71 ml/min 07/18/24 05:48
Lactic Acid 0.9 mmol/L (0.7-2.0) 07/14/24 12:05
Total Bilirubin 1.4 mg/dl (0.2-1.3) H 07/13/24 23:26
AST 47 U/L (17-59) 07/13/24 23:26
ALT 35 U/L (0-50) 07/13/24 23:26
Alkaline Phosphatase 65 U/L (38-126) 07/13/24 23:26
C-Reactive Protein 15.70 mg/L (0.0-10.00) H 07/14/24 12:05
Most recent labs reviewed.
Micro Results:
07/15/24 09:26 Blood Culture - Preliminary
Blood/Venous No Growth in 72 hours- Final report to follow
07/15/24 09:01 Blood Culture - Preliminary
Blood/Venous No Growth in 72 hours- Final report to follow
07/14/24 08:36 Blood Culture - Preliminary
Blood/Venous No Growth in 4 days- Final report to follow
07/14/24 07:50 Blood Culture - Preliminary
Blood/Venous No Growth in 4 days- Final report to follow
07/14/24 00:25 Blood Culture - Preliminary
Blood/Venous No Growth in 4 days- Final report to follow
07/15/24 10:15 Body Fluid Culture - Preliminary
Joint Fluid No Growth After 18-24 Hours
Gram Stain - Final
07/16/24 10:09 Influenza Types A & B (SANDOR) - Final
Nasal Swab Negative for Influenza A & B, NAAT
Negative results must be combined with clinical observations
and patient history.
Nucleic Acid Amplification test (NAAT)performed on the
[employer] NOW platform.
07/14/24 00:35 Blood Culture - Preliminary
Blood/Venous Micrococcus species
Gram Stain - Preliminary
07/13/24 23:26 Urine Culture - Final
Urine NO GROWTH
07/14/24 08:32 Nasal Screen MRSA (PCR) - Final
Nose MRSA not detected - performed by PCR methodology.
07/13/24 23:26 Influenza Types A & B (SANDOR) - Final
Nasal Swab Negative for Influenza A & B, NAAT
Negative results must be combined with clinical observations
and patient history.
Nucleic Acid Amplification test (NAAT)performed on the
[employer] NOW platform.
07/14/24 CT chest without contrast: No evidence of lobar pneumonia or pleural effusion. Reticular interstitial thickening, traction bronchiectasis, and early honeycombing, most pronounced at the lung bases, suggestive of mild to moderate
interstitial fibrosis.
07/14/24 Right knee xray: There has been a right knee replacement. Alignment appears normal. No acute fractures nor dislocations are noted. There is suggestion of a moderate suprapatellar joint effusion. There is moderate suprapatellar soft tissue
swelling. There are vascular calcifications.
Care Review
Plan reviewed with: Physician (Dr. Lawrence)
[2024-07-18] MEDS: QUESTRAN 4 GRAM PO (11:04)
--- NOTE | 2024-07-18 13:06 | W.PN.UPDATE ---
Update Note
Progress Note Update
This is an 84-year-old gentleman who is now nearly 4 weeks out from his right total knee arthroplasty. Fortunately, the fluid that was aspirated from his right knee on 07/15/2024 remains negative for growth after 48 hours. He is resting
comfortably in bed with no tenderness to palpation over the knee. Mild diffuse swelling and expected ecchymoses. Incision is well-healed. Range of motion is 0 to 80 degrees with minimal discomfort on flexion. He reports he is going to be
discharged to [facility] on Saturday. Continue with PT while inpatient. Will continue to follow cultures and will reevaluate tomorrow.
--- NOTE | 2024-07-18 14:48 | CM ---
CM reviewed chart, patient plan for [facility] on Saturday. CM will continue to follow for all discharge planning needs.
Plan; [facility], Saturday.
[2024-07-18 15:25] VITALS: BP 134/80
[2024-07-18 16:35] VITALS: BP 134/80
[2024-07-18] MEDS: COLACE PO (21:13)
[2024-07-18] MEDS: LIPITOR 10 MG PO (21:14)
[2024-07-18 23:50] VITALS: BP 151/72
[2024-07-19 06:52] LABS: Hematocrit 24.8 % (39.0-52.0); Hemoglobin 7.7 g/dL (13.0-18.0); Mean Corpuscular Hgb 29.8 pg (27.0-31.0); Mean Corpuscular Volume 96.1 fL (80.0-94.0); Mean Platelet Volume 10.1 fL (7.4-10.4); Platelet Count 419 10^3/uL (130-400); Red Blood Cell Count 2.58 10^6/uL (4.70-6.10); Red Cell Dist. Width 18.6 % (11.5-14.5); White Blood Cell Count 10.6 10^3/uL (4.8-10.8)
[2024-07-19 07:31] LABS: Blood Urea Nitrogen 14 mg/dl (9-20); Calcium 7.2 mg/dl (8.4-10.2); Carbon Dioxide 22 mmol/L (22-30); Chloride 102 mmol/L (98-107); Estimated Creatinine Clearance 62 ml/min; Glucose 94 mg/dl (70-99); Potassium 3.7 mmol/L (3.5-5.1); Sodium 131 mmol/L (135-145); eGFR > 60.00
[2024-07-19 07:35] VITALS: BP 141/63
[2024-07-19] MEDS: LOVENOX 80 MG SC ×2 (08:31→20:29)
[2024-07-19] MEDS: SODIUM CHLORIDE 1 GRAM PO ×2 (08:32→20:28)
[2024-07-19] MEDS: MIRALAX PO (08:32)
[2024-07-19] MEDS: LASIX 10 MG PO (08:32)
[2024-07-19] MEDS: COLACE 100 MG PO ×2 (08:32→20:28)
[2024-07-19] MEDS: PROTONIX 40 MG PO ×2 (08:32→20:28)
[2024-07-19] MEDS: ZYLOPRIM 100 MG PO ×2 (08:32→20:28)
[2024-07-19] MEDS: FEOSOL 325 MG PO (08:32)
[2024-07-19] MEDS: VITAMIN B-12 1000 MCG PO (08:32)
--- NOTE | 2024-07-19 09:34 | W.PN.HOSP.TC ---
Today's Communication/Plan
-
Continue current care
Assessment / Plan
Assessment / Plan
Gen-awake, alert, NAD
HEENT-NC, AT, anicteric, clear oral mm
Neck-supple
CV-reg, no M, +S1/S2
Lungs-clear B/L
Abd-soft, NT, ND
Ext-improving right lower extremity edema and bruising
Musculoskeletal-no cyanosis, clubbing
Skin-warm and dry
Neuro-severe right hip flexor and knee flexor weakness. Nonfocal upper extremities.
Psych-calm, cooperative
Acute TME -wide differential diagnosis including hyponatremia, fever, etc. Suspect he may have underlying cognitive impairment and now has superimposed delirium. Confusion overall is improving. Needs formal cognitive assessment after discharge.
FUO -so far no infectious source found. Mild leukocytosis noted. Possibility of drug fever, possibly due to apixaban. Last dose of apixaban was 07/15. Has been on Lovenox since. 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 Monitor off apixaban
for the next few days. There are case reports of apixaban inducing vasculitis. ESR noted to be greater than 145, CRP 15 a few days ago. Clinically he has no signs or symptoms of vasculitis.
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 Hyponatremia improving on fluid restriction. Sodium stable.
Recent right TKA -06/22/2024. Right lower extremity with significant edema and bruising about the knee, warmth. Limited range of motion. Orthopedics input noted, minimal fluid that was bloody was aspirated from the right knee 07/14.
Unfortunately fluid was not sent for culture. Re-aspiration of the right knee performed today 07/15 and fluid to be sent for culture. Discussed with Dr. Graves.
Severe right lower extremity weakness involving hip flexors and knee flexors noted. Seen by physiatry 07/16. Recommend [facility] on discharge.
Recent postoperative pulmonary embolism -no deep vein thrombosis noted on last ultrasound. Continue anticoagulation with Lovenox for now. If he remains afebrile Lovenox, will try to switch to alternative oral anticoagulant such as Pradaxa. Avoid
Eliquis or other 10A inhibitors given suspicion of drug-induced fever.
Recent GI bleed -EGD done 07/05 confirmed multiple and superficial well-healed and nonbleeding duodenal ulcers with a clean base. Continue pantoprazole twice daily.
Subacute normocytic anemia -hemoglobin stable, 7.7. Stools have been brown. No evidence of bleeding clinically. Monitor for now. Previous iron panel not entirely consistent with iron deficiency. Low normal vitamin B12 level, 315. Continue oral
repletion. Folic acid level normal.
History of prostate cancer -s/p prostatectomy.
Essential hypertension -stable. Midodrine discontinued.
Hyperlipidemia -continue atorvastatin.
Gout -continue allopurinol.
Full code
Dispo -back to [facility] on Saturday.
Updated patient's grandson Rodo on the phone. He is a nurse.
Anticipated Discharge: Within 24 hours
Subjective/Interval History
-
Date of Service: July 19, 2024
Patient seen and examined. No complaints.
Objective Data
-
Labs:
Laboratory Results
07/19/24
06:18
WBC 10.6
Hgb 7.7 L
Hct 24.8 L
Plt Count 419 H
Sodium 131 L
Potassium 3.7
Chloride 102
Carbon Dioxide 22
BUN 14
Creatinine 0.8
Glucose 94
Calcium 7.2 L
Vital Signs:
Vital Signs
Temp Pulse Resp BP Pulse Ox
98.3 F 71 16 141/63 96
07/19/24 07:35 07/19/24 07:35 07/19/24 07:35 07/19/24 07:35 07/19/24 07:35
I&O
07/18/24 07/19/24 07/20/24
06:59 06:59 06:59
Intake Total 390 / 390 270 / 270
Balance 390 / 390 270 / 270
Review of Systems
-
History Source: Patient
All other systems: Reviewed and negative
[2024-07-19] MEDS: QUESTRAN 4 GRAM PO (09:40)
--- NOTE | 2024-07-19 10:36 | W.PN.NEPH.PH ---
Today's Communication / Plan
-
Increase Lasix
Assessment/Plan
-
Assessment
Hypotension new
Hyponatremia new
Hyperlipidemia
Right knee replacement
Left lung PE
Prostate cancer
Gout
Anemia
Lymphocytic colitis
Plan
follow BMP
continue salt
Increase Lasix to 20 mg
off abx per ID
-
-
Date of Service: July 19, 2024
CC / HPI / ROS
-
Chief Complaint:
Hyponatremia
History of Present Illness:
Sodium up to 131, stable
Hemodynamically stable off midodrine still
No more fevers
Hemoglobin stable at 7.7
Review of Systems:
no CP/SOB
Nonoliguric
Labs
-
Labs:
WBC 10.6 10^3/uL (4.8-10.8) 07/19/24 06:18
RBC 2.58 10^6/uL (4.70-6.10) L 07/19/24 06:18
Hgb 7.7 g/dL (13.0-18.0) L 07/19/24 06:18
Hct 24.8 % (39.0-52.0) L 07/19/24 06:18
Plt Count 419 10^3/uL (130-400) H 07/19/24 06:18
Sodium 131 mmol/L (135-145) L 07/19/24 06:18
Potassium 3.7 mmol/L (3.5-5.1) 07/19/24 06:18
Chloride 102 mmol/L (98-107) 07/19/24 06:18
Carbon Dioxide 22 mmol/L (22-30) 07/19/24 06:18
BUN 14 mg/dl (9-20) 07/19/24 06:18
Creatinine 0.8 mg/dL (0.7-1.3) 07/19/24 06:18
eGFR > 60.00 07/19/24 06:18
Glucose 94 mg/dl (70-99) 07/19/24 06:18
Calcium 7.2 mg/dl (8.4-10.2) L 07/19/24 06:18
Albumin 2.8 g/dl (3.5-5.0) L 07/13/24 23:26
Physical Exam
-
Vital Signs:
Vital Signs
Temp Pulse Resp BP Pulse Ox
98.3 F 71 16 141/63 96
07/19/24 07:35 07/19/24 07:35 07/19/24 07:35 07/19/24 07:35 07/19/24 07:35
Cardiovascular:: Regular rate and rhythm
Respiratory:: Bilateral: Coarse
Lung Excursion:: Normal
Abdomen:: Nontender and Soft
Bowel Sounds:: Normal
Extremity Edema:: None: Bilateral:
[2024-07-19] MEDS: LASIX 20 MG PO (12:20)
--- NOTE | 2024-07-19 12:26 | W.PN.ID1 ---
Date of Service
Date of Service: July 19, 2024
Today's Communication
- Avoid Eliquis
- DC to [facility] tomorrow
-ID will sign off.
Assessment / Plan
# Fevers now resolved, off Eliquis
# Recent R TKA 06/22/24
# PE dx post-op (06/22/24) on AC
- 07/[address] no PNA;
- Knee Xray moderate supra-patellar effusion.
07/14 Ortho aspirated knee 5 cc tricia blood, specimen clotted
07/15 Ortho aspirated 1 drop of bloody fluid, cx neg
-UA no pyuria
- TTE neg vege
-Bcx 1 of 3 sets, microccoccus = contaminant
Repeat bcx's x2 before Vanco, neg to date
- CT a/p no acute process
- BLE DVT ruled out
-repeat COVID, Flu neg.
- FLACA negative
- DC to [facility] tomorrow
-ID will sign off.
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
Essential Hypertension
Hyperlipidemia
Prediabetes
Lymphocytic Colitis
Prostate Cancer s/p Prostatectomy
Gout (knees) on allopurinol
Hernia Repair
Prostatectomy
Humerus Fracture Repair
Right Total Knee Replacement
Chief Complaint
-: Fever
Subjective / Review of Systems
Feeling better. Appetite improved.
Vital Signs / Physical Exam
Vital Signs
Vital Signs
Temp Pulse Resp BP Pulse Ox
98.1 F 71 16 141/63 96
07/19/24 11:05 07/19/24 07:35 07/19/24 07:35 07/19/24 07:35 07/19/24 07:35
Physical Exam
Constitutional: Comfortable
Eyes: No Conjunctival Hemorrhage and Sclera Anicteric
Pulmonary: Clear
Gastrointestinal: Soft, Non Tender and Non Distended
Extremities: Edema (RLE decrease)
Musculoskeletal: Other (Right knee: no erythema, no wounds)
Neurological: Awake, Alert and AO x 3
Objective Data
Lab Data
Lab Results
07/19/24 06:18
07/19/24 06:18
ESR > 145 mm/hour (0-20) H 07/14/24 12:05
Estimated Creat Clear 62 ml/min 07/19/24 06:18
Lactic Acid 0.9 mmol/L (0.7-2.0) 07/14/24 12:05
Total Bilirubin 1.4 mg/dl (0.2-1.3) H 07/13/24 23:26
AST 47 U/L (17-59) 07/13/24 23:26
ALT 35 U/L (0-50) 07/13/24 23:26
Alkaline Phosphatase 65 U/L (38-126) 07/13/24 23:26
C-Reactive Protein 15.70 mg/L (0.0-10.00) H 07/14/24 12:05
Most recent labs reviewed.
Micro Results:
07/15/24 10:15 Body Fluid Culture - Final
Joint Fluid No Growth After 72 Hours
Gram Stain - Final
07/15/24 09:26 Blood Culture - Preliminary
Blood/Venous No Growth in 4 days- Final report to follow
07/15/24 09:01 Blood Culture - Preliminary
Blood/Venous No Growth in 4 days- Final report to follow
07/14/24 08:36 Blood Culture - Final
Blood/Venous No Growth - Final Report
07/14/24 07:50 Blood Culture - Final
Blood/Venous No Growth - Final Report
07/14/24 00:25 Blood Culture - Final
Blood/Venous No Growth - Final Report
07/16/24 10:09 Influenza Types A & B (SANDOR) - Final
Nasal Swab Negative for Influenza A & B, NAAT
Negative results must be combined with clinical observations
and patient history.
Nucleic Acid Amplification test (NAAT)performed on the
[employer] NOW platform.
07/14/24 00:35 Blood Culture - Preliminary
Blood/Venous Micrococcus species
Gram Stain - Preliminary
07/13/24 23:26 Urine Culture - Final
Urine NO GROWTH
07/14/24 08:32 Nasal Screen MRSA (PCR) - Final
Nose MRSA not detected - performed by PCR methodology.
07/13/24 23:26 Influenza Types A & B (SANDOR) - Final
Nasal Swab Negative for Influenza A & B, NAAT
Negative results must be combined with clinical observations
and patient history.
Nucleic Acid Amplification test (NAAT)performed on the
[employer] NOW platform.
07/14/24 CT chest without contrast: No evidence of lobar pneumonia or pleural effusion. Reticular interstitial thickening, traction bronchiectasis, and early honeycombing, most pronounced at the lung bases, suggestive of mild to moderate
interstitial fibrosis.
07/14/24 Right knee xray: There has been a right knee replacement. Alignment appears normal. No acute fractures nor dislocations are noted. There is suggestion of a moderate suprapatellar joint effusion. There is moderate suprapatellar soft tissue
swelling. There are vascular calcifications.
Care Review
Plan reviewed with: Physician (dr. Lawrence)
--- NOTE | 2024-07-19 14:41 | W.PN.UPDATE ---
Update Note
Progress Note Update
Cultures from 07/15/2024 remain with no growth to date. Mr. Buckley complains of no pain in the right knee today. He does have some weakness, however, was able to get up with physical therapy today. Plan is for discharge to [facility] tomorrow.
Will sign off on from an orthopedic standpoint for now. Please contact with any questions going forward.
[2024-07-19 15:25] VITALS: BP 134/78
[2024-07-19] MEDS: LIPITOR 10 MG PO (20:28)
[2024-07-19 23:26] VITALS: BP 160/78
[2024-07-20 07:04] VITALS: BP 136/67
[2024-07-20] MEDS: LOVENOX 80 MG SC (09:06)
[2024-07-20] MEDS: FEOSOL 325 MG PO (09:07)
[2024-07-20] MEDS: MIRALAX 17 GRAMS PO (09:07)
[2024-07-20] MEDS: QUESTRAN 4 GRAM PO (09:07)
[2024-07-20] MEDS: SODIUM CHLORIDE 1 GRAM PO (09:07)
[2024-07-20] MEDS: ZYLOPRIM 100 MG PO (09:07)
[2024-07-20] MEDS: VITAMIN B-12 1000 MCG PO (09:07)
[2024-07-20] MEDS: LASIX 20 MG PO (09:08)
[2024-07-20] MEDS: COLACE 100 MG PO (09:08)
[2024-07-20] MEDS: PROTONIX 40 MG PO (09:26)
--- NOTE | 2024-07-20 11:00 | W.PN.UPDATE ---
Update Note
Progress Note Update
Orthopedics to follow peripherally at this time. Fortunately right knee aspirate with NGTD, albeit patient on ABX. Afeb this AM with WBC 10.6. Currently FOUS, with thoughts that this was a medication induced fever. Therefore, patient was changed
from Eliquis/10A inhibitors to, currently, Lovenox. Pradaxa was considered. I wanted to note, aspirate from 14 July 2024 was indeed sent for GS, C&S, and cell count. Aspirate was placed in lavender top tube for cell count and orders were
placed for C&S, only to find out later that the ETDA anticoagulant in the lavender top tube affects GS and C&S yield, which we were unaware of. Therefore repeat aspiration was obtained the following day, 15 July 2024, with again, NGTD.
Hopefully patient will soon be transferred back to rehab or home with a routine outpatient follow-up in approximately 2 weeks
--- NOTE | 2024-07-20 12:01 | W.PN.HOSP.TC ---
Today's Communication/Plan
-
monitor vitals
see plan
dc planning; CM aware
monitor for further fever; if continues to be afebrile then consider pradaxa instead of lovenox
Assessment / Plan
Assessment / Plan
Gen-awake, alert, NAD
HEENT-NC, AT, anicteric, clear oral mm
Neck-supple
CV-reg, no M, +S1/S2
Lungs-clear B/L
Abd-soft, NT, ND
Ext-improving right lower extremity edema and bruising
Musculoskeletal-no cyanosis, clubbing
Skin-warm and dry
Neuro-severe right hip flexor and knee flexor weakness. Nonfocal upper extremities.
Psych-calm, cooperative
Acute TME -wide differential diagnosis including hyponatremia, fever, etc. Suspect he may have underlying cognitive impairment and now has superimposed delirium. Confusion overall is improving. Needs formal cognitive assessment after discharge.
FUO -so far no infectious source found. Mild leukocytosis noted. Possibility of drug fever, possibly due to apixaban. Last dose of apixaban was 07/15. Has been on Lovenox since. 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 Monitor off apixaban
for the next few days. There are case reports of apixaban inducing vasculitis. ESR noted to be greater than 145, CRP 15 a few days ago. Clinically he has no signs or symptoms of vasculitis.
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 Hyponatremia improving on fluid restriction. Sodium stable.
Recent right TKA -06/22/2024. Right lower extremity with significant edema and bruising about the knee, warmth. Limited range of motion. Orthopedics input noted, minimal fluid that was bloody was aspirated from the right knee 07/14.
Unfortunately fluid was not sent for culture. Re-aspiration of the right knee performed 07/15 and fluid to be sent for culture. Discussed with Dr. Graves.
Severe right lower extremity weakness involving hip flexors and knee flexors noted. Seen by physiatry 07/16. Recommend [facility] on discharge.
Recent postoperative pulmonary embolism -no deep vein thrombosis noted on last ultrasound. Continue anticoagulation with Lovenox for now. If he remains afebrile on Lovenox, will try to switch to alternative oral anticoagulant such as Pradaxa.
Avoid Eliquis or other 10A inhibitors given suspicion of drug-induced fever.
Recent GI bleed -EGD done 07/05 confirmed multiple and superficial well-healed and nonbleeding duodenal ulcers with a clean base. Continue pantoprazole twice daily.
Subacute normocytic anemia -hemoglobin stable, 7.7. Stools have been brown. No evidence of bleeding clinically. Monitor for now. Previous iron panel not entirely consistent with iron deficiency. Low normal vitamin B12 level, 315. Continue oral
repletion. Folic acid level normal.
History of prostate cancer -s/p prostatectomy.
Essential hypertension -stable. Midodrine discontinued.
Hyperlipidemia -continue atorvastatin.
Gout -continue allopurinol.
Full code
Dispo -back to [facility] on Saturday.
Anticipated Discharge: Today
Subjective/Interval History
-
Date of Service: July 20, 2024
denies pain
Objective Data
-
Vital Signs:
Vital Signs
Temp Pulse Resp BP Pulse Ox
98.5 F 81 18 136/67 94
07/20/24 07:04 07/20/24 07:04 07/20/24 07:04 07/20/24 07:04 07/20/24 07:04
I&O
07/19/24 07/20/24 07/21/24
06:59 06:59 06:59
Intake Total 270 / 270 480 / 480
Output Total 925 / 925
Balance 270 / 270 -445 / -445
[2024-07-20 13:06] VITALS: BP 109/64; BP 114/64; BP 146/84; BP 151/80; PULSE 79; PULSE 91
--- NOTE | 2024-07-20 13:15 | W.PN.NEPH.PH ---
Today's Communication / Plan
-
ok for d/c to rehab
Assessment/Plan
-
Assessment
Hypotension new
Hyponatremia new
Hyperlipidemia
Right knee replacement
Left lung PE
Prostate cancer
Gout
Anemia
Lymphocytic colitis
Plan
follow BMP tomorrow
continue salt tabs
Increased Lasix to 20 mg 07/19
BP stable
ok to d/c back to rehab
-
-
Date of Service: July 20, 2024
CC / HPI / ROS
-
Chief Complaint:
Hyponatremia
History of Present Illness:
Sodium up to 131, stable, no labs today
Hemodynamically stable off midodrine still
No more fevers
Hemoglobin stable at 7.7
Review of Systems:
no CP/SOB
Nonoliguric
Labs
-
Labs:
WBC 10.6 10^3/uL (4.8-10.8) 07/19/24 06:18
RBC 2.58 10^6/uL (4.70-6.10) L 07/19/24 06:18
Hgb 7.7 g/dL (13.0-18.0) L 07/19/24 06:18
Hct 24.8 % (39.0-52.0) L 07/19/24 06:18
Plt Count 419 10^3/uL (130-400) H 07/19/24 06:18
Sodium 131 mmol/L (135-145) L 07/19/24 06:18
Potassium 3.7 mmol/L (3.5-5.1) 07/19/24 06:18
Chloride 102 mmol/L (98-107) 07/19/24 06:18
Carbon Dioxide 22 mmol/L (22-30) 07/19/24 06:18
BUN 14 mg/dl (9-20) 07/19/24 06:18
Creatinine 0.8 mg/dL (0.7-1.3) 07/19/24 06:18
eGFR > 60.00 07/19/24 06:18
Glucose 94 mg/dl (70-99) 07/19/24 06:18
Calcium 7.2 mg/dl (8.4-10.2) L 07/19/24 06:18
Albumin 2.8 g/dl (3.5-5.0) L 07/13/24 23:26
Physical Exam
-
Vital Signs:
Vital Signs
Temp Pulse Resp BP Pulse Ox
98.5 F 81 18 136/67 94
07/20/24 07:04 07/20/24 07:04 07/20/24 07:04 07/20/24 07:04 07/20/24 12:06
Cardiovascular:: Regular rate and rhythm
Respiratory:: Bilateral: CTA
Lung Excursion:: Normal
Abdomen:: Nontender and Soft
Extremity Edema:: +2: Right: and None: Left:
Burk Catheter: No
--- NOTE | 2024-07-20 13:36 | CM ---
Addendum entered by Arminda Chaves 07/20/24 14:59:
[facility]
Addendum entered by Arminda Chaves 07/20/24 14:27:
Keila Steward notified that OT notes are documented for today.
Plan: Pt can be transferred to [facility] today.
Original Note:
CM contacted therapy this am to request PT and OT updates which are needed prior to transfer to [facility]. PT notes are updated, awaiting OT to see pt today and then can be transferred to [facility]. Keila Steward aware of OT notes pending. Merline MORALES
made aware of same.
Plan: Transfer/return to [facility] pending OT notes for today.
--- NOTE | 2024-07-20 14:08 | W.DCSUMMARY ---
Discharge Summary
Discharge Data
Date of Admission: 07/14/24
Date of Discharge: 07/20/24
-
Pending Results: No
Hospital Course
84-year-old male with past medical history of recent right TKA, recent postoperative pulmonary embolism, GI bleed, anemia, prostate cancer s/p prostatectomy, essential hypertension, hyperlipidemia, gout came to the hospital with acute toxic
metabolic encephalopathy which was likely thought was multifactorial secondary to hyponatremia and fever. His mental status continue to improve over time. His fever was found to be likely secondary to Eliquis which was stopped and instead he was
started on Lovenox. He was seen by infectious disease who initially had him on antibiotic which was later stopped. Ortho also performed aspiration with culture was negative. His fever continue to improve over time. He was also evaluated by
physical therapy who recommended acute rehab. Patient was instructed to follow-up with all his physicians outpatient after discharge. It was also recommended patient to start Pradaxa if he remains afebrile and he had at least 5 to 10 days of
parenteral anticoagulation.
Discharge Plan
-
Patient Disposition: Acute Rehab Facility
Discharge Diagnosis/Procedures: Acute toxic metabolic encephalopathy
Fever of unknown origin
Hyponatremia
Recent right TKA
Recent postoperative pulmonary embolism
Condition: Fair
Diet: As tolerated
Activity: With assistance and As tolerated
Driving Restrictions: Not until seen by your Dr
Bathing Restrictions: None
Blood Work: cbc and bmp next week at rehab
Activity Restrictions/Additional Instructions:
If continues to stay afebrile then can DC Lovenox and start Pradaxa 150 mg twice daily. Need to have parenteral anticoagulation for 5-10 days atleast.
Referrals:
UNKNOWN - PT NOT,INTERVIEWE [Family Provider] - in less than 1 week
Max Graves MD [Active] -
Denia Cedeno MD [Active] -
Contreras Pierre MD [Active] -
Prescriptions:
New
enoxaparin 80 mg/0.8 mL Syringe
80 mg SC Q12H Qty: 0 0RF
acetaminophen 325 mg Tablet
650 mg PO Q4HPRN PRN (Reason: STOUT/mild pain/temp > 100.4 F) Qty: 0 0RF
furosemide 20 mg Tablet
20 mg PO DAILY Qty: 0 0RF
sodium chloride 1,000 mg Tablet,Soluble
1,000 mg PO BID Qty: 0 0RF
Continued
allopurinol 100 MG tablet
100 mg PO BID
Prolia 60 mg/mL Syringe
60 mg SC [id number]
Lupron Depot (6 Month) 45 mg Syringe Kit
45 mg IM [id number]
pantoprazole 40 mg Tablet,Delayed Release (Dr/Ec)
40 mg PO BID Qty: 0 0RF
cyanocobalamin (vitamin B-12) 1,000 mcg Tablet
1,000 mcg PO DAILY Qty: 0 0RF
tramadol 50 mg Tablet
50 mg PO Q6HPRN PRN (Reason: moderate pain) Qty: 0 0RF
acetaminophen 325 mg Tablet
650 mg PO Q4HPRN PRN (Reason: mild pain)
atorvastatin 10 mg Tablet
10 mg PO HS
bisacodyl [Dulcolax (bisacodyl)] 10 mg Suppository
10 mg DC DAILYPRN PRN (Reason: constipation)
docusate sodium 100 mg Capsule
100 mg PO BID
bisacodyl [Dulcolax (bisacodyl)] 5 mg Tablet,Delayed Release (Dr/Ec)
10 mg PO DAILYPRN PRN (Reason: constipation)
cholecalciferol (vitamin D3) 50 mcg (2,000 unit) Tablet
50 mcg PO DAILY
polyethylene glycol 3350 [HealthyLax] 17 gram powder in packet
17 g PO DAILY
ferrous sulfate [FeroSul] 325 mg (65 mg iron) tablet
325 mg PO DAILY
cholestyramine (with sugar) 4 gram powder in packet
1 ea PO DAILY@0600
Held
atenolol 25 mg Tablet
25 mg PO DAILY
Hold Instructions: Until blood pressure is greater than 140/90
Discontinued
Eliquis 5 mg Tablet
5 mg PO BID Qty: 0 0RF
midodrine 2.5 mg tablet
5 mg PO TID@0800,1300,1800
Discharge Orders:
Discharge Patient (As Directed); Ordered 07/20/24
Ordered By: Julio Herrera
Discharge Date and Time
Discharge Date/Time: 07/20/24 15:59
Print Language: SUDANESE
[2024-07-20 14:32] VITALS: BP 102/66; BP 104/63; PULSE 121
--- NOTE | 2024-07-20 15:48 | PTCARENOTE ---
Report called to [facility]. IVs removed. at bedside. Patient awaiting transport to room 314 in [place].
[2024-07-20 15:59] VITALS: BP 116/62
== END 2024-07-20 15:59 | DRG 92 ==
LOC: 4 EAST ACU 01:33
PROVIDERS: Emergency Medicine; Hospitalist; Nurse Practitioner Gerontology; Physician Assistant Surgical; Specialist; ADMITTING PHYSICIAN Internal Medicine; ATTENDING PHYSICIAN Internal Medicine; CONSULT PHYSICIAN Orthopaedic Surgery; CONSULT PHYSICIAN Physical Medicine & Rehabilitation; CONSULT PHYSICIAN Specialist; EMERGENCY PHYSICIAN Student in an Organized Health Care Education/Training Program; OTHER PHYSICIAN Internal Medicine Infectious Disease
DX: G92.8 Other toxic encephalopathy (principal); E22.2 Syndrome of inappropriate secretion of antidiuretic hormone; E87.1 Hypo-osmolality and hyponatremia; J98.11 Atelectasis; I95.1 Orthostatic hypotension; E78.00 Pure hypercholesterolemia, unspecified; Z96.651 Presence of right artificial knee joint; Z86.711 Personal history of pulmonary embolism; Z79.01 Long term (current) use of anticoagulants; Z11.52 Encounter for screening for COVID-19
CPT/HCPCS: 71046; 71250; 73560; 74177; 80048; 80053; 81003; 81015; 82533; 82746; 83605; 83735; 83935; 84145; 84300; 84443; 84550; 85025; 85027; 85652; 86038; 86140; 87015; 87040; 87045; 87046; 87070; 87086; 87147; 87150; 87205; 87427; 87502; 87641; 87811; 89051; 93970; 96374; 97116; 97163; 97166; 97530; 97535; 99285; Q9967

== ENCOUNTER 2024-08-21 11:22 | Emergency (ER) | payer MEDICARE, BC, SELFPAY ==
[2024-08-21 11:34] VITALS: BP 131/62
[2024-08-21 12:02] LABS: % Basophils 0.5 % (0-2); % Eosinophils 3.4 % (0-6); % Immature Granulocytes 0.3 % (0-0.5); % Lymphocytes 12.5 % (20.5-51.1); % Monocytes 9.5 % (1.7-9.3); % Neutrophils 73.8 % (42.2-75.2); Absolute Eosinophils 0.3 10^3/uL (0-0.7); Absolute Lymphocytes 0.9 10^3/uL (1.2-3.4); Absolute Monocytes 0.7 10^3/uL (0.1-0.6); Absolute Neutrophils 5.4 10^3/uL (1.4-6.5); Hematocrit 30.9 % (39.0-52.0); Hemoglobin 9.9 g/dL (13.0-18.0); Mean Corpuscular Hgb 30.9 pg (27.0-31.0); Mean Corpuscular Volume 96.6 fL (80.0-94.0); Mean Platelet Volume 10.3 fL (7.4-10.4); Nucleated Red Blood Cells % 0 % (-); Platelet Count 263 10^3/uL (130-400); Red Cell Dist. Width 18.4 % (11.5-14.5); White Blood Cell Count 7.4 10^3/uL (4.8-10.8)
[2024-08-21 12:18] LABS: ALT (SGPT) 11 U/L (0-50); AST (SGOT) 17 U/L (17-59); Albumin 3.7 g/dl (3.5-5.0); Alkaline Phosphatase 37 U/L (38-126); Blood Urea Nitrogen 20 mg/dl (9-20); Calcium 9.5 mg/dl (8.4-10.2); Carbon Dioxide 28 mmol/L (22-30); Chloride 100 mmol/L (98-107); Glucose 113 mg/dl (70-99); Potassium 3.8 mmol/L (3.5-5.1); Sodium 136 mmol/L (135-145); Total Bilirubin 0.5 mg/dl (0.2-1.3); Total Protein 6.4 g/dl (6.3-8.2); eGFR > 60.00
[2024-08-21 13:11] LABS: Erythrocyte Sed Rate 92 mm/hour (0-20)
--- NOTE | 2024-08-21 13:19 | ED.GENMED ---
History of Present Illness
General
Chief Complaint: DVT/Possible Blood Clot
Source: patient
Exam Limitations: none
Time Seen by Provider: 08/21/24 13:06
History of Present Illness
History of Present Illness:
84-year-old male on Xarelto presents with increased discoloration swelling stiffness and pain to the right leg. He was attending physical therapy and was sent here for further evaluation. He denies fever or chills. He does note some increased
pain. He notes his motion has decreased slightly. He had a knee replacement on June 21.
Past History
Past History
ED Past Medical History: Cancer (Prostate), HTN and Hypercholesterolemia
ED Past Surgical History: Other (Hernia repair)
Social History
Tobacco: Non-smoker
Phy Exam
Physical Exam
Physical Exam:
General: Well-appearing nontoxic male no acute respiratory distress
HEENT: Normocephalic atraumatic
Heart: Regular rate and rhythm no murmurs
Lungs: Clear no wheeze
Extremities: Edema noted right lower extremity.
Musculoskeletal exam: Right knee is slightly warm to the touch. There is a small effusion. He has full extension flexion is limited to about 30 degrees. There is fullness palpated in the popliteal fossa. The right sifuentes is also edematous and
slightly erythematous he is mildly diffusely tender
Course
Orders/Labs/Results
Orders:
Orders
08/21/24 11:25
Periph Venous Lwr Ext Rt US [US Periph Venous LOWER Ext RT] Urgent
Comment: s/p R knee replacement
Reason For Exam: swelling, pain
08/21/24 11:47
C-Reactive Protein Urgent
Complete Blood Count/With Diff Urgent
Comprehensive Metabolic Panel Urgent
Erythrocyte Sed Rate Urgent
Abnormal Lab Results
08/21/24
11:47
RBC 3.20 L 10^6/uL
(4.70-6.10)
Hgb 9.9 L g/dL
(13.0-18.0)
Hct 30.9 L %
(39.0-52.0)
MCV 96.6 H fL
(80.0-94.0)
MCHC 32.0 L g/dL
(33.0-37.0)
RDW 18.4 H %
(11.5-14.5)
Absolute Lymphs (auto) 0.9 L 10^3/uL
(1.2-3.4)
Absolute Monos (auto) 0.7 H 10^3/uL
(0.1-0.6)
Lymphocytes % 12.5 L %
(20.5-51.1)
Monocytes % 9.5 H %
(1.7-9.3)
ESR 92 H mm/hour
(0-20)
Glucose 113 H mg/dl
(70-99)
Alkaline Phosphatase 37 L U/L
(38-126)
C-Reactive Protein 13.70 H mg/L
(0.0-10.00)
08/21/24 11:47
08/21/24 11:47
Vital Signs
Initial and Last Documented VS:
Initial Vital Signs
Temp Pulse Resp BP Pulse Ox
97.8 F 65 16 131/62 98
08/21/24 11:34 08/21/24 11:34 08/21/24 11:34 08/21/24 11:34 08/21/24 11:34
Last Documented Vital Signs
Temp Pulse Resp BP Pulse Ox
97.8 F 65 16 131/62 96
08/21/24 11:34 08/21/24 11:34 08/21/24 11:34 08/21/24 11:34 08/21/24 13:43
MDM/Problems Addressed
Differential Diagnosis Includes:
Right leg swelling and discoloration. Question inflammatory response to recent knee replacement versus DVT versus cellulitis. Also can consider septic arthritis however given clinical exam suspicion is low.
Ultrasound of the right leg ordered through triage is negative for DVT but does demonstrate Frazn's cyst. Labs were ordered including inflammatory markers such as sed rate and CRP. Sed rate is elevated at 92 CRP is slightly high at 13 7. Serum
white count is 7.4. Reached out to his pubic doctor and sent pictures of the leg
*Critical Care Note
Total Time (30-74mins, 75-104mins- exclusive of procedures): Not Applicable
Update Note
Update Note:
Discussed findings with orthopedics and sent them pictures. Also discussed the laboratory results with orthopedics. Per orthopedics low suspicion of infection given the relatively low CRP. The thought is maybe something blood underneath the skin
and cause an inflammatory response. Orthopedics requested and recommended against antibiotics at this time but will have patient closely follow-up. Cautions were given
ED Attending Note
-
Portions of this chart may have been created with voice recognition software.� Occasional wrong word or��sound alike� substitutions may have occurred due to the inherent limitations of voice recognition software.
Discharge Plan
Departure
Patient Disposition: Home (Routine Discharge)
Date of Disposition: 08/21/24
Time of Disposition: 14:22
Patient with high blood pressure during this ER visit?: No
Discharge Problem:
Leg pain
Instructions: Franz's Cyst (DC)
Prescriptions:
No Action
allopurinol 100 MG tablet
100 mg PO BID
atenolol 25 mg Tablet
25 mg PO DAILY
Prolia 60 mg/mL Syringe
60 mg SC [id number]
Lupron Depot (6 Month) 45 mg Syringe Kit
45 mg IM [id number]
cyanocobalamin (vitamin B-12) 1,000 mcg Tablet
1,000 mcg PO DAILY Qty: 0 0RF
atorvastatin 10 mg Tablet
10 mg PO HS
docusate sodium 100 mg Capsule
100 mg PO BID
cholecalciferol (vitamin D3) 50 mcg (2,000 unit) Tablet
50 mcg PO DAILY
polyethylene glycol 3350 [HealthyLax] 17 gram powder in packet
17 g PO DAILY
ferrous sulfate [FeroSul] 325 mg (65 mg iron) tablet
325 mg PO DAILY
amlodipine 5 mg Tablet
5 mg PO QPM 30 Days Qty: 30 0RF
baclofen 5 mg Tablet
2.5 mg PO TID @ 0800,1200,1700 30 Days Qty: 45 0RF
Xarelto 20 mg Tablet
20 mg PO QPM 30 Days Qty: 30 0RF
pantoprazole 40 mg Tablet,Delayed Release (Dr/Ec)
40 mg PO BID 30 Days Qty: 60 0RF
cholestyramine (with sugar) 4 gram powder in packet
1 ea PO DAILY@0600 30 Days Qty: 30 0RF
sodium chloride 1,000 mg Tablet,Soluble
1,000 mg PO BID 30 Days Qty: 60 0RF
Referrals:
Tima Olvera MD [Family Provider] -
Activity Restrictions/Additional Instructions:
Elevate leg for swelling. Continue with Tylenol if needed for pain. Please return here for increased swelling pain fever or other concerning findings otherwise follow-up with Dr. Graves
Interventions
Interventions:
*Risk Screen - Suicide Last Done: 08/21/24 11:34
*General Assessment Last Done: 08/21/24 13:41
*Neglect/Abuse Screening Last Done: 08/21/24 11:34
ED- Fall Risk Assessment Last Done: 08/21/24 13:43
*ED COVID-19 Vaccine History Last Done: 08/21/24 13:41
ED- Cardiac Assessment Last Done: 08/21/24 13:43
ED- Pulmonary Assessment Last Done: 08/21/24 13:43
ED-Skin Assessment Last Done: 08/21/24 13:45
Discharge Date and Time
Print Language: SLOVAK
[2024-08-21 13:41] VITALS: BMI 24.9
== END 2024-08-21 15:11 | disposition home or self-care (01) ==
LOC: EMR 11:22
PROVIDERS: EMERGENCY PHYSICIAN Student in an Organized Health Care Education/Training Program; FAMILY PHYSICIAN Internal Medicine
DX: M79.604 Pain in right leg (principal); Z96.651 Presence of right artificial knee joint
CPT/HCPCS: 99284; 80053; 85025; 85652; 86140; 93971

== ENCOUNTER → 2024-08-27 15:47 | Outpatient (REF) | payer MEDICARE, BC, SELFPAY ==
[2024-08-27 17:43] LABS: Erythrocyte Sed Rate 115 mm/hour (0-20)
== END ==
LOC: REG 15:47
PROVIDERS: ATTENDING PHYSICIAN Physician Assistant Surgical; FAMILY PHYSICIAN Internal Medicine
DX: Z47.89 Encounter for other orthopedic aftercare (principal)
CPT/HCPCS: 36415; 85652; 86140

== ENCOUNTER → 2024-08-28 14:07 | Outpatient (REF) | payer MEDICARE, BC, SELFPAY | LOC: REG 14:07 | PROVIDERS: ATTENDING PHYSICIAN Physician Assistant Surgical; FAMILY PHYSICIAN Internal Medicine | DX: Z47.89 Encounter for other orthopedic aftercare (principal) | CPT/HCPCS: 87015; 87070; 87075; 87205 ==

== ENCOUNTER 2024-09-01 02:00 | Emergency (ER) | payer MEDICARE, BC, SELFPAY ==
[2024-09-01 02:02] VITALS: BP 118/72
[2024-09-01 02:41] LABS: % Basophils 0.1 % (0-2); % Eosinophils 0.2 % (0-6); % Immature Granulocytes 1.2 % (0-0.5); % Lymphocytes 5.1 % (20.5-51.1); % Monocytes 6.6 % (1.7-9.3); % Neutrophils 86.8 % (42.2-75.2); Absolute Immature Granulocytes 0.1 10^3/uL (0-0.05); Absolute Lymphocytes 0.6 10^3/uL (1.2-3.4); Absolute Monocytes 0.8 10^3/uL (0.1-0.6); Hematocrit 35.2 % (39.0-52.0); Hemoglobin 10.9 g/dL (13.0-18.0); Mean Corpuscular Hgb 29.6 pg (27.0-31.0); Mean Corpuscular Volume 95.7 fL (80.0-94.0); Mean Platelet Volume 11.3 fL (7.4-10.4); Nucleated Red Blood Cells % 0 % (-); Platelet Count 321 10^3/uL (130-400); Red Blood Cell Count 3.68 10^6/uL (4.70-6.10); Red Cell Dist. Width 17.7 % (11.5-14.5); White Blood Cell Count 11.6 10^3/uL (4.8-10.8)
[2024-09-01 03:01] LABS: ALT (SGPT) 23 U/L (0-50); AST (SGOT) 37 U/L (17-59); Albumin 3.9 g/dl (3.5-5.0); Alkaline Phosphatase 91 U/L (38-126); Blood Urea Nitrogen 40 mg/dl (9-20); Calcium 9.5 mg/dl (8.4-10.2); Carbon Dioxide 29 mmol/L (22-30); Chloride 98 mmol/L (98-107); Glucose 122 mg/dl (70-99); Sodium 136 mmol/L (135-145); Total Bilirubin 0.6 mg/dl (0.2-1.3); Total Protein 6.8 g/dl (6.3-8.2); eGFR > 60.00
[2024-09-01 03:18] LABS: Urine Albumin Trace (Neg - Trace); Urine Bilirubin Negative (Negative); Urine Character Slightly Cloudy (Clear); Urine Color Yellow; Urine Glucose Negative (Negative); Urine Ketone Negative (Negative); Urine Leukocyte Negative (Negative); Urine Nitrite Negative (Negative); Urine Occult Blood 4+ (Negative); Urine Specific Gravity 1.005 (<1.030); Urine Urobilinogen Negative (Neg - 1+)
[2024-09-01 03:40] LABS: Urine Hyaline Cast 0-2 /LPF (0-2); Urine Red Blood Cell >100 /HPF (0-2)
[2024-09-01 03:41] LABS: Urine Bacteria Moderate (Negative)
--- NOTE | 2024-09-01 04:15 | ED.GENMED ---
History of Present Illness
General
Chief Complaint: Fever
Time Seen by Provider: 09/01/24 04:14
History of Present Illness
History of Present Illness:
TIME OF INITIAL ENCOUNTER: 6:20 AM
HPI: The patient presents due to shaking chills in the setting of increased urinary frequency. Currently he feels markedly improved. He has no GI symptoms. He has no cough or congestion. He states he has had fevers in the past which are related
to Eliquis use. He is now on Xarelto. The patient now feels 'great'.
EXAM:
GENERAL: Well appearing in no distress
HEENT: Moist oral mucosa
CARDIOVASCULAR: No murmurs, normal heart rate, regular rhythm, No chest wall tenderness
PULMONARY: No respiratory distress, breath sounds are clear and equal
ABDOMEN: Soft with no peritoneal signs, no tenderness
NEUROLOGIC: Excellent strength all extremities, no coordination deficits
PSYCHIATRIC: Appropriate mental status, normal insight and judgement
EXTREMITIES: Nontender, no edema, moves all extremities equally
SKIN: Brown healing wound of the anterior right knee
NUMBER AND COMPLEXITY OF PROBLEMS ADDRESSED AT THE ENCOUNTER
� Chronic conditions affecting care: Has had PE, has had pneumonia, prostate cancer
� Acute Exacerbation and/or Progression of Chronic Illness: This is an acute problem
� Differential Diagnosis includes: Viral syndrome, doubt sepsis as patient has markedly improved without intervention
AMOUNT AND/OR COMPLEXITY OF DATA TO BE REVIEWED AND ANALYZED
� I performed an independent evaluation of and my interpretation is:
EKG:
CT:
X-rays:
Laboratory Studies: White count 11.6, hemoglobin 10.9, 87% neutrophils, BUN 40, urinalysis shows 4+ blood
Other:
� Review of other/old records: I reviewed the body fluid culture from 4 days ago which showed no growth to date
� Clinical information was obtained by an independent historian: I spoke to family at bedside
� Prescriptions/Medications Considered but not given:
� Further testing considered but not performed: Considered x-rays over the patient has no further symptoms
RISK OF COMPLICATIONS AND/OR MORBIDITY OR MORTALITY OF PATIENT MANAGEMENT
� Social determinants of health affecting care: Lives at home
� Discussion with other providers:
� Escalation of care including admission/observation vs risk of discharge considered: The patient is very well-appearing. Will try Keflex for the possibly of UTI.
ANY OTHER UPDATES:
The patient is very well-appearing on reassessment prior to discharge
Past History
Past History
ED Past Medical History: Cancer (Prostate), HTN and Hypercholesterolemia
ED Past Surgical History: Other (Hernia repair)
Social History
Tobacco: Non-smoker
Phy Exam
Physical Exam
Physical Exam:
See HPI
Course
Orders/Labs/Results
Orders:
Orders
09/01/24 02:15
Complete Blood Count/With Diff Urgent
Comprehensive Metabolic Panel Urgent
Urinalysis Urgent
Date Specimen was Collected: 09/01/24
Time Specimen was Collected: 02:06
Urine Microscopic Urgent
Date Specimen was Collected: 09/01/24
Time Specimen was Collected: 02:06
09/01/24 02:16
Influenza A+B Rapid Molecular Urgent
FRED Source: Nasal Swab
Specimen Description:
Date Specimen was Collected: 09/01/24
Time Specimen was Collected: 02:06
09/01/24 06:32
Cephalexin Monohydrate [Keflex] 500 mg PO NOW STA
Abnormal Lab Results
09/01/24
02:15
WBC 11.6 H 10^3/uL
(4.8-10.8)
RBC 3.68 L 10^6/uL
(4.70-6.10)
Hgb 10.9 L g/dL
(13.0-18.0)
Hct 35.2 L %
(39.0-52.0)
MCV 95.7 H fL
(80.0-94.0)
MCHC 31.0 L g/dL
(33.0-37.0)
RDW 17.7 H %
(11.5-14.5)
MPV 11.3 H fL
(7.4-10.4)
Abs Immat Gran (auto) 0.1 H 10^3/uL
(0-0.05)
Absolute Neuts (auto) 10.0 H 10^3/uL
(1.4-6.5)
Absolute Lymphs (auto) 0.6 L 10^3/uL
(1.2-3.4)
Absolute Monos (auto) 0.8 H 10^3/uL
(0.1-0.6)
Immature Gran % 1.2 H %
(0-0.5)
Neutrophils % 86.8 H %
(42.2-75.2)
Lymphocytes % 5.1 L %
(20.5-51.1)
BUN 40 H mg/dl
(9-20)
Glucose 122 H mg/dl
(70-99)
Urine Occult Blood 4+ A
(Negative)
Urine RBC >100 A /HPF
(0-2)
Urine WBC 6-10 A /HPF
(0-5)
Urine Bacteria Moderate A
(Negative)
09/01/24 02:15
09/01/24 02:15
Vital Signs
Initial and Last Documented VS:
Initial Vital Signs
Temp Pulse Resp BP Pulse Ox
37.8 C 106 24 118/72 96
09/01/24 02:02 09/01/24 02:02 09/01/24 02:02 09/01/24 02:02 09/01/24 02:02
Last Documented Vital Signs
Temp Pulse Resp BP Pulse Ox
37.1 C 71 15 121/87 94
09/01/24 04:32 09/01/24 06:15 09/01/24 06:15 09/01/24 06:00 09/01/24 06:15
*Critical Care Note
Total Time (30-74mins, 75-104mins- exclusive of procedures): Not Applicable
ED Attending Note
-
Portions of this chart may have been created with voice recognition software.� Occasional wrong word or��sound alike� substitutions may have occurred due to the inherent limitations of voice recognition software.
Discharge Plan
Departure
Patient Disposition: Home (Routine Discharge)
Date of Disposition: 09/01/24
Time of Disposition: 06:33
Patient with high blood pressure during this ER visit?: Yes
Discharge Problem:
Fever
Instructions: Fever, Adult (DC)
Prescriptions:
New
cephalexin 500 mg tablet
500 mg PO TID Qty: 21 0RF
No Action
allopurinol 100 MG tablet
100 mg PO BID
atenolol 25 mg Tablet
25 mg PO DAILY
Prolia 60 mg/mL Syringe
60 mg SC [id number]
Lupron Depot (6 Month) 45 mg Syringe Kit
45 mg IM [id number]
cyanocobalamin (vitamin B-12) 1,000 mcg Tablet
1,000 mcg PO DAILY Qty: 0 0RF
atorvastatin 10 mg Tablet
10 mg PO HS
docusate sodium 100 mg Capsule
100 mg PO BID
cholecalciferol (vitamin D3) 50 mcg (2,000 unit) Tablet
50 mcg PO DAILY
polyethylene glycol 3350 [HealthyLax] 17 gram powder in packet
17 g PO DAILY
ferrous sulfate [FeroSul] 325 mg (65 mg iron) tablet
325 mg PO DAILY
amlodipine 5 mg Tablet
5 mg PO QPM 30 Days Qty: 30 0RF
baclofen 5 mg Tablet
2.5 mg PO TID @ 0800,1200,1700 30 Days Qty: 45 0RF
Xarelto 20 mg Tablet
20 mg PO QPM 30 Days Qty: 30 0RF
pantoprazole 40 mg Tablet,Delayed Release (Dr/Ec)
40 mg PO BID 30 Days Qty: 60 0RF
cholestyramine (with sugar) 4 gram powder in packet
1 ea PO DAILY@0600 30 Days Qty: 30 0RF
sodium chloride 1,000 mg Tablet,Soluble
1,000 mg PO BID 30 Days Qty: 60 0RF
Referrals:
Tima Olvera MD [Family Provider] -
Activity Restrictions/Additional Instructions:
Return here if worse or other concerns. Your white count is 11.6, you had more red cells than white cells on the urinalysis. I have placed you on antibiotics for the possibility of a urinary tract infection. Urine culture would be pending. The
body fluid culture from 08/28/2024 showed no growth.
Interventions
Interventions:
*Risk Screen - Suicide Last Done: 09/01/24 02:02
*General Assessment Last Done: 09/01/24 04:26
*Neglect/Abuse Screening Last Done: 09/01/24 02:02
*ED COVID-19 Vaccine History Last Done: 09/01/24 04:26
ED- Neurological Assessment Last Done: 09/01/24 04:26
ED-Skin Assessment Last Done: 09/01/24 04:26
Discharge Date and Time
Print Language: URDU
[2024-09-01 04:24] VITALS: BP 123/63
[2024-09-01 04:25] VITALS: BMI 23.9
[2024-09-01 05:00] VITALS: BP 125/65
[2024-09-01 06:00] VITALS: BP 121/87
[2024-09-01] MEDS: KEFLEX 500 MG PO (06:46)
== END 2024-09-01 06:50 | disposition home or self-care (01) ==
LOC: EMR 02:00
PROVIDERS: EMERGENCY PHYSICIAN Emergency Medicine; FAMILY PHYSICIAN Internal Medicine
DX: R50.9 Fever, unspecified (principal); I10 Essential (primary) hypertension
CPT/HCPCS: 99283; 80053; 81003; 81015; 85025; 87502

== ENCOUNTER → 2024-09-03 11:21 | Outpatient (REF) | payer MEDICARE, BC, SELFPAY ==
[2024-09-03 12:44] LABS: % Basophils 0.2 % (0-2); % Eosinophils 0.2 % (0-6); % Immature Granulocytes 0.9 % (0-0.5); % Lymphocytes 6.5 % (20.5-51.1); % Monocytes 12.6 % (1.7-9.3); % Neutrophils 79.6 % (42.2-75.2); Absolute Immature Granulocytes 0.1 10^3/uL (0-0.05); Absolute Lymphocytes 0.8 10^3/uL (1.2-3.4); Absolute Monocytes 1.5 10^3/uL (0.1-0.6); Absolute Neutrophils 9.6 10^3/uL (1.4-6.5); Hematocrit 35.1 % (39.0-52.0); Mean Corp Hgb Conc. 31.3 g/dL (33.0-37.0); Mean Corpuscular Hgb 29.7 pg (27.0-31.0); Mean Corpuscular Volume 94.9 fL (80.0-94.0); Mean Platelet Volume 11.5 fL (7.4-10.4); Nucleated Red Blood Cells % 0 % (-); Platelet Count 328 10^3/uL (130-400); Red Cell Dist. Width 17.7 % (11.5-14.5)
[2024-09-03 14:04] LABS: Erythrocyte Sed Rate 115 mm/hour (0-20)
== END ==
LOC: REG 11:21
PROVIDERS: ATTENDING PHYSICIAN Internal Medicine
DX: M25.511 Pain in right shoulder (principal)
CPT/HCPCS: 36415; 73030; 85025; 85652

== ENCOUNTER → 2024-09-11 06:31 | Day surgery (SDC) | payer MEDICARE, BC, SELFPAY | LOC: GI 06:31 | PROVIDERS: ATTENDING PHYSICIAN Internal Medicine Gastroenterology | DX: K22.89 Other specified disease of esophagus (principal); K31.89 Other diseases of stomach and duodenum; K26.0 Acute duodenal ulcer with hemorrhage | CPT/HCPCS: 43239; 88305; 88342 ==

== ENCOUNTER → 2024-09-11 15:12 | Outpatient (REF) | payer MEDICARE, BC, SELFPAY | LOC: RAD 15:12 | PROVIDERS: ATTENDING PHYSICIAN Internal Medicine | DX: R22.31 Localized swelling, mass and lump, right upper limb (principal); M79.89 Other specified soft tissue disorders; Z86.711 Personal history of pulmonary embolism | CPT/HCPCS: 93971 ==

== ENCOUNTER 2024-09-29 13:02 | Outpatient (RCR) | payer MEDICARE, BC, SELFPAY ==
[2024-09-29 14:01] VITALS: BP 126/47
[2024-09-29] MEDS: INJECTAFER 265 MG IV (14:03)
[2024-09-29 14:51] VITALS: BP 120/40
== END 2024-09-30 09:56 | disposition home or self-care (01) ==
LOC: OID 13:02
PROVIDERS: ATTENDING PHYSICIAN Internal Medicine
DX: D50.9 Iron deficiency anemia, unspecified (principal); Z79.01 Long term (current) use of anticoagulants; Z87.891 Personal history of nicotine dependence
CPT/HCPCS: 96365; J1439

== ENCOUNTER 2024-10-06 13:16 | Outpatient (RCR) | payer MEDICARE, BC, SELFPAY ==
[2024-10-06] MEDS: INJECTAFER 265 MG IV (13:55)
[2024-10-06 13:59] VITALS: BP 143/47
[2024-10-06 15:20] VITALS: BP 152/45
== END 2024-10-07 09:37 | disposition home or self-care (01) ==
LOC: OID 13:16
PROVIDERS: ATTENDING PHYSICIAN Internal Medicine
DX: D50.9 Iron deficiency anemia, unspecified (principal); Z79.01 Long term (current) use of anticoagulants
CPT/HCPCS: 96365; J1439

== ENCOUNTER → 2024-11-04 12:38 | Outpatient (REF) | payer MEDICARE, BC, SELFPAY | LOC: RCS 12:38 | PROVIDERS: ATTENDING PHYSICIAN Internal Medicine Critical Care Medicine; FAMILY PHYSICIAN Internal Medicine | DX: Z86.711 Personal history of pulmonary embolism (principal) | CPT/HCPCS: 93306 ==

== ENCOUNTER → 2025-02-26 08:36 | Outpatient (REF) | payer MEDICARE, BC, SELFPAY | LOC: RAD 08:36 | PROVIDERS: ATTENDING PHYSICIAN Internal Medicine Hematology & Oncology; FAMILY PHYSICIAN Internal Medicine | DX: C61 Malignant neoplasm of prostate (principal); M81.8 Other osteoporosis without current pathological fracture; I26.99 Other pulmonary embolism without acute cor pulmonale | CPT/HCPCS: 77080 ==

== ENCOUNTER 2025-02-28 07:50 | Emergency (ER) | payer MEDICARE, BC, SELFPAY ==
[2025-02-28 07:52] VITALS: BP 160/80
[2025-02-28 08:00] VITALS: BMI 22.0
--- NOTE | 2025-02-28 08:18 | ED.GENMED ---
History of Present Illness
<Eze Goldberg PA-C - Last Filed: 02/28/25 12:28>
General
Chief Complaint: Musculo-Skeletal Complaint
Source: patient, records and spouse
Time Seen by Provider: 02/28/25 08:06
History of Present Illness
History of Present Illness:
85-year-old male with past medical history of hypertension, hyperlipidemia, previous DVT/PE, congestive heart failure (triage stated patient was admitted at [facility] for an myocardial infarction 2 weeks ago however upon further
clarification this was a admission for congestive heart failure where patient reports that his ejection fraction went from 60 to 65% down to 30%) presenting to the emergency department this morning for evaluation after he awoke last night noticing
some mild edema to the right side of his neck with 'discomfort but not pain'. Patient states the symptoms continued upon fully awakening this morning so decided to come to the ER for further evaluation. He denies any fevers, chills, rigors,
URI-like symptoms, coughing, otalgia, difficulty swallowing or breathing. He does note that while admitted he had a nuclear stress test which showed mild coronary artery disease but no blockages or requiring of any stents. Patient unsure of any
carotid artery disease. He denies any trauma, no focal weakness or numbness. Patient states his only anticoagulant or antiplatelet medication currently is aspirin and was newly started on Entresto upon discharge from [place].
Past History
<Eze Goldberg PA-C - Last Filed: 02/28/25 12:28>
Past History
ED Past Medical History: CAD, Cancer (Prostate), CHF, HTN, Hypercholesterolemia and Other (DVT/PE)
ED Past Surgical History: Orthopedic and Other (Hernia repair)
Social History
Tobacco: Non-smoker
Alcohol: None
Drug: None
Personal:
Living: with family
Review of Systems
<Eze Goldberg PA-C - Last Filed: 02/28/25 12:28>
Review of Systems
All Other Systems: ROS reviewed and negative except as documented in HPI and ROS
Phy Exam
<Eze Goldberg PA-C - Last Filed: 02/28/25 12:28>
Physical Exam
Physical Exam:
GENERAL: Alert , in no apparent distress
EYE: conjunctiva clear
NECK: Supple, palpable soft tissue edema at the angle of the mandible with tenderness but no overlying erythema/skin changes
ENT: o/p clr, mmm.
CARDIAC: Regular rate and rhythm, systolic murmur at the left sternal border
LUNGS: Clear breath sounds bilaterally, no acute respiratory distress, no wheezes/rales/rhonchi
NEUROLOGICAL: Alert and oriented
SKIN: Warm and dry, skin intact.
MUSCULOSKELETAL: well perfused.
PSYCH: Normal and appropriate interaction.
Scores
<Eze Goldberg PA-C - Last Filed: 02/28/25 12:28>
Heart Failure Risk
Heart Failure Risk Score: Not Applicable
Heart Score for Chest Pain Patients
STEMI patient?: Not applicable
Withdrawal Assessment of Alcohol
Withdrawal Assessment Completed?: Not applicable
Course
<Eze Goldberg PA-C - Last Filed: 02/28/25 12:28>
Orders/Labs/Results
Orders:
Orders
02/28/25 08:31
Complete Blood Count/With Diff Urgent
Comprehensive Metabolic Panel Urgent
PTT Urgent
Prothrombin Time Urgent
02/28/25 09:12
CT Neck With Iv Contrast Urgent
Comment:
Reason For Exam: right sided neck/parotid edema
02/28/25 10:34
CR Foot - Left Min 3 Views Urgent
Comment:
Reason For Exam: pain, ecchymosis laterally
Abnormal Lab Results
02/28/25
08:31
RBC 4.59 L 10^6/uL
(4.70-6.10)
MCV 95.9 H fL
(80.0-94.0)
MCHC 31.4 L g/dL
(33.0-37.0)
RDW 17.1 H %
(11.5-14.5)
MPV 11.2 H fL
(7.4-10.4)
Absolute Neuts (auto) 7.1 H 10^3/uL
(1.4-6.5)
Neutrophils % 76.5 H %
(42.2-75.2)
Lymphocytes % 14.0 L %
(20.5-51.1)
BUN 39 H mg/dl
(9-20)
Glucose 131 H mg/dl
(70-99)
Total Protein 6.0 L g/dl
(6.3-8.2)
02/28/25 08:31
02/28/25 08:31
Vital Signs
Initial and Last Documented VS:
Initial Vital Signs
Temp Pulse Resp BP Pulse Ox
98.7 F 72 18 160/80 96
02/28/25 07:52 02/28/25 07:52 02/28/25 07:52 02/28/25 07:52 02/28/25 07:52
Last Documented Vital Signs
Temp Pulse Resp BP Pulse Ox
98.7 F 72 18 160/80 96
02/28/25 07:52 02/28/25 07:52 02/28/25 07:52 02/28/25 07:52 02/28/25 08:23
<Kofi Jones MD - Last Filed: 02/28/25 08:44>
Orders/Labs/Results
Orders:
Orders
02/28/25 08:31
Complete Blood Count/With Diff Urgent
Comprehensive Metabolic Panel Urgent
PTT Urgent
Prothrombin Time Urgent
02/28/25 09:12
CT Neck With Iv Contrast Urgent
Comment:
Reason For Exam: right sided neck/parotid edema
02/28/25 10:34
CR Foot - Left Min 3 Views Urgent
Comment:
Reason For Exam: pain, ecchymosis laterally
Abnormal Lab Results
02/28/25
08:31
RBC 4.59 L 10^6/uL
(4.70-6.10)
MCV 95.9 H fL
(80.0-94.0)
MCHC 31.4 L g/dL
(33.0-37.0)
RDW 17.1 H %
(11.5-14.5)
MPV 11.2 H fL
(7.4-10.4)
Absolute Neuts (auto) 7.1 H 10^3/uL
(1.4-6.5)
Neutrophils % 76.5 H %
(42.2-75.2)
Lymphocytes % 14.0 L %
(20.5-51.1)
BUN 39 H mg/dl
(9-20)
Glucose 131 H mg/dl
(70-99)
Total Protein 6.0 L g/dl
(6.3-8.2)
02/28/25 08:31
02/28/25 08:31
Vital Signs
Initial and Last Documented VS:
Initial Vital Signs
Temp Pulse Resp BP Pulse Ox
98.7 F 72 18 160/80 96
02/28/25 07:52 02/28/25 07:52 02/28/25 07:52 02/28/25 07:52 02/28/25 07:52
Last Documented Vital Signs
Temp Pulse Resp BP Pulse Ox
98.7 F 72 18 160/80 96
02/28/25 07:52 02/28/25 07:52 02/28/25 07:52 02/28/25 07:52 02/28/25 08:23
<Eze Goldberg PA-C - Last Filed: 02/28/25 12:28>
MDM/Problems Addressed
Differential Diagnosis Includes:
- Lymphadenopathy
- Parotid gland edema/parotid stone/sialolithiasis
- Less concern for cardotid pathology
- No concern for cardiac etiology
- Mumps
- Malignancy
MDM/Problems Addressed:
85-year-old male presenting to the emergency department after noticing some right-sided swelling along the neck/cheek area. Exam here seems to show the edema right around the angle of the mandible and just slightly proximal to this. Question
lymphadenopathy versus parotid etiology. I do not have concern for cardiac cause in light of patient's recent cardiac complications. Will obtain labs and CT neck with IV contrast to further evaluate. Patient otherwise hemodynamically stable,
maintaining his airway. No acute distress.
<Eze Goldberg PA-C - Last Filed: 02/28/25 12:28>
*Radiology
Radiology exam reviewed: radiology read reviewed
*Pulse Oximetry
SaO2: 96
Oxygen Mode of Delivery: Room air
Patient hypoxic: no
*Critical Care Note
Total Time (30-74mins, 75-104mins- exclusive of procedures): Not Applicable
Data Reviewed
Review of Other/Old Records Reveals: Labs, Records and Discharge Summary
Source: patient, records and spouse
<Eze Goldberg PA-C - Last Filed: 02/28/25 12:28>
Patient Management
Escalation/DeEscalation of care consider admission/obs:
CT scan shows stranding of the parotid gland likely signifying parotitis. Patient's labs reassuring. Suspect a viral or iatrogenic cause of the parotitis. Supportive care with Tylenol and ice as needed. patient did have a secondary concern of
accidentally stubbing his toe on a piece of furniture last night resulting in bruising and some pain to the lateral left foot. Will obtain x-ray of this prior to discharge. Patient otherwise remained stable.
X-ray did show a fracture of the proximal phalanx of the left little toe. Offered vahid tape however patient declines. He is able to ambulate without any difficulty. Stable for discharge home and outpatient follow-up.
ED Attending Note
<Eze Goldberg PA-C - Last Filed: 02/28/25 12:28>
-
Portions of this chart may have been created with voice recognition software.� Occasional wrong word or��sound alike� substitutions may have occurred due to the inherent limitations of voice recognition software.
<Kofi Jones MD - Last Filed: 02/28/25 08:44>
ED Attending Note
Patient seen and examined by attending physician: Yes
I performed the substantive portion of visit, reviewed & personally made and approve the management plan that is documented in note by myself or KEHINDE.: Yes
ED Attending Note:
85-year-old male recent admission to another hospital for CHF. Is doing well from that standpoint. Denies chest pain shortness of breath unusual weight gain or other complaints. Overnight noted some swelling and mild soreness to the right side of
his neck. No trouble swallowing or breathing no fever chills.
On exam patient is nontoxic in no distress. Stable vital signs. Good pulse ox. Warm and dry. Perfusing well. No puncture wounds to the neck. No puncture wounds to the groin. Mild swelling of the right neck at the angle of the jaw with minimal
tenderness. Most consistent with a parotiditis. No tenderness or swelling over the carotid. No bruit. No drooling or stridor. Lungs clear and equal. Heart regular rate and rhythm. Warm and dry.
Impression: Clinically this is a parotid Powell. Will get a CT scan to confirm any other issue. Check a BUN/creatinine first. Nothing consistent with acute cardiac issue. Workup in progress
Discharge Plan
Departure
Patient Disposition: Home (Routine Discharge)
Date of Disposition: 02/28/25
Time of Disposition: 11:09
Patient with high blood pressure during this ER visit?: Yes
Discharge Problem:
Acute parotitis, Fracture of left toe
Instructions: Parotitis
Prescriptions:
No Action
allopurinol 100 MG tablet
100 mg PO BID
atenolol 25 mg Tablet
25 mg PO DAILY
Prolia 60 mg/mL Syringe
60 mg SC [id number]
Lupron Depot (6 Month) 45 mg Syringe Kit
45 mg IM [id number]
cyanocobalamin (vitamin B-12) 1,000 mcg Tablet
1,000 mcg PO DAILY Qty: 0 0RF
atorvastatin 10 mg Tablet
20 mg PO HS
docusate sodium 100 mg Capsule
100 mg PO BID
cholecalciferol (vitamin D3) 50 mcg (2,000 unit) Tablet
50 mcg PO DAILY
polyethylene glycol 3350 [HealthyLax] 17 gram powder in packet
17 g PO DAILY
sertraline [Zoloft] 25 mg Tablet
25 mg PO DAILY
Citracal
1 unit PO TID
Xarelto 20 mg Tablet
20 mg PO QPM 30 Days Qty: 30 0RF
pantoprazole 40 mg Tablet,Delayed Release (Dr/Ec)
40 mg PO BID 30 Days Qty: 60 0RF
Referrals:
UNKNOWN - PT DOES,NOT KNOW [Family Provider]
Interventions
Interventions:
*Risk Screen - Suicide Last Done: 02/28/25 07:55
*General Assessment Last Done: 02/28/25 08:00
*Neglect/Abuse Screening Last Done: 02/28/25 07:55
*ED- Fall Risk Assessment Last Done: 02/28/25 08:00
*ED COVID-19 Vaccine History Last Done: 02/28/25 08:00
ED-Musculoskeletal Assessment Last Done: 02/28/25 08:00
Discharge Date and Time
Print Language: OCCITAN
[2025-02-28 08:38] LABS: % Basophils 0.5 % (0-2); % Eosinophils 1.9 % (0-6); % Immature Granulocytes 0.3 % (0-0.5); % Monocytes 6.8 % (1.7-9.3); % Neutrophils 76.5 % (42.2-75.2); Absolute Basophils 0.1 10^3/uL (0-0.2); Absolute Eosinophils 0.2 10^3/uL (0-0.7); Absolute Lymphocytes 1.3 10^3/uL (1.2-3.4); Absolute Monocytes 0.6 10^3/uL (0.1-0.6); Absolute Neutrophils 7.1 10^3/uL (1.4-6.5); Hemoglobin 13.8 g/dL (13.0-18.0); Mean Corp Hgb Conc. 31.4 g/dL (33.0-37.0); Mean Corpuscular Hgb 30.1 pg (27.0-31.0); Mean Corpuscular Volume 95.9 fL (80.0-94.0); Mean Platelet Volume 11.2 fL (7.4-10.4); Nucleated Red Blood Cells % 0 % (-); Platelet Count 176 10^3/uL (130-400); Red Blood Cell Count 4.59 10^6/uL (4.70-6.10); Red Cell Dist. Width 17.1 % (11.5-14.5); White Blood Cell Count 9.3 10^3/uL (4.8-10.8)
[2025-02-28 08:48] LABS: INR 0.95
[2025-02-28 08:49] LABS: APTT 31.3 Sec (23.4-35.0)
[2025-02-28 09:03] LABS: ALT (SGPT) 20 U/L (0-50); AST (SGOT) 22 U/L (17-59); Albumin 3.7 g/dl (3.5-5.0); Alkaline Phosphatase 65 U/L (38-126); Blood Urea Nitrogen 39 mg/dl (9-20); Calcium 9.1 mg/dl (8.4-10.2); Carbon Dioxide 29 mmol/L (22-30); Chloride 105 mmol/L (98-107); Estimated Creatinine Clearance 50 ml/min; Glucose 131 mg/dl (70-99); Potassium 4.3 mmol/L (3.5-5.1); Sodium 139 mmol/L (135-145); Total Bilirubin 0.5 mg/dl (0.2-1.3); eGFR > 60.00
[2025-02-28 11:15] VITALS: BP 134/68
== END 2025-02-28 11:15 | disposition home or self-care (01) ==
LOC: EMR 07:50
PROVIDERS: Physician Assistant Medical; EMERGENCY PHYSICIAN Emergency Medicine
DX: K11.20 Sialoadenitis, unspecified (principal); S92.912A Unspecified fracture of left toe(s), initial encounter for closed fracture; X58.XXXA Exposure to other specified factors, initial encounter; I25.10 Atherosclerotic heart disease of native coronary artery without angina pectoris; I11.0 Hypertensive heart disease with heart failure; I50.9 Heart failure, unspecified; I25.2 Old myocardial infarction; E78.00 Pure hypercholesterolemia, unspecified; Z86.711 Personal history of pulmonary embolism; Z86.718 Personal history of other venous thrombosis and embolism
CPT/HCPCS: 99284; 70491; 73630; 80053; 85025; 85610; 85730; Q9967